=== PATIENT | male | born 1970 | race African-American/Black ===

== ENCOUNTER 2016-06-15 09:24 | Observation (INO) | payer OTHER ==
[~2016-06-15] VITALS: Ht 180.3 cm; Wt 85.0 kg
[2016-06-15 09:34] VITALS: BP 125/76; PULSE 60; RESP 20; TEMP 98.2; O2SAT 94
[2016-06-15 10:08] LABS: AUTOMATED NEUTROPHIL # 3.2 TH/MM3 (1.8-7.7); BASOPHIL % 0.4 % (0.0-2.0); EOSINOPHIL # 0.1 TH/MM3 (0-0.4); EOSINOPHIL % 1.5 % (0.0-4.0); HEMATOCRIT 39.3 % (39.0-51.0); HEMO FLAGS DIFF FINAL; LYMPH % 20.8 % (9.0-44.0); MEAN CELL VOLUME 81.3 FL (80.0-100.0); MEAN CORPUSCULAR HEMOGLOBIN 27.1 PG (27.0-34.0); MEAN CORPUSCULAR HGB CONC 33.3 % (32.0-36.0); MONO % 7.4 % (0.0-8.0); NEUT % 69.9 % (16.0-70.0); PLATELET COUNT 130 TH/MM3 (150-450); RED BLOOD COUNT 4.84 MIL/MM3 (4.50-5.90); RED CELL DISTRIBUTION WIDTH 16.5 % (11.6-17.2); WHITE BLOOD COUNT 4.6 TH/MM3 (4.0-11.0)
--- NOTE | 2016-06-15 10:20 | RADRPT ---
EXAM DATE/TIME: 06/15/2016 09:44 [facility] COMPARISON: CHEST SINGLE AP, May 13, 2016, 12:29. INDICATIONS: Chest pains mid sternal radiating into left chest wall. MEDICAL HISTORY: Myocardial infarction. SURGICAL HISTORY: CABG. Pacemaker. ENCOUNTER: Initial ACUITY: 1 day PAIN SCORE: 9/10 LOCATION: Left chest FINDINGS: The heart is enlarged. Pacemaker leads are stable in appearance compared to the previous examination . Minimal central pulmonary vascular congestion is noted. CONCLUSION: 1. Minimal pulmonary vascular congestion. 2. Cardiomegaly. Willie Lyon MD on June 15, 2016 at 10:15 Board Certified Radiologist. This report was verified electronically.
[2016-06-15 10:28] LABS: ANION GAP 7 MEQ/L (5-15); BICARBONATE 22.5 MEQ/L (21.0-32.0); BLOOD UREA NITROGEN 19 MG/DL (7-18); CHLORIDE 119 MEQ/L (98-107); CREATINE KINASE 175 U/L (39-308); GLOMERULAR FILTRATION RATE 172 ML/MIN (>89); SODIUM (NA) 148 MEQ/L (136-145)
[2016-06-15] MEDS ORDERED: SODIUM CHLOR 0.9% 1000 ML INJ 1,000 ML IV ONE (10:31)
[2016-06-15 10:36] VITALS: RESP 18; O2SAT 99
[2016-06-15] MEDS ORDERED: SODIUM CHLORIDE 0.9% FLUSH 5 ML FLUSH IVF PRN (10:45)
[2016-06-15 10:53] LABS: CKMB 2.1 NG/ML (0.5-3.6)
[2016-06-15 10:56] LABS: CALCIUM-PROTEIN CORRECTED 7.3 MG/DL (8.5-10.1); POTASSIUM 2.6 MEQ/L (3.5-5.1)
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
--- NOTE | 2016-06-15 11:21 | RADRPT ---
EXAM DATE/TIME: 06/15/2016 11:09 [facility] COMPARISON: CT BRAIN W/O CONTRAST, September 27, 2015, 19:41. INDICATIONS : Dizziness. RADIATION DOSE: 51.47 CTDIvol (mGy) MEDICAL HISTORY : Hypertension. SURGICAL HISTORY : CABG ENCOUNTER: Initial ACUITY: 1 day PAIN SCALE: 0/10 LOCATION: cranial TECHNIQUE: Multiple contiguous axial images were obtained of the head. Using automated exposure control and adj ustment of the mA and/or kV according to patient size, radiation dose was kept as low as reasonably a chievable to obtain optimal diagnostic quality images. FINDINGS: CEREBRUM: The ventricles are normal for age. No evidence of midline shift, mass lesion, hemorrhage or acute in farction. No extra-axial fluid collections are seen. POSTERIOR FOSSA: The cerebellum and brainstem are intact. The 4th ventricle is midline. The cerebellopontine angle i s unremarkable. EXTRACRANIAL: Old right lamina papyracea fracture is noted. Mucous retention cyst is noted within the left sphenoid sinus. SKULL: The calvaria is intact. No evidence of skull fracture. CONCLUSION: 1. No acute intracranial abnormality. 2. Old right lamina papyracea fracture. 3. Mucous retention cyst within the left sphenoid sinus. Willie Lyon MD on June 15, 2016 at 11:17 Board Certified Radiologist. This report was verified electronically.
[2016-06-15 11:52] LABS: BLOOD, URINE TRACE (NEG); GLUCOSE,URINE NEG (NEG); KETONE, URINE NEG (NEG); NITRITE,URINE NEG (NEG); URINE COLOR YELLOW (YELLW/STRAW)
[2016-06-15] MEDS ORDERED: POTASSIUM CL 40 MEQ/30 ML LIQ UDC PO ONE (12:00)
[2016-06-15 12:02] LABS: COMMENT (UR) CULT NOT INDICATED; CULTURE IF INDICATED CULT NOT INDICATED
[2016-06-15 12:04] LABS: APTT (PATIENT) 29.6 SEC (24.3-30.1); PROTHROMBIN TIME - PATIENT 11.1 SEC (9.8-11.6)
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
[2016-06-15] MEDS: SODIUM CHLORIDE 0.9% FLUSH 5 ML FLUSH FLUSH SCH ×2 (13:15→21:00)
[2016-06-15] MEDS ORDERED: ONDANSETRON HCL 4 MG/2 ML VIAL IV PRN (13:15)
[2016-06-15] MEDS ORDERED: ACETAMINOPHEN 325 MG TAB PO PRN ×2 (13:15→14:45)
[2016-06-15] MEDS ORDERED: POTASSIUM CHLORIDE 10 MEQ CONTROLLED RELEASE TAB PO ONE (13:15)
[2016-06-15] MEDS ORDERED: DOCUSATE SODIUM 50 MG/SENNA 8.6 MG TAB PO PRN (13:15)
[2016-06-15] MEDS ORDERED: NALOXONE HCL 0.4 MG/ML AMP IV PRN (13:15)
[2016-06-15] MEDS ORDERED: SODIUM CHLORIDE 0.9% FLUSH 5 ML FLUSH FLUSH PRN (13:15)
[2016-06-15] MEDS: MULTIVITAMIN TAB PO SCH (14:16)
[2016-06-15] MEDS: FOLIC ACID 1 MG TAB PO SCH (14:17)
[2016-06-15] MEDS: THIAMINE HCL 100 MG TAB PO SCH (14:17)
[2016-06-15 14:18] VITALS: BP 131/75; PULSE 60; RESP 18; O2SAT 99
[2016-06-15] MEDS ORDERED: ACETAMINOPHEN/HYDROcodone 325 MG/5 MG TAB PO PRN (14:45)
[2016-06-15] MEDS ORDERED: ACETAMINOPHEN/HYDROcodone 325 MG/7.5 MG TAB PO PRN (14:45)
[2016-06-15] MEDS: ENOXAPARIN SODIUM 40 MG/0.4 ML SYRINGE SQ SCH (15:00)
[2016-06-15] MEDS ORDERED: CALCIUM GLUCONATE 10% 1 GM/10 ML VIAL IV PUSH ONE (15:00)
[2016-06-15] MEDS ORDERED: GLUCAGON 1 MG/ML VIAL OTHER PRN (15:15)
[2016-06-15] MEDS ORDERED: DEXTROSE 50% IN WATER 50 ML VIAL(D50) IV PUSH PRN (15:15)
[2016-06-15 15:57] VITALS: BP 132/68; PULSE 70; RESP 18; TEMP 97.7; O2SAT 98
[2016-06-15 16:11] LABS: AMPHETAMINE, URINE NEG (NEG); BARBITURATES, URINE NEG (NEG); COCAINE, URINE NEG (NEG)
[2016-06-15] MEDS ORDERED: CALCIUM GLUCONATE INJ 1 GM in SODIUM CHLORIDE 0.9% INJ 100 ML IV ONE (18:00)
[2016-06-15] MEDS: INSULIN ASPART SUPPLEMENTAL SCALE SQ SCH ×2 (18:00→21:00)
[2016-06-15] MEDS: SODIUM CHLOR 0.9% 1000 ML INJ 1,000 ML IV SCH ×2 (18:21→23:00)
--- NOTE | 2016-06-15 18:36 | RADRPT ---
EXAM DATE/TIME: 06/15/2016 17:41 [facility] COMPARISON: No previous studies available for comparison. INDICATIONS : Syncope. MEDICAL HISTORY : Hypertension. Chronic obstructive pulmonary disease. Syncope. Anticoagulant t herapy. Irregular heartbeat. Inguinal hernia. Diabetes. SURGICAL HISTORY : Defibrillator. Pacemaker. CABG. Cardiac catheterization. Exploratory abdominal surgery. ENCOUNTER: Initial ACUITY: 1 day PAIN SCORE: 0/10 LOCATION: Bilateral neck PEAK SYSTOLIC VELOCITIES (cm/sec): ICA/CCA RATIO: Right: 0.9 Left: 1.0 ICA: Right: 85 Left: 87 CCA: Right: 94 Left: 97 ECA: Right: 140 Left: 128 VERTEBRAL: Right: 50 antegrade Left: 25 antegrade Elevated flow velocities and ICA/CCA ratios have been found to correlate with increased degrees of vessel stenosis, calculated as percentage of diameter relative to a normal segment of distal ICA/CCA FINDINGS: RIGHT CAROTID: There is no evidence for a hemodynamically significant carotid stenosis. Minimal int imal hyperplasia is present with scattered calcific plaque. LEFT CAROTID: There is no evidence for a hemodynamically significant carotid stenosis. Minimal inti mal hyperplasia is present with scattered calcific plaque. VERTEBRAL ARTERIES: Flow is antegrade in both vertebral arteries. MISCELLANEOUS: There are no ancillary masses or adenopathy. CONCLUSION: Negative examination for a hemodynamically significant carotid stenosis. Bill Marcus MD FACR Board Certified Radiologist. This report was verified electronically.
[2016-06-15 19:26] VITALS: BP 130/60; PULSE 97; RESP 18; TEMP 98.2; O2SAT 97
[2016-06-15 20:00] VITALS: PULSE 84; O2SAT 97
--- NOTE | 2016-06-15 20:43 | HHI.FPPN ---
Subjective Remarks Attending note pleasant 45-year-old gentleman admitted after 2 episodes on this date of falling and near loss of consciousness. Patient states that this morning he was walking on [employer] and was aware of falling to the road. States he came close to losing consciousness but was aware. On his own power he got up, went to a friend's store and then had an apnea episode. 911 was called, patient was brought to the emergency room. Patient is unable to recall specific exact details of his cardiac situation. 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 Man whom he says implanted a pacemaker and defibrillator. Patient also carries a diagnosis of having transposition of the great vessels and having had open heart surgery at age 12. The most recent imaging of his heart was in August 2015 with a 2-D echocardiogram and at that time his ejection fraction was 40-45%, there is no mention on that report of any anomalous blood vessels. Patient expressed any chest pain, nausea or vomiting, does not recall diaphoresis. Is currently resting comfortably. Objective Vitals Vital Signs Date Time Temp Pulse Resp B/P Pulse Ox O2 Delivery O2 Flow Rate FiO2 06/15/16 19:26 98.2 97 18 130/60 97 06/15/16 15:57 97.7 70 18 132/68 98 06/15/16 14:18 60 18 131/75 99 Room Air 06/15/16 10:36 18 99 Room Air 06/15/16 10:30 65 18 98 Room Air 06/15/16 09:34 98.2 60 20 125/76 94 Room Air Result Diagram: 06/15/16 0950 06/15/16 0950 Objective Remarks Vital signs noted. Blood pressure 130/60. EKG reveals a paced rhythm. Afebrile. Gen. appearance: Middle-aged gentleman who makes good eye contact, does appear to have some difficulty relating an exact history. HEENT: Nonlocalizing. Lungs: Diminished breath sounds bilaterally. Cardiac: 2/6 holosystolic murmur at the left sternal border radiating to the apex. There is a palpable instrument subcutaneously below the left axilla. Abdomen: Slightly protuberant, no tenderness, no masses evident. Extremities no significant edema, intact pedal pulses, feet are warm and dry. A/P Assessment and Plan Clinical assessment: 45-year-old gentleman admitted to observation after 2 episodes of near syncope. Very extensive and complex past medical history of cardiac disease currently with a defibrillator and pacemaker. Patient is resting comfortably. Records indicate history of diabetes, currently the patient has hypokalemia and a relative barak vo as well as hypocalcemia. 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 Patient was seen and examined. Case will be reviewed and discussed with the resident team. Agree with plan of as to be discussed with me and documented in the resident note. Problem List: (1) Syncope and collapse Status: Acute Plan: Presented due to history of syncope without reported precipitating symptoms. HX is complicated by a extensive cardiac history but patient is unaware of his conditions and is a very poor historian. Etiology is very unclear at this stage due to lack of history and ability to describe symptoms. However patient does have significant hypokalemia on admission. -EKG: atrial paced with T wave inversions. Troponin unremarkable * ACS evaluation -No signs of infection, UDS negative -BNP slightly elevated but otherwise unremarkable -Echo, orthostatic vital signs, TSH ordered -Carotid ultrasound negative -Cardiac telemetry Imaging: * Head CT: Negative * CXR: minimal pulmonary vascular congestion Medications: * KCl PRN per follow-up evaluations (2) DM (diabetes mellitus) Status: Chronic Plan: Denies a history of diabetes but chart review shows a history of diabetes. Random glucose did show an appropriate glucose. -bedside glucose with sliding scale ordered (3) CAD (coronary artery disease) Status: Acute Plan: Extensive cardiac history also requiring catheterization. However patient is very unclear of his cardiac history. Reports he is on no medications -Will empirically treat with statin -Unable to give aspirin due to allergy, may need to consider Plavix -Lipid panel ordered -Interrogation of AICD was negative See further management under syncope (4) History of psychiatric symptoms Status: Acute Plan: Upon review of ED physician's note, family reports patient may have a psychiatric history. Patient denies this but is not fully oriented to time. However he is able to have a good conversation. -Consult psychiatry for evaluation as he may need further treatment (5) Hypokalemia Status: Acute Plan: See plan under syncope (6) Nutrition, metabolism, and development symptoms Status: Acute Plan: Diet: Heart healthy Electrolytes: She hypokalemic plan above, calcium corrected with calcium gluconate 1. Continue to closely monitor Fluids: None GI prophylaxis: Not indicated DVT prophylaxis: Lovenox and SCDs Problem Qualifiers (1) DM (diabetes mellitus): Antonio Sun MD Jun 15, 2016 20:43
--- NOTE | 2016-06-15 20:45 | EKG ---
Date Performed: 06/15/2016 Time Performed: 09:43:41 PTAGE: 45 years EKG: ATRIAL PACING INCOMPLETE RBBB RIGHT AXIS DEVIATION SUSPECTED RIGHT VENTRICULAR HYPERTROPHY NO SIGNIFICANT CHANGE FROM PRIOR TRACING. ABNORMAL ECG PREVIOUS TRACING : 06/01/2016 19.14 DOCTOR: Ranjeet Gaspar Interpretating Date/Time 06/15/2016 20:44:04
[2016-06-15 21:06] LABS: POTASSIUM 4.1 MEQ/L (3.5-5.1)
[2016-06-16] VITALS (8 sets, daily range): BP systolic 110–161; BP diastolic 55–78; PULSE 60–84; RESP 17–20; TEMP 97.3–98.2; O2SAT 93–97
[2016-06-16 03:17] LABS: AUTOMATED NEUTROPHIL # 2.9 TH/MM3 (1.8-7.7); BASOPHIL % 0.3 % (0.0-2.0); EOSINOPHIL # 0.1 TH/MM3 (0-0.4); EOSINOPHIL % 1.2 % (0.0-4.0); HEMATOCRIT 38.4 % (39.0-51.0); HEMO FLAGS DIFF FINAL; LYMPH % 24.8 % (9.0-44.0); LYMPHOCYTE # 1.1 TH/MM3 (1.0-4.8); MEAN CELL VOLUME 80.8 FL (80.0-100.0); MEAN CORPUSCULAR HEMOGLOBIN 27.4 PG (27.0-34.0); MEAN CORPUSCULAR HGB CONC 33.9 % (32.0-36.0); MONO % 8.6 % (0.0-8.0); NEUT % 65.1 % (16.0-70.0); PLATELET COUNT 127 TH/MM3 (150-450); RED BLOOD COUNT 4.75 MIL/MM3 (4.50-5.90); RED CELL DISTRIBUTION WIDTH 16.7 % (11.6-17.2); WHITE BLOOD COUNT 4.5 TH/MM3 (4.0-11.0)
[2016-06-16 03:38] LABS: ALT (GPT) 39 U/L (12-78); ANION GAP 6 MEQ/L (5-15); AST (GOT) 27 U/L (15-37); BICARBONATE 26.6 MEQ/L (21.0-32.0); BLOOD UREA NITROGEN 18 MG/DL (7-18); CHLORIDE 108 MEQ/L (98-107); GLOMERULAR FILTRATION RATE 101 ML/MIN (>89); POTASSIUM 4.1 MEQ/L (3.5-5.1); SODIUM (NA) 141 MEQ/L (136-145)
[2016-06-16 03:41] LABS: ALKALINE PHOSPHATASE 112 U/L (45-117); HDL CHOLESTEROL 61.5 MG/DL (40.0-60.0); LDL CHOLESTEROL 118 MG/DL (0-99); TOTAL BILIRUBIN ADULT 0.6 MG/DL (0.2-1.0)
[2016-06-16] MEDS: SODIUM CHLOR 0.9% 1000 ML INJ 1,000 ML IV SCH (05:16)
[2016-06-16] MEDS: INSULIN ASPART SUPPLEMENTAL SCALE SQ SCH ×4 (05:17→21:00)
--- NOTE | 2016-06-16 09:32 | EC ---
Study Study Date:06/15/2016 STUDY CONCLUSIONS SUMMARY - Left ventricle: The cavity size was normal. Wall thickness was normal. Systolic function was moderately to severely reduced. The estimated ejection fraction was in the range of 30% to 35%. Wall motion was normal; there were no regional wall motion abnormalities. - Aortic valve: Valve area: 2.42cm^2 (Vmax). - Tricuspid valve: Moderate regurgitation. - Pulmonary arteries: PA peak pressure: 94mm Hg (S). Impressions: The right ventricular systolic pressure was increased consistent with severe pulmonary hypertension. If LV function is below 40, please consider prescribing an ACEI or ARB or document rationale for non-use. PROCEDURE DATA STUDY STATUS: Elective. Procedure: Transthoracic echocardiography. Image quality was poor. Scanning was performed from the parasternal, apical, and subcostal acoustic windows. Study completion: The patient tolerated the procedure well. Transthoracic echocardiography. M-mode, complete 2D, complete spectral Doppler, and color Doppler. Height: Height: 71in. Weight: Weight: 186.6lb. Body mass index: BMI: 26.1kg/m^2. Body surface area: BSA: 2.05m^2. Patient status: Inpatient. CARDIAC ANATOMY LEFT VENTRICLE: The cavity size was normal. Wall thickness was normal. Systolic function was moderately to severely reduced. The estimated ejection fraction was in the range of 30% to 35%. Wall motion was normal; there were no regional wall motion abnormalities. AORTIC VALVE: Trileaflet; normal thickness leaflets. Doppler: Transvalvular velocity was within the normal range. There was no stenosis. No regurgitation. Valve area: 2.42cm^2 (Vmax). Indexed valve area: 1.18cm^2/m^2 (Vmax). AORTA: Aortic root: The aortic root was normal in size. MITRAL VALVE: Structurally normal valve. Doppler: Transvalvular velocity was within the normal range. There was no evidence for stenosis. No regurgitation. LEFT ATRIUM: The atrium was normal in size. RIGHT VENTRICLE: The cavity size was normal. Wall thickness was normal. Pacer wire or catheter noted in right ventricle. PULMONIC VALVE: Doppler: Transvalvular velocity was within the normal range. There was no evidence for stenosis. No regurgitation. TRICUSPID VALVE: Structurally normal valve. Doppler: Transvalvular velocity was within the normal range. Moderate regurgitation. PULMONARY ARTERY: The main pulmonary artery was normal-sized. Systolic pressure was within the normal range. RIGHT ATRIUM: The atrium was normal in size. PERICARDIUM: There was no pericardial effusion. SYSTEMIC VEINS: Inferior vena cava: The vessel was normal in size. Patient weight: 186.6lb _Ejection fraction:_ 65-75% _Fractional shortening:_ 32% up to 5Kg 5-11.5Kg 11.6-22.9Kg 23-45Kg 45-57Kg Aortic Root 7-13 <17 13-22 17-27 17-27 LA diam 6-13 <23 24-38 33-47 37-40 RVID 10-17 7-15 7-15 7-18 8-17 LVIDd 12-22 <32 24-38 33-47 37-40 LVPW 2-4 3-6 5-7 6-8 7-8 IVS 2-4 3-6 5-7 6-8 7-8 BASIC MEASUREMENTS ADULT NORMAL Left ventricle LV internal dimension, ED, chordal *34.3 mm 43-52 level, PLAX LV internal dimension, ES, chordal 30 mm 23-38 level, PLAX Fractional shortening, chordal level, *13 % >29 PLAX LV posterior wall thickness, ED 7.34 mm IVS/LVPW ratio, ED *1.43 <1.3 Ventricular septum Septal thickness, ED 10.5 mm Aortic valve Leaflet separation *13 mm 15-26 BASIC MEASUREMENTS ADULT NORMAL Aortic valve Leaflet separation *13 mm 15-26 Aorta Root diameter, ED *19 mm 20-37 Left atrium Anterior-posterior dimension, ES 31 mm 19-40 Anterior-posterior dimension index, ES 1.51 cm/m^2 <2.2 LA/aortic root ratio 1.63 DOPPLER MEASUREMENTS ADULT NORMAL Main pulmonary artery Pressure, S *94 mm Hg =30 Aortic valve Peak velocity, S 131 cm/s Valve area, Vmax 2.42 cm^2 Valve area index, Vmax 1.18 cm^2/m^2 Tricuspid valve Regurgitant peak velocity 425 cm/s Peak RV-RA gradient, S 72 mm Hg Maximal regurgitant velocity 425 cm/s Systemic veins Estimated CVP 10 mm Hg Right ventricle RV pressure, S *94 mm Hg <30 LEGEND: Mean values are shown as u=mean value. Asterisk (*) alexis values outside specified normal range. Prepared and signed by Mario Jacob [id number]
[2016-06-16] MEDS: SODIUM CHLORIDE 0.9% FLUSH 5 ML FLUSH FLUSH SCH ×2 (09:54→21:27)
[2016-06-16] MEDS: MULTIVITAMIN TAB PO SCH (10:00)
[2016-06-16] MEDS: THIAMINE HCL 100 MG TAB PO SCH (10:00)
[2016-06-16] MEDS: ATORVASTATIN 40 MG TAB PO SCH (10:00)
[2016-06-16] MEDS: FOLIC ACID 1 MG TAB PO SCH (10:00)
[2016-06-16 10:46] LABS: HEMOGLOBIN A1a 0.9 %; HEMOGLOBIN A1b 1.3 %; HEMOGLOBIN Ao 55.2 %; HEMOGLOBIN LA1C 1.4 %; HEMOGLOBIN P3 2.7 %
--- NOTE | 2016-06-16 13:51 | HHI.FPPN ---
Subjective Remarks Vital signs unremarkable. Review of telemetry showed 4 beats of Vtach. Patient is quiet this morning but otherwise is asymptomatic. States that he does feel better today than he did yesterday but is again unable to clarify what improvement it was. Of note nurse does report that patient may have a history of anoxic brain injury after an incident in [facility]. Objective Vitals Vital Signs Date Time Temp Pulse Resp B/P Pulse Ox O2 Delivery O2 Flow Rate FiO2 06/16/16 11:34 97.4 60 17 122/56 93 06/16/16 07:38 97.3 60 17 110/65 93 06/16/16 04:50 97.8 84 18 132/78 95 06/16/16 00:59 98.2 84 18 125/58 97 06/15/16 20:00 84 06/15/16 20:00 97 06/15/16 19:26 98.2 97 18 130/60 97 06/15/16 15:57 97.7 70 18 132/68 98 06/15/16 14:18 60 18 131/75 99 Room Air Result Diagram: 06/16/16 0255 06/16/16 0255 Objective Remarks GEN: Well-developed, well-nourished patient. No acute distress. CV: Regular rate and rhythm without gallops, or rubs. 2/6 holosystolic murmur at the left sternal border LUNGS: Clear to auscultation bilaterally. Normal respiratory effort. No wheezes , rales, rhonchi. EXT: No edema. No calf tenderness. NEURO/PSYCH: Awake, alert. Appropriate insight and judgment. Normal speech A/P Assessment and Plan 45yo male with PMH significant for CAD, CHF, DM. Admitted for history of syncope Discharge Planning 2-3 days pending cardiology recommendations sdw dr. Sun and Dr. Nelson Problem List: (1) Syncope and collapse Status: Acute Plan: Presented due to history of syncope without reported precipitating symptoms. HX is complicated by a extensive cardiac history but patient is unaware of his conditions and is a very poor historian. (May be due to a possible history of anoxic brain injury vs mental illness). Found to have 4 beats of V. tach on the night of admission. -Found to have electrolyte abnormalities that was corrected with 40 mEQ potassium -EKG: atrial paced with T wave inversions. Troponin unremarkable * ACS negative * Upon second review of EKG, it appears that atrial pacing is occurring at regular intervals but within different cardiac cycles including QRS and T-wave Cardiology consulted: Appreciate recommendations * Patient reports having Dr. Man placing AICD -Orthostatics ordered but not yet obtained -Cardiac telemetry Imaging: * Echo: EF 30-34%, moderate tricuspid regurgitation. Right ventricular systolic pressure was increased consistent with severe pulmonary hypertension * Carotid ultrasound: Negative * Head CT: Negative * CXR: minimal pulmonary vascular congestion (2) CAD (coronary artery disease) Status: Acute Plan: Extensive cardiac history also requiring catheterization. However patient is very unclear of his cardiac history. Reports he is on no medications -Empirically treat with statin -Unable to give aspirin due to allergy, may need to consider Plavix and lisinopril -Lipid unremarkable -Interrogation of AICD was negative SEE FURTHER MANAGEMENT UNDER SYNCOPE (3) DM (diabetes mellitus) Status: Chronic Plan: Denies a history of diabetes but chart review shows a history of diabetes. Random glucose did show an appropriate glucose. -bedside glucose with sliding scale ordered (4) History of psychiatric symptoms Status: Acute Plan: Upon review of ED physician's note, family reports patient may have a psychiatric history. Patient denies this but is not fully oriented to time. However he is able to have a good conversation. -Psychiatry consulted: Appreciate recommendations * No psychotropics recommended * May benefit from neuropsychological testing * No immediate intervention needed at this time (5) Nutrition, metabolism, and development symptoms Status: Acute Plan: Diet: Heart healthy Electrolytes: Potassium and calcium have responded appropriately, continue to monitor Fluids: None GI prophylaxis: Not indicated DVT prophylaxis: Lovenox and SCDs Problem Qualifiers (1) DM (diabetes mellitus): Shirley Navarro MD R2 Jun 16, 2016 13:50 (1) DM (diabetes mellitus): Shirley Navarro MD R2 Jun 16, 2016 13:50 Shirley Navarro MD R2 Jun 16, 2016 13:50
[2016-06-16] MEDS: ENOXAPARIN SODIUM 40 MG/0.4 ML SYRINGE SQ SCH (14:18)
--- NOTE | 2016-06-16 14:47 | PD.CONS ---
Provisional Diagnosis Admission Date Jun 15, 2016 at 12:12 [place] I. Adjustment disorder with disturbance of conduct [place] II. Rule out mild to moderate intellectual disability History of Present Illness Service Psychiatry Consult Requested By Primary Care Physician Non-Staff HPI The patient is a 45 y/o man, domiciled alone, unemployed, on SSI, with reported psychiatric history, as per best friend, of being "mentally challenged", no previous psychiatric hospitalizations, no previous suicidal attempts, never officially diagnosed with borderline intellectual dysfunction, with medical history significant for AICD placement and CAD. He other gonzalez denies any other problems. Patient presented today due to history of 2 falls. [place] fall in [id number] that was completely out of the blue. This was then followed by a repeat fall that was witnessed by his friend but patient does not remember what his friend said happened nor the length of LOC. Patient has been presenting can of erratic sometimes aggressive behavior in the ER, a psychiatric consult was placed to rule out possible psychiatric causes. On psychiatric evaluation today the patient was calm and cooperative, a little bit discontent and oppositional at the beginning, but redirectable. He says that he hasn't been very happy here, because he doesn't like to be sick, and he doesn 't like to be asked many questions many times. Patient states that he is feeling much better now, he denies any depressive symptoms, denies anhedonia, denies hopelessness, denies helplessness, he denies suicidal or homicidal ideation. He denies visual and auditory hallucinations. No paranoia, delusions , psychosis could be elicited. Patient is fully oriented 3. However, concrete thought is evident, as well as childish and irritable behavior. Collateral information from his best friend, Shaye Bates, was obtained, she says that she is his best friend for 14 years, she says that she has a power of claim attorney given by the the patient, and they are very close. She said that the patient doesn't have a formal psychiatric history, but since she was a child he has a learning problem, he never could learn how to write or read appropriately , and he did not finish school. In the same way, as an adult, his functional for many things, but he needs help in difficult tasks, as managing his financial situation, and clarification with medications and medical illnesses. However, she does not have any safety concern at this moment with the patient. Review of Systems Constitutional: DENIES: Diaphoretic episodes, Fatigue, Fever, Weight gain, Weight loss, Chills, Dizziness, Change in appetite, Night Sweats Eyes: DENIES: Blurred vision, Diplopia, Eye inflammation, Eye pain, Vision loss , Photosensitivity, Double Vision Ears, nose, mouth, throat: DENIES: Tinnitus, Hearing loss, Vertigo, Nasal discharge, Oral lesions, Throat pain, Hoarseness, Ear Pain, Running Nose, Epistaxis, Sinus Pain, Toothache, Odynophagia Respiratory: DENIES: Apneas, Cough, Snoring, Wheezing, Hemoptysis, Sputum production, Shortness of breath Cardiovascular: DENIES: Chest pain, Palpitations, Syncope, Dyspnea on Exertion , PND, Lower Extremity Edema, Orthopnea, Claudication Gastrointestinal: DENIES: Abdominal pain, Black stools, Bloody stools, Constipation, Diarrhea, Nausea, Vomiting, Difficulty Swallowing, Anorexia Genitourinary: DENIES: Sexual dysfunction, Urinary frequency, Urinary incontinence, Urgency, Hematuria, Dysuria, Nocturia, Penile Discharge, Testicular Pain, Testicular Swelling Musculoskeletal: DENIES: Joint pain, Muscle aches, Stiffness, Joint Swelling, Back pain, Neck pain Integumentary: DENIES: Abnormal pigmentation, Nail changes, Pruritus, Rash Hematologic/lymphatic: DENIES: Bruising, Lymphadenopathy Immunologic/allergic: DENIES: Eczema, Urticaria Neurologic: DENIES: Abnormal gait, Headache, Localized weakness, Paresthesias, Seizures, Speech Problems, Tremor, Poor Balance Past Family Social History Coded Allergies: Aspirin (Verified Allergy, Severe, DIZZINESS, FACIAL SWELLING, 06/01/16) No Active Prescriptions or Reported Meds Current Medications Medications (Trade) Dose Ordered Sig/Karina Route Start Time Stop Time Status Last Admin (Tylenol) 650 mg Q4H PRN PO 06/15/16 13:15 (Zofran Inj) 4 mg Q6H PRN IV 06/15/16 13:15 (Petra-Colace) 1 tab BID PRN PO 06/15/16 13:15 (NS Flush) 2 ml UNSCH PRN FLUSH 06/15/16 13:15 (NS Flush) 2 ml BID FLUSH 06/15/16 13:15 06/15/16 13:15 (Narcan Inj) 0.4 mg UNSCH PRN IV 06/15/16 13:15 (Theragran) 1 tab DAILY PO 06/15/16 13:15 06/16/16 10:00 (Vitamin B1) 100 mg DAILY PO 06/15/16 13:15 06/16/16 10:00 (Folate) 1 mg DAILY PO 06/15/16 13:15 06/16/16 10:00 (Lovenox Inj) 40 mg Q24H SQ 06/15/16 15:00 (Tylenol) 650 mg Q6H PRN PO 06/15/16 14:45 ([place] 5-325 Mg) 1 tab Q4H PRN PO 06/15/16 14:45 ([place] 7.5-325 Mg) 1 tab Q4H PRN PO 06/15/16 14:45 Atorvastatin Calcium 40 mg 40 mg DAILY PO 06/16/16 09:00 06/16/16 10:00 (NS 1000 ml Inj) 1,000 ml @ 125 mls/hr Q8H IV 06/15/16 15:00 Hold 06/16/16 05:16 (D50w (Vial) Inj) 25 ml UNSCH PRN IV PUSH 06/15/16 15:15 (Glucagon Inj) 1 mg UNSCH PRN OTHER 06/15/16 15:15 Social History Patient was born and raised in [place], he has been living in 2010 , he is , but doesn't live with his , unemployed, on SSI, he did not finish school Physical Exam Vital Signs Vital Signs Date Time Temp Pulse Resp B/P Pulse Ox O2 Delivery O2 Flow Rate FiO2 06/16/16 11:34 97.4 60 17 122/56 93 06/15/16 14:18 Room Air Mental Status Examination Appearance man, age-appropriate, good hygiene, cooperative, irritable and childish Speech: Unremarkable Orientation: x3 Memory: Impaired (describe) Thought Process: Logical, Other (concrete) Thought Content: Unremarkable Hallucination Type: None Suicidal Ideation: No Previous Suicide Attempts: No Homicidal Ideation: No Previous Homicide Attempts: No Insight: Fair Judgement: WNL Affect: Irritable Mood: Oppositional Motor Activity: Normal gait Assessment & Plan Problem List: (1) Adjustment disorder with disturbance of conduct Assessment & Plan: On psychiatric evaluation today the patient denies depressive symptoms, denies anxiety, denies psychosis, denies livier. He denies suicidal or homicidal ideation. He denies visual and auditory hallucinations. Recent episodes of aggressive and erratic behavior could be secondary to the stress of being in the hospital and underlying medical problem and no to a primary psychiatric condition. For some elements of thought process observed during psychiatric evaluation, and also some information from collateral sources , is highly probable the patient might have an undiagnosed mild to moderate intellectual dysfunction, however more longitudinal observation and his specific neurocognitive testing needs to be done in order to confirm this diagnosis. This patient does not need any immediate psychiatric intervention at this moment, he does not meet criteria for psychiatric admission. Psychoeducation, motivation and support were provided. No psychotropics recommended. The patient and best friend were oriented about the benefits of neuropsychological testing, best friend is stays that they have been in the process in the past, but they will call back to recommended with psychology. Consult appreciated. ICD Code: F43.24 Assessment & Plan Estimated LOS: Vic Meier MD Jun 16, 2016 14:47
--- NOTE | 2016-06-16 17:52 | MB ---
cc: PARISH PABLO M.D. DATE OF CONSULTATION: 06/16/2016 REASON FOR THE CONSULTATION Syncope, nonsustained ventricular tachycardia. HISTORY OF PRESENT ILLNESS The patient is an exceedingly poor historian. He is a 45-year-old -[place] male with a history of congenital transposition of the great vessels, severe nonischemic cardiomyopathy, subcutaneous ICD implant, right upper extremity deep venous thrombosis, diabetes, paroxysmal atrial flutter who was brought to the hospital after an apparent syncopal episode. The patient cannot recall the surrounding events before or after his loss of consciousness. He cannot recall if his defibrillator shocked him. He denies any recent chest pain, shortness of breath, palpitations, other episodes of syncope, paroxysmal nocturnal dyspnea, pedal edema, fevers. He thinks he follows up periodically with Dr. Reilly Roth for checks of his defibrillator device. Monitoring here in the hospital reportedly showed an episode of wide complex tachycardia, four beats in duration. PAST MEDICAL HISTORY 1. Congenital transposition of the great vessels. It is unclear whether he had surgical intervention as a child. 2. History of a pacemaker implant approximately 2009, at some point he developed infection of a left-sided system and it was placed on the right. 3. Paroxysmal atrial flutter. 4. Diabetes (diet controlled, borderline). 5. Large right upper extremity deep venous thrombosis July 2015. 6. Severe nonischemic cardiomyopathy with ejection fraction of less than 10% by cardiac catheterization June,. He subsequently underwent implant of a [employer] subcutaneous AICD by Dr. Glen Hannah July,. Due to his venous and cardiac anatomy, they were unable to implant a transvenous AICD system. CARDIAC MEDICATIONS AT HOME None. ALLERGIES ASPIRIN. FAMILY HISTORY The patient denies any family history of cardiac disease. SOCIAL HISTORY The patient smokes about a pack of cigarettes per day. He denies drug or alcohol abuse. REVIEW OF SYSTEMS As in the History of Present Illness, otherwise negative or noncontributory. He also denies headache, visual changes, abdominal pain, melena, dyspepsia, bright red blood per rectum, cough, wheezing. PHYSICAL EXAMINATION VITAL SIGNS: Blood pressure 160/65 with a pulse of 62, respirations 20. GENERAL: He is a well-developed, well-nourished, -[place] male in no acute distress. HEENT: Jugular venous pressure is hard to assess it appears to be normal. Carotid pulses are 2+ bilaterally and without bruits. CHEST: Reveals clear lung chiang. CARDIAC: He has a regular rhythm and rate without S3, S4. There is possibly a grade 1/6 systolic murmur heard along the left sternal border. No gallop is audible. ABDOMEN: He has a soft abdomen. Bowel sounds are present. There is no definite hepatosplenomegaly. EXTREMITIES: Reveals no clubbing, cyanosis or edema. LABORATORY DATA Normal CBC. Potassium 4.1, BUN 18, creatinine 0.97, total cholesterol 197, LDL 118, HDL 62, triglycerides 87. INR 1.0. IMAGING Chest x-ray shows minimal pulmonary vascular congestion. IMPRESSION Possible nonsustained ventricular tachycardia, possible syncopal episode (the patient is an extremely poor historian) in this 45-year-old -[place] male with a history of severe nonischemic cardiomyopathy, ejection fraction less than 10%, status post subcutaneous AICD implant 2015, history of massive right upper extremity deep venous thrombosis 2016, borderline diabetes, paroxysmal atrial flutter, congenital transposition of the great vessels. The patient cannot recall the surrounding events before or after his loss of consciousness. He cannot recall if he had a defibrillator shock. It appears on the monitor that he does have some atrial pacing and he still has a pacemaker generator in his right upper chest. It is unclear whether he has been compliant with regular checks of his AICD, which is a [employer] subcutaneous system. RECOMMENDATIONS 1. Ideally, given his history of atrial arrhythmias and the high risk of thromboembolic phenomena, he should be on anticoagulation therapy; however, his noncompliance precludes use of anticoagulation drugs. He unfortunately is also aspirin allergic. 2. We will have the [employer] phone representative interrogate his AICD. 3. With his severe cardiomyopathy (reportedly the ejection fraction is now 30-35% by echo this admission), recommend beta cindy and CITLALY inhibitor therapy. MD ADI Sousa/TATY /4:38 PM /5:32 PM LIZETTE
[2016-06-16] MEDS: CARVEDILOL 3.125 MG TAB PO SCH (21:27)
[2016-06-16] MEDS: ENALAPRIL MALEATE 5 MG TAB PO SCH (21:27)
--- NOTE | 2016-06-16 22:36 | EKG ---
Date Performed: 06/15/2016 Time Performed: 21:06:48 PTAGE: 45 years EKG: Sinus rhythm INFERIOR MYOCARDIAL INFARCTION EARLY R WAVE TRANSITION SUGGESTING RIGHT VENTRICULAR HYPERTROPHY OR P OSTERIOR WALL INVOLVEMENT WITH A PRIOR INFERIOR WALL INFARCT. THERE APPEARS TO BE SAFETY PACING AT THE END OF THE QRS COMPLEX BUT CLINICAL CORRELATION IS ADVISED TO BE CERTAIN THAT SENSING OF THE PACE MAKER IS APPROPRIATE. ABNORMAL ECG PREVIOUS TRACING : 06/15/2016 09.43 DOCTOR: Ev Pascal Interpretating Date/Time 06/16/2016 22:35:22
--- NOTE | 2016-06-16 22:38 | EKG ---
Date Performed: 06/16/2016 Time Performed: 03:51:21 PTAGE: 45 years EKG: ELECTRONIC ATRIAL PACEMAKER INFERIOR MYOCARDIAL INFARCTION EARLY R WAVE TRANSITION REFLECTI NG POSSIBLE POSTERIOR WALL INFARCTION OCCASIONAL PACs Compared to previous tracing, the atrial rate i s now largely paced but there is, otherwise, no significant or overt serial change. ABNORMAL ECG PREVIOUS TRACING : 06/15/2016 21.06.48 DOCTOR: Ev Pascal Interpretating Date/Time 06/16/2016 22:37:13
[2016-06-17 04:07] VITALS: BP 125/70; PULSE 60; RESP 20; TEMP 98.1; O2SAT 95
[2016-06-17] MEDS: INSULIN ASPART SUPPLEMENTAL SCALE SQ SCH ×3 (06:02→16:00)
[2016-06-17 07:29] LABS: HEMATOCRIT 38.1 % (39.0-51.0); MEAN CELL VOLUME 80.9 FL (80.0-100.0); MEAN CORPUSCULAR HEMOGLOBIN 27.8 PG (27.0-34.0); MEAN CORPUSCULAR HGB CONC 34.4 % (32.0-36.0); PLATELET COUNT 128 TH/MM3 (150-450); RED BLOOD COUNT 4.71 MIL/MM3 (4.50-5.90); RED CELL DISTRIBUTION WIDTH 16.4 % (11.6-17.2); REVIEW FLAG FINAL; WHITE BLOOD COUNT 3.8 TH/MM3 (4.0-11.0)
[2016-06-17 07:48] LABS: BICARBONATE 25.7 MEQ/L (21.0-32.0); POTASSIUM 3.9 MEQ/L (3.5-5.1)
[2016-06-17 08:00] VITALS: PULSE 60
[2016-06-17 08:28] VITALS: BP 113/59; PULSE 60; RESP 18; TEMP 97.9; O2SAT 99
[2016-06-17] MEDS: THIAMINE HCL 100 MG TAB PO SCH (08:40)
[2016-06-17] MEDS: MULTIVITAMIN TAB PO SCH (08:40)
[2016-06-17] MEDS: FOLIC ACID 1 MG TAB PO SCH (08:40)
[2016-06-17] MEDS: CARVEDILOL 3.125 MG TAB PO SCH (08:41)
[2016-06-17] MEDS: ATORVASTATIN 40 MG TAB PO SCH (08:41)
[2016-06-17] MEDS: SODIUM CHLORIDE 0.9% FLUSH 5 ML FLUSH FLUSH SCH (08:43)
--- NOTE | 2016-06-17 08:49 | HHI.FPPN ---
Subjective Remarks No acute events overnight. Vital signs unremarkable but orthostatic vital signs did indicate some orthostatic hypotension. The patient otherwise feels well and has no complaints. Denies any repeat episodes of syncopal, dizziness, chest pain, SOB. Objective Vitals Vital Signs Date Time Temp Pulse Resp B/P Pulse Ox O2 Delivery O2 Flow Rate FiO2 06/17/16 08:28 97.9 60 18 113/59 99 06/17/16 04:07 98.1 60 20 125/70 95 06/16/16 23:37 98.2 60 19 130/72 95 06/16/16 20:37 60 06/16/16 20:10 98.1 60 19 129/75 97 06/16/16 15:23 98.1 62 20 144/67 95 161/65 134/55 06/16/16 11:34 97.4 60 17 122/56 93 Result Diagram: 06/17/16 0658 06/17/1658 Objective Remarks GEN: Well-developed, well-nourished patient. No acute distress. CV: Regular rate and rhythm without gallops, or rubs. 2/6 holosystolic murmur at the left sternal border LUNGS: Clear to auscultation bilaterally. Normal respiratory effort. No wheezes , rales, rhonchi. EXT: No edema. No calf tenderness. NEURO/PSYCH: Awake, alert. Normal speech. Does not have appropriate insight into health conditions. A/P Assessment and Plan 45yo male with PMH significant for CAD, CHF, DM. Admitted for history of syncope Discharge Planning 1-2 days pending cardiology recommendations wdw dr. Sun Problem List: (1) Syncope and collapse Status: Resolved Plan: Presented due to history of syncope without reported precipitating symptoms. HX is complicated by a extensive cardiac history but patient is unaware of his conditions and is a very poor historian. (May be due to a possible history of anoxic brain injury vs mental illness). Found to have 4 beats of V. tach on the night of admission. -Hypokalemia corrected -Orthostatic vital signs suggestive of orthostatic hypotension -Cardiac telemetry -EKG: atrial paced with T wave inversions. Troponin unremarkable * ACS negative Cardiology consulted: Appreciate recommendations * Nonsustained ventricular tachycardia vs syncope * [employer] AICD: Interrogation shows some firings of device * Severe cardiomyopathy, admitted beta cindy and CITLALY inhibitor * Ideally would be on anticoagulation but has not been due to noncompliance Imaging: * Echo: EF 30-34%, moderate tricuspid regurgitation. Right ventricular systolic pressure was increased consistent with severe pulmonary hypertension * Carotid ultrasound: Negative * Head CT: Negative * CXR: minimal pulmonary vascular congestion (2) CAD (coronary artery disease) Status: Acute Plan: Extensive cardiac history also requiring catheterization. However patient is very unclear of his cardiac history. Reports he is on no medications -Empirically treat with statin -Unable to give aspirin due to allergy -Lipid unremarkable SEE FURTHER MANAGEMENT UNDER SYNCOPE (3) DM (diabetes mellitus) Status: Chronic Plan: Denies a history of diabetes but chart review shows a history of diabetes. A1c of 6.8 on no medication. -bedside glucose have been WNL, consider discontinuing tomorrow -would benefit from metformin at discharge (4) History of psychiatric symptoms Status: Acute Plan: Upon review of ED physician's note, family reports patient may have a psychiatric history. Patient denies this but is not fully oriented to time. However he is able to have a good conversation. -Psychiatry consulted: Appreciate recommendations * No psychotropics recommended * May benefit from neuropsychological testing * No immediate intervention needed at this time (5) Nutrition, metabolism, and development symptoms Status: Acute Plan: Diet: Heart healthy Electrolytes: unremarkable, continue to monitor Fluids: None GI prophylaxis: Not indicated DVT prophylaxis: Lovenox and SCDs Problem Qualifiers (1) DM (diabetes mellitus): Shirley Navarro MD R2 Jun 17, 2016 08:49
[2016-06-17] MEDS: ENALAPRIL MALEATE 5 MG TAB PO SCH (09:00)
--- NOTE | 2016-06-17 11:06 | PD.CARD.PN ---
Subjective Subjective Remarks Denies CP, dyspnea, dizziness, palpitations. Objective Medications Item Value Date Time Carvedilol 3.125 mg 06/16/16 2100 (Coreg) Q12HR/PO 06/17/16 0841 Enalapril Maleate 5 mg 06/16/162099 (Vasotec) BID/PO 06/16/162126 Atorvastatin 40 mg 06/16/16 0900 Calcium DAILY/PO 06/17/16 0841 (Lipitor) Enoxaparin Sodium 40 mg 06/15/16 1500 (Lovenox Inj) Q24H/SQ Vital Signs / I&O Vital Signs Date Time Temp Pulse Resp B/P Pulse Ox O2 Delivery O2 Flow Rate FiO2 06/17/16 08:28 97.9 60 18 113/59 99 06/17/16 04:07 98.1 60 20 125/70 95 06/16/16 23:37 98.2 60 19 130/72 95 06/16/16 20:37 60 06/16/16 20:10 98.1 60 19 129/75 97 06/16/16 15:23 98.1 62 20 144/67 95 161/65 134/55 06/16/16 11:34 97.4 60 17 122/56 93 Physical Exam GENERAL: Well developed, well nourished. No acute distress. HEENT: Jugular venous pressure is normal. CHEST: Lungs clear to auscultation bilaterally. Unlabored respiratory effort. CARDIAC: Regular rate and rhythm without S3, S4, or murmur. ABDOMEN: Soft, nontender, no hepatosplenomegaly. Bowel sounds present. EXTREMITIES: No clubbing, cyanosis, or edema. Laboratory Laboratory Tests Test 06/17/16 06:58 White Blood Count 3.8 TH/MM3 Red Blood Count 4.71 MIL/MM3 Hemoglobin 13.1 GM/DL Hematocrit 38.1 % Mean Corpuscular Volume 80.9 FL Mean Corpuscular Hemoglobin 27.8 PG Mean Corpuscular Hemoglobin 34.4 % Concent Red Cell Distribution Width 16.4 % Platelet Count 128 TH/MM3 Mean Platelet Volume 8.6 FL Sodium Level 138 MEQ/L Potassium Level 3.9 MEQ/L Chloride Level 104 MEQ/L Carbon Dioxide Level 25.7 MEQ/L Anion Gap 8 MEQ/L Blood Urea Nitrogen 16 MG/DL Creatinine 0.99 MG/DL Estimat Glomerular Filtration 98 ML/MIN Rate Random Glucose 132 MG/DL Calcium Level 8.8 MG/DL Assessment and Plan Problem List: (1) Syncope Assessment and Plan: Stable overnight. Interrogation of patient's ICD indicates patient had loss of consciousness as he was in ventricular fibrillation for 29 sec before being converted to NSR by a second ICD shock. REC OK to discharge home today; rec beta cindy therapy have stressed to the patient the importance of regular ICD checks by the implanting physician (2) Paroxysmal atrial flutter Assessment and Plan: Remains in an atrial paced or normal sinus rhythm. His thromboembolic risk is high, but treating him with anticoagulation drugs troublesome with his noncompliance. He apparently is also aspirin allergic. In 2016 he apparently also had a very large right upper extremity DVT. He and his also lack insight into his cardiac disease, status. Rec consider treating him with Plavix. (3) Non-ischemic cardiomyopathy Assessment and Plan: EF 10% by cath last year, 30-35% by echo this admission. Have started beta cindy, CITLALY-I therapy. I have stressed to patient utter importance of compliance with medications. Code Status full code Discussed Condition With patient Problem Qualifiers (1) Syncope: Qualified Code: R55 - Syncope, unspecified syncope type Kaden Zavala MD Jun 17, 2016 11:06
[2016-06-17] MEDS ORDERED: ENAL5TAB PO (11:46)
[2016-06-17] MEDS ORDERED: LIPI40TA PO (11:46)
[2016-06-17] MEDS ORDERED: PLAV75TA29 PO (11:46)
[2016-06-17] MEDS ORDERED: CARV3.125 PO (11:46)
--- NOTE | 2016-06-17 11:47 | HHI.DCPOC ---
Discharge Care Plan Diagnosis: (1) Congestive heart failure (CHF) (2) Syncope and collapse Goals to Promote Your Health * To prevent worsening of your condition and complications * To maintain your health at the optimal level Directions to Meet Your Goals Take your medications as prescribed Follow your dietary instruction Follow activity as directed Keep your appointments as scheduled Take your immunizations and boosters as scheduled If your symptoms worsen call your PCP, if no PCP go to Urgent Care Center or Emergency Room Smoking is Dangerous to Your Health. Avoid second hand smoke Call the 24-hour hour crisis hotline for domestic abuse at Shirley Navarro MD R2 Jun 17, 2016 11:47
[2016-06-17 12:43] VITALS: BP 100/55; PULSE 60; RESP 18; TEMP 96.3; O2SAT 96
[2016-06-17] MEDS ORDERED: CLOPIDOGREL 75 MG TAB PO SCH (13:30)
--- NOTE | 2016-06-17 13:34 | HHI.DS ---
Discharge Summary Admission Date Jun 15, 2016 at 12:12 Discharge Date: Jun 17, 2016 Admitting Diagnosis Chest pain (1) Syncope and collapse Plan: Presented due to history of syncope without reported precipitating symptoms. HX is complicated by a extensive cardiac history but patient is unaware of his conditions and is a very poor historian. (May be due to a possible history of anoxic brain injury vs mental illness). Found to have 4 beats of V. tach on the night of admission. -Hypokalemia corrected -Orthostatic vital signs suggestive of orthostatic hypotension -Cardiac telemetry -EKG: atrial paced with T wave inversions. Troponin unremarkable * ACS negative Cardiology consulted: Appreciate recommendations * Nonsustained ventricular tachycardia vs syncope * [employer] AICD: Interrogation shows some firings of device * Severe cardiomyopathy, admitted beta cindy and CITLALY inhibitor * Ideally would be on anticoagulation but has not been due to noncompliance Imaging: * Echo: EF 30-34%, moderate tricuspid regurgitation. Right ventricular systolic pressure was increased consistent with severe pulmonary hypertension * Carotid ultrasound: Negative * Head CT: Negative * CXR: minimal pulmonary vascular congestion (2) CAD (coronary artery disease) Plan: Extensive cardiac history also requiring catheterization. However patient is very unclear of his cardiac history. Reports he is on no medications -Empirically treat with statin -Unable to give aspirin due to allergy -Lipid unremarkable SEE FURTHER MANAGEMENT UNDER SYNCOPE (3) DM (diabetes mellitus) Plan: Denies a history of diabetes but chart review shows a history of diabetes. A1c of 6.8 on no medication. -bedside glucose have been WNL, consider discontinuing tomorrow -would benefit from metformin at discharge (4) History of psychiatric symptoms Plan: Upon review of ED physician's note, family reports patient may have a psychiatric history. Patient denies this but is not fully oriented to time. However he is able to have a good conversation. -Psychiatry consulted: Appreciate recommendations * No psychotropics recommended * May benefit from neuropsychological testing * No immediate intervention needed at this time (5) Nutrition, metabolism, and development symptoms Plan: Diet: Heart healthy Electrolytes: unremarkable, continue to monitor Fluids: None GI prophylaxis: Not indicated DVT prophylaxis: Lovenox and SCDs Consultants Cardiology Brief History History limited due to patient being a poor historian. Patient is a 45yo male with a PMH significant for AICD placement and CAD. He other gonzalez denies any other problems. Patient presented today due to history of 2 falls. [id number] that was completely out of the blue. This was then followed by a repeat fall that was witnessed by his friend but patient does not remember what his friend said happened nor the length of LOC. Again, he reports that this was not preceded by any events. Denies any precipitating symptoms including lightheadedness, chest pain, shortness of breath. No prior history of such problems. Does not feel like AICD went off. First fall was unwitnessed and he does not know how long he had LOC. He woke up and stood up on his own. Denies any urinary/fecal incontinence or shaking. This morning, patient reported that he was suppose to go to the Doctor but does not know who or why. Presently patient is asymptotic but continues to say that he feels unwell but denies every ROS CBC/BMP: 06/17/16 0658 06/17/16 0658 Significant Findings Laboratory Tests Test 06/15/16 06/15/16 06/15/16 06/16/16 09:50 11:31 20:12 02:55 Platelet Count 130 TH/MM3 127 TH/MM3 (150-450) (150-450) Sodium Level 148 MEQ/L (136-145) Potassium Level 2.6 MEQ/L (3.5-5.1) Chloride Level 119 MEQ/L 108 MEQ/L 108 MEQ/L (98-107) (98-107) (98-107) Blood Urea Nitrogen 19 MG/DL (7-18) 20 MG/DL (7-18) Calcium Level 6.2 MG/DL (8.5-10.1) Protein Corrected Calcium 7.3 MG/DL (8.5-10.1) B-Type Natriuretic Peptide 153 PG/ML (0-100) Total Protein 4.8 GM/DL (6.4-8.2) Urine Occult Blood TRACE (NEG) Random Glucose 113 MG/DL 107 MG/DL (74-106) (74-106) Hematocrit 38.4 % (39.0-51.0) Monocytes (%) (Auto) 8.6 % (0.0-8.0) Hemoglobin A1c 6.8 % (4.3-6.0) Troponin I 0.06 NG/ML (0.02-0.05) LDL Cholesterol 118 MG/DL (0-99) HDL Cholesterol 61.5 MG/DL (40.0-60.0) Test 06/17/16 06:58 White Blood Count 3.8 TH/MM3 (4.0-11.0) Hematocrit 38.1 % (39.0-51.0) Platelet Count 128 TH/MM3 (150-450) Random Glucose 132 MG/DL (74-106) Imaging Last Impressions Head CT 06/15/16 1031 Signed Impressions: Service Date/Time: June 11:09 - CONCLUSION: 1. No acute intracranial abnormality. 2. Old right lamina papyracea fracture. 3. Mucous retention cyst within the left sphenoid sinus. Willie Lyon MD Chest X-Ray 06/15/16 0936 Signed Impressions: Service Date/Time: , June 15, 2016 09:44 - CONCLUSION: 1. Minimal pulmonary vascular congestion. 2. Cardiomegaly. Willie Lyon MD Carotid Artery Ultrasound 06/15/16 0000 Signed Impressions: Service Date/Time: June 17:41 - CONCLUSION: Negative examination for a hemodynamically significant carotid stenosis. Bill Marcus MD PE at Discharge GEN: Well-developed, well-nourished patient. No acute distress. CV: Regular rate and rhythm without gallops, or rubs. 2/6 holosystolic murmur at the left sternal border LUNGS: Clear to auscultation bilaterally. Normal respiratory effort. No wheezes , rales, rhonchi. EXT: No edema. No calf tenderness. NEURO/PSYCH: Awake, alert. Normal speech. Does not have appropriate insight into health conditions. Hospital Course Patient is a 43-year-old male with a significant cardiac history. Presented due to feeling unwell and having 2 episodes of syncope. Patient is a very poor historian so etiology of syncope was difficult to determine. Upon arrival, patient was otherwise asymptomatic and had no repeat presyncope/syncopal episodes. ACS evaluation was negative. He did experience 4 beats of ventricular tachycardia that was nonsustained. Cardiology was consulted and interrogated patient's [employer] AICD which did show some firing. Echo was also performed which showed an EF of 30-35%, moderate tricuspid regurgitation and increased right ventricular systolic pressure consistent with severe pulmonary hypertension. From the cardiac standpoint, due to patient's poor understanding and insight of medical conditions, as well as noncompliance ( as he does not take any medications) we are unable to recommend anticoagulation even though he is a high thromboembolic risk. We did start statin, Plavix, CITLALY inhibitor, beta cindy to medically manage patient's nonischemic cardiomyopathy. Psychiatry was also consulted who believed patient may have an underlying intellectual disability but will require further assessment and treatment. Patient has otherwise been asymptomatic and clinically stable. Extensively counseled about importance of taking medication. Patient be discharged in stable condition. Pt Condition on Discharge: Stable Discharge Disposition: Discharge Home Discharge Instructions Follow up Referrals: Cardiology with Torres Man MD PCP Follow-up - 1 Week New Medications: Clopidogrel (Plavix) 75 Mg Tab 75 MG PO DAILY Blood Clot Prevention #30 Ref 0 TAB Atorvastatin (Lipitor) 40 Mg Tab 40 MG PO DAILY #30 TAB Carvedilol (Coreg) 3.125 Mg Tab 3.125 MG PO Q12HR #60 TAB Enalapril (Enalapril) 5 Mg Tab 5 MG PO BID #30 TAB Shirley Navarro MD R2 Jun 17, 2016 13:34
[2016-06-17] MEDS: ENOXAPARIN SODIUM 40 MG/0.4 ML SYRINGE SQ SCH (16:27)
== END 2016-06-17 16:43 | disposition home or self-care (01) ==
LOC: NEPE 09:24 → NEDA 12:12 → NEPHCDU 15:51
PROVIDERS: ADMIT Family Medicine; ATTEND Family Medicine
DX: R55 Syncope and collapse (principal); I25.10 Atherosclerotic heart disease of native coronary artery without angina pectoris; E11.9 Type 2 diabetes mellitus without complications; E87.6 Hypokalemia; I11.9 Hypertensive heart disease without heart failure; I50.9 Heart failure, unspecified; I48.92 Unspecified atrial flutter; I47.2 Ventricular tachycardia; I42.9 Cardiomyopathy, unspecified; I51.7 Cardiomegaly; J44.9 Chronic obstructive pulmonary disease, unspecified; F43.24 Adjustment disorder with disturbance of conduct; Z79.01 Long term (current) use of anticoagulants; Z86.718 Personal history of other venous thrombosis and embolism; Z95.810 Presence of automatic (implantable) cardiac defibrillator; Z72.0 Tobacco use
CPT/HCPCS: 70450; 71010; 80048; 80053; 80061; 80307; 81001; 82550; 82552; 82948; 83036; 83880; 84155; 84443; 84484; 85025; 85027; 85610; 85730; 93005; 93306; 93880; 96360; 99285; G0378; J0610; J1650; J1815; J7030

== ENCOUNTER 2016-06-22 17:56 | Inpatient (IN) | payer MEDICAID, OTHER ==
[~2016-06-22] VITALS: Ht 180.3 cm; Wt 85.9 kg
[2016-06-22] VITALS (11 sets, daily range): BP systolic 103–137; BP diastolic 59–83; PULSE 60–71; RESP 18; TEMP 98.4; O2SAT 96–98
[~2016-06-22 17:56] MED LIST: CARV3.125 PO; ENAL5TAB PO; LIPI40TA PO; PLAV75TA29 PO
[2016-06-22] MEDS ORDERED: SODIUM CHLORIDE 0.9% FLUSH 5 ML FLUSH IVF PRN (18:00)
[2016-06-22] MEDS ORDERED: ASPIRIN 81 MG CHEW TAB PO ONE (18:00)
--- NOTE | 2016-06-22 18:22 | RADRPT ---
EXAM DATE/TIME: 06/22/2016 17:57 [facility] COMPARISON: CHEST SINGLE AP, June 15, 2016, 9:44. INDICATIONS : Chest pains. MEDICAL HISTORY : None. SURGICAL HISTORY : Pacemaker. ENCOUNTER: Initial ACUITY: 1 day PAIN SCORE: 3/10 LOCATION: Right face and chest area. FINDINGS: No acute infiltrates seen. No pleural effusion or pneumothorax. Mild cardiomegaly, similar to before. There is a cardiac pacer again seen. CONCLUSION: No change or acute cardiopulmonary disease. Alex Mcelroy MD on June 22, 2016 at 18:17 Board Certified Radiologist. This report was verified electronically.
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
[2016-06-22 18:42] LABS: AUTOMATED NEUTROPHIL # 3.1 TH/MM3 (1.8-7.7); BASOPHIL % 0.5 % (0.0-2.0); EOSINOPHIL # 0.1 TH/MM3 (0-0.4); EOSINOPHIL % 1.2 % (0.0-4.0); HEMATOCRIT 39.1 % (39.0-51.0); HEMO FLAGS DIFF FINAL; LYMPH % 24.6 % (9.0-44.0); LYMPHOCYTE # 1.2 TH/MM3 (1.0-4.8); MEAN CELL VOLUME 82.2 FL (80.0-100.0); MEAN CORPUSCULAR HEMOGLOBIN 27.8 PG (27.0-34.0); MEAN CORPUSCULAR HGB CONC 33.8 % (32.0-36.0); MONO % 7.8 % (0.0-8.0); NEUT % 65.9 % (16.0-70.0); PLATELET COUNT 157 TH/MM3 (150-450); RED BLOOD COUNT 4.76 MIL/MM3 (4.50-5.90); RED CELL DISTRIBUTION WIDTH 16.8 % (11.6-17.2); WHITE BLOOD COUNT 4.7 TH/MM3 (4.0-11.0)
[2016-06-22 18:46] LABS: APTT (PATIENT) 30.1 SEC (24.3-30.1); PROTHROMBIN TIME - PATIENT 11.6 SEC (9.8-11.6)
[2016-06-22 18:58] LABS: BICARBONATE 26.9 MEQ/L (21.0-32.0); MAGNESIUM 1.9 MG/DL (1.5-2.5); POTASSIUM 4.2 MEQ/L (3.5-5.1)
[2016-06-22 19:14] LABS: CKMB 2.1 NG/ML (0.5-3.6)
--- NOTE | 2016-06-22 20:21 | PD ---
Data Data Last Documented VS Vital Signs Date Time Temp Pulse Resp B/P Pulse Ox O2 Delivery O2 Flow Rate FiO2 06/22/16 19:12 61 18 121/64 98 Nasal Cannula 2 06/22/16 18:20 98.4 Orders Electrocardiogram (06/22/16 17:59) Basic Metabolic Panel (Bmp) (06/22/16 17:59) Ckmb (Isoenzyme) Profile (06/22/16 17:59) Complete Blood Count With Diff (06/22/16 17:59) Magnesium (Mg) (06/22/16 17:59) Prothrombin Time / Inr (Pt) (06/22/16 17:59) Act Partial Throm Time (Ptt) (06/22/16 17:59) Troponin I (06/22/16 17:59) Chest, Single Ap (06/22/16 17:59) Ecg Monitoring (06/22/16 17:59) Bilateral Bp Monitoring (06/22/16 17:59) Iv Access Insert/Monitor (06/22/16 17:59) Oximetry (06/22/16 17:59) Oxygen Administration (06/22/16 17:59) Aspirin Chew (Aspirin Chew) (06/22/16 18:00) Sodium Chloride 0.9% Flush (Ns Flush) (06/22/16 18:00) CKMB (06/22/16 18:15) CKMB% (06/22/16 18:15) Carvedilol (Coreg) (06/22/16 20:30) Admit Order (Ed Use Only) (06/22/16 20:29) Labs Laboratory Tests Test 06/22/16 18:15 White Blood Count 4.7 TH/MM3 Red Blood Count 4.76 MIL/MM3 Hemoglobin 13.2 GM/DL Hematocrit 39.1 % Mean Corpuscular Volume 82.2 FL Mean Corpuscular Hemoglobin 27.8 PG Mean Corpuscular Hemoglobin 33.8 % Concent Red Cell Distribution Width 16.8 % Platelet Count 157 TH/MM3 Mean Platelet Volume 8.8 FL Neutrophils (%) (Auto) 65.9 % Lymphocytes (%) (Auto) 24.6 % Monocytes (%) (Auto) 7.8 % Eosinophils (%) (Auto) 1.2 % Basophils (%) (Auto) 0.5 % Neutrophils # (Auto) 3.1 TH/MM3 Lymphocytes # (Auto) 1.2 TH/MM3 Monocytes # (Auto) 0.4 TH/MM3 Eosinophils # (Auto) 0.1 TH/MM3 Basophils # (Auto) 0.0 TH/MM3 CBC Comment DIFF FINAL Differential Comment Prothrombin Time 11.6 SEC Prothromb Time International 1.0 RATIO Ratio Activated Partial 30.1 SEC Thromboplast Time Sodium Level 140 MEQ/L Potassium Level 4.2 MEQ/L Chloride Level 107 MEQ/L Carbon Dioxide Level 26.9 MEQ/L Anion Gap 6 MEQ/L Blood Urea Nitrogen 22 MG/DL Creatinine 1.05 MG/DL Estimat Glomerular Filtration 92 ML/MIN Rate Random Glucose 133 MG/DL Calcium Level 8.4 MG/DL Magnesium Level 1.9 MG/DL Total Creatine Kinase 479 U/L Creatine Kinase MB 2.1 NG/ML Creatine Kinase MB % 0.4 % Troponin I 0.02 NG/ML MDM Supervised Visit with MARV: No Narrative Course The patient was initially evaluated by the previous provider and signed out to me at the beginning of my shift. See her note for further details. Briefly this is a 45-year-old male who is a poor historian with history of congenital transposition of the great vessels, severe nonischemic cardiomyopathy , subcutaneous ICD, diabetes, here for evaluation of a syncopal episode as well as AICD firing. The patient was recently admitted for the same last week, was found to have a ventricular fibrillation that broke with his AICD firing. The patient was discharged home on a beta cindy and an CITLALY inhibitor, however he has not been taking these medications he says he states he cannot fill them. He was also discharged home on Plavix as he has an allergy to aspirin. Today he is complaining of some substernal chest discomfort. He was evaluated by consumer advocate Dr. Elias'asuncion while admitted last week. I discussed the case with Dr. Zavala today. [employer] interrogated the pacemaker which shows an atrial fibrillation which converted to ventricular tachycardia with one shock delivered by C AICD with return to normal rhythm. Patient does have some PVCs on EKG. T wave inversions in V1 through V4 are seen on prior EKGs. No acute signs of ischemia. The patient be admitted for overnight observation for telemetry monitoring and cardiology evaluation. Case discussed with hospitalist Dr. Hernandez who will admit the patient to his service. Diagnosis Primary Impression: Chest pain Qualified Code: R07.9 - Chest pain, unspecified type Additional Impressions: Syncope Qualified Code: R55 - Syncope, unspecified syncope type ICD (implantable cardioverter-defibrillator) discharge Admitting Information Admitting Physician Requests: Tony Alvarado MD Jun 22, 2016 20:21
[2016-06-22] MEDS ORDERED: CARVEDILOL 3.125 MG TAB PO ONE (20:30)
[2016-06-22] MEDS ORDERED: SODIUM CHLORIDE 0.9% FLUSH 5 ML FLUSH FLUSH PRN (21:45)
[2016-06-22] MEDS ORDERED: NALOXONE HCL 0.4 MG/ML AMP IV PRN (21:45)
[2016-06-22] MEDS ORDERED: ONDANSETRON HCL 4 MG/2 ML VIAL IVP PRN (21:45)
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
[2016-06-22] MEDS: HEPARIN SODIUM - SQ 10,000 UNITS/ML VIAL SQ SCH (22:47)
[2016-06-23] VITALS (7 sets, daily range): BP systolic 116–127; BP diastolic 56–79; PULSE 52–80; RESP 16–18; TEMP 98.7; O2SAT 97–100
[2016-06-23 04:13] LABS: BICARBONATE 29.5 MEQ/L (21.0-32.0); POTASSIUM 3.8 MEQ/L (3.5-5.1)
[2016-06-23] MEDS ORDERED: MAGNESIUM SULFATE 1 GM PREMIX 100 ML IV ONE (08:45)
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
[2016-06-23] MEDS: HEPARIN SODIUM - SQ 10,000 UNITS/ML VIAL SQ SCH ×2 (09:04→20:52)
[2016-06-23] MEDS: CARVEDILOL 3.125 MG TAB PO SCH ×2 (09:04→20:52)
[2016-06-23] MEDS: ENALAPRIL MALEATE 5 MG TAB PO SCH ×2 (09:04→20:52)
[2016-06-23] MEDS: CLOPIDOGREL 75 MG TAB PO SCH (09:04)
[2016-06-23] MEDS: POTASSIUM CHLORIDE 20 MEQ CONTROLLED RELEASE TAB PO SCH ×2 (09:04→20:52)
[2016-06-23] MEDS: ATORVASTATIN 40 MG TAB PO SCH (09:04)
[2016-06-23] MEDS: SODIUM CHLORIDE 0.9% FLUSH 5 ML FLUSH FLUSH SCH ×2 (09:05→20:51)
--- NOTE | 2016-06-23 22:51 | EKG ---
Date Performed: 06/22/2016 Time Performed: 18:02:26 PTAGE: 45 years EKG: Sinus rhythm WITH OCCASIONAL VENTRICULAR PREMATURE COMPLEXES RIGHT VENTRICULAR HYPERTROPHY AND ST-T CHANGE INFERI OR MYOCARDIAL INFARCTION ABNORMAL ECG PREVIOUS TRACING : 06/16/2016 03.51 DOCTOR: Torres Man Interpretating Date/Time 06/23/2016 22:46:15
[2016-06-24] VITALS (14 sets, daily range): BP systolic 102–140; BP diastolic 53–81; PULSE 58–67; RESP 16–18; TEMP 97.8–98.8; O2SAT 93–97
[2016-06-24] MEDS: HEPARIN SODIUM - SQ 10,000 UNITS/ML VIAL SQ SCH ×2 (08:51→22:34)
[2016-06-24] MEDS: CARVEDILOL 3.125 MG TAB PO SCH ×2 (08:51→22:33)
[2016-06-24] MEDS: CLOPIDOGREL 75 MG TAB PO SCH (08:51)
[2016-06-24] MEDS: ATORVASTATIN 40 MG TAB PO SCH (08:51)
[2016-06-24] MEDS: ENALAPRIL MALEATE 5 MG TAB PO SCH ×2 (08:51→22:33)
[2016-06-24] MEDS: SODIUM CHLORIDE 0.9% FLUSH 5 ML FLUSH FLUSH SCH ×2 (08:52→22:35)
--- NOTE | 2016-06-24 13:50 | HHI.PR ---
Subjective Remarks Follow up for syncope, AICD discharge. Currently, patient is doing well. No acute concerns. Ambulating well. Denies any CP, SOB, fever, chills. No further AICD activation. Objective Vitals Vital Signs Date Time Temp Pulse Resp B/P Pulse Ox O2 Delivery O2 Flow Rate FiO2 06/24/16 13:00 59 06/24/16 12:01 98.0 59 16 109/68 96 06/24/16 12:00 59 06/24/16 11:00 59 06/24/16 10:00 59 06/24/16 09:00 59 06/24/16 08:30 98.8 59 16 110/60 93 06/24/16 08:30 61 06/24/16 07:00 59 06/24/16 04:00 98.5 62 16 107/67 97 06/24/16 00:00 98.1 61 16 102/66 97 06/23/16 22:00 59 06/23/16 20:30 98.7 59 16 126/79 100 06/23/16 17:16 52 16 118/61 97 Room Air I/O 06/23/16 06/23/16 06/23/16 06/24/16 06/24/16 06/24/16 07:00 15:00 23:00 07:00 15:00 23:00 Intake Total 600 ml 240 ml 360 ml Output Total 360 ml Balance 240 ml 240 ml 360 ml Intake Oral 600 ml 240 ml 360 ml Output Urine Total 360 ml # Voids 2 3 Result Diagram: 06/22/16 1815 06/23/16 0332 Imaging Last Impressions Chest X-Ray 06/22/16 1589 Signed Impressions: Service Date/Time: June 17:57 - CONCLUSION: No change or acute cardiopulmonary disease. Alex Mcelroy MD Objective Remarks GENERAL: Alert, oriented to person, place. SKIN: Warm and dry. HEAD: Normocephalic. EYES: No scleral icterus. No injection or drainage. NECK: Supple, trachea midline. No JVD or lymphadenopathy. CARDIOVASCULAR: Regular rate and rhythm without murmurs, gallops, or rubs. RESPIRATORY: Breath sounds equal bilaterally. No accessory muscle use. GASTROINTESTINAL: Abdomen soft, non-tender, nondistended. MUSCULOSKELETAL: No cyanosis, or edema. BACK: Nontender without obvious deformity. No CVA tenderness. Procedures None A/P Problem List: (1) ICD (implantable cardioverter-defibrillator) discharge ICD Code: Z45.02 Status: Acute (2) Syncope ICD Code: R55 Status: Acute (3) HTN (hypertension) ICD Code: I10 Status: Chronic (4) CHF (congestive heart failure) ICD Code: I50.9 Status: Chronic (5) Hyperlipemia ICD Code: E78.5 Status: Chronic Assessment and Plan Mr. Perrin is a 45 year old male with a history of developmental delay, congenital heart disease who presented to the ED due to syncope, AICD discharge. Last echo on 06/16/2016 showed systolic dysfunction with EF 30-35%. - Syncope and AICD Discharge - [employer] interrogated the device and found Afib that went into V tach which caused the device to discharge. Patient was converted to NSR after AICD discharge. - Patient's K+ was 3.8 this AM and Magnesium 1.9. - Will try to keep K > 4.0 and Mg > 2.0. We will provide PO KCL 20meq X 2 doses and Magnesium sulfate 1g IV. - Continue Carvedilol 3.125mg Q12hrs - Discussed with Dr. Bustillos (Cardiology) who evaluated patient earlier today 06/24/2016. Dr. Bustillos has discussed with Dr. Hannah. - Cardiology recommends keeping patient in the hospital until patient is evaluated by Dr. Hannah on Sunday06/26/2016. - Non-ischemic Cardiomyopathy with EF 30-35%. - Continue Carvedilol 3.125mg Q12hrs, Enalapril 5mg BID, Plavix 75mg Qday and Atorvastatin 40mg Qday. - Paroxysmal Atrial flutter - Dr. Zavala (Cardiology) evaluated him earlier this month during a hospitalization. Due to concern over compliance, Dr. Zavala recommended Plavix. - Social issues - Patient has an aunt. We have asked CM to look into safe placement possibility. If Aunt is willing to take care of the patient, he can be discharged, probably Sunday06/26/2016. Full code. Heparin SQ. Problem Qualifiers (1) Syncope: Qualified Code: R55 - Syncope, unspecified syncope type Timoteo Ledesma DO Jun 24, 2016 1:50 pm
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
[2016-06-24] MEDS ORDERED: HALOPERIDOL LACTATE 5 MG/ML AMP IM PRN ×2 (19:15)
[2016-06-24] MEDS ORDERED: diphenhydrAMINE HCL 25 MG CAP PO ONE (21:15)
[2016-06-25] VITALS (20 sets, daily range): BP systolic 112–123; BP diastolic 55–69; PULSE 58–97; RESP 16–18; TEMP 98–99.6; O2SAT 97–99
--- NOTE | 2016-06-25 09:12 | HHI.PR ---
Subjective Remarks I was called by the patient's nurse stating that the patient was threatening to leave AGAINST MEDICAL ADVICE. I spoke with the patient. He denies chest pain, dyspnea, lightheadedness, dizziness. States that he wants to get out of the hospital this morning. Objective Vitals Vital Signs Date Time Temp Pulse Resp B/P Pulse Ox O2 Delivery O2 Flow Rate FiO2 06/24/16 16:01 97.8 67 16 105/53 95 06/24/16 13:00 59 06/24/16 12:01 98.0 59 16 109/68 96 06/24/16 12:00 59 06/24/16 11:00 59 06/24/16 10:00 59 I/O 06/24/16 06/24/16 06/24/16 06/25/16 06/25/16 06/25/16 07:00 15:00 23:00 07:00 15:00 23:00 Intake Total 360 ml 600 ml Output Total 350 ml Balance 360 ml 250 ml Intake Oral 360 ml 600 ml Output Urine Total 350 ml # Voids 3 4 # Bowel Movements 1 Result Diagram: 06/22/16 1815 06/23/16 0332 Imaging Last Impressions Chest X-Ray 06/22/16 5899 Signed Impressions: Service Date/Time: June 17:57 - CONCLUSION: No change or acute cardiopulmonary disease. Alex Mcelroy MD Objective Remarks General: No acute distress. Heart: Regular rate and rhythm. No murmur. Lungs: Clear to auscultation bilaterally. No wheezes, rales, or rhonchi. Breathing is nonlabored. Abdomen: Soft, nontender, nondistended. Extremities: No lower extremity edema. Psych: Alert. Oriented to year, day of the week, city, hospital. Not oriented to month. Procedures None Urinary Catheter: No Vascular Central Line Catheter: No A/P Problem List: (1) ICD (implantable cardioverter-defibrillator) discharge ICD Code: Z45.02 Status: Acute (2) Syncope ICD Code: R55 Status: Acute (3) HTN (hypertension) ICD Code: I10 Status: Chronic (4) CHF (congestive heart failure) ICD Code: I50.9 Status: Chronic (5) Hyperlipemia ICD Code: E78.5 Status: Chronic Assessment and Plan 1. Syncope, AICD discharge: Interrogation of device showed A. fib, V. tach causing the device to discharge. Patient converted to normal sinus rhythm. On telemetry rhythm is paced. 2. Nonischemic cardiomyopathy: Ejection fraction 30-35%. Continue carvedilol, enalapril, Plavix, statin. 3. Paroxysmal atrial flutter: Continue Plavix, which was previously recommended by cardiology. 4. Social issues: Case management to look into safe discharge. The patient is threatening to leave AGAINST MEDICAL ADVICE. There was discussion last night among the primary hospitalist as well as the [facility] covering last night regarding Waddell act. The patient was not officially placed under Waddell act. There is significant concern regarding the patient's ability to make medical decisions on his own. He does not have a healthcare surrogate that I am aware of. I have spoken with Dr. Bustillos, the covering power equipment technology instructor this weekend, and he is concerned that the patient could have another event. He would like the patient to remain in the hospital on telemetry until he can be evaluated by his primary power equipment technology instructor, Dr. Hannah. I spoke with Dr. Hannah, psychiatrist on-call, who has agreed to evaluate the patient this morning. There is a sitter in the room with the patient. The patient's nurse overnight states that he was calm and agreed to stay once a sitter was present in the room with him. Problem Qualifiers (1) Syncope: Qualified Code: R55 - Syncope, unspecified syncope type Pedrito Oseguera MD Jun 25, 2016 09:12
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
--- NOTE | 2016-06-25 14:53 | PD.CARD.PN ---
Subjective Subjective Remarks alert in nad Objective Vital Signs / I&O Vital Signs Date Time Temp Pulse Resp B/P Pulse Ox O2 Delivery O2 Flow Rate FiO2 06/25/16 06:00 59 06/25/16 05:00 58 06/25/16 04:00 98.6 60 18 120/55 99 06/25/16 04:00 59 06/25/16 03:00 59 06/25/16 02:00 58 06/25/16 01:00 60 06/25/16 00:00 98.0 64 18 123/69 98 06/25/16 00:00 64 06/24/16 23:00 58 06/24/16 20:00 98.1 59 18 140/81 97 06/24/16 19:15 59 06/24/16 16:01 97.8 67 16 105/53 95 I/O 06/24/16 06/24/16 06/24/16 06/25/16 06/25/16 06/25/16 07:00 15:00 23:00 07:00 15:00 23:00 Intake Total 360 ml 600 ml 240 ml Output Total 350 ml Balance 360 ml 250 ml 240 ml Intake Oral 360 ml 600 ml 240 ml Output Urine Total 350 ml # Voids 3 4 1 # Bowel Movements 1 Physical Exam GENERAL: SKIN: Warm and dry. HEAD: Normocephalic. EYES: No scleral icterus. No injection or drainage. NECK: Supple, trachea midline. No JVD or lymphadenopathy. CARDIOVASCULAR: Regular rate and rhythm without murmurs, gallops, or rubs. RESPIRATORY: Breath sounds equal bilaterally. No accessory muscle use. GASTROINTESTINAL: Abdomen soft, non-tender, nondistended. MUSCULOSKELETAL: No cyanosis, or edema. BACK: Nontender without obvious deformity. No CVA tenderness. Assessment and Plan Problem List: (1) Pacemaker (2) Congenital heart defect (3) Encounter for checking of automatic implantable cardioverter-defibrillator ( AICD) (4) DM (diabetes mellitus) (5) ICD (implantable cardioverter-defibrillator) discharge (6) Smoking (7) Wide-complex tachycardia Assessment and Plan 1.) Wide complex tachycardia - stable on telemetry, 2 recent events requiring defib, h/o congenital heart disease s/p corrective surgery; Dr Hannah to f/u Leon Bustillos MD Jun 25, 2016 14:53
[2016-06-25] MEDS: HEPARIN SODIUM - SQ 10,000 UNITS/ML VIAL SQ SCH ×2 (22:00→23:07)
[2016-06-25] MEDS: ENALAPRIL MALEATE 5 MG TAB PO SCH (23:07)
[2016-06-25] MEDS: CARVEDILOL 3.125 MG TAB PO SCH (23:07)
[2016-06-25] MEDS: SODIUM CHLORIDE 0.9% FLUSH 5 ML FLUSH FLUSH SCH (23:10)
[2016-06-26] VITALS (8 sets, daily range): BP systolic 104–114; BP diastolic 54–66; PULSE 58–81; RESP 16–18; TEMP 99.1–99.4; O2SAT 95–97
--- NOTE | 2016-06-26 08:10 | HHI.PR ---
Subjective Remarks Follow up syncope, AICD discharge. Patient reports tenderness over his pacemaker. Otherwise no complaints. The pain started last night. Denies dyspnea. Objective Vitals Vital Signs Date Time Temp Pulse Resp B/P Pulse Ox O2 Delivery O2 Flow Rate FiO2 06/26/16 04:00 99.1 81 16 112/57 95 06/26/16 04:00 81 06/26/16 00:00 58 06/26/16 00:00 99.4 59 18 114/54 97 06/25/16 20:00 59 06/25/16 20:00 99.6 58 18 112/56 97 06/25/16 18:00 59 06/25/16 17:00 73 06/25/16 16:00 89 18 119/60 98 06/25/16 16:00 89 06/25/16 15:00 60 06/25/16 14:00 59 06/25/16 13:00 59 06/25/16 12:00 70 06/25/16 12:00 98.6 70 18 122/66 99 06/25/16 11:00 69 06/25/16 10:00 74 06/25/16 09:00 97 I/O 06/25/16 06/25/16 06/25/16 06/26/16 06/26/16 06/26/16 07:00 15:00 23:00 07:00 15:00 23:00 Intake Total 240 ml 120 ml 480 ml Balance 240 ml 120 ml 480 ml Intake Oral 240 ml 120 ml 480 ml # Voids 1 3 3 # Bowel Movements 0 Result Diagram: 06/22/16 1815 06/23/16 0332 Imaging Last Impressions Chest X-Ray 06/22/16 0009 Signed Impressions: Service Date/Time: June 17:57 - CONCLUSION: No change or acute cardiopulmonary disease. Alex Mcelroy MD Objective Remarks General: No acute distress. Heart: Regular rate and rhythm. No murmur. Lungs: Clear to auscultation bilaterally. No wheezes, rales, or rhonchi. Breathing is nonlabored. Chest: Tenderness over pacemaker. No erythema noted. No open wounds. Abdomen: Soft, nontender, nondistended. Extremities: No lower extremity edema. Psych: Alert. Oriented to year, day of the week, city, hospital. Not oriented to month. Procedures None Urinary Catheter: No Vascular Central Line Catheter: No A/P Problem List: (1) ICD (implantable cardioverter-defibrillator) discharge ICD Code: Z45.02 Status: Acute (2) Syncope ICD Code: R55 Status: Acute (3) HTN (hypertension) ICD Code: I10 Status: Chronic (4) CHF (congestive heart failure) ICD Code: I50.9 Status: Chronic (5) Hyperlipemia ICD Code: E78.5 Status: Chronic Assessment and Plan 1. Syncope, AICD discharge: Interrogation of device showed A. fib, V. tach causing the device to discharge. Patient converted to normal sinus rhythm. On telemetry, rhythm is paced. To be evaluated by his beader today. 2. Nonischemic cardiomyopathy: Ejection fraction 30-35%. Continue carvedilol, enalapril, Plavix, statin. 3. Paroxysmal atrial flutter: Continue Plavix, which was previously recommended by cardiology. 4. Social issues: Case management to look into safe discharge. 5. Waddell Act: Patient was evaluated by psychiatry, who felt that he was not able to understand the seriousness of his medical condition. He was placed under Waddell Act. Discharge Planning When cleared by cardiology and when Waddell Act is lifted. Problem Qualifiers (1) Syncope: Qualified Code: R55 - Syncope, unspecified syncope type Pedrito Oseguera MD Jun 26, 2016 08:10
[2016-06-26] MEDS: HEPARIN SODIUM - SQ 10,000 UNITS/ML VIAL SQ SCH (08:28)
[2016-06-26] MEDS: CARVEDILOL 3.125 MG TAB PO SCH (08:28)
[2016-06-26] MEDS: CLOPIDOGREL 75 MG TAB PO SCH (08:28)
[2016-06-26] MEDS: SODIUM CHLORIDE 0.9% FLUSH 5 ML FLUSH FLUSH SCH (08:28)
[2016-06-26] MEDS: ENALAPRIL MALEATE 5 MG TAB PO SCH (08:28)
[2016-06-26] MEDS: ATORVASTATIN 40 MG TAB PO SCH (08:28)
--- NOTE | 2016-06-26 14:32 | HHI.DCPOC ---
Discharge Care Plan Diagnosis: (1) Encounter for checking of automatic implantable cardioverter-defibrillator ( AICD) (2) Wide-complex tachycardia (3) DM (diabetes mellitus) (4) Pacemaker (5) ICD (implantable cardioverter-defibrillator) discharge (6) HTN (hypertension) Goals to Promote Your Health * To prevent worsening of your condition and complications * To maintain your health at the optimal level Directions to Meet Your Goals Take your medications as prescribed Follow your dietary instruction Follow activity as directed Keep your appointments as scheduled Take your immunizations and boosters as scheduled If your symptoms worsen call your PCP, if no PCP go to Urgent Care Center or Emergency Room Smoking is Dangerous to Your Health. Avoid second hand smoke Call the 24-hour hour crisis hotline for domestic abuse at Pedrito Oseguera MD Jun 26, 2016 14:32
--- NOTE | 2016-06-26 14:34 | HHI.DS ---
Discharge Summary Admission Date Jun 22, 2016 at 20:30 Discharge Date: Jun 26, 2016 Admitting Diagnosis chest pain, syncope, AICD discharge (1) ICD (implantable cardioverter-defibrillator) discharge ICD Code: Z45.02 (2) Syncope ICD Code: R55 (3) HTN (hypertension) ICD Code: I10 (4) CHF (congestive heart failure) ICD Code: I50.9 (5) Hyperlipemia ICD Code: E78.5 Procedures None Brief History - From Admission 45-year-old male with a history of Congenital transitional of the great vessels , status post repair at age 12, pacemaker placement, and hyperlipidemia presented today after having a syncopal episode and having his AICD fire. Patient states he was walking eating sunflower seeds and had a loss of consciousness and fell. All he remembers is waking up with people around him. Patient is somewhat a poor historian due to her mental delay. Patient was seen last week in the ED with the same symptoms in his AICD firing he was sent home on medications but was unable to fill the prescriptions because he wasn't sure which insurance card he needed. Unfortunately the patient is unable to read which makes compliance very difficult for him. According to the AICD report from [facility] it revealed that his heart rhythm was a combination of A. fib and V. tach in the AICD delivered one shock. Last admission on 06/16/16 echocardiogram was done and showed systolic dysfunction with an EF of 30-35%. Patients parents are and patient states he lives with a friend that helps him with his finances and reading. Patient denies any chest pain, shortness of breath, fever or chills. CBC/BMP: 06/22/16 1815 06/23/16 0332 Imaging Last Impressions Chest X-Ray 06/22/16 6969 Signed Impressions: Service Date/Time: June 17:57 - CONCLUSION: No change or acute cardiopulmonary disease. Alex Mcelroy MD PE at Discharge General: No acute distress. Heart: Regular rate and rhythm. No murmur. Lungs: Clear to auscultation bilaterally. No wheezes, rales, or rhonchi. Breathing is nonlabored. Chest: Tenderness over pacemaker. No erythema noted. No open wounds. Abdomen: Soft, nontender, nondistended. Extremities: No lower extremity edema. Psych: Alert. Oriented to year, day of the week, city, hospital. Not oriented to month. Hospital Course The patient was admitted for further evaluation of AICD discharge with syncopal episode. Device was interrogated and showed atrial fibrillation and ventricular tachycardia. Audiology was consulted. Patient was monitored on telemetry. He developed agitation and worsening confusion. Psychiatry was consulted. Waddell act was initiated. The patient's improved clinically and his cardiac status remained stable. Cardiology cleared him for discharge. Psychiatry lifted the Waddell act and the patient was discharged home. Pt Condition on Discharge: Stable Discharge Disposition: Discharge Home Discharge Time: > 30 minutes Discharge Instructions DIET: Follow Instructions for: Heart Healthy Diet Activities you can perform: Regular-No Restrictions Follow up Referrals: Cardiology - 1 Week with Zak Hannah MD PCP Follow-up - 2 Weeks Continued Medications: Atorvastatin (Lipitor) 40 Mg Tab 40 MG PO DAILY #30 TAB Carvedilol (Coreg) 3.125 Mg Tab 3.125 MG PO Q12HR #60 TAB Clopidogrel (Plavix) 75 Mg Tab 75 MG PO DAILY Blood Clot Prevention #30 Ref 0 TAB Enalapril (Enalapril) 5 Mg Tab 5 MG PO BID #30 TAB Pedrito Oseguera MD Jun 26, 2016 14:34
== END 2016-06-26 15:19 | disposition home or self-care (01) | DRG 309 ==
LOC: NEPE 17:56 → NEDA 20:30 → NEDH 06-23 00:48 → HCIN 06-23 19:55
PROVIDERS: ADMIT Family Medicine; ATTEND Family Medicine
DX: I47.2 Ventricular tachycardia (principal); I42.9 Cardiomyopathy, unspecified; I50.9 Heart failure, unspecified; I25.810 Atherosclerosis of coronary artery bypass graft(s) without angina pectoris; I48.92 Unspecified atrial flutter; I10 Essential (primary) hypertension; I48.91 Unspecified atrial fibrillation; E11.9 Type 2 diabetes mellitus without complications; E78.5 Hyperlipidemia, unspecified; I49.3 Ventricular premature depolarization; J44.9 Chronic obstructive pulmonary disease, unspecified; Z91.19 Patient's noncompliance with other medical treatment and regimen; Z95.810 Presence of automatic (implantable) cardiac defibrillator; Z95.1 Presence of aortocoronary bypass graft; F43.23 Adjustment disorder with mixed anxiety and depressed mood; F12.90 Cannabis use, unspecified, uncomplicated; F17.210 Nicotine dependence, cigarettes, uncomplicated
CPT/HCPCS: 71010; 80048; 82550; 82552; 83735; 84484; 85025; 85610; 85730; 93005; G8987-GO; G8988-GO; G8989-GO; J1644; J3475

== ENCOUNTER 2016-06-29 15:09 | Emergency (ER) | payer MEDICAID ==
[~2016-06-29] VITALS: Ht 180.3 cm; Wt 89.0 kg
[2016-06-29 15:12] VITALS: BP 127/71; PULSE 55; RESP 14; TEMP 98.3; O2SAT 94
[2016-06-29] MEDS ORDERED: SODIUM CHLOR 0.9% 1000 ML INJ 1,000 ML IV ONE (16:04)
[2016-06-29] MEDS ORDERED: SODIUM CHLORIDE 0.9% FLUSH 5 ML FLUSH IVF PRN (16:15)
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
[2016-06-29 16:48] LABS: AUTOMATED NEUTROPHIL # 1.8 TH/MM3 (1.8-7.7); BASOPHIL % 0.9 % (0.0-2.0); EOSINOPHIL # 0.1 TH/MM3 (0-0.4); EOSINOPHIL % 1.8 % (0.0-4.0); HEMATOCRIT 41.1 % (39.0-51.0); HEMO FLAGS DIFF FINAL; LYMPH % 36.4 % (9.0-44.0); LYMPHOCYTE # 1.3 TH/MM3 (1.0-4.8); MEAN CELL VOLUME 81.3 FL (80.0-100.0); MEAN CORPUSCULAR HEMOGLOBIN 27.7 PG (27.0-34.0); MEAN CORPUSCULAR HGB CONC 34.1 % (32.0-36.0); MONO % 12.4 % (0.0-8.0); NEUT % 48.5 % (16.0-70.0); PLATELET COUNT 147 TH/MM3 (150-450); RED BLOOD COUNT 5.06 MIL/MM3 (4.50-5.90); RED CELL DISTRIBUTION WIDTH 16.6 % (11.6-17.2); WHITE BLOOD COUNT 3.7 TH/MM3 (4.0-11.0)
[2016-06-29 17:04] VITALS: BP_SYST 114; BP_SYST 119; BP_SYST 120; BP_DIAS 61; BP_DIAS 65; BP_DIAS 66; RESP 20; O2SAT 100
[2016-06-29 17:10] LABS: ANION GAP 8 MEQ/L (5-15); BICARBONATE 26.4 MEQ/L (21.0-32.0); BLOOD UREA NITROGEN 21 MG/DL (7-18); CHLORIDE 104 MEQ/L (98-107); GLOMERULAR FILTRATION RATE 77 ML/MIN (>89); SODIUM (NA) 138 MEQ/L (136-145)
[2016-06-29 17:14] LABS: CREATINE KINASE 250 U/L (39-308)
[2016-06-29 17:26] LABS: CKMB 1.1 NG/ML (0.5-3.6)
[2016-06-29] MEDS ORDERED: IOHEXOL 350 MG/ML 10 ML VIAL (for RAD DIAG) IV ONE (19:50)
--- NOTE | 2016-06-29 20:37 | RADRPT ---
EXAM DATE/TIME: 06/29/2016 19:40 [facility] COMPARISON: MYOCARDIAL PERF PHARM SPECT, GATED W/EF, June 22, 2014, 9:08. INDICATIONS : Dizziness/ IV CONTRAST: 55 cc Omnipaque 350 (iohexol) IV RADIATION DOSE: 14.6 CTDIvol (mGy) MEDICAL HISTORY : Hypertension. Chronic obstructive pulmonary disease. SURGICAL HISTORY : Pacemaker. CABG ENCOUNTER: Initial ACUITY: 1 day PAIN SCALE: 0/10 LOCATION: chest TECHNIQUE: Volumetric scanning of the chest was performed using a pulmonary embolism protocol MIP images were re constructed. Using automated exposure control and adjustment of the mA and/or kV according to patien t size, radiation dose was kept as low as reasonably achievable to obtain optimal diagnostic quality images. FINDINGS: The patient has transposition of the great vessels. The morphologic left ventricle provides flow to t he pulmonary arteries. There are are no pulmonary arterial filling defects to suggest embolism. There is mild vascular congestion. No evidence of infiltrate or effusion. CONCLUSION: No evidence of pulmonary embolism. Transposition of the great vessels. Alex Cameron MD on June 29, 2016 at 20:11 Board Certified Radiologist. This report was verified electronically.
--- NOTE | 2016-06-30 16:37 | EKG ---
Date Performed: 06/29/2016 Time Performed: 16:49:42 PTAGE: 45 years EKG: ELECTRONIC ATRIAL PACEMAKER RIGHT VENTRICULAR HYPERTROPHY AND ST-T CHANGE INFERIOR MYOCARDI AL INFARCTION ABNORMAL ECG PREVIOUS TRACING : 06/22/2016 18.02 Compared to prior tracing no significant change DOCTOR: Cesar Elias Interpretating Date/Time 06/30/2016 16:36:23
== END 2016-06-29 21:05 | disposition left against medical advice (07) ==
LOC: NEPA 15:09
DX: R55 Syncope and collapse (principal); R44.3 Hallucinations, unspecified; R42 Dizziness and giddiness; I51.7 Cardiomegaly; R94.31 Abnormal electrocardiogram [ECG] [EKG]; I10 Essential (primary) hypertension; Z95.810 Presence of automatic (implantable) cardiac defibrillator; Z95.0 Presence of cardiac pacemaker; Z95.1 Presence of aortocoronary bypass graft
CPT/HCPCS: 71275; 80048; 82550; 82552; 84484; 85025; 85379; 93005; 96360; 96361; 99284; J7030; Q9967

== ENCOUNTER 2016-07-14 16:38 | Emergency (ER) | payer MEDICAID ==
[~2016-07-14] VITALS: Ht 180.3 cm; Wt 85.0 kg
[2016-07-14 17:32] VITALS: BP 112/60; PULSE 60; RESP 16; TEMP 98.8; O2SAT 95
[2016-07-14 17:35] VITALS: BP 112/60; PULSE 60; RESP 18; TEMP 98.8; O2SAT 95
[2016-07-14 17:51] VITALS: PULSE 61; RESP 18; O2SAT 98
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
[2016-07-14 19:49] LABS: AUTOMATED NEUTROPHIL # 3.8 TH/MM3 (1.8-7.7); BASOPHIL % 0.7 % (0.0-2.0); EOSINOPHIL # 0.1 TH/MM3 (0-0.4); EOSINOPHIL % 1.5 % (0.0-4.0); HEMATOCRIT 42.9 % (39.0-51.0); HEMO FLAGS DIFF FINAL; LYMPH % 27.1 % (9.0-44.0); LYMPHOCYTE # 1.7 TH/MM3 (1.0-4.8); MEAN CELL VOLUME 81.4 FL (80.0-100.0); MEAN CORPUSCULAR HGB CONC 34.4 % (32.0-36.0); NEUT % 62.7 % (16.0-70.0); PLATELET COUNT 145 TH/MM3 (150-450); RED BLOOD COUNT 5.27 MIL/MM3 (4.50-5.90); RED CELL DISTRIBUTION WIDTH 16.7 % (11.6-17.2); WHITE BLOOD COUNT 6.1 TH/MM3 (4.0-11.0)
[2016-07-14 20:12] LABS: ANION GAP 6 MEQ/L (5-15); BICARBONATE 31.7 MEQ/L (21.0-32.0); BLOOD UREA NITROGEN 21 MG/DL (7-18); CHLORIDE 100 MEQ/L (98-107); GLOMERULAR FILTRATION RATE 76 ML/MIN (>89); MAGNESIUM 2.2 MG/DL (1.5-2.5); POTASSIUM 4.4 MEQ/L (3.5-5.1); SODIUM (NA) 138 MEQ/L (136-145)
[2016-07-14 20:30] VITALS: BP 119/66; PULSE 64; RESP 18; O2SAT 99
--- NOTE | 2016-07-14 21:13 | RADRPT ---
EXAM DATE/TIME: 07/14/2016 19:34 [facility] COMPARISON: CHEST SINGLE AP, June 22, 2016, 17:57. INDICATIONS : Short of breath. MEDICAL HISTORY : Cardiovascular disease. SURGICAL HISTORY : Pacemaker ENCOUNTER: Initial ACUITY: 1 day PAIN SCORE: 3/10 LOCATION: Bilateral chest FINDINGS: A single view of the chest demonstrates cardiomegaly. Pacer leads unchanged. Mild basilar dependent a telectasis. No pneumothorax. No significant effusion. CONCLUSION: 1. Cardiomegaly with basilar dependent atelectasis. No significant effusion. No pneumothorax. Gallo Charles MD on July 14, 2016 at 21:11 Board Certified Radiologist. This report was verified electronically.
--- NOTE | 2016-07-15 02:23 | PD ---
Data Data Last Documented VS Vital Signs Date Time Temp Pulse Resp B/P Pulse Ox O2 Delivery O2 Flow Rate FiO2 07/14/16 20:30 64 18 119/66 99 Room Air 07/14/16 17:35 98.8 Orders Electrocardiogram (07/14/16 19:13) Complete Blood Count With Diff (07/14/16 19:13) Basic Metabolic Panel (Bmp) (07/14/16 19:13) Troponin I (07/14/16 19:13) B-Type Natriuretic Peptide (07/14/16 19:13) Magnesium (Mg) (07/14/16 19:13) Chest, Single Ap (07/14/16 19:13) Labs Laboratory Tests Test 07/14/16 19:35 White Blood Count 6.1 TH/MM3 Red Blood Count 5.27 MIL/MM3 Hemoglobin 14.8 GM/DL Hematocrit 42.9 % Mean Corpuscular Volume 81.4 FL Mean Corpuscular Hemoglobin 28.0 PG Mean Corpuscular Hemoglobin 34.4 % Concent Red Cell Distribution Width 16.7 % Platelet Count 145 TH/MM3 Mean Platelet Volume 8.6 FL Neutrophils (%) (Auto) 62.7 % Lymphocytes (%) (Auto) 27.1 % Monocytes (%) (Auto) 8.0 % Eosinophils (%) (Auto) 1.5 % Basophils (%) (Auto) 0.7 % Neutrophils # (Auto) 3.8 TH/MM3 Lymphocytes # (Auto) 1.7 TH/MM3 Monocytes # (Auto) 0.5 TH/MM3 Eosinophils # (Auto) 0.1 TH/MM3 Basophils # (Auto) 0.0 TH/MM3 CBC Comment DIFF FINAL Differential Comment Sodium Level 138 MEQ/L Potassium Level 4.4 MEQ/L Chloride Level 100 MEQ/L Carbon Dioxide Level 31.7 MEQ/L Anion Gap 6 MEQ/L Blood Urea Nitrogen 21 MG/DL Creatinine 1.23 MG/DL Estimat Glomerular Filtration 76 ML/MIN Rate Random Glucose 116 MG/DL Calcium Level 9.4 MG/DL Magnesium Level 2.2 MG/DL Troponin I LESS THAN 0.02 NG/ML B-Type Natriuretic Peptide 86 PG/ML MDM Supervised Visit with MARV: Yes Narrative Course The history, exam, and medical decision-making in the associated midlevel provider note were completed with my assistance. I reviewed and agree with the findings presented. I attest that I had a [id number] encounter with the patient on the same day, and personally performed and documented my assessment and findings in the medical record. *My assessment and Findings: This is a 45-year-old male who has a history of congenital heart abnormality and AICD who presents to the emergency department having had an episode of syncope. He says he doesn't remember the episode. He was just recently admitted for an AICD firing. He had multiple tests performed including a carotid ultrasound and he recently had a CT pulmonary angiogram which was reassuring. It was concluded that he had an appropriate firing of his AICD. Here in the emergency department all of his labs are reassuring. Patient appears well. I don't think he benefit from an additional inpatient evaluation at this time and I think he be more well served by following up with his outpatient primary care physician and eap consultant. Patient was discharged home. Diagnosis Primary Impression: Shortness of breath on exertion Referrals: Primary Care Physician call for appointment Patient Instructions: General Instructions, Dyspnea (ED) Departure Forms: Tests/Procedures Additional Instruction: F/U pcp. See Ed if worsening symptoms. Disposition: 01 DISCHARGE HOME Condition: Stable Arely Irvin MD Jul 15, 2016 02:23
== END 2016-07-14 21:48 | disposition home or self-care (01) ==
LOC: NEPC 16:38
DX: R06.02 Shortness of breath (principal); J44.9 Chronic obstructive pulmonary disease, unspecified; I10 Essential (primary) hypertension; Z95.0 Presence of cardiac pacemaker; Z79.01 Long term (current) use of anticoagulants; Z72.0 Tobacco use
CPT/HCPCS: 71010; 80048; 83735; 83880; 84484; 85025

== ENCOUNTER 2016-07-23 13:09 | Observation (INO) | payer MEDICAID, OTHER ==
[~2016-07-23] VITALS: Ht 180.3 cm; Wt 82.0 kg
[2016-07-23 13:19] VITALS: BP 119/66; PULSE 79; RESP 20; TEMP 98.5; O2SAT 97
[2016-07-23] MEDS ORDERED: SODIUM CHLORIDE 0.9% FLUSH 5 ML FLUSH IVF PRN (13:30)
[2016-07-23 13:36] VITALS: BP_SYST 112; BP_SYST 119; BP_DIAS 61; BP_DIAS 66; O2SAT 96
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
[2016-07-23 14:04] LABS: AUTOMATED NEUTROPHIL # 3.4 TH/MM3 (1.8-7.7); BASOPHIL % 0.5 % (0.0-2.0); EOSINOPHIL # 0.1 TH/MM3 (0-0.4); EOSINOPHIL % 1.4 % (0.0-4.0); HEMATOCRIT 38.6 % (39.0-51.0); HEMO FLAGS DIFF FINAL; LYMPH % 26.5 % (9.0-44.0); LYMPHOCYTE # 1.4 TH/MM3 (1.0-4.8); MEAN CELL VOLUME 79.6 FL (80.0-100.0); MEAN CORPUSCULAR HEMOGLOBIN 27.8 PG (27.0-34.0); MONO % 8.3 % (0.0-8.0); NEUT % 63.3 % (16.0-70.0); PLATELET COUNT 142 TH/MM3 (150-450); RED BLOOD COUNT 4.85 MIL/MM3 (4.50-5.90); RED CELL DISTRIBUTION WIDTH 16.5 % (11.6-17.2); WHITE BLOOD COUNT 5.3 TH/MM3 (4.0-11.0)
[2016-07-23 14:13] LABS: APTT (PATIENT) 28.9 SEC (24.3-30.1); PROTHROMBIN TIME - PATIENT 11.3 SEC (9.8-11.6)
[2016-07-23 14:21] LABS: ALT (GPT) 38 U/L (12-78); ANION GAP 12 MEQ/L (5-15); AST (GOT) 22 U/L (15-37); BLOOD UREA NITROGEN 17 MG/DL (7-18); CHLORIDE 106 MEQ/L (98-107); GLOMERULAR FILTRATION RATE 70 ML/MIN (>89); MAGNESIUM 1.9 MG/DL (1.5-2.5); POTASSIUM 3.7 MEQ/L (3.5-5.1); SODIUM (NA) 141 MEQ/L (136-145)
[2016-07-23 14:30] LABS: ALKALINE PHOSPHATASE 125 U/L (45-117); CREATINE KINASE 222 U/L (39-308); TOTAL BILIRUBIN ADULT 0.4 MG/DL (0.2-1.0)
[2016-07-23] MEDS ORDERED: AMIO200T PO (14:37)
[2016-07-23] MEDS ORDERED: POTA-163 PO (14:37)
[2016-07-23] MEDS ORDERED: FURO1TAB62 PO (14:37)
[2016-07-23] MEDS ORDERED: METF500T PO (14:37)
[2016-07-23 14:43] LABS: CKMB 1.3 NG/ML (0.5-3.6)
[2016-07-23] MEDS ORDERED: SODIUM CHLORID 0.9% 500 ML INJ 500 ML IV ONE (15:00)
--- NOTE | 2016-07-23 15:04 | RADRPT ---
EXAM DATE/TIME: 07/23/2016 13:50 [facility] COMPARISON: CHEST SINGLE AP, July 14, 2016, 19:34. INDICATIONS : Chest pain. MEDICAL HISTORY : Cardiovascular disease. SURGICAL HISTORY : Pacemaker. ENCOUNTER: Initial ACUITY: 1 day PAIN SCORE: 5/10 LOCATION: Bilateral chest FINDINGS: Single AP view of the chest. Cardiac pacemaker in place. AICD in place with the generator in the left chest wall. The lungs are clear. Mild cardiac silhouette enlargement unchanged.. No evidence of pleu ral effusion or pneumothorax. CONCLUSION: No acute cardiopulmonary disease identified. Victorino Gonzales MD on July 23, 2016 at 15:02 Board Certified Radiologist. This report was verified electronically.
[2016-07-23 15:17] VITALS: BP 118/70; PULSE 60; RESP 17; O2SAT 98
[2016-07-23 17:00] VITALS: BP 117/66; PULSE 60; RESP 16; O2SAT 97
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
[2016-07-23] MEDS ORDERED: SODIUM CHLORIDE 0.9% FLUSH 5 ML FLUSH IV PRN (18:45)
[2016-07-23 19:38] VITALS: BP 122/91; PULSE 60; RESP 16; O2SAT 98
[2016-07-23] MEDS: CARVEDILOL 3.125 MG TAB PO SCH (20:43)
[2016-07-23] MEDS: SODIUM CHLORIDE 0.9% FLUSH 5 ML FLUSH IV SCH (20:43)
[2016-07-23 21:30] VITALS: BP 121/74; PULSE 68; RESP 18; TEMP 97.8; O2SAT 98
[2016-07-23] MEDS ORDERED: ONDANSETRON ODT 4 MG TAB PO PRN (22:30)
[2016-07-23] MEDS ORDERED: ENALAPRILAT 1.25 MG/ML VIAL IV PRN (22:30)
[2016-07-23] MEDS ORDERED: ACETAMINOPHEN 325 MG TAB PO PRN (22:30)
[2016-07-24] VITALS (8 sets, daily range): BP systolic 91–142; BP diastolic 45–85; PULSE 60–87; RESP 14–21; TEMP 97.2–98.4; O2SAT 91–99
[2016-07-24 06:01] LABS: BICARBONATE 26.4 MEQ/L (21.0-32.0)
[2016-07-24] MEDS ORDERED: GLUCAGON 1 MG/ML VIAL OTHER PRN (06:30)
[2016-07-24] MEDS ORDERED: DEXTROSE 50% IN WATER 50 ML VIAL(D50) IV PUSH PRN (06:30)
--- NOTE | 2016-07-24 06:36 | HHI.DCPOC ---
Discharge Care Plan Diagnosis: (1) Chest pain (2) HTN (hypertension) (3) Pacemaker (4) Nutrition, metabolism, and development symptoms (5) DM (diabetes mellitus) (6) CHF (congestive heart failure) (7) Atrial fibrillation Goals to Promote Your Health * To prevent worsening of your condition and complications * To maintain your health at the optimal level Directions to Meet Your Goals Take your medications as prescribed Follow your dietary instruction Follow activity as directed Keep your appointments as scheduled Take your immunizations and boosters as scheduled If your symptoms worsen call your PCP, if no PCP go to Urgent Care Center or Emergency Room Smoking is Dangerous to Your Health. Avoid second hand smoke Call the 24-hour hour crisis hotline for domestic abuse at Emeka Kumar MD R1 Jul 24, 2016 06:36
[2016-07-24] MEDS: INSULIN ASPART SUPPLEMENTAL SCALE SQ SCH ×4 (06:38→21:00)
[2016-07-24] MEDS: CARVEDILOL 3.125 MG TAB PO SCH ×2 (10:33→20:52)
[2016-07-24] MEDS: AMIODARONE 200 MG TAB PO SCH (10:33)
[2016-07-24] MEDS: CLOPIDOGREL 75 MG TAB PO SCH (10:33)
[2016-07-24] MEDS: ATORVASTATIN 40 MG TAB PO SCH (10:33)
[2016-07-24] MEDS: SODIUM CHLORIDE 0.9% FLUSH 5 ML FLUSH IV SCH ×2 (10:34→20:51)
--- NOTE | 2016-07-24 11:50 | HHI.FPPN ---
Subjective Remarks No acute events overnight. Afebrile, vital signs stable. Patient complains of difficulty walking long distances. Denies any chest pain, shortness of breath. Appetite is good. (Lucía Bain MD R3) Objective Vitals Vital Signs Date Time Temp Pulse Resp B/P Pulse Ox O2 Delivery O2 Flow Rate FiO2 07/24/16 08:04 97.8 60 14 111/63 95 07/24/16 08:04 98.4 60 14 95 07/24/16 00:00 98.0 87 20 142/78 98 07/23/16 21:30 97.8 68 18 121/74 98 07/23/16 19:38 60 16 122/91 98 Room Air 07/23/16 17:00 60 16 117/66 97 Nasal Cannula 2 07/23/16 15:17 60 17 118/70 98 Nasal Cannula 07/23/16 13:38 Nasal Cannula 2 07/23/16 13:36 119/66 112/61 07/23/16 13:36 Nasal Cannula 2 07/23/16 13:36 96 Room Air 07/23/16 13:19 98.5 79 20 119/66 97 I/O 07/23/16 07/23/16 07/23/16 07/24/16 07/24/16 07/24/16 07:00 15:00 23:00 07:00 15:00 23:00 Output Total 900 ml Balance -900 ml Output Urine Total 900 ml # Voids 1 (Lucía Bain MD R3) Result Diagram: 07/23/16 1345 07/24/16 0529 Imaging Last 72 hours Impressions Chest X-Ray 07/23/16 1317 Signed Impressions: Service Date/Time: Saturday, July 23, 2016 13:50 - CONCLUSION: No acute cardiopulmonary disease identified. Victorino Gonzales MD Objective Remarks Gen.: No acute distress Head: Normocephalic. Atraumatic. EENT: Pupils equal round and reactive to light. Nose without drainage. Airway intact. Throat without injection. Cardiovascular: Regular rate and rhythm. No murmurs, rubs or gallops. Respiratory: Lungs clear to auscultation bilaterally. No wheezes or rhonchi. Abdomen: Soft, nontender, nondistended. No peritoneal signs. Musculoskeletal: No gross deformities. No edema. Skin: No obvious rashes or erythema. Neuro: Sensory and motor grossly intact. Cranial nerves II through XII grossly intact. Psych: Appropriate mood and affect (Lucía Bain MD R3) A/P Assessment and Plan Mr. 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 Case reviewed and discussed with the resident team. Agree with plan of care as discussed with me and documented in the resident note. (Alma Delia Briseno MD) Problem List: (1) Chest pain Status: Resolved Plan: Patient presenting with chest pain after believing implanted defibrillator fired. Fibrillator examination showed no recent shock has been given. Initial EKG showed NSR with rate of 70 bpm. ACS rule out negative. Start Plavix 75 mg daily for prevention of thrombotic events. Patient has been on Plavix previously, we will continue this and he will follow-up with his eeg technologist. (2) Pacemaker Status: Chronic Plan: Patient with implanted defibrillator concerned for recent shock administration. Defibrillator evaluation: No shocks administered, battery life between 2.5-3.5 years, all diagnostic studies within normal limits (3) Atrial fibrillation Status: Chronic Plan: Patient with history of atrial fibrillation Continue amiodarone 200 mg daily Continue carvedilol 3.125 mg twice a day (4) CHF (congestive heart failure) Status: Chronic Plan: Patient with history of congestive heart failure. Continue home Lasix and potassium (5) HTN (hypertension) Status: Chronic Plan: Patient with history of current hypertension Continue carvedilol 3.125 mg twice a day (6) DM (diabetes mellitus) Status: Chronic Plan: Patient with history of diabetes Hold metformin, will resume on discharge Low-dose sliding scale insulin per protocol Add lisinopril on discharge (7) Nutrition, metabolism, and development symptoms Status: Acute Plan: Fluids: Hep-Lock IV Diet: Heart healthy diet as tolerated Electrolytes: Creatinine recovered, other electrolytes within normal limits DVT prophylaxis: SCD/TEDs for mechanical prophylaxis (Lucía Bain MD R3) Problem Qualifiers (1) Chest pain: Qualified Code: R07.9 - Chest pain, unspecified type Lucía Bain MD R3 Jul 24, 2016 11:50 Alma Delia Briseno MD Jul 24, 2016 14:01
--- NOTE | 2016-07-24 11:51 | HHI.FPPN ---
Subjective Remarks Patient seen, examined and discussed with the medicine team. Patient was admitted to observation yesterday because of chest discomfort in a 45-year-old male with AICD/defibrillator who thought his defibrillator discharged. He has had surgery for situs inversus in 2013. This morning, he does not have any pain in his chest, he is not short of breath, but does complain that he can't walk very far. Objective Vitals Vital Signs Date Time Temp Pulse Resp B/P Pulse Ox O2 Delivery O2 Flow Rate FiO2 07/24/16 08:04 97.8 60 14 111/63 95 07/24/16 08:04 98.4 60 14 95 07/24/16 00:00 98.0 87 20 142/78 98 07/23/16 21:30 97.8 68 18 121/74 98 07/23/16 19:38 60 16 122/91 98 Room Air 07/23/16 17:00 60 16 117/66 97 Nasal Cannula 2 07/23/16 15:17 60 17 118/70 98 Nasal Cannula 07/23/16 13:38 Nasal Cannula 2 07/23/16 13:36 119/66 112/61 07/23/16 13:36 Nasal Cannula 2 07/23/16 13:36 96 Room Air 07/23/16 13:19 98.5 79 20 119/66 97 I/O 07/23/16 07/23/16 07/23/16 07/24/16 07/24/16 07/24/16 07:00 15:00 23:00 07:00 15:00 23:00 Output Total 900 ml Balance -900 ml Output Urine Total 900 ml # Voids 1 Result Diagram: 07/23/16 1345 07/24/16 0529 Objective Remarks O. CONSTITUTIONAL/GEN: normally nourished, in NAD. EYES: conjunctiva muddy, PERRLA, EOMI. NECK: Supple LUNGS: clear A-P, respiratory effort is normal. CARDIOVASCULAR: RR without murmur or gallop. No significant edema. GI/ABD: soft without masses, without organomegaly. Active bowel sounds NEURO: No focal deficits. SKIN: color normal, no rashes noted. Skin is very dry. HEME/LYMPH: no bruising, petechia or significant adenopathy MUSC: Extremities are normal in appearance. PSYCH/MENTAL STATUS: Alert and oriented x 3. A/P Assessment and Plan Mr. 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 The defibrillator was queried, and has not discharged. Discharge Planning Home today, after ambulating with physical therapy. Attending Attestation Patient seen and examined. Case reviewed and discussed with the resident team. Agree with plan of care as discussed with me and documented in the resident note. Problem List: (1) Chest pain Status: Acute Plan: Patient presenting with chest pain after believing implanted defibrillator fired. Fibrillator examination showed no recent shock has been given. Initial EKG showed NSR with rate of 70 bpm. Initial troponin negative at <0.02. Patient will be admitted for full ACS rule out at this time. Chest x-ray: No acute cardiopulmonary disease CBC: WBC 5.3, H/H 13.5/30.6, platelets 142 CMP: Creatinine 1.32 (baseline approximately 1.0), glucose 127, alkaline phosphatase 125, otherwise within normal limits EKG: Normal sinus rhythm with a rate of 70 beats per minute, repeat scheduled for 2300 Troponin: Less than 0.02, 0.03, third scheduled at 2300 BNP: 146 Cardiac telemetry Start Plavix 75 mg daily for prevention of thrombotic events (2) Pacemaker Status: Chronic Plan: Patient with implanted defibrillator concerned for recent shock administration. Defibrillator evaluation: No shocks administered, battery life between 2.5-3.5 years, all diagnostic studies within normal limits (3) Atrial fibrillation Status: Chronic Plan: Patient with history of atrial fibrillation Continue amiodarone 200 mg daily Continue carvedilol 3.125 mg twice a day (4) CHF (congestive heart failure) Status: Chronic Plan: Patient with history of congestive heart failure Hold Lasix and potassium (5) HTN (hypertension) Status: Chronic Plan: Patient with history of current hypertension Continue carvedilol 3.125 mg twice a day Hold Lasix and potassium (6) DM (diabetes mellitus) Status: Chronic Plan: Patient with history of diabetes Hold metformin Low-dose sliding scale insulin per protocol Consider adding lisinopril with improved creatinine for renal protection (7) Nutrition, metabolism, and development symptoms Status: Acute Plan: Fluids: Bolus received in ER, patient appears hydrated, will defer at this time as patient is tolerated diet and PO fluids Diet: Heart healthy diet as tolerated Electrolytes: Creatinine elevated 1.32 and glucose to 127, continue to monitor with a.m. labs DVT prophylaxis: SCD/TEDs for mechanical prophylaxis, defer pharmacological prophylaxis at this time due to possible discharge in AM Problem Qualifiers (1) Chest pain: Qualified Code: R07.9 - Chest pain, unspecified type Alma Delia Briseno MD Jul 24, 2016 11:51
[2016-07-24] MEDS ORDERED: PLAV75TA29 PO (11:52)
--- NOTE | 2016-07-24 14:24 | EKG ---
Date Performed: 07/23/2016 Time Performed: 23:28:15 PTAGE: 45 years EKG: ELECTRONIC ATRIAL PACEMAKER RIGHT VENTRICULAR HYPERTROPHY AND ST-T CHANGE ABNORMAL ECG PREVIOUS TRACING : 07/23/2016 13.39 DOCTOR: Mario Jacob Interpretating Date/Time 07/24/2016 14:19:10
--- NOTE | 2016-07-24 14:36 | EKG ---
Date Performed: 07/23/2016 Time Performed: 13:39:53 PTAGE: 45 years EKG: Atrial pace MARKED RIGHT AXIS DEVIATION RIGHT BUNDLE BRANCH BLOCK ABNORMAL ECG PREVIOUS TRACING : 06/29/2016 16.49 DOCTOR: Mario Jacob Interpretating Date/Time 07/24/2016 14:31:29
--- NOTE | 2016-07-24 15:10 | HHI.PR ---
Addendum to Inpatient Note Addendum Reason: Additional Documentation Additional Information S: Team paged at 1455 for acute status change in patient. At bedside, patient is lying down in no acute distress. His significant other is at the bedside and assists with the history of events. During an interview with case management, the patient tried to sit up and get out of his bed when he became weak and fell back into bed. There was not any loss of consciousness or trauma during the fall. He landed back on his buttocks and was able to sit up afterwards. He denies any headaches, SOB, chest pain, extremity pain, NVD, or calf tenderness. He does state that he feels weak and can only ambulate to the door of his room without feeling tired. He was recently evaluated by PT who agreed with his overall weakness and recommended rehab at time of discharge. O: Vitals: B, 121/80, 60bpm, 92% on RA, RR 18 Gen: Patient sitting up in bed in no acute distress. CV: RRR. EKG shows rate of 60 bpm, ST depression in leads V1-3, and normal intervals. Pulm: No increased WOB. Neuro: AAOx3. CN 2-12 intact. A: Mr. 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 Recently he was evaluated for an acute status change. Currently his vitals are stable and he is in no acute distress. P: -Due to ST depression in leads V1-3, cardiac rule out was ordered with serial troponins and EKGs -Patient educated to notify staff with any new chest pain or changes in his status -Team will discuss possible rehab placement with Case Management Emeka Kumar MD R1 Jul 24, 2016 15:10
[2016-07-24 17:07] LABS: CREATINE KINASE 344 U/L (39-308)
[2016-07-24 22:59] LABS: CKMB 0.9 NG/ML (0.5-3.6)
[2016-07-25] VITALS (10 sets, daily range): BP systolic 102–134; BP diastolic 54–94; PULSE 60–84; RESP 16–18; TEMP 97.8–98.4; O2SAT 94–98
[2016-07-25 03:28] LABS: CREATINE KINASE 283 U/L (39-308)
[2016-07-25] MEDS: INSULIN ASPART SUPPLEMENTAL SCALE SQ SCH ×4 (06:22→20:38)
[2016-07-25 07:51] LABS: BICARBONATE 28.1 MEQ/L (21.0-32.0)
[2016-07-25] MEDS: ATORVASTATIN 40 MG TAB PO SCH (08:00)
[2016-07-25] MEDS: AMIODARONE 200 MG TAB PO SCH (08:00)
[2016-07-25] MEDS: CARVEDILOL 3.125 MG TAB PO SCH ×2 (08:00→20:38)
[2016-07-25] MEDS: CLOPIDOGREL 75 MG TAB PO SCH (08:00)
[2016-07-25] MEDS: SODIUM CHLORIDE 0.9% FLUSH 5 ML FLUSH IV SCH ×2 (08:02→20:38)
--- NOTE | 2016-07-25 10:55 | HHI.FPPN ---
Subjective Remarks No acute events overnight however patient was not on telemetry. This morning patient reports that he feels well. Denies any chest pain, SOB but does continue to endorse weakness on prolonged walking. In relation to his living situation, he he states he is living with his cousin's girlfriend has been so for the last month. She also reports lack of physician follow-up as he does not have a ride because his friends/family require gas money which he does not have. (Shirley Navarro MD R2) Objective Vitals Vital Signs Date Time Temp Pulse Resp B/P Pulse Ox O2 Delivery O2 Flow Rate FiO2 07/25/16 08:16 97.9 60 18 102/57 95 07/25/16 07:58 94 21 07/25/16 04:02 97.8 67 18 104/58 98 07/25/16 00:00 98.4 84 18 105/62 98 07/24/16 22:03 60 07/24/16 21:10 94 07/24/16 19:48 97.7 60 21 91/45 99 07/24/16 14:45 60 18 121/85 91 07/24/16 11:59 97.2 60 18 103/55 95 (Shirley Nvaarro MD R2) Result Diagram: 07/23/16 1345 07/25/16 0626 Objective Remarks GEN: Well-developed, well-nourished patient. No acute distress. CV: Grade 2/6 ILIANA. Regular rate and rhythm. LUNGS: Clear to auscultation bilaterally. Normal respiratory effort. No wheezes , rales, rhonchi. EXT: No edema. No calf tenderness. NEURO/PSYCH: Awake, alert. Appropriate insight and judgment. Normal speech ( Shirley Navarro MD R2) A/P Assessment and Plan Mr. Perrin is a 45 y/o AAM with a PMHx of significant cardiac history with pacer and defibrillator and diabetes. Admitted for atypical chest pain. Discharge Planning In relation to patient's cardiac history, he is cleared for discharge however he continued to have significant weakness on prolonged walking. Placement for discharge complicated by lack of PCP and problems getting to SNF. wdw Dr. Kmuar and Dr. Briseno (Shirley Navarro MD R2) Attending Attestation Patient seen and examined. Case reviewed and discussed with the resident team. Agree with plan of care as discussed with me and documented in the resident note. (Alma Delia Briseno MD) Problem List: (1) Chest pain Status: Resolved Plan: Hx of A. fib, CHF, pacemaker/defibrillator placement, congenital heart defect repair. Patient presenting with chest pain after believing implanted defibrillator fired. Defibrillator interrogation showed no recent shock has been given. During hospitalization, patient had an episode of weakness. Echo from 06/16/16 showed an EF of 30-35% which is likely contributing to symptoms. -Low BP may also be contributing to weakness however concern for decreasing/ stopping current medications mainly due to arrhythmia which is currently controlled -ACS evaluation 2 negative -Orthostatic BP -Patient to remain on telemetry, patient was not being recorded overnight. Medications: * Plavix 75 mg daily * Amiodarone 200mg daily * Lipitor 40mg daily * Carvedilol 3.125 mg BID * CITLALY inhibitor not started due to low BP * Home Lasix and potassium held (2) HTN (hypertension) Status: Chronic Plan: See plan above (3) DM (diabetes mellitus) Status: Chronic Plan: Patient with history of diabetes Hold metformin, will resume on discharge Low-dose sliding scale insulin per protocol (4) Nutrition, metabolism, and development symptoms Status: Acute Plan: Fluids: Hep-Lock IV Diet: Heart healthy diet as tolerated Electrolytes: Unremarkable, continue to monitor DVT prophylaxis: SCD/TEDs for mechanical prophylaxis GI prophylaxis: Not indicated (Shirley Navarro MD R2) Problem Qualifiers (1) Chest pain: Qualified Code: R07.9 - Chest pain, unspecified type Shirley Navarro MD R2 Jul 25, 2016 10:55 Alma Delia Briseno MD Jul 25, 2016 15:21
--- NOTE | 2016-07-25 16:41 | HHI.FF ---
Face to Face Verification Diagnosis: (1) Atrial fibrillation (2) HTN (hypertension) (3) CHF (congestive heart failure) (4) Pacemaker Physical Therapy Order: Evaluate and Treat, Improve ambulation, Strength and gait training Instructions: Patient in need of home health cardiac rehabilitation. Home Health Nursing Order: Medical education Signs/symptoms of disease process Diabetic education CHF education Nursing assessment with vital signs I have seen patient Nora Perrin on 07/25/16. My clinical findings support the need for the requested home health care services because: Ltd mobility - disease progression Deconditioned w/ increased weakness Impaired cognition/judgement High risk of falls I certify that my clinical findings support that this patient is homebound because: Unsteady gait/balance Poor cardiac reserve Patient seen and examined. Case reviewed and discussed with the resident team. Agree with plan of care as discussed with me and documented in the resident note. Emeka Kumar MD R1 Jul 25, 2016 16:41 Alma Delia Briseno MD Jul 26, 2016 07:52
--- NOTE | 2016-07-25 16:47 | EKG ---
Date Performed: 07/24/2016 Time Performed: 14:56:12 PTAGE: 45 years EKG: ELECTRONIC ATRIAL PACEMAKER PATTERN CONSISTENT WITH PULMONARY DISEASE RIGHT VENTRICULAR HYP ERTROPHY AND ST-T CHANGE INFERIOR MYOCARDIAL INFARCTION Since previous tracing, no significant change noted ABNORMAL ECG PREVIOUS TRACING : 07/23/2016 23.28 DOCTOR: Leon Bustillos Interpretating Date/Time 07/25/2016 16:47:10
--- NOTE | 2016-07-25 16:48 | EKG ---
Date Performed: 07/25/2016 Time Performed: 06:08:53 PTAGE: 45 years EKG: ELECTRONIC ATRIAL PACEMAKER INCOMPLETE RIGHT BUNDLE BRANCH BLOCK RIGHT VENTRICULAR HYPERTRO PHY AND ST-T CHANGE INFERIOR MYOCARDIAL INFARCTION Since previous tracing, no significant change note d ABNORMAL ECG PREVIOUS TRACING : 07/24/2016 14.56.12 DOCTOR: Leon Bustillos Interpretating Date/Time 07/25/2016 16:48:02
[2016-07-25] MEDS ORDERED: WALKER WHEELS/F1 MIS (17:01)
[2016-07-26] VITALS: BP 115/68; PULSE 78; RESP 21; TEMP 98.6; O2SAT 98
[2016-07-26 05:35] VITALS: O2SAT 97
[2016-07-26] MEDS: INSULIN ASPART SUPPLEMENTAL SCALE SQ SCH ×3 (06:01→16:00)
[2016-07-26 07:50] VITALS: BP 98/56; PULSE 60; RESP 18; TEMP 97.7; O2SAT 93
[2016-07-26] MEDS: ATORVASTATIN 40 MG TAB PO SCH (08:01)
[2016-07-26] MEDS: SODIUM CHLORIDE 0.9% FLUSH 5 ML FLUSH IV SCH (08:01)
[2016-07-26] MEDS: CARVEDILOL 3.125 MG TAB PO SCH ×3 (08:01→09:00)
[2016-07-26] MEDS: AMIODARONE 200 MG TAB PO SCH (08:01)
[2016-07-26] MEDS: CLOPIDOGREL 75 MG TAB PO SCH (08:01)
--- NOTE | 2016-07-26 09:07 | HHI.FPPN ---
Subjective Remarks Patient seen and examined this morning. Vital signs stable overnight with no acute events. Patient has no complaints this morning and would like to go home to be with his daughters. He denies any fevers, chills, headaches, shortness of breath, chest pain, NVD, or calf tenderness. Discussed with orthostatic hypotension with patient. Encouraged increased fluid hydration and deliberate mobility to decrease symptoms. Blood pressure and cardiac medications were not able to be altered at this time due to his extensive cardiac past medical history. Plan to discharge home with home health for cardiac rehabilitation discussed with case management. (Emeka Kumar MD R1) Objective Vitals Vital Signs Date Time Temp Pulse Resp B/P Pulse Ox O2 Delivery O2 Flow Rate FiO2 07/26/16 07:50 97.7 60 18 98/56 93 07/26/16 05:35 97 07/26/16 00:00 98.6 78 21 115/68 98 07/25/16 21:13 97.8 64 18 112/62 97 07/25/16 20:00 72 07/25/16 15:46 97.9 61 16 102/58 95 07/25/16 12:37 60 07/25/16 11:38 60 111/54 95 134/94 102/56 07/25/16 11:36 60 111/54 96 I/O 07/25/16 07/25/16 07/25/16 07/26/16 07/26/16 07/26/16 07:00 15:00 23:00 07:00 15:00 23:00 Intake Total 360 ml Balance 360 ml Intake Oral 360 ml # Voids 2 (Emeka Kumar MD R1) Result Diagram: 07/23/16 1345 07/25/16 0626 Objective Remarks GEN: Normally nourished AAM in NAD. EYES: Atraumatic, normocephalic with EOMI and PERRLA. LUNGS: Clear to auscultation bilaterally with no CRW. CARDIOVASCULAR: RR without murmur or gallop. No significant edema. GI/ABD: Soft without masses, without organomegaly. Active bowel sounds. No tenderness to palpation NEURO: No focal deficits. SKIN: Color normal, no rashes noted. Skin is very dry. HEME/LYMPH: No bruising, petechia or significant adenopathy MUSC: Extremities are normal in appearance. PSYCH/MENTAL STATUS: Alert and oriented x 3. (Emeka Kumar MD R1) A/P Assessment and Plan Mr. Perrin is a 45 y/o AAM with a PMHx of significant cardiac history with pacer and defibrillator and diabetes. Admitted for atypical chest pain. Plan to discharge patient home with home health for cardiac rehabilitation. Discharge Planning In relation to patient's cardiac history, he is cleared for discharge however he continued to have significant weakness on prolonged walking. Placement for discharge complicated by lack of PCP and problems getting to SNF. Discharge pending authorization for home health with cardiac rehabilitation. wdw Dr. Petersen and Dr. Brsieno (Emeka Kumar MD R1) Attending Attestation Patient seen and examined. Case reviewed and discussed with the resident team. Agree with plan of care as discussed with me and documented in the resident note. (Alma Delia Briseno MD) Problem List: (1) Chest pain Status: Resolved Plan: Hx of A. fib, CHF, pacemaker/defibrillator placement, congenital heart defect repair. Patient presenting with chest pain after believing implanted defibrillator fired. Defibrillator interrogation showed no recent shock has been given. During hospitalization, patient had an episode of weakness. Echo from 06/16/16 showed an EF of 30-35% which is likely contributing to symptoms. -Low BP may also be contributing to weakness however concern for decreasing/ stopping current medications mainly due to arrhythmia which is currently controlled -ACS evaluation 2 negative -Orthostatic BP -Patient to remain on telemetry, patient was not being recorded overnight. -Patient found to have orthostatic hypotension, educated on diagnosis and symptomatic relief. Encouraged patient to increase oral hydration and slow mobility to decrease symptoms. Medications: * Plavix 75 mg daily * Amiodarone 200mg daily * Lipitor 40mg daily * Carvedilol 3.125 mg BID * CITLALY inhibitor was not initiated due to orthostatic hypotension * Discontinued Lasix as patient has been normotensive while medication held in hospital with orthostatic hypotension * Patient not anti-coagulated (A-Fib) due to poor compliance and follow up * Patient to follow up with PCP and Dr. Hannah, lag screwer within 1 week (2) HTN (hypertension) Status: Chronic Plan: See plan above (3) Orthostatic hypotension Status: Acute Plan: Patient found to have orthostatic hypotension Please see plan as above (4) DM (diabetes mellitus) Status: Chronic Plan: Patient with history of diabetes Hold metformin, will resume on discharge Low-dose sliding scale insulin per protocol (5) Nutrition, metabolism, and development symptoms Status: Acute Plan: Fluids: Hep-Lock IV Diet: Heart healthy diet as tolerated Electrolytes: Unremarkable, continue to monitor DVT prophylaxis: SCD/TEDs for mechanical prophylaxis GI prophylaxis: Not indicated (Emeka Kumar MD R1) Problem Qualifiers (1) Chest pain: Qualified Code: R07.9 - Chest pain, unspecified type Emeka Kumar MD R1 Jul 26, 2016 09:07 Alma Delia Briseno MD Jul 26, 2016 13:26
[2016-07-26] MEDS ORDERED: Physical Therapy (11:43)
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
== END 2016-07-26 17:24 | disposition home or self-care (01) ==
LOC: NEPE 13:09 → NEDA 17:16 → NEPHCDU 20:16
PROVIDERS: ADMIT Family Medicine; ATTEND Family Medicine
DX: I95.1 Orthostatic hypotension (principal); R07.9 Chest pain, unspecified; R00.2 Palpitations; I48.91 Unspecified atrial fibrillation; I11.0 Hypertensive heart disease with heart failure; I50.9 Heart failure, unspecified; J44.9 Chronic obstructive pulmonary disease, unspecified; E11.9 Type 2 diabetes mellitus without complications; E78.5 Hyperlipidemia, unspecified; F41.9 Anxiety disorder, unspecified; F17.210 Nicotine dependence, cigarettes, uncomplicated; Z95.810 Presence of automatic (implantable) cardiac defibrillator; Z79.01 Long term (current) use of anticoagulants
CPT/HCPCS: 71010; 80048; 80053; 82550; 82552; 82948; 83735; 83880; 84443; 84484; 85025; 85610; 85730; 93005; 96360; 97110; 97116; 97163; 99285; G0378; G8987; G8988; J1815; J7040

== ENCOUNTER 2016-07-27 00:58 | Emergency (ER) | payer MEDICAID ==
[~2016-07-27] VITALS: Ht 182.9 cm; Wt 100.0 kg
[~2016-07-27 00:58] MED LIST changes: +AMIO200T PO; -ENAL5TAB PO; +METF500T PO; +POTA-163 PO; +Physical Therapy; +WALKER WHEELS/F1 MIS
[2016-07-27 01:04] VITALS: BP 123/73; PULSE 63; RESP 16; TEMP 98.3; O2SAT 100
[2016-07-27] MEDS ORDERED: SODIUM CHLORIDE 0.9% FLUSH 5 ML FLUSH IVF PRN (01:15)
[2016-07-27 01:18] VITALS: RESP 16; O2SAT 98
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
[2016-07-27 01:28] LABS: BASOPHIL % 0.7 % (0.0-2.0); EOSINOPHIL # 0.1 TH/MM3 (0-0.4); EOSINOPHIL % 1.8 % (0.0-4.0); HEMATOCRIT 40.9 % (39.0-51.0); HEMO FLAGS DIFF FINAL; LYMPH % 24.1 % (9.0-44.0); LYMPHOCYTE # 1.5 TH/MM3 (1.0-4.8); MEAN CELL VOLUME 80.3 FL (80.0-100.0); MEAN CORPUSCULAR HEMOGLOBIN 28.2 PG (27.0-34.0); MEAN CORPUSCULAR HGB CONC 35.1 % (32.0-36.0); MONO % 7.9 % (0.0-8.0); NEUT % 65.5 % (16.0-70.0); PLATELET COUNT 149 TH/MM3 (150-450); RED CELL DISTRIBUTION WIDTH 16.8 % (11.6-17.2); WHITE BLOOD COUNT 6.1 TH/MM3 (4.0-11.0)
[2016-07-27 01:36] LABS: APTT (PATIENT) 30.8 SEC (24.3-30.1); PROTHROMBIN TIME - PATIENT 11.3 SEC (9.8-11.6)
[2016-07-27 01:56] LABS: ALT (GPT) 34 U/L (12-78); ANION GAP 8 MEQ/L (5-15); AST (GOT) 17 U/L (15-37); BICARBONATE 25.3 MEQ/L (21.0-32.0); BLOOD UREA NITROGEN 23 MG/DL (7-18); CHLORIDE 105 MEQ/L (98-107); GLOMERULAR FILTRATION RATE 81 ML/MIN (>89); MAGNESIUM 2.1 MG/DL (1.5-2.5); SODIUM (NA) 138 MEQ/L (136-145)
[2016-07-27 01:59] LABS: ALKALINE PHOSPHATASE 122 U/L (45-117); CREATINE KINASE 201 U/L (39-308); TOTAL BILIRUBIN ADULT 0.4 MG/DL (0.2-1.0)
[2016-07-27 02:11] LABS: CKMB 1.3 NG/ML (0.5-3.6)
--- NOTE | 2016-07-27 19:47 | EKG ---
Date Performed: 07/27/2016 Time Performed: 01:07:36 PTAGE: 45 years EKG: ELECTRONIC ATRIAL PACEMAKER MARKED RIGHT AXIS DEVIATION PATTERN CONSISTENT WITH PULMONARY D ISEASE RIGHT BUNDLE BRANCH BLOCK INFERIOR MYOCARDIAL INFARCTION ABNORMAL ECG PREVIOUS TRACING : 07/25/2016 06.08 Compared to prior tracing no significant change DOCTOR: Moises Banegas Interpretating Date/Time 07/27/2016 19:45:52
== END 2016-07-27 03:13 | disposition home or self-care (01) ==
LOC: NEPE 00:58
DX: R07.89 Other chest pain (principal); R94.31 Abnormal electrocardiogram [ECG] [EKG]; E78.00 Pure hypercholesterolemia, unspecified; I10 Essential (primary) hypertension; E11.9 Type 2 diabetes mellitus without complications; Z95.810 Presence of automatic (implantable) cardiac defibrillator; Z72.0 Tobacco use; Z79.01 Long term (current) use of anticoagulants; Z79.84 Long term (current) use of oral hypoglycemic drugs; Z86.59 Personal history of other mental and behavioral disorders; Z86.79 Personal history of other diseases of the circulatory system; Z87.09 Personal history of other diseases of the respiratory system; Z87.39 Personal history of other diseases of the musculoskeletal system and connective tissue
CPT/HCPCS: 80053; 82550; 82552; 83735; 84484; 85025; 85610; 85730; 93005

== ENCOUNTER 2016-07-27 12:01 | Emergency (ER) | payer MEDICAID ==
[~2016-07-27] VITALS: Ht 180.3 cm; Wt 100.0 kg
[2016-07-27 12:04] VITALS: BP 124/75; PULSE 54; RESP 15; TEMP 98.1; O2SAT 98
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
--- NOTE | 2016-07-27 13:40 | PD ---
Data Data Last Documented VS Vital Signs Date Time Temp Pulse Resp B/P Pulse Ox O2 Delivery O2 Flow Rate FiO2 07/27/16 12:04 98.1 54 15 124/75 98 Orders Complete Blood Count With Diff (07/27/16 13:03) Basic Metabolic Panel (Bmp) (07/27/16 13:03) Labs Laboratory Tests Test 07/27/16 13:10 White Blood Count 6.5 TH/MM3 Red Blood Count 5.27 MIL/MM3 Hemoglobin 14.8 GM/DL Hematocrit 42.3 % Mean Corpuscular Volume 80.2 FL Mean Corpuscular Hemoglobin 28.2 PG Mean Corpuscular Hemoglobin 35.1 % Concent Red Cell Distribution Width 16.8 % Platelet Count 154 TH/MM3 Mean Platelet Volume 7.9 FL Neutrophils (%) (Auto) 69.2 % Lymphocytes (%) (Auto) 21.8 % Monocytes (%) (Auto) 7.3 % Eosinophils (%) (Auto) 1.3 % Basophils (%) (Auto) 0.4 % Neutrophils # (Auto) 4.5 TH/MM3 Lymphocytes # (Auto) 1.4 TH/MM3 Monocytes # (Auto) 0.5 TH/MM3 Eosinophils # (Auto) 0.1 TH/MM3 Basophils # (Auto) 0.0 TH/MM3 CBC Comment DIFF FINAL Differential Comment MDM Supervised Visit with MARV: Yes Narrative Course The history, exam, and medical decision-making in the associated midlevel provider note were completed with my assistance. I reviewed and agree with the findings presented. I attest that I had a [id number] encounter with the patient on the same day, and personally performed and documented my assessment and findings in the medical record. *My assessment and Findings: This is a patient with a history congenital heart disease and congestive heart failure with an ejection fraction of 30-35% who presents to the emergency department reporting that he is lightheaded and dizzy with exertion. He's been reporting this for several months and he says it may even have been going on for years. He was just admitted and discharged yesterday for the same reason. He just doesn't understand why it is not getting any better. The patient appears to have some developmental delay. While he can make his own decisions, I think is having difficulty understanding the chronicity of his illness. He was established for home health care by the inpatient team. He was just seen here overnight for the same symptoms and had blood work and his AICD interrogated both of which were reassuring. I think the patient's presentation is psychosocial in nature. Our housing case manager spoke to the patient's uncle. The patient evidently has a roommate named Waleska. Whenever Waleska goes out of town the patient gets depressed and comes to the emergency department. I don't think the patient has medical emergency. He was discharged home. Diagnosis Primary Impression: Psychosocial impairment Patient Instructions: General Instructions Med/Other Pt SpecificInfo: No Change to Meds Disposition: 01 DISCHARGE HOME Condition: Stable Arely Irvin MD Jul 27, 2016 13:40
[2016-07-27 13:41] LABS: AUTOMATED NEUTROPHIL # 4.5 TH/MM3 (1.8-7.7); BASOPHIL % 0.4 % (0.0-2.0); EOSINOPHIL # 0.1 TH/MM3 (0-0.4); EOSINOPHIL % 1.3 % (0.0-4.0); HEMATOCRIT 42.3 % (39.0-51.0); HEMO FLAGS DIFF FINAL; LYMPH % 21.8 % (9.0-44.0); LYMPHOCYTE # 1.4 TH/MM3 (1.0-4.8); MEAN CELL VOLUME 80.2 FL (80.0-100.0); MEAN CORPUSCULAR HEMOGLOBIN 28.2 PG (27.0-34.0); MEAN CORPUSCULAR HGB CONC 35.1 % (32.0-36.0); MONO % 7.3 % (0.0-8.0); NEUT % 69.2 % (16.0-70.0); PLATELET COUNT 154 TH/MM3 (150-450); RED BLOOD COUNT 5.27 MIL/MM3 (4.50-5.90); RED CELL DISTRIBUTION WIDTH 16.8 % (11.6-17.2); WHITE BLOOD COUNT 6.5 TH/MM3 (4.0-11.0)
[2016-07-27 13:56] LABS: BICARBONATE 24.4 MEQ/L (21.0-32.0); POTASSIUM 4.1 MEQ/L (3.5-5.1)
--- NOTE | 2016-07-31 14:21 | RADRPT ---
EXAM DATE/TIME: 07/27/2016 13:05 [facility] COMPARISON: CHEST SINGLE AP, July 23, 2016, 13:50. INDICATIONS : Short of breath. MEDICAL HISTORY : Hypertension. Chronic obstructive pulmonary disease. SURGICAL HISTORY : Pacemaker. CABG ENCOUNTER: Initial ACUITY: 1 day PAIN SCORE: 0/10 LOCATION: Bilateral chest FINDINGS: Portable AP view of the chest demonstrates stable mild enlargement of the cardiac silhouette with demario ateral chest wall cardiac pacing device/AICD present. No pleural effusion, airspace consolidation, or pneumothorax is visualized. The bones and soft tissues demonstrate no acute finding. CONCLUSION: Stable chest x-ray. No acute cardiopulmonary abnormality is identified. Alex Baumann MD on July 27, 2016 at 13:47 Board Certified Radiologist. This report was verified electronically.
== END 2016-07-27 14:26 | disposition home or self-care (01) ==
LOC: NEPC 12:01
DX: Z65.9 Problem related to unspecified psychosocial circumstances (principal); R06.02 Shortness of breath; R42 Dizziness and giddiness; E78.00 Pure hypercholesterolemia, unspecified; E11.9 Type 2 diabetes mellitus without complications; I10 Essential (primary) hypertension; Z95.810 Presence of automatic (implantable) cardiac defibrillator; Z72.0 Tobacco use; Z79.84 Long term (current) use of oral hypoglycemic drugs; Z79.01 Long term (current) use of anticoagulants; Z86.59 Personal history of other mental and behavioral disorders; Z86.79 Personal history of other diseases of the circulatory system; Z87.09 Personal history of other diseases of the respiratory system; Z87.39 Personal history of other diseases of the musculoskeletal system and connective tissue
CPT/HCPCS: 71010; 80048; 85025

== ENCOUNTER 2016-07-28 10:19 | Emergency (ER) | payer MEDICAID ==
[~2016-07-28] VITALS: Ht 180.3 cm; Wt 85.0 kg
[2016-07-28 10:23] VITALS: BP 106/97; PULSE 87; RESP 18; TEMP 98.1
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
[2016-07-28 11:07] VITALS: O2SAT 97
[2016-07-28 11:19] LABS: BASOPHIL % 0.4 % (0.0-2.0); EOSINOPHIL # 0.1 TH/MM3 (0-0.4); EOSINOPHIL % 1.5 % (0.0-4.0); HEMATOCRIT 42.6 % (39.0-51.0); LYMPHOCYTE # 1.7 TH/MM3 (1.0-4.8); MEAN CELL VOLUME 80.6 FL (80.0-100.0); MEAN CORPUSCULAR HEMOGLOBIN 28.1 PG (27.0-34.0); MEAN CORPUSCULAR HGB CONC 34.8 % (32.0-36.0); MONO % 8.6 % (0.0-8.0); NEUT % 62.5 % (16.0-70.0); PLATELET COUNT 174 TH/MM3 (150-450); RED BLOOD COUNT 5.28 MIL/MM3 (4.50-5.90); RED CELL DISTRIBUTION WIDTH 16.7 % (11.6-17.2); WHITE BLOOD COUNT 6.4 TH/MM3 (4.0-11.0)
--- NOTE | 2016-07-28 11:26 | RADRPT ---
EXAM DATE/TIME: 07/28/2016 11:00 [facility] COMPARISON: CHEST SINGLE AP, July 27, 2016, 13:05. INDICATIONS : Chest pain. MEDICAL HISTORY : None. Hypertension. Chronic obstructive pulmonary disease. SURGICAL HISTORY : CABG. Pacemaker. ENCOUNTER: Initial ACUITY: 1 day PAIN SCORE: 7/10 LOCATION: Bilateral chest FINDINGS: A single view of the chest demonstrates the lungs to be symmetrically aerated without evidence of mas s, infiltrate or effusion. The heart size is enlarged but stable. Pacemaker on the right chest.. Os seous structures are intact. No significant changes. CONCLUSION: No acute disease. No significant change has occurred. Brett Anguiano MD on July 28, 2016 at 11:24 Board Certified Radiologist. This report was verified electronically.
[2016-07-28 11:27] LABS: APTT (PATIENT) 25.4 SEC (24.3-30.1); INTERNATIONAL NORMALIZED RATIO 1.1 RATIO; PROTHROMBIN TIME - PATIENT 11.7 SEC (9.8-11.6)
[2016-07-28 11:28] LABS: ALT (GPT) 39 U/L (12-78); ANION GAP 8 MEQ/L (5-15); AST (GOT) 24 U/L (15-37); BICARBONATE 27.9 MEQ/L (21.0-32.0); BLOOD UREA NITROGEN 22 MG/DL (7-18); CHLORIDE 102 MEQ/L (98-107); GLOMERULAR FILTRATION RATE 64 ML/MIN (>89); POTASSIUM 4.3 MEQ/L (3.5-5.1); SODIUM (NA) 138 MEQ/L (136-145)
[2016-07-28 11:32] LABS: ALKALINE PHOSPHATASE 126 U/L (45-117); CREATINE KINASE 263 U/L (39-308); TOTAL BILIRUBIN ADULT 0.9 MG/DL (0.2-1.0)
[2016-07-28 11:47] LABS: HEMO FLAGS AUTO DIFF
[2016-07-28 11:48] LABS: SCAN/DIFF AUTO DIFF CONFIRMED
[2016-07-28 12:00] VITALS: BP 116/69; PULSE 72; RESP 18; O2SAT 97
--- NOTE | 2016-07-28 16:50 | EKG ---
Date Performed: 07/28/2016 Time Performed: 10:26:00 PTAGE: 45 years EKG: AV PACED PATTERN CONSISTENT WITH PULMONARY DISEASE RIGHT VENTRICULAR HYPERTROPHY AND ST-T C HANGE INFERIOR MYOCARDIAL INFARCTION ABNORMAL ECG PREVIOUS TRACING 07/27/201606.10.36 Since previous tracing, no significant change noted DOCTOR: Tamica Ferrari Interpretating Date/Time 07/28/2016 16:49:16
== END 2016-07-28 12:22 | disposition home or self-care (01) ==
LOC: NEPA 10:19
DX: R07.89 Other chest pain (principal); R94.31 Abnormal electrocardiogram [ECG] [EKG]; I48.91 Unspecified atrial fibrillation; E78.00 Pure hypercholesterolemia, unspecified; E11.9 Type 2 diabetes mellitus without complications; I10 Essential (primary) hypertension; Z79.01 Long term (current) use of anticoagulants
CPT/HCPCS: 71010; 80053; 82550; 83880; 84484; 85025; 85610; 85730; 93005

== ENCOUNTER 2016-08-21 10:43 | Emergency (ER) | payer MEDICAID ==
[~2016-08-21] VITALS: Ht 180.3 cm; Wt 90.0 kg
[~2016-08-21 10:43] MED LIST changes: -Physical Therapy; -WALKER WHEELS/F1 MIS
[2016-08-21 10:49] VITALS: BP 112/73; PULSE 60; RESP 18; TEMP 98
[2016-08-21] MEDS ORDERED: FURO20TA PO (11:00)
[2016-08-21 11:04] VITALS: O2SAT 98
[2016-08-21] MEDS ORDERED: SODIUM CHLORIDE 0.9% FLUSH 5 ML FLUSH IVF PRN (11:15)
[2016-08-21 11:38] LABS: AUTOMATED NEUTROPHIL # 3.5 TH/MM3 (1.8-7.7); BASOPHIL % 0.5 % (0.0-2.0); EOSINOPHIL # 0.1 TH/MM3 (0-0.4); EOSINOPHIL % 1.1 % (0.0-4.0); HEMATOCRIT 42.6 % (39.0-51.0); HEMO FLAGS DIFF FINAL; LYMPH % 28.4 % (9.0-44.0); LYMPHOCYTE # 1.6 TH/MM3 (1.0-4.8); MEAN CELL VOLUME 80.4 FL (80.0-100.0); MEAN CORPUSCULAR HEMOGLOBIN 28.4 PG (27.0-34.0); MEAN CORPUSCULAR HGB CONC 35.2 % (32.0-36.0); MONO % 9.7 % (0.0-8.0); NEUT % 60.3 % (16.0-70.0); PLATELET COUNT 159 TH/MM3 (150-450); RED CELL DISTRIBUTION WIDTH 16.7 % (11.6-17.2); WHITE BLOOD COUNT 5.8 TH/MM3 (4.0-11.0)
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
[2016-08-21 11:51] LABS: ANION GAP 8 MEQ/L (5-15); APTT (PATIENT) 31.9 SEC (24.3-30.1); BICARBONATE 27.5 MEQ/L (21.0-32.0); BLOOD UREA NITROGEN 30 MG/DL (7-18); CHLORIDE 102 MEQ/L (98-107); GLOMERULAR FILTRATION RATE 65 ML/MIN (>89); MAGNESIUM 2.1 MG/DL (1.5-2.5); POTASSIUM 3.7 MEQ/L (3.5-5.1); PROTHROMBIN TIME - PATIENT 11.4 SEC (9.8-11.6); SODIUM (NA) 137 MEQ/L (136-145)
[2016-08-21 11:54] LABS: CREATINE KINASE 127 U/L (39-308)
[2016-08-21 12:52] LABS: CKMB 1.1 NG/ML (0.5-3.6)
--- NOTE | 2016-08-21 13:01 | RADRPT ---
EXAM DATE/TIME: 08/21/2016 11:07 [facility] COMPARISON: CHEST SINGLE AP, July 28, 2016, 11:00. INDICATIONS : Chest pain. MEDICAL HISTORY : Hypertension. Chronic obstructive pulmonary disease. SURGICAL HISTORY : CABG. Pacemaker. ENCOUNTER: Subsequent ACUITY: 1 day PAIN SCORE: 6/10 LOCATION: Left chest FINDINGS: A single view of the chest demonstrates lungs to be symmetrically aerated and clear. No effusions. He art size is prominent but well compensated. Right subclavian bipolar pacer is radiographically intact . A second control unit projects over the left lower chest with the lead projecting over the right he art. CONCLUSION: 1. Compensated cardiomegaly. 2. No acute infiltrate. Abraham Cordon MD on August 21, 2016 at 12:57 Board Certified Radiologist. This report was verified electronically.
--- NOTE | 2016-08-21 14:17 | EKG ---
Date Performed: 08/21/2016 Time Performed: 10:51:07 PTAGE: 45 years EKG: ELECTRONIC ATRIAL PACEMAKER RIGHT BUNDLE BRANCH BLOCK LEFT POSTERIOR FASCICULAR BLOCK INFER IOR MYOCARDIAL INFARCTION ABNORMAL ECG PREVIOUS TRACING : 07/28/2016 10.26 Compared to prior tracing no significant change DOCTOR: Cesar Elias Interpretating Date/Time 08/21/2016 14:16:18
== END 2016-08-21 13:51 | disposition home or self-care (01) ==
LOC: NEPC 10:43
DX: R07.89 Other chest pain (principal); R94.31 Abnormal electrocardiogram [ECG] [EKG]; F12.90 Cannabis use, unspecified, uncomplicated; I48.91 Unspecified atrial fibrillation; I50.9 Heart failure, unspecified; E11.9 Type 2 diabetes mellitus without complications; I10 Essential (primary) hypertension; Z79.84 Long term (current) use of oral hypoglycemic drugs; Z79.01 Long term (current) use of anticoagulants; Z95.1 Presence of aortocoronary bypass graft; Z87.898 Personal history of other specified conditions; Z95.810 Presence of automatic (implantable) cardiac defibrillator
CPT/HCPCS: 71010; 80048; 82550; 82552; 83735; 84484; 85025; 85610; 85730; 93005

== ENCOUNTER 2016-08-27 00:29 | Emergency (ER) | payer MEDICAID ==
[~2016-08-27] VITALS: Ht 180.3 cm; Wt 80.0 kg
[~2016-08-27 00:29] MED LIST changes: +FURO20TA PO
[2016-08-27 00:33] VITALS: BP 118/78; PULSE 103; RESP 18; TEMP 98.2; O2SAT 93
[2016-08-27] MEDS ORDERED: ENAL5TAB PO (00:40)
[2016-08-27] MEDS ORDERED: BUPR100T4 PO (00:40)
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
== END 2016-08-27 08:43 | disposition home or self-care (01) ==
LOC: NEPC 00:29
DX: R07.89 Other chest pain (principal); I48.91 Unspecified atrial fibrillation; I50.9 Heart failure, unspecified; I10 Essential (primary) hypertension; Z95.0 Presence of cardiac pacemaker; F12.90 Cannabis use, unspecified, uncomplicated; Z72.0 Tobacco use
CPT/HCPCS: 99283

== ENCOUNTER 2016-08-27 17:41 | Emergency (ER) | payer MEDICAID ==
[~2016-08-27 17:41] MED LIST changes: +BUPR100T4 PO; +ENAL5TAB PO
[2016-08-27 18:42] VITALS: BP 105/71; PULSE 70; RESP 20; TEMP 97.6; O2SAT 96
[2016-08-27 23:50] VITALS: BP 156/69; PULSE 120; RESP 15; O2SAT 99
[2016-08-28 00:04] LABS: AUTOMATED NEUTROPHIL # 3.2 TH/MM3 (1.8-7.7); BASOPHIL % 0.4 % (0.0-2.0); EOSINOPHIL % 0.9 % (0.0-4.0); HEMO FLAGS DIFF FINAL; LYMPH % 32.2 % (9.0-44.0); LYMPHOCYTE # 1.8 TH/MM3 (1.0-4.8); MEAN CELL VOLUME 81.1 FL (80.0-100.0); MEAN CORPUSCULAR HEMOGLOBIN 28.7 PG (27.0-34.0); MEAN CORPUSCULAR HGB CONC 35.4 % (32.0-36.0); MONO % 7.7 % (0.0-8.0); NEUT % 58.8 % (16.0-70.0); PLATELET COUNT 179 TH/MM3 (150-450); RED BLOOD COUNT 5.67 MIL/MM3 (4.50-5.90); RED CELL DISTRIBUTION WIDTH 17.1 % (11.6-17.2); WHITE BLOOD COUNT 5.5 TH/MM3 (4.0-11.0)
[2016-08-28 00:43] LABS: BLOOD UREA NITROGEN 15 MG/DL (7-18); GLOMERULAR FILTRATION RATE 82 ML/MIN (>89); SODIUM (NA) 138 MEQ/L (136-145)
[2016-08-28 00:44] LABS: ANION GAP 6 MEQ/L (5-15); BICARBONATE 29.8 MEQ/L (21.0-32.0); CHLORIDE 102 MEQ/L (98-107); CREATINE KINASE 147 U/L (39-308); POTASSIUM 4.5 MEQ/L (3.5-5.1)
--- NOTE | 2016-08-28 00:53 | RADRPT ---
EXAM DATE/TIME: 08/28/2016 00:08 [facility] COMPARISON: CHEST SINGLE AP, August 21, 2016, 11:07. INDICATIONS : Chest pain. MEDICAL HISTORY : None. SURGICAL HISTORY : Pacemaker. ENCOUNTER: Initial ACUITY: 1 day PAIN SCORE: 6/10 LOCATION: Bilateral chest FINDINGS: A single view of the chest demonstrates the lungs to be symmetrically aerated without evidence of mas s, infiltrate or effusion. Cardiomegaly with right-sided pacemaker unchanged. Left-sided metallic den sity also seen, unchanged. The cardiomediastinal contours are unremarkable. Osseous structures are i ntact. CONCLUSION: No acute cardiopulmonary disease. Norman Paulino MD on August 28, 2016 at 0:50 Board Certified Radiologist. This report was verified electronically.
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
--- NOTE | 2016-08-29 12:50 | EKG ---
Date Performed: 08/27/2016 Time Performed: 20:10:42 PTAGE: 45 years EKG: ELECTRONIC ATRIAL PACEMAKER RIGHT BUNDLE BRANCH BLOCK LEFT POSTERIOR FASCICULAR BLOCK INFER IOR MYOCARDIAL INFARCTION ABNORMAL ECG PREVIOUS TRACING : 08/21/2016 10.51 Compared to prior tracing no significant change DOCTOR: Taye Carlton Interpretating Date/Time 08/29/2016 12:48:19
== END 2016-08-28 06:51 | disposition home or self-care (01) ==
LOC: NEPE 17:41 → NEPA 08-28 06:51
DX: R07.89 Other chest pain (principal); I50.9 Heart failure, unspecified; I48.91 Unspecified atrial fibrillation; I10 Essential (primary) hypertension; F17.210 Nicotine dependence, cigarettes, uncomplicated; F12.90 Cannabis use, unspecified, uncomplicated; Z95.0 Presence of cardiac pacemaker
CPT/HCPCS: 71010; 80048; 82550; 82552; 84484; 85025; 93005

== ENCOUNTER 2016-08-31 00:05 | Emergency (ER) | payer MEDICAID ==
[~2016-08-31] VITALS: Ht 180.3 cm; Wt 88.0 kg
[~2016-08-31 00:05] MED LIST changes: -PLAV75TA29 PO
[2016-08-31 00:12] VITALS: BP 106/62; PULSE 61; RESP 14; TEMP 98; O2SAT 98
[2016-08-31 01:03] LABS: AUTOMATED NEUTROPHIL # 3.7 TH/MM3 (1.8-7.7); BASOPHIL % 0.3 % (0.0-2.0); EOSINOPHIL % 0.4 % (0.0-4.0); HEMATOCRIT 39.6 % (39.0-51.0); HEMO FLAGS DIFF FINAL; LYMPH % 23.8 % (9.0-44.0); LYMPHOCYTE # 1.3 TH/MM3 (1.0-4.8); MEAN CELL VOLUME 81.6 FL (80.0-100.0); MEAN CORPUSCULAR HEMOGLOBIN 28.5 PG (27.0-34.0); MEAN CORPUSCULAR HGB CONC 34.9 % (32.0-36.0); MONO % 7.9 % (0.0-8.0); NEUT % 67.6 % (16.0-70.0); PLATELET COUNT 150 TH/MM3 (150-450); RED BLOOD COUNT 4.86 MIL/MM3 (4.50-5.90); RED CELL DISTRIBUTION WIDTH 17.3 % (11.6-17.2); WHITE BLOOD COUNT 5.5 TH/MM3 (4.0-11.0)
--- NOTE | 2016-08-31 01:19 | RADRPT ---
EXAM DATE/TIME: 08/31/2016 00:58 [facility] COMPARISON: CHEST SINGLE AP, August 28, 2016, 0:08. INDICATIONS : Chest pain. MEDICAL HISTORY : Ulcers. Hypertension. Chronic obstructive pulmonary disease. SURGICAL HISTORY : Pacemaker. CABG. ENCOUNTER: Initial ACUITY: 1 day PAIN SCORE: 0/10 LOCATION: Bilateral chest FINDINGS: Pacer leads are stable. There is cardiomegaly. There is remote median sternotomy. Probable ductus cli p present on the left. Minimal basal atelectasis. No consolidation or effusion. No pneumothorax. CONCLUSION: 1. Stable cardiomegaly with minimal basal atelectasis. No consolidation or effusion. Postoperative ch anges as above. Gallo Charles MD on August 31, 2016 at 1:14 Board Certified Radiologist. This report was verified electronically.
[2016-08-31 01:30] LABS: ANION GAP 7 MEQ/L (5-15); BICARBONATE 28.4 MEQ/L (21.0-32.0); BLOOD UREA NITROGEN 21 MG/DL (7-18); CHLORIDE 104 MEQ/L (98-107); GLOMERULAR FILTRATION RATE 65 ML/MIN (>89); POTASSIUM 4.2 MEQ/L (3.5-5.1); SODIUM (NA) 139 MEQ/L (136-145)
[2016-08-31 01:33] LABS: CREATINE KINASE 147 U/L (39-308)
[2016-08-31 01:45] LABS: CKMB 1.1 NG/ML (0.5-3.6)
[2016-08-31 02:07] VITALS: BP 112/64; PULSE 66; RESP 16; O2SAT 99
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
--- NOTE | 2016-08-31 15:43 | EKG ---
Date Performed: 08/31/2016 Time Performed: 00:08:03 PTAGE: 45 years EKG: rhythm appears to be sinus, with pacer spikes, pacer spikes do not exhibit capture. Nonspec ific anterior T wave changes. When compared to previous tracing, there appears to be atrial Pacer is working well and there does not appear to be capture on Her second tracing. INFERIOR MYOCARDIAL INFAR CTION ABNORMAL ECG PREVIOUS TRACING : 08/27/2016 20.10 DOCTOR: Reilly Aranda Interpretating Date/Time 08/31/2016 15:41:31
== END 2016-08-31 03:09 | disposition home or self-care (01) ==
LOC: NEPE 00:05
DX: Z03.89 Encounter for observation for other suspected diseases and conditions ruled out (principal); R94.31 Abnormal electrocardiogram [ECG] [EKG]; E11.9 Type 2 diabetes mellitus without complications; I10 Essential (primary) hypertension; E78.00 Pure hypercholesterolemia, unspecified; F17.200 Nicotine dependence, unspecified, uncomplicated; Z79.01 Long term (current) use of anticoagulants; Z79.84 Long term (current) use of oral hypoglycemic drugs; Z86.59 Personal history of other mental and behavioral disorders; Z86.79 Personal history of other diseases of the circulatory system; Z87.39 Personal history of other diseases of the musculoskeletal system and connective tissue; Z87.09 Personal history of other diseases of the respiratory system
CPT/HCPCS: 71010; 80048; 82550; 82552; 84484; 85025; 93005

== ENCOUNTER 2016-08-31 19:36 | Emergency (ER) | payer MEDICAID ==
[~2016-08-31] VITALS: Ht 180.3 cm; Wt 88.0 kg
[2016-08-31 19:50] VITALS: BP 116/71; PULSE 60; RESP 16; TEMP 98.1; O2SAT 96
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
== END 2016-09-01 09:38 | disposition home or self-care (01) ==
LOC: NEPC 19:36
DX: Z03.89 Encounter for observation for other suspected diseases and conditions ruled out (principal); E11.9 Type 2 diabetes mellitus without complications; I10 Essential (primary) hypertension; E78.00 Pure hypercholesterolemia, unspecified; F17.200 Nicotine dependence, unspecified, uncomplicated; Z79.01 Long term (current) use of anticoagulants; Z79.84 Long term (current) use of oral hypoglycemic drugs; Z86.59 Personal history of other mental and behavioral disorders; Z86.79 Personal history of other diseases of the circulatory system; Z87.09 Personal history of other diseases of the respiratory system; Z87.39 Personal history of other diseases of the musculoskeletal system and connective tissue
CPT/HCPCS: 99283

== ENCOUNTER 2016-09-02 01:53 | Emergency (ER) | payer MEDICAID ==
[~2016-09-02] VITALS: Ht 180.3 cm; Wt 70.0 kg
[2016-09-02 02:02] VITALS: BP 123/77; PULSE 71; RESP 18; TEMP 98.2; O2SAT 97
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
[2016-09-02 03:28] VITALS: BP 122/63; PULSE 60; RESP 18; O2SAT 98
[2016-09-02 03:35] VITALS: BP 104/60; PULSE 60; RESP 18; TEMP 98.1; O2SAT 95
[2016-09-02 06:06] VITALS: BP 97/54; PULSE 60; RESP 18; TEMP 98.1; O2SAT 100
== END 2016-09-02 09:59 | disposition home or self-care (01) ==
LOC: NEPE 01:53 → NEPA 09:59
DX: Z04.8 Encounter for examination and observation for other specified reasons (principal); E11.9 Type 2 diabetes mellitus without complications; I10 Essential (primary) hypertension; E78.00 Pure hypercholesterolemia, unspecified; F17.200 Nicotine dependence, unspecified, uncomplicated; Z95.0 Presence of cardiac pacemaker; Z79.01 Long term (current) use of anticoagulants; Z79.84 Long term (current) use of oral hypoglycemic drugs; Z86.79 Personal history of other diseases of the circulatory system; Z86.59 Personal history of other mental and behavioral disorders; Z87.09 Personal history of other diseases of the respiratory system
CPT/HCPCS: 99283

== ENCOUNTER 2016-09-02 12:14 | Emergency (ER) | payer MEDICAID ==
[~2016-09-02] VITALS: Ht 180.3 cm; Wt 80.0 kg
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
[2016-09-02 12:23] VITALS: BP 115/68; PULSE 60; RESP 18; TEMP 98; O2SAT 99
== END 2016-09-02 13:27 | disposition home or self-care (01) ==
LOC: NEPA 12:14
DX: Z59.0 Homelessness (principal); E11.9 Type 2 diabetes mellitus without complications; I10 Essential (primary) hypertension; E78.00 Pure hypercholesterolemia, unspecified; F17.200 Nicotine dependence, unspecified, uncomplicated; Z95.0 Presence of cardiac pacemaker; Z79.01 Long term (current) use of anticoagulants; Z79.84 Long term (current) use of oral hypoglycemic drugs; Z86.79 Personal history of other diseases of the circulatory system; Z86.59 Personal history of other mental and behavioral disorders; Z87.09 Personal history of other diseases of the respiratory system
CPT/HCPCS: 99282

== ENCOUNTER 2016-09-02 16:27 | Emergency (ER) | payer MEDICAID ==
[~2016-09-02] VITALS: Ht 167.6 cm; Wt 65.0 kg
[2016-09-02 16:30] VITALS: BP 128/77; PULSE 67; RESP 17; TEMP 98.1; O2SAT 98
== END 2016-09-02 20:53 | disposition left against medical advice (07) ==
LOC: NED 16:27
DX: Z45.018 Encounter for adjustment and management of other part of cardiac pacemaker (principal); Z53.21 Procedure and treatment not carried out due to patient leaving prior to being seen by health care provider
CPT/HCPCS: 99281

== ENCOUNTER 2016-09-04 11:03 | Emergency (ER) | payer MEDICAID ==
[~2016-09-04] VITALS: Ht 180.3 cm; Wt 80.0 kg
[2016-09-04 11:10] VITALS: BP 117/65; PULSE 62; RESP 17; TEMP 97.8; O2SAT 97
[2016-09-04 12:33] VITALS: BP 105/58; PULSE 60; RESP 17; O2SAT 96
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
[2016-09-04 16:11] VITALS: BP 130/82
--- NOTE | 2016-09-05 10:42 | EKG ---
Date Performed: 09/04/2016 Time Performed: 11:11:05 PTAGE: 45 years EKG: ELECTRONIC ATRIAL PACEMAKER RIGHT VENTRICULAR HYPERTROPHY AND ST-T CHANGE LATERAL MYOCARDIA L INFARCTION ABNORMAL ECG Compared to prior tracing no significant change PREVIOUS TRACING : 08/31/2016 00.08 DOCTOR: Tamica Ferrari Interpretating Date/Time 09/05/2016 10:35:44
== END 2016-09-04 16:30 | disposition home or self-care (01) ==
LOC: NEPE 11:03
DX: R94.31 Abnormal electrocardiogram [ECG] [EKG] (principal); Z59.0 Homelessness; I48.91 Unspecified atrial fibrillation; E11.9 Type 2 diabetes mellitus without complications; I10 Essential (primary) hypertension; Z79.01 Long term (current) use of anticoagulants
CPT/HCPCS: 93005

== ENCOUNTER 2016-09-06 12:38 | Emergency (ER) | payer MEDICAID ==
[~2016-09-06] VITALS: Ht 177.8 cm; Wt 78.0 kg
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
[2016-09-06 13:04] VITALS: BP 106/58; PULSE 60; RESP 16; TEMP 98.2; O2SAT 95
--- NOTE | 2016-09-07 13:32 | EKG ---
Date Performed: 09/06/2016 Time Performed: 12:49:00 PTAGE: 45 years EKG: SUPRAVENTRICULAR RHYTHM PATTERN CONSISTENT WITH PULMONARY DISEASE INFERIOR MYOCARDIAL INFAR CTION ABNORMAL ECG INTERPRETATION BASED ON A DEFAULT AGE OF 40 YEARS PREVIOUS TRACING : 09/04/2016 11.11 Compared to prior tracing no significant change DOCTOR: Cesar Elias Interpretating Date/Time 09/07/2016 13:31:04
== END 2016-09-06 13:18 | disposition home or self-care (01) ==
LOC: NEPE 12:38
DX: Z03.89 Encounter for observation for other suspected diseases and conditions ruled out (principal); I10 Essential (primary) hypertension; Z59.0 Homelessness; Z95.0 Presence of cardiac pacemaker
CPT/HCPCS: 93005

== ENCOUNTER 2016-09-13 10:58 | Emergency (ER) | payer MEDICAID ==
[~2016-09-13] VITALS: Ht 180.3 cm; Wt 90.0 kg
[2016-09-13 11:01] VITALS: BP 133/80; PULSE 91; RESP 24; TEMP 97.8; O2SAT 90
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
== END 2016-09-13 11:46 | disposition home or self-care (01) ==
LOC: NEPD 10:58
DX: F99 Mental disorder, not otherwise specified (principal); Z95.810 Presence of automatic (implantable) cardiac defibrillator
CPT/HCPCS: 99281

== ENCOUNTER 2016-09-28 10:28 | Emergency (ER) | payer MEDICAID ==
[~2016-09-28] VITALS: Ht 180.3 cm; Wt 91.0 kg
[2016-09-28 11:00] VITALS: BP 114/64; PULSE 60; RESP 18; TEMP 97.9; O2SAT 98
[2016-09-28 11:47] LABS: AUTOMATED NEUTROPHIL # 4.3 TH/MM3 (1.8-7.7); BASOPHIL % 0.4 % (0.0-2.0); EOSINOPHIL % 0.7 % (0.0-4.0); HEMATOCRIT 37.8 % (39.0-51.0); HEMO FLAGS DIFF FINAL; LYMPH % 19.3 % (9.0-44.0); LYMPHOCYTE # 1.2 TH/MM3 (1.0-4.8); MEAN CELL VOLUME 83.8 FL (80.0-100.0); MEAN CORPUSCULAR HGB CONC 33.5 % (32.0-36.0); MONO % 7.6 % (0.0-8.0); PLATELET COUNT 124 TH/MM3 (150-450); RED BLOOD COUNT 4.51 MIL/MM3 (4.50-5.90); RED CELL DISTRIBUTION WIDTH 17.3 % (11.6-17.2)
--- NOTE | 2016-09-28 12:05 | RADRPT ---
EXAM DATE/TIME: 09/28/2016 11:42 [facility] COMPARISON: CHEST SINGLE AP, August 31, 2016, 0:58. INDICATIONS : Chest pain, defibrillator went off. MEDICAL HISTORY : None. SURGICAL HISTORY : defibrillator and 2 pacemakers ENCOUNTER: Initial ACUITY: 1 day PAIN SCORE: 6/10 LOCATION: Bilateral chest FINDINGS: Portable AP view of the chest demonstrate stable mild enlargement of the cardiac silhouette. Sternoto my wires are present. There is a right and left chest wall pacing device/AICD present. No effusion, c onsolidation, or pneumothorax is visualized. The bones and soft tissues demonstrate no acute finding. CONCLUSION: Stable chest x-ray with mildly enlarged cardiac silhouette and bilateral pacing devices. Lungs are cl ear. Alex Baumann MD on September 28, 2016 at 12:03 Board Certified Radiologist. This report was verified electronically.
[2016-09-28 12:07] LABS: ANION GAP 9 MEQ/L (5-15); BICARBONATE 25.3 MEQ/L (21.0-32.0); BLOOD UREA NITROGEN 18 MG/DL (7-18); CHLORIDE 107 MEQ/L (98-107); GLOMERULAR FILTRATION RATE 97 ML/MIN (>89); POTASSIUM 4.1 MEQ/L (3.5-5.1); SODIUM (NA) 141 MEQ/L (136-145)
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
[2016-09-28 12:10] LABS: CREATINE KINASE 134 U/L (39-308)
[2016-09-28 12:22] LABS: CKMB 0.8 NG/ML (0.5-3.6)
[2016-09-28 14:13] VITALS: BP 139/73; PULSE 62; RESP 16; O2SAT 96
--- NOTE | 2016-09-28 18:33 | EKG ---
Date Performed: 09/28/2016 Time Performed: 11:20:59 PTAGE: 45 years EKG: ELECTRONIC ATRIAL PACEMAKER MARKED RIGHT AXIS DEVIATION PATTERN CONSISTENT WITH PULMONARY D ISEASE RIGHT BUNDLE BRANCH BLOCK ABNORMAL ECG NO SIGNIFICANT CHANGE FROM PRIOR ELECTROCARDIOGRAM. PREVIOUS TRACING : 09/06/2016 12.49 DOCTOR: Ck Malave Interpretating Date/Time 09/28/2016 18:33:10
== END 2016-09-28 14:47 | disposition home or self-care (01) ==
LOC: NEPE 10:28
DX: R07.89 Other chest pain (principal); I10 Essential (primary) hypertension; E11.9 Type 2 diabetes mellitus without complications; I50.9 Heart failure, unspecified; Z95.810 Presence of automatic (implantable) cardiac defibrillator; Z59.0 Homelessness; Z72.0 Tobacco use; Z79.84 Long term (current) use of oral hypoglycemic drugs
CPT/HCPCS: 71010; 80048; 82550; 82552; 84484; 85025; 93005

== ENCOUNTER 2016-09-29 00:08 | Emergency (ER) | payer MEDICAID ==
[~2016-09-29] VITALS: Ht 180.3 cm; Wt 91.0 kg
[2016-09-29 00:11] VITALS: BP 123/62; PULSE 82; RESP 18; TEMP 98; O2SAT 96
[2016-09-29 03:24] VITALS: BP 126/69; PULSE 61; RESP 18; O2SAT 97
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
== END 2016-09-29 09:47 | disposition home or self-care (01) ==
LOC: NEPE 00:08
DX: Z59.0 Homelessness (principal); I42.9 Cardiomyopathy, unspecified
CPT/HCPCS: 99283

== ENCOUNTER 2016-11-03 12:54 | Observation (INO) | payer MEDICAID ==
[2016-11-03] VITALS (9 sets, daily range): BP systolic 101–138; BP diastolic 56–94; PULSE 60–75; RESP 18–21; TEMP 97.9–98.7; O2SAT 89–97
[~2016-11-03] VITALS: Ht 180.3 cm; Wt 84.0 kg
[2016-11-03] MEDS ORDERED: SODIUM CHLORIDE 0.9% FLUSH 10 ML FLUSH IVF PRN (13:30)
--- NOTE | 2016-11-03 14:04 | RADRPT ---
EXAM DATE/TIME: 11/03/2016 13:31 [facility] COMPARISON: CHEST SINGLE AP, September 28, 2016, 11:42. INDICATIONS : Chest pain , short of breath MEDICAL HISTORY : Cardiovascular disease. SURGICAL HISTORY : defibrillator, pacemakers, open heart surgery as a baby ENCOUNTER: Subsequent ACUITY: 1 day PAIN SCORE: 6/10 LOCATION: Bilateral chest FINDINGS: Single AP view of the chest. AICD and cardiac pacemaker again seen. Mild central pulmonary vasculatur e prominence and indistinctness. The lungs are otherwise clear. Cardiac silhouette unchanged and mild ly prominent No evidence of pleural effusion or pneumothorax. CONCLUSION: Mild pulmonary vascular congestion. Chronic mild cardiac silhouette enlargement. Victorino Gonzales MD on November 03, 2016 at 14:02 Board Certified Radiologist. This report was verified electronically.
[2016-11-03 14:08] LABS: AUTOMATED NEUTROPHIL # 3.6 TH/MM3 (1.8-7.7); BASOPHIL % 0.4 % (0.0-2.0); EOSINOPHIL % 0.7 % (0.0-4.0); HEMATOCRIT 34.2 % (39.0-51.0); HEMO FLAGS DIFF FINAL; LYMPH % 17.2 % (9.0-44.0); LYMPHOCYTE # 0.9 TH/MM3 (1.0-4.8); MEAN CELL VOLUME 84.8 FL (80.0-100.0); MEAN CORPUSCULAR HEMOGLOBIN 28.8 PG (27.0-34.0); MEAN CORPUSCULAR HGB CONC 33.9 % (32.0-36.0); MONO % 9.7 % (0.0-8.0); PLATELET COUNT 139 TH/MM3 (150-450); RED BLOOD COUNT 4.04 MIL/MM3 (4.50-5.90); RED CELL DISTRIBUTION WIDTH 16.6 % (11.6-17.2)
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
[2016-11-03 14:18] LABS: APTT (PATIENT) 28.7 SEC (24.3-30.1); INTERNATIONAL NORMALIZED RATIO 1.1 RATIO; PROTHROMBIN TIME - PATIENT 12.1 SEC (9.8-11.6)
[2016-11-03 14:20] LABS: ANION GAP 8 MEQ/L (5-15); BICARBONATE 24.8 MEQ/L (21.0-32.0); BLOOD UREA NITROGEN 21 MG/DL (7-18); CHLORIDE 110 MEQ/L (98-107); GLOMERULAR FILTRATION RATE 76 ML/MIN (>89); MAGNESIUM 2.1 MG/DL (1.5-2.5); POTASSIUM 4.1 MEQ/L (3.5-5.1); SODIUM (NA) 143 MEQ/L (136-145)
[2016-11-03 14:23] LABS: CREATINE KINASE 515 U/L (39-308)
[2016-11-03 14:35] LABS: CKMB 1.4 NG/ML (0.5-3.6)
[2016-11-03] MEDS ORDERED: LACTULOSE SYRUP 20 GM/30 ML CUP PO PRN (17:15)
[2016-11-03] MEDS ORDERED: MAGNESIUM HYDROXIDE SUSP 30 ML CUP PO PRN (17:15)
[2016-11-03] MEDS ORDERED: ONDANSETRON HCL 4 MG/2 ML VIAL IVP PRN (17:15)
[2016-11-03] MEDS ORDERED: SENNOSIDES 8.6 MG TAB PO PRN (17:15)
[2016-11-03] MEDS ORDERED: BISACODYL 10 MG SUPP RECTAL PRN (17:15)
[2016-11-03] MEDS ORDERED: NALOXONE HCL 0.4 MG/ML AMP IV PRN (17:15)
[2016-11-03] MEDS ORDERED: SODIUM CHLORIDE 0.9% FLUSH 10 ML FLUSH IV FLUSH PRN (17:15)
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
[2016-11-03] MEDS ORDERED: ENOXAPARIN SODIUM 40 MG/0.4 ML SYRINGE SQ SCH (18:00)
[2016-11-03] MEDS ORDERED: DEXTROSE 50% IN WATER 50 ML VIAL(D50) IV PRN (18:45)
[2016-11-03] MEDS ORDERED: GLUCAGON 1 MG/ML VIAL OTHER PRN (18:45)
[2016-11-03] MEDS: INSULIN ASPART SUPPLEMENTAL SCALE SQ SCH (21:00)
[2016-11-03] MEDS: ENALAPRIL MALEATE 5 MG TAB PO SCH (21:07)
[2016-11-03] MEDS: buPROPion HCL 100 MG TAB PO SCH (21:07)
[2016-11-03] MEDS: DOCUSATE SODIUM 50 MG/SENNA 8.6 MG TAB PO SCH (21:07)
[2016-11-03] MEDS: CARVEDILOL 3.125 MG TAB PO SCH (21:07)
[2016-11-03] MEDS: SODIUM CHLORIDE 0.9% FLUSH 10 ML FLUSH IV FLUSH SCH (21:07)
[2016-11-04 04:29] VITALS: BP 109/59; PULSE 71; RESP 18; TEMP 97.7; O2SAT 96
[2016-11-04] MEDS: INSULIN ASPART SUPPLEMENTAL SCALE SQ SCH (06:19)
[2016-11-04 07:32] LABS: AUTOMATED NEUTROPHIL # 2.7 TH/MM3 (1.8-7.7); BASOPHIL % 0.3 % (0.0-2.0); EOSINOPHIL % 1.1 % (0.0-4.0); HEMATOCRIT 34.6 % (39.0-51.0); HEMO FLAGS DIFF FINAL; LYMPH % 23.1 % (9.0-44.0); MEAN CELL VOLUME 84.5 FL (80.0-100.0); MEAN CORPUSCULAR HEMOGLOBIN 28.8 PG (27.0-34.0); MEAN CORPUSCULAR HGB CONC 34.1 % (32.0-36.0); MONO % 10.3 % (0.0-8.0); NEUT % 65.2 % (16.0-70.0); PLATELET COUNT 144 TH/MM3 (150-450); WHITE BLOOD COUNT 4.1 TH/MM3 (4.0-11.0)
[2016-11-04 07:49] LABS: ANION GAP 7 MEQ/L (5-15); AST (GOT) 18 U/L (15-37); BICARBONATE 26.1 MEQ/L (21.0-32.0); BLOOD UREA NITROGEN 21 MG/DL (7-18); CHLORIDE 107 MEQ/L (98-107); GLOMERULAR FILTRATION RATE 78 ML/MIN (>89); POTASSIUM 4.3 MEQ/L (3.5-5.1); SODIUM (NA) 140 MEQ/L (136-145)
[2016-11-04 07:50] LABS: ALT (GPT) 25 U/L (12-78)
[2016-11-04 07:54] LABS: ALKALINE PHOSPHATASE 86 U/L (45-117); TOTAL BILIRUBIN ADULT 0.9 MG/DL (0.2-1.0)
[2016-11-04 08:00] VITALS: PULSE 60
[2016-11-04 08:37] VITALS: BP 123/63; PULSE 60; RESP 18; TEMP 96.8; O2SAT 96
--- NOTE | 2016-11-04 08:43 | HHI.PR ---
Subjective Remarks Follow-up for his tachyarrhythmia. The patient is doing well today. He would like to go home possible. He does know the date, knows he is in [place], and is oriented to self. He lives with his brother and [id number] who do help get into his doctor's appointments if need be. He states that he is not currently following with a unix systems administrator, but knows that he should be. He notes that he was shocked yesterday, but as why that happened. He denies any chest pain or shortness of breath. Objective Vitals Vital Signs Date Time Temp Pulse Resp B/P Pulse Ox O2 Delivery O2 Flow Rate FiO2 11/04/16 04:29 97.7 71 18 109/59 96 11/03/16 23:55 97.9 60 18 101/56 97 11/03/16 23:48 60 11/03/16 19:23 97.9 60 20 138/94 95 11/03/16 18:26 114/65 11/03/16 16:29 60 21 136/69 96 Room Air 11/03/16 15:10 117/67 11/03/16 13:25 96 Room Air 11/03/16 13:25 18 96 11/03/16 13:08 97 Nasal Cannula 2 11/03/16 13:06 98.7 75 20 122/64 89 11/03/16 13:05 98.7 60 18 117/67 96 Room Air Result Diagram: 11/04/16 0615 11/04/16 0615 Imaging Last Impressions Chest X-Ray 11/03/16 1327 Signed Impressions: Service Date/Time: Thursday, November 03, 2016 13:31 - CONCLUSION: Mild pulmonary vascular congestion. Chronic mild cardiac silhouette enlargement. Victorino Gonzales MD Objective Remarks GENERAL: Well-developed well-nourished. In no acute distress. SKIN: Warm and dry. Well-healed old chest wall surgical scars. HEENT: Normocephalic. Pupils equal and round. Mucous membranes pink and moist. CARDIOVASCULAR: Regular rate and rhythm. No murmur appreciated. RESPIRATORY: No accessory muscle use. Clear to auscultation. Breath sounds equal bilaterally. GASTROINTESTINAL: Abdomen soft, non-tender, nondistended. Bowel sounds x4. MUSCULOSKELETAL: No obvious deformities. No clubbing or cyanosis. No edema. NEUROLOGICAL: Awake and alert. No focal neurological deficits. Moves upper and lower extremities spontaneously. Normal speech. PSYCHIATRIC: Appropriate mood and childlike affect; insight and judgment are impaired but seem reasonable. Oriented 3. A/P Problem List: (1) Tachyarrhythmia ICD Code: R00.0 Status: Acute (2) Encounter for checking of automatic implantable cardioverter-defibrillator ( AICD) ICD Code: Z45.02 Status: Acute Assessment and Plan 45-year-old male admitted secondary to AICD firing at home secondary to a tachyarrhythmia. Tachyarrhythmia AICD firing Hx Congenital transition of the great vessels Cardiology consulted, follow-up recommendations Risks for cardiac arrhythmia may be chronic secondary to his history of cardiac anomaly and surgery Medication adjustments will be deferred to his unix systems administrator Follow on telemetry No chest pain reported Troponin 0.02 and 0.03, flat and within normal limits Congestive heart failure Congenital anomaly related Echocardiogram 06/15/16 with moderate reduction in systolic function with EF 35% and signs of severe pulmonary hypertension. No change to baseline treatments No exacerbation Follow clinically This may be contributory Diabetes mellitus type 2 Insulin sliding scale Diabetic diet Follow blood sugars Hyperlipidemia Continue statin DVT prophylaxis Lovenox Discharge Planning Follow-up cardiology recommendations. Possible discharge today. D/W Dr. Banegas, repeat troponin and increase carvedilol; otherwise patient is cleared from cardiology perspective for Kenny Medina Nov 04, 2016 08:43
[2016-11-04] MEDS ORDERED: AMIODARONE 200 MG TAB PO SCH (09:00)
[2016-11-04] MEDS ORDERED: ATORVASTATIN 40 MG TAB PO SCH (09:00)
[2016-11-04] MEDS ORDERED: FUROSEMIDE 20 MG TAB PO SCH (09:00)
[2016-11-04] MEDS: CARVEDILOL 3.125 MG TAB PO SCH (09:23)
[2016-11-04] MEDS: SODIUM CHLORIDE 0.9% FLUSH 10 ML FLUSH IV FLUSH SCH (09:23)
[2016-11-04] MEDS: ENALAPRIL MALEATE 5 MG TAB PO SCH (09:23)
[2016-11-04] MEDS: DOCUSATE SODIUM 50 MG/SENNA 8.6 MG TAB PO SCH (09:24)
[2016-11-04] MEDS: buPROPion HCL 100 MG TAB PO SCH (09:24)
[2016-11-04] MEDS ORDERED: INSULIN ASPART SUPPLEMENTAL SCALE SQ SCH (11:00)
[2016-11-04 11:45] VITALS: BP 160/70; PULSE 60; RESP 18; TEMP 97.8; O2SAT 95
[2016-11-04] MEDS ORDERED: CARV6.25 PO (11:49)
[2016-11-04] MEDS ORDERED: CARVEDILOL 3.125 MG TAB PO ONE (12:30)
[2016-11-04] MEDS ORDERED: BUPR100T4 PO (12:44)
[2016-11-04] MEDS ORDERED: AMIO200T PO (12:44)
[2016-11-04] MEDS ORDERED: METF500T PO (12:44)
[2016-11-04] MEDS ORDERED: POTA-163 PO (12:44)
[2016-11-04] MEDS ORDERED: LIPI40TA PO (12:44)
[2016-11-04] MEDS ORDERED: FURO20TA PO (12:44)
[2016-11-04] MEDS ORDERED: ENAL5TAB PO (12:44)
[2016-11-04 13:57] VITALS: BP 99/56
--- NOTE | 2016-11-04 14:51 | EKG ---
Date Performed: 11/03/2016 Time Performed: 13:07:30 PTAGE: 45 years EKG: ELECTRONIC ATRIAL PACEMAKER MARKED RIGHT AXIS DEVIATION RIGHT BUNDLE BRANCH BLOCK ABNORMAL ECG INTERPRETATION BASED ON A DEFAULT AGE OF 38 YEARS 1 PVC present Since PREVIOUS TRACING 09/28/2016, no significant change. PREVIOUS TRACIN09/28/2016 11.20 DOCTOR: Oscar Mcqueen Interpretating Date/Time 11/06/2016 06:47:58
--- NOTE | 2016-11-04 14:52 | EKG ---
Date Performed: 11/03/2016 Time Performed: 17:17:04 PTAGE: 45 years EKG: ELECTRONIC ATRIAL PACEMAKER MARKED RIGHT AXIS DEVIATION PATTERN CONSISTENT WITH PULMONARY D ISEASE RIGHT BUNDLE BRANCH BLOCK ABNORMAL ECG Since PREVIOUS TRACING 11/03/2016, no significant change. PREVIOUS TRACIN11/03/2016 13.07 DOCTOR: Oscar Mcqueen Interpretating Date/Time 11/04/2016 14:51:33
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
[2016-11-04] MEDS ORDERED: CARVEDILOL 6.25 MG TAB PO SCH (21:00)
[2016-11-05] MEDS ORDERED: POTASSIUM CHLORIDE 20 MEQ CONTROLLED RELEASE TAB PO SCH (09:00)
== END 2016-11-04 15:06 | disposition home or self-care (01) ==
LOC: NEPE 12:54 → NEDA 17:06 → NEPGCP 18:39
PROVIDERS: ADMIT Hospitalist; ATTEND Hospitalist
DX: R07.89 Other chest pain (principal); R00.0 Tachycardia, unspecified; I48.91 Unspecified atrial fibrillation; I11.0 Hypertensive heart disease with heart failure; I50.22 Chronic systolic (congestive) heart failure; I42.9 Cardiomyopathy, unspecified; E78.5 Hyperlipidemia, unspecified; E11.9 Type 2 diabetes mellitus without complications; Z95.810 Presence of automatic (implantable) cardiac defibrillator; Z79.4 Long term (current) use of insulin; Z91.19 Patient's noncompliance with other medical treatment and regimen
CPT/HCPCS: 71010; 80048; 80053; 82550; 82552; 82948; 83735; 83880; 84484; 85025; 85610; 85730; 93005; 99285; G0378; J1650

== ENCOUNTER 2016-11-23 20:45 | Emergency (ER) | payer MEDICAID ==
[~2016-11-23] VITALS: Ht 170.2 cm; Wt 77.0 kg
[~2016-11-23 20:45] MED LIST changes: -CARV3.125 PO; +CARV6.25 PO
[2016-11-23 20:53] VITALS: BP 114/57; PULSE 60; RESP 20; TEMP 98.4; O2SAT 96
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
[2016-11-23 21:33] LABS: AUTOMATED NEUTROPHIL # 3.8 TH/MM3 (1.8-7.7); BASOPHIL % 0.2 % (0.0-2.0); EOSINOPHIL # 0.1 TH/MM3 (0-0.4); EOSINOPHIL % 1.5 % (0.0-4.0); HEMATOCRIT 37.3 % (39.0-51.0); HEMO FLAGS DIFF FINAL; LYMPH % 23.4 % (9.0-44.0); LYMPHOCYTE # 1.3 TH/MM3 (1.0-4.8); MEAN CELL VOLUME 82.9 FL (80.0-100.0); MEAN CORPUSCULAR HEMOGLOBIN 28.3 PG (27.0-34.0); MEAN CORPUSCULAR HGB CONC 34.2 % (32.0-36.0); NEUT % 66.9 % (16.0-70.0); PLATELET COUNT 127 TH/MM3 (150-450); RED CELL DISTRIBUTION WIDTH 15.8 % (11.6-17.2); WHITE BLOOD COUNT 5.7 TH/MM3 (4.0-11.0)
[2016-11-23 21:35] LABS: APTT (PATIENT) 30.4 SEC (24.3-30.1); INTERNATIONAL NORMALIZED RATIO 1.1 RATIO; PROTHROMBIN TIME - PATIENT 11.7 SEC (9.8-11.6)
[2016-11-23 21:40] LABS: BICARBONATE 25.4 MEQ/L (21.0-32.0); POTASSIUM 3.6 MEQ/L (3.5-5.1)
--- NOTE | 2016-11-24 16:22 | EKG ---
Date Performed: 11/23/2016 Time Performed: 20:56:21 PTAGE: 46 years EKG: ELECTRONIC ATRIAL PACEMAKER RIGHT VENTRICULAR HYPERTROPHY INFERIOR MYOCARDIAL INFARCTION AB NORMAL ECG PREVIOUS TRACING : 11/03/2016 17.17 Compared to prior tracing no significant change DOCTOR: Iker Gary Interpretating Date/Time 11/24/2016 16:20:20
== END 2016-11-24 | disposition home or self-care (01) ==
LOC: NEPC 20:45
DX: I48.92 Unspecified atrial flutter (principal); I51.7 Cardiomegaly; E78.00 Pure hypercholesterolemia, unspecified; I50.9 Heart failure, unspecified; J44.9 Chronic obstructive pulmonary disease, unspecified; E11.9 Type 2 diabetes mellitus without complications; I10 Essential (primary) hypertension; F17.210 Nicotine dependence, cigarettes, uncomplicated; Z79.01 Long term (current) use of anticoagulants; Z95.0 Presence of cardiac pacemaker; Z95.810 Presence of automatic (implantable) cardiac defibrillator
CPT/HCPCS: 80048; 85025; 85610; 85730; 93005; 99284

== ENCOUNTER 2016-11-26 23:49 | Emergency (ER) | payer MEDICAID ==
[~2016-11-26] VITALS: Ht 180.3 cm; Wt 84.1 kg
[2016-11-26 23:56] VITALS: BP 128/85; PULSE 60; RESP 16; TEMP 98.2; O2SAT 95
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
[2016-11-27 07:49] VITALS: BP 125/84
--- NOTE | 2016-11-28 07:46 | EKG ---
Date Performed: 11/27/2016 Time Performed: 00:09:13 PTAGE: 46 years EKG: ELECTRONIC ATRIAL PACEMAKER MARKED RIGHT AXIS DEVIATION RIGHT BUNDLE BRANCH BLOCK INFERIOR MYOCARDIAL INFARCTION ABNORMAL ECG NO PREVIOUS TRACING DOCTOR: Torres Man Interpretating Date/Time 11/28/2016 07:43:38
[2016-11-28] MEDS ORDERED: ULTR50TA5 PO (21:00)
== END 2016-11-27 07:52 | disposition home or self-care (01) ==
LOC: NEPC 23:49
DX: R07.89 Other chest pain (principal); Y04.2XXA Assault by strike against or bumped into by another person, initial encounter; Y92.009 Unspecified place in unspecified non-institutional (private) residence as the place of occurrence of the external cause
CPT/HCPCS: 71020; 93005

== ENCOUNTER 2016-11-27 08:03 | Emergency (ER) | payer MEDICAID ==
[~2016-11-27] VITALS: Ht 180.3 cm; Wt 84.0 kg
[2016-11-27 08:08] VITALS: BP 128/59; PULSE 60; RESP 20; TEMP 97.8; O2SAT 99
[2016-11-28] MEDS ORDERED: ULTR50TA5 PO (21:00)
== END 2016-11-27 08:32 | disposition left against medical advice (07) ==
LOC: NED 08:03
DX: R07.9 Chest pain, unspecified (principal); Z53.21 Procedure and treatment not carried out due to patient leaving prior to being seen by health care provider
CPT/HCPCS: 99281

== ENCOUNTER 2016-11-28 19:06 | Emergency (ER) | payer MEDICAID ==
[~2016-11-28] VITALS: Ht 180.3 cm; Wt 80.0 kg
[2016-11-28 19:10] VITALS: BP 115/68; PULSE 59; RESP 17; TEMP 98.9; O2SAT 95
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
[2016-11-28] MEDS ORDERED: ULTR50TA5 PO (21:00)
--- NOTE | 2016-11-29 23:26 | EKG ---
Date Performed: 11/28/2016 Time Performed: 19:15:55 PTAGE: 46 years EKG: ELECTRONIC ATRIAL PACEMAKER PATTERN CONSISTENT WITH PULMONARY DISEASE INCOMPLETE RIGHT BUND LE BRANCH BLOCK RIGHT VENTRICULAR HYPERTROPHY AND ST-T CHANGE INFERIOR MYOCARDIAL INFARCTION ABNORMAL ECG NO PREVIOUS TRACING DOCTOR: Kylee Guadalupe Interpretating Date/Time 11/29/2016 23:24:54
== END 2016-11-28 21:30 | disposition home or self-care (01) ==
LOC: NEPC 19:06
DX: S20.219A Contusion of unspecified front wall of thorax, initial encounter (principal); I50.9 Heart failure, unspecified; I10 Essential (primary) hypertension; Z95.0 Presence of cardiac pacemaker; Z95.1 Presence of aortocoronary bypass graft; Z79.01 Long term (current) use of anticoagulants; W50.0XXA Accidental hit or strike by another person, initial encounter; Y93.9 Activity, unspecified; Y92.9 Unspecified place or not applicable; Y99.9 Unspecified external cause status
CPT/HCPCS: 71250; 93005

== ENCOUNTER 2016-11-30 00:03 | Emergency (ER) | payer MEDICAID ==
[~2016-11-30] VITALS: Ht 177.8 cm; Wt 80.0 kg
[~2016-11-30 00:03] MED LIST changes: +ULTR50TA5 PO
[2016-11-30 00:08] VITALS: BP 114/76; PULSE 60; RESP 18; TEMP 98.7; O2SAT 98
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
== END 2016-11-30 02:21 | disposition home or self-care (01) ==
LOC: NEPE 00:03
DX: R07.89 Other chest pain (principal); I10 Essential (primary) hypertension; E11.9 Type 2 diabetes mellitus without complications; J44.9 Chronic obstructive pulmonary disease, unspecified; I50.9 Heart failure, unspecified; E78.00 Pure hypercholesterolemia, unspecified; Z79.899 Other long term (current) drug therapy
CPT/HCPCS: 99283

== ENCOUNTER 2016-11-30 03:00 | Emergency (ER) | payer MEDICAID ==
[2016-11-30 03:04] VITALS: BP 139/71; PULSE 60; RESP 15; TEMP 98.2; O2SAT 98
--- NOTE | 2016-11-30 03:18 | PD ---
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 HIS COMPLAINT IS ABOUT HIS DEVICE AND HOW IS NOT FUNCTIONING AND THE "WIRES" ARE BOTHERING HIM. NOT ONLY ARE THERE NO EXPOSED WIRES BUT DEVICES ARE FUNCTIONAL PER INTERROGATION History Past Medical Histgory Hx Cancer: No Social History Alcohol Use: No Tobacco Use: No Allergies-Medications (Allergen,Severity, Reaction): Coded Allergies: Aspirin (Verified Allergy, Severe, DIZZINESS, FACIAL SWELLING, 11/30/16) Reported Meds & Prescriptions Reported Meds & Active Scripts Active Ultram (Tramadol HCl) 50 Mg Tab 50 Mg PO Q4H PRN Enalapril (Enalapril Maleate) 5 Mg Tab 5 Mg PO BID Bupropion HCl 100 Mg Tab 100 Mg PO BID Furosemide 20 Mg Tab 20 Mg PO DAILY Potassium Chloride ER (Potassium Chloride) 20 Meq Tab 20 Meq PO EVERY OTHER DAY Metformin (Metformin HCl) 500 Mg Tab 500 Mg PO DAILY With a meal Amiodarone (Amiodarone HCl) 200 Mg Tab 200 Mg PO DAILY Lipitor (Atorvastatin Calcium) 40 Mg Tab 40 Mg PO DAILY Coreg (Carvedilol) 6.25 Mg Tab 6.25 Mg PO Q12HR Review of Systems Except as stated in HPI: all other systems reviewed are Neg Physical Exam Narrative GENERAL: SKIN: Warm and dry. HEAD: Atraumatic. Normocephalic. EYES: Pupils equal and round. No scleral icterus. No injection or drainage. ENT: No nasal bleeding or discharge. Mucous membranes pink and moist. NECK: Trachea midline. No JVD. CARDIOVASCULAR: Regular rate and rhythm. RESPIRATORY: No accessory muscle use. Clear to auscultation. Breath sounds equal bilaterally. GASTROINTESTINAL: Abdomen soft, non-tender, nondistended. Hepatic and splenic margins not palpable. MUSCULOSKELETAL: Extremities without clubbing, cyanosis, or edema. No obvious deformities. RT UPPER PEC HAS DEVICE AND LEFT FLANK AREA HAS HIS OTHER DEVICE NEUROLOGICAL: Awake and alert. No obvious cranial nerve deficits. Motor grossly within normal limits. Five out of 5 muscle strength in the arms and legs. Normal speech. PSYCHIATRIC: Appropriate mood and affect; insight and judgment normal. Data Data Last Documented VS Vital Signs Date Time Temp Pulse Resp B/P Pulse Ox O2 Delivery O2 Flow Rate FiO2 11/30/16 03:04 98.2 60 15 139/71 98 Room Air MDM Medical Screen Exam Complete: Yes Emergency Medical Condition: No Primary Impression: CHEST WALL DISCOMFORT WITH FUNCTIONING DEVICES Disposition: 01 DISCHARGE HOME Condition: Stable Morro Bustamante MD Nov 30, 2016 03:18
== END 2016-11-30 03:20 | disposition left against medical advice (07) ==
LOC: NEPE 03:00
DX: R07.89 Other chest pain (principal)
CPT/HCPCS: 99281

== ENCOUNTER 2016-12-11 13:45 | Emergency (ER) | payer MEDICAID ==
[~2016-12-11] VITALS: Ht 180.3 cm; Wt 85.0 kg
[2016-12-11 14:00] VITALS: BP 127/73; PULSE 78; RESP 16; TEMP 97.8; O2SAT 94
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
[2016-12-11] MEDS ORDERED: SODIUM CHLORIDE 0.9% FLUSH 10 ML FLUSH IVF PRN (15:30)
[2016-12-11 16:01] VITALS: RESP 18; O2SAT 98
--- NOTE | 2016-12-11 16:20 | RADRPT ---
EXAM DATE/TIME: 12/11/2016 15:27 [facility] COMPARISON: CHEST PA & LAT, November 27, 2016, 1:16. INDICATIONS : Chest pain, syncope, weakness MEDICAL HISTORY : Diabetes mellitus type II. Hypertension Cardiovascular disease. COPD, AL SURGICAL HISTORY : Pacemaker. defibrillator ENCOUNTER: Initial ACUITY: 1 day PAIN SCORE: 5/10 LOCATION: Bilateral chest FINDINGS: Slight cardiomegaly has not changed and pacer wires have not changed. Lungs are clear. CONCLUSION: No acute cardiopulmonary disease. Yolanda Stinson MD on December 11, 2016 at 16:19 Board Certified Radiologist. This report was verified electronically.
[2016-12-11 16:51] LABS: AUTOMATED NEUTROPHIL # 4.5 TH/MM3 (1.8-7.7); BASOPHIL % 0.4 % (0.0-2.0); EOSINOPHIL % 0.4 % (0.0-4.0); HEMATOCRIT 42.8 % (39.0-51.0); HEMO FLAGS DIFF FINAL; LYMPH % 20.5 % (9.0-44.0); LYMPHOCYTE # 1.3 TH/MM3 (1.0-4.8); MEAN CELL VOLUME 83.6 FL (80.0-100.0); MEAN CORPUSCULAR HEMOGLOBIN 27.3 PG (27.0-34.0); MEAN CORPUSCULAR HGB CONC 32.6 % (32.0-36.0); NEUT % 70.7 % (16.0-70.0); PLATELET COUNT 171 TH/MM3 (150-450); RED BLOOD COUNT 5.12 MIL/MM3 (4.50-5.90); RED CELL DISTRIBUTION WIDTH 16.1 % (11.6-17.2); WHITE BLOOD COUNT 6.4 TH/MM3 (4.0-11.0)
[2016-12-11 16:53] LABS: APTT (PATIENT) 31.1 SEC (24.3-30.1); PROTHROMBIN TIME - PATIENT 11.3 SEC (9.8-11.6)
[2016-12-11 17:03] LABS: CREATINE KINASE 196 U/L (39-308)
[2016-12-11 17:06] LABS: ANION GAP 10 MEQ/L (5-15); BICARBONATE 26.2 MEQ/L (21.0-32.0); BLOOD UREA NITROGEN 17 MG/DL (7-18); CHLORIDE 104 MEQ/L (98-107); GLOMERULAR FILTRATION RATE 81 ML/MIN (>89); SODIUM (NA) 140 MEQ/L (136-145)
[2016-12-11 17:15] LABS: CKMB 0.9 NG/ML (0.5-3.6)
[2016-12-11 17:19] VITALS: BP 105/65; PULSE 101; RESP 20; O2SAT 98
--- NOTE | 2016-12-12 10:30 | EKG ---
Date Performed: 12/11/2016 Time Performed: 16:08:42 PTAGE: 46 years EK% atrial pacing Right axis deviation Possible right ventricular hypertrophy with seconda ry ST-T wave changes ABNORMAL ECG PREVIOUS TRACING : 11/28/2016 19.15 No change from the prior tracing. DOCTOR: Ranjeet Gaspar Interpretating Date/Time 12/12/2016 10:29:59
== END 2016-12-11 18:07 | disposition home or self-care (01) ==
LOC: NEPE 13:45
DX: R55 Syncope and collapse (principal); E78.00 Pure hypercholesterolemia, unspecified; I50.9 Heart failure, unspecified; J44.9 Chronic obstructive pulmonary disease, unspecified; E11.9 Type 2 diabetes mellitus without complications; I10 Essential (primary) hypertension; Z79.899 Other long term (current) drug therapy
CPT/HCPCS: 71010; 80048; 82550; 82552; 83735; 84484; 85025; 85610; 85730; 93005; 99285

== ENCOUNTER 2016-12-13 17:19 | Emergency (ER) | payer MEDICAID ==
[~2016-12-13] VITALS: Ht 152.4 cm; Wt 90.0 kg
[2016-12-13 17:28] VITALS: BP 117/68; PULSE 60; RESP 16; TEMP 98.7; O2SAT 96
[2016-12-13] MEDS ORDERED: SODIUM CHLORIDE 0.9% FLUSH 10 ML FLUSH IVF PRN (17:45)
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
[2016-12-13 18:16] LABS: AUTOMATED NEUTROPHIL # 3.3 TH/MM3 (1.8-7.7); BASOPHIL % 0.4 % (0.0-2.0); EOSINOPHIL % 0.7 % (0.0-4.0); HEMATOCRIT 41.6 % (39.0-51.0); HEMO FLAGS DIFF FINAL; LYMPH % 26.1 % (9.0-44.0); LYMPHOCYTE # 1.3 TH/MM3 (1.0-4.8); MEAN CELL VOLUME 82.5 FL (80.0-100.0); MEAN CORPUSCULAR HEMOGLOBIN 27.3 PG (27.0-34.0); MEAN CORPUSCULAR HGB CONC 33.1 % (32.0-36.0); MONO % 8.1 % (0.0-8.0); NEUT % 64.7 % (16.0-70.0); PLATELET COUNT 166 TH/MM3 (150-450); RED BLOOD COUNT 5.05 MIL/MM3 (4.50-5.90); RED CELL DISTRIBUTION WIDTH 15.8 % (11.6-17.2)
[2016-12-13 18:25] LABS: APTT (PATIENT) 30.7 SEC (24.3-30.1); PROTHROMBIN TIME - PATIENT 11.4 SEC (9.8-11.6)
--- NOTE | 2016-12-13 18:40 | RADRPT ---
EXAM DATE/TIME: 12/13/2016 18:19 [facility] COMPARISON: CHEST SINGLE AP, December 11, 2016, 15:27. INDICATIONS : Chest pain. MEDICAL HISTORY : Diabetes mellitus type II. Hypertension Cardiovascular disease. COPD. SURGICAL HISTORY : Pacemaker. Defibrilator. ENCOUNTER: Initial ACUITY: 3 days PAIN SCORE: 5/10 LOCATION: Bilateral chest FINDINGS: A single view of the chest demonstrates the lungs to be symmetrically aerated without evidence of mas s, infiltrate or effusion. Defibrillator is evident. Pacemaker is evident contours are unremarkable . Osseous structures are intact. Cardiac silhouette is mildly prominent. CONCLUSION: Mildly prominent cardiac silhouette, pacer, defibrillator. Bill Marcus MD FACR on December 13, 2016 at 18:37 Board Certified Radiologist. This report was verified electronically.
[2016-12-13 18:46] LABS: ANION GAP 9 MEQ/L (5-15); AST (GOT) 19 U/L (15-37); BICARBONATE 22.9 MEQ/L (21.0-32.0); BLOOD UREA NITROGEN 20 MG/DL (7-18); CHLORIDE 105 MEQ/L (98-107); GLOMERULAR FILTRATION RATE 82 ML/MIN (>89); MAGNESIUM 1.9 MG/DL (1.5-2.5); POTASSIUM 3.8 MEQ/L (3.5-5.1); SODIUM (NA) 137 MEQ/L (136-145)
[2016-12-13 18:51] LABS: ALKALINE PHOSPHATASE 107 U/L (45-117); ALT (GPT) 31 U/L (12-78); CREATINE KINASE 197 U/L (39-308); TOTAL BILIRUBIN ADULT 0.8 MG/DL (0.2-1.0)
[2016-12-13 20:00] VITALS: BP 116/72; PULSE 60; RESP 16; O2SAT 99
--- NOTE | 2016-12-13 21:20 | PD ---
Data Data Last Documented VS Vital Signs Date Time Temp Pulse Resp B/P Pulse Ox O2 Delivery O2 Flow Rate FiO2 12/13/16 17:28 99 Room Air 12/13/16 17:28 98.7 60 16 117/68 Orders Electrocardiogram (12/13/16 17:42) Ckmb (Isoenzyme) Profile (12/13/16 17:42) Complete Blood Count With Diff (12/13/16 17:42) Comprehensive Metabolic Panel (12/13/16:42) Magnesium (Mg) (12/13/16:42) Prothrombin Time / Inr (Pt) (12/13/16 17:42) Act Partial Throm Time (Ptt) (12/13/16:42) Troponin I (12/13/16:42) Chest, Single Ap (12/13/16:42) Ecg Monitoring (12/13/16 17:42) Iv Access Insert/Monitor (12/13/16 17:42) Oximetry (12/13/16:42) Oxygen Administration (12/13/16:42) Sodium Chloride 0.9% Flush (Ns Flush) (12/13/16 17:45) CKMB (12/13/16 17:45) CKMB% (12/13/16 17:45) Labs Laboratory Tests Test 12/13/16 17:45 White Blood Count 5.0 TH/MM3 Red Blood Count 5.05 MIL/MM3 Hemoglobin 13.8 GM/DL Hematocrit 41.6 % Mean Corpuscular Volume 82.5 FL Mean Corpuscular Hemoglobin 27.3 PG Mean Corpuscular Hemoglobin 33.1 % Concent Red Cell Distribution Width 15.8 % Platelet Count 166 TH/MM3 Mean Platelet Volume 8.3 FL Neutrophils (%) (Auto) 64.7 % Lymphocytes (%) (Auto) 26.1 % Monocytes (%) (Auto) 8.1 % Eosinophils (%) (Auto) 0.7 % Basophils (%) (Auto) 0.4 % Neutrophils # (Auto) 3.3 TH/MM3 Lymphocytes # (Auto) 1.3 TH/MM3 Monocytes # (Auto) 0.4 TH/MM3 Eosinophils # (Auto) 0.0 TH/MM3 Basophils # (Auto) 0.0 TH/MM3 CBC Comment DIFF FINAL Differential Comment Prothrombin Time 11.4 SEC Prothromb Time International 1.0 RATIO Ratio Activated Partial 30.7 SEC Thromboplast Time Sodium Level 137 MEQ/L Potassium Level 3.8 MEQ/L Chloride Level 105 MEQ/L Carbon Dioxide Level 22.9 MEQ/L Anion Gap 9 MEQ/L Blood Urea Nitrogen 20 MG/DL Creatinine 1.15 MG/DL Estimat Glomerular Filtration 82 ML/MIN Rate Random Glucose 117 MG/DL Calcium Level 9.3 MG/DL Magnesium Level 1.9 MG/DL Total Bilirubin 0.8 MG/DL Aspartate Amino Transf 19 U/L (AST/SGOT) Alanine Aminotransferase 31 U/L (ALT/SGPT) Alkaline Phosphatase 107 U/L Total Creatine Kinase 197 U/L Creatine Kinase MB 1.0 NG/ML Troponin I LESS THAN 0.02 NG/ML Total Protein 7.6 GM/DL Albumin 4.3 GM/DL [facility] Supervised Visit with MARV: No Narrative Course This is a 46-year-old male who is well-known to our emergency department who has a history of congestive heart failure and an AICD. He comes in today reporting that his AICD went off. Labs are obtained which are reassuring. Troponin is normal. Chest x-rays reassuring. The [employer] came and evaluated the patient's device and found that he did have a shock on 12/11 2 days ago in the setting of atrial fibrillation with RVR and also on November 26 in the setting of atrial fibrillation with RVR. He's had no evident episodes of V. tach or V. fib. I think the patient can safely be discharged home. There is always a large component of secondary gain to this patient's presentations. Diagnosis Primary Impression: Atrial fibrillation Qualified Code: I48.2 - Chronic atrial fibrillation Patient Instructions: General Instructions Additional Instruction: If you develop severe chest pain, shortness of breath, sweating, lightheadedness , dizziness or difficulty breathing return to the emergency department immediately. Followup with your primary care physician in 2-3 days if your symptoms are not resolved. Med/Other Pt SpecificInfo: No Change to Meds Disposition: 01 DISCHARGE HOME Condition: Stable Arely Irvin MD Dec 13, 2016 21:20
--- NOTE | 2016-12-13 22:32 | EKG ---
Date Performed: 12/13/2016 Time Performed: 17:29:21 PTAGE: 46 years EKG: VENTRICULAR PACED RHYTHM ABNORMAL ECG PREVIOUS TRACING : 12/11/2016 16.08 Compared to previous tracing, atrial pacing is no longer ev ident. DOCTOR: Kaden Zavala Interpretating Date/Time 12/13/2016 22:30:49
[2016-12-14] MEDS ORDERED: ENAL5TAB PO (02:51)
[2016-12-14] MEDS ORDERED: CARV6.25 PO (02:51)
[2016-12-14] MEDS ORDERED: AMIO200T PO (02:51)
[2016-12-14] MEDS ORDERED: BUPR100T4 PO (02:51)
[2016-12-14] MEDS ORDERED: FURO20TA PO (02:51)
[2016-12-14] MEDS ORDERED: METF500T PO (02:51)
[2016-12-14] MEDS ORDERED: LIPI40TA PO (02:51)
[2016-12-14] MEDS ORDERED: POTA-163 PO (02:51)
== END 2016-12-13 22:30 | disposition home or self-care (01) ==
LOC: NEPE 17:19
DX: I48.91 Unspecified atrial fibrillation (principal); I50.9 Heart failure, unspecified; R94.31 Abnormal electrocardiogram [ECG] [EKG]; I10 Essential (primary) hypertension; E11.9 Type 2 diabetes mellitus without complications; J44.9 Chronic obstructive pulmonary disease, unspecified; E78.00 Pure hypercholesterolemia, unspecified; Z79.899 Other long term (current) drug therapy
CPT/HCPCS: 71010; 80053; 82550; 82552; 83735; 84484; 85025; 85610; 85730; 93005; 99285

== ENCOUNTER 2016-12-14 01:41 | Emergency (ER) | payer MEDICAID ==
[2016-12-14 01:43] VITALS: BP 122/71; PULSE 62; RESP 16; TEMP 97.9; O2SAT 98
[2016-12-14] MEDS ORDERED: ENAL5TAB PO (02:51)
[2016-12-14] MEDS ORDERED: BUPR100T4 PO (02:51)
[2016-12-14] MEDS ORDERED: METF500T PO (02:51)
[2016-12-14] MEDS ORDERED: CARV6.25 PO (02:51)
[2016-12-14] MEDS ORDERED: FURO20TA PO (02:51)
[2016-12-14] MEDS ORDERED: AMIO200T PO (02:51)
[2016-12-14] MEDS ORDERED: LIPI40TA PO (02:51)
[2016-12-14] MEDS ORDERED: POTA-163 PO (02:51)
--- NOTE | 2016-12-14 02:51 | PD ---
HPI Chief Complaint: Cardiac Complaint Time Seen by Provider: 02:27 Travel History International Travel<30 days: No Contact w/Intl Traveler<30days: No Traveled to known affect area: No History of Present Illness HPI 46-year-old man presents emergency department for repeat evaluation. He was just discharged. He probably does not eat at home. His AICD was interrogated and had fired for A. fib RVR a couple days ago. No new complaints. History Past Medical History Narrative Medical A. fib, AICD VSD PNEUMOCCOCAL Vaccine (Year): 2 Social History Alcohol Use: No Tobacco Use: No Allergies-Medications (Allergen,Severity, Reaction): Coded Allergies: Aspirin (Verified Allergy, Severe, DIZZINESS, FACIAL SWELLING, 11/30/16) Reported Meds & Prescriptions Reported Meds & Active Scripts Active Ultram (Tramadol HCl) 50 Mg Tab 50 Mg PO Q4H PRN Enalapril (Enalapril Maleate) 5 Mg Tab 5 Mg PO BID Bupropion HCl 100 Mg Tab 100 Mg PO BID Furosemide 20 Mg Tab 20 Mg PO DAILY Potassium Chloride ER (Potassium Chloride) 20 Meq Tab 20 Meq PO EVERY OTHER DAY Metformin (Metformin HCl) 500 Mg Tab 500 Mg PO DAILY With a meal Amiodarone (Amiodarone HCl) 200 Mg Tab 200 Mg PO DAILY Lipitor (Atorvastatin Calcium) 40 Mg Tab 40 Mg PO DAILY Coreg (Carvedilol) 6.25 Mg Tab 6.25 Mg PO Q12HR Review of Systems ROS Limitations: Poor Historian Physical Exam Exam Limitations: Clinical Condition Narrative GENERAL: Well-appearing 38 year-old woman, no acute distress. SKIN: Focused skin assessment warm/dry. HEAD: Atraumatic. Normocephalic. CARDIOVASCULAR: Regular rate and rhythm. No murmur appreciated. RESPIRATORY: No accessory muscle use. Clear to auscultation. Breath sounds equal bilaterally. GASTROINTESTINAL: Abdomen soft, non-tender, nondistended. Hepatic and splenic margins not palpable. MUSCULOSKELETAL: No obvious deformities. No clubbing. No cyanosis. No edema. NEUROLOGICAL: Awake and alert. No obvious cranial nerve deficits. Motor grossly within normal limits. Normal speech. PSYCHIATRIC: Appropriate mood and affect; insight and judgment normal. Data Data Last Documented VS Vital Signs Date Time Temp Pulse Resp B/P Pulse Ox O2 Delivery O2 Flow Rate FiO2 12/14/16 01:43 97.9 62 16 122/71 98 Room Air [facility] Medical Decision Making Medical Screen Exam Complete: Yes Emergency Medical Condition: Yes Differential Diagnosis A. fib, AICD fire, other Narrative Course Medical decision making 46-year-old man, appears easily. He doesn't have a quite get home and is somewhat malingering. He just had his AICD interrogated a couple hours ago. 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 His multiple excuses my medications, adenoma timber estimator is, I don't know my family's phone number. He is safe for discharge. Diagnosis Primary Impression: Malingering Additional Instructions: Follow-up with your timber estimator. Return to the emergency department for any new or worsening symptoms. Med/Other Pt SpecificInfo: Prescription(s) given Scripts Enalapril 5 Mg Tab5 Mg PO BID #60 TAB Ref 0 Prov:Don Ann MD 12/14/16 Bupropion HCl 100 Mg [id number] Mg PO BID #60 TAB Ref 0 Prov:Don Ann MD 12/14/16 Furosemide 20 Mg Tab20 Mg PO DAILY #30 TAB Ref 0 Prov:Don Ann MD 12/14/16 Potassium Chloride ER 20 Meq Tab20 Meq PO EVERY OTHER DAY #30 TAB Ref 0 Prov:Don Ann MD 12/14/16 Metformin 500 Mg Nav137 Mg PO DAILY #30 TAB Ref 0 With a meal Prov:Don Ann MD 12/14/16 Amiodarone 200 Mg Qxi096 Mg PO DAILY #30 TAB Ref 0 Prov:Don Ann MD 12/14/16 Atorvastatin (Lipitor)40 Mg Tab40 Mg PO DAILY #30 TAB Prov:Don Ann MD 12/14/16 Carvedilol (Coreg)6.25 Mg Tab6.25 Mg PO Q12HR #60 TAB Prov:Don Ann MD 12/14/16 Disposition: 01 DISCHARGE HOME Condition: Stable Don Ann MD Dec 14, 2016 02:51
[2016-12-14] MEDS ORDERED: CARVEDILOL 6.25 MG TAB PO ONE ×2 (03:00)
== END 2016-12-14 03:27 | disposition home or self-care (01) ==
LOC: NEPC 01:41
DX: Z76.5 Malingerer [conscious simulation] (principal); I48.91 Unspecified atrial fibrillation; Z79.899 Other long term (current) drug therapy; Z88.6 Allergy status to analgesic agent
CPT/HCPCS: 99284

== ENCOUNTER 2016-12-14 19:42 | Emergency (ER) | payer MEDICAID ==
[~2016-12-14] VITALS: Ht 180.3 cm; Wt 99.0 kg
[2016-12-14 19:44] VITALS: BP 127/77; PULSE 62; RESP 16; TEMP 97.7; O2SAT 99
--- NOTE | 2016-12-14 21:41 | PD ---
Physical Exam Time Seen by Provider: 21:41 Narrative 46 y/o male reports he was experiencing palpitations earlier today. he has been seen here several times of the past few weeks for similar symptoms. Vital signs reviewed. Seen at triage desk. Awaiting bed placement. Data Data Last Documented VS Vital Signs Date Time Temp Pulse Resp B/P Pulse Ox O2 Delivery O2 Flow Rate FiO2 12/14/16 19:44 97.7 62 16 127/77 99 Room Air [facility] Medical Record Reviewed: Yes Supervised Visit with MARV: No Rell Espinoza Dec 14, 2016 21:41
[2016-12-15 01:06] VITALS: BP 132/81; PULSE 63; RESP 16; O2SAT 100
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
== END 2016-12-15 09:51 | disposition home or self-care (01) ==
LOC: NEPC 19:42 → NEPB 12-15 09:51
DX: Z59.0 Homelessness (principal); I42.9 Cardiomyopathy, unspecified; I10 Essential (primary) hypertension; E11.9 Type 2 diabetes mellitus without complications; J44.9 Chronic obstructive pulmonary disease, unspecified; I50.9 Heart failure, unspecified; E78.00 Pure hypercholesterolemia, unspecified; Z79.899 Other long term (current) drug therapy; Z88.6 Allergy status to analgesic agent
CPT/HCPCS: 99281

== ENCOUNTER 2016-12-22 16:12 | Emergency (ER) | payer MEDICAID ==
[~2016-12-22] VITALS: Ht 180.3 cm; Wt 85.0 kg
[2016-12-22 16:38] VITALS: BP 115/62; PULSE 96; RESP 23; TEMP 98.7; O2SAT 96
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
[2016-12-22 16:45] VITALS: BP 115/62; PULSE 96; RESP 19; TEMP 97.8; O2SAT 99
[2016-12-22] MEDS ORDERED: SODIUM CHLORIDE 0.9% FLUSH 10 ML FLUSH IVF PRN (16:45)
[2016-12-22] MEDS ORDERED: SODIUM CHLORIDE 0.9% FLUSH 10 ML FLUSH IV FLUSH PRN (16:45)
[2016-12-22 16:51] VITALS: BP 112/65; PULSE 65; RESP 23; O2SAT 95
[2016-12-22 17:29] LABS: AUTOMATED NEUTROPHIL # 3.6 TH/MM3 (1.8-7.7); BASOPHIL % 0.3 % (0.0-2.0); EOSINOPHIL % 0.2 % (0.0-4.0); HEMATOCRIT 35.4 % (39.0-51.0); HEMO FLAGS DIFF FINAL; LYMPH % 20.6 % (9.0-44.0); MEAN CELL VOLUME 83.1 FL (80.0-100.0); MEAN CORPUSCULAR HEMOGLOBIN 28.1 PG (27.0-34.0); MEAN CORPUSCULAR HGB CONC 33.8 % (32.0-36.0); MONO % 8.4 % (0.0-8.0); NEUT % 70.5 % (16.0-70.0); PLATELET COUNT 127 TH/MM3 (150-450); RED BLOOD COUNT 4.27 MIL/MM3 (4.50-5.90); RED CELL DISTRIBUTION WIDTH 16.4 % (11.6-17.2); WHITE BLOOD COUNT 5.1 TH/MM3 (4.0-11.0)
[2016-12-22 17:39] LABS: APTT (PATIENT) 29.9 SEC (24.3-30.1); INTERNATIONAL NORMALIZED RATIO 1.1 RATIO; PROTHROMBIN TIME - PATIENT 11.9 SEC (9.8-11.6)
--- NOTE | 2016-12-22 17:49 | RADRPT ---
EXAM DATE/TIME: 12/22/2016 17:01 [facility] COMPARISON: CHEST SINGLE AP, December 13, 2016, 18:19. INDICATIONS : Chest pain for 24 hours MEDICAL HISTORY : Diabetes mellitus type II. Hypertension Cardiovascular disease. COPD. SURGICAL HISTORY : Pacemaker. Defibrilator. ENCOUNTER: Initial ACUITY: 1 day PAIN SCORE: 7/10 LOCATION: Bilateral chest FINDINGS: Portable AP view of the chest demonstrates a normal-sized cardiac silhouette. Bilateral chest wall im planted devices are present with leads having a stable configuration. Lungs are underinflated but no effusion, consolidation, or pneumothorax is appreciated. Bones and soft tissues demonstrate no acute finding. CONCLUSION: Underinflated examination without acute abnormality identified. Alex Baumann MD on December 22, 2016 at 17:46 Board Certified Radiologist. This report was verified electronically.
[2016-12-22 17:58] LABS: ANION GAP 8 MEQ/L (5-15); BICARBONATE 28.1 MEQ/L (21.0-32.0); BLOOD UREA NITROGEN 17 MG/DL (7-18); CHLORIDE 104 MEQ/L (98-107); GLOMERULAR FILTRATION RATE 79 ML/MIN (>89); POTASSIUM 3.6 MEQ/L (3.5-5.1); SODIUM (NA) 140 MEQ/L (136-145)
[2016-12-22 18:03] LABS: CREATINE KINASE 152 U/L (39-308)
[2016-12-22 18:15] LABS: CKMB 0.8 NG/ML (0.5-3.6)
[2016-12-22 19:58] LABS: BLOOD, URINE NEG (NEG); GLUCOSE,URINE NEG (NEG); KETONE, URINE NEG (NEG); NITRITE,URINE NEG (NEG); PH, URINE 6.5 (5.0-8.5); URINE COLOR YELLOW (YELLW/STRAW)
[2016-12-22 20:05] LABS: COMMENT (UR) CULT NOT INDICATED; CULTURE IF INDICATED CULT NOT INDICATED
--- NOTE | 2016-12-22 21:00 | PD ---
Physical Exam Narrative I, Dr. Urbina, have reviewed the advance practice practitioner's documentation and am in agreement, met with the patient face to face, made the diagnosis, and the medical decision making was done by me. *My assessment and Findings: Homelessness 46yo M who is well known to me and has frequent visits here initially with complaint of problems with his defibrillator which he always complains about. I evaluated the patient and he told me that his sister kicked him out today. States he just needs to stay here overnight. Labs reviewed, no leukocytosis. H /H 12/35.4 which is at baseline. Troponin negative. CXR showed underinflated exam without acute abnormality. VS stable. Pt is medically stable to follow up as outpatient and I believe the reason he is here today is that he wants a place to sleep. Case management contacted to help patient with this. Data Data Last Documented VS Vital Signs Date Time Temp Pulse Resp B/P Pulse Ox O2 Delivery O2 Flow Rate FiO2 12/22/16 16:51 65 23 112/65 95 12/22/16 16:51 Nasal Cannula 12/22/16 16:50 2 12/22/16 16:45 97.8 Orders Electrocardiogram (12/22/16 ) Basic Metabolic Panel (Bmp) (12/22/16 16:39) Ckmb (Isoenzyme) Profile (12/22/16 16:39) Complete Blood Count With Diff (12/22/16 16:39) Magnesium (Mg) (12/22/16 16:39) Prothrombin Time / Inr (Pt) (12/22/16 16:39) Act Partial Throm Time (Ptt) (12/22/16 16:39) Troponin I (12/22/16 16:39) Chest, Single Ap (12/22/16 16:39) Ecg Monitoring (12/22/16 16:39) Bilateral Bp Monitoring (12/22/16 16:39) Iv Access Insert/Monitor (12/22/16 16:39) Oximetry (12/22/16 16:39) Oxygen Administration (12/22/16 16:39) Sodium Chloride 0.9% Flush (Ns Flush) (12/22/16 16:45) Lipase (12/22/16 16:39) Urinalysis - C+S If Indicated (12/22/16 16:39) Sodium Chloride 0.9% Flush (Ns Flush) (12/22/16 16:45) CKMB (12/22/16 16:50) CKMB% (12/22/16 16:50) Labs Laboratory Tests Test 12/22/16 12/22/16 16:50 19:20 White Blood Count 5.1 TH/MM3 Red Blood Count 4.27 MIL/MM3 Hemoglobin 12.0 GM/DL Hematocrit 35.4 % Mean Corpuscular Volume 83.1 FL Mean Corpuscular Hemoglobin 28.1 PG Mean Corpuscular Hemoglobin 33.8 % Concent Red Cell Distribution Width 16.4 % Platelet Count 127 TH/MM3 Mean Platelet Volume 8.2 FL Neutrophils (%) (Auto) 70.5 % Lymphocytes (%) (Auto) 20.6 % Monocytes (%) (Auto) 8.4 % Eosinophils (%) (Auto) 0.2 % Basophils (%) (Auto) 0.3 % Neutrophils # (Auto) 3.6 TH/MM3 Lymphocytes # (Auto) 1.0 TH/MM3 Monocytes # (Auto) 0.4 TH/MM3 Eosinophils # (Auto) 0.0 TH/MM3 Basophils # (Auto) 0.0 TH/MM3 CBC Comment DIFF FINAL Differential Comment Prothrombin Time 11.9 SEC Prothromb Time International 1.1 RATIO Ratio Activated Partial 29.9 SEC Thromboplast Time Sodium Level 140 MEQ/L Potassium Level 3.6 MEQ/L Chloride Level 104 MEQ/L Carbon Dioxide Level 28.1 MEQ/L Anion Gap 8 MEQ/L Blood Urea Nitrogen 17 MG/DL Creatinine 1.19 MG/DL Estimat Glomerular Filtration 79 ML/MIN Rate Random Glucose 114 MG/DL Calcium Level 9.1 MG/DL Magnesium Level 2.0 MG/DL Total Creatine Kinase 152 U/L Creatine Kinase MB 0.8 NG/ML Troponin I LESS THAN 0.02 NG/ML Lipase 69 U/L Urine Color YELLOW Urine Turbidity CLEAR Urine pH 6.5 Urine Specific [place] 1.017 Urine Protein TRACE mg/dL Urine Glucose (UA) NEG mg/dL Urine Ketones NEG mg/dL Urine Occult Blood NEG Urine Nitrite NEG Urine Bilirubin NEG Urine Urobilinogen 2.0 MG/DL Urine Leukocyte Esterase NEG Urine RBC LESS THAN 1 /hpf Urine WBC LESS THAN 1 /hpf Microscopic Urinalysis Comment CULT NOT INDICATED MDM Supervised Visit with MARV: Yes Diagnosis Primary Impression: Homelessness Patient Instructions: General Instructions Departure Forms: Tests/Procedures Additional Instruction: Please follow up with your stenographic court reporter as an outpatient. Return to the ED if symptoms worsen. Med/Other Pt SpecificInfo: No Change to Meds Disposition: 01 DISCHARGE HOME Condition: Stable UrbinaKelsie Dec 22, 2016 21:00
[2016-12-22 22:06] VITALS: BP 136/61; TEMP 98.2
--- NOTE | 2016-12-23 12:18 | EKG ---
Date Performed: 12/22/2016 Time Performed: 16:42:43 PTAGE: 46 years EKG: ELECTRONIC ATRIAL PACEMAKER MARKED RIGHT AXIS DEVIATION PATTERN CONSISTENT WITH PULMONARY D ISEASE RIGHT BUNDLE BRANCH BLOCK Since previous tracing, no significant change noted ABNORMAL ECG PREVIOUS TRACING : 12/13/2016 17.29 DOCTOR: Leon Bustillos Interpretating Date/Time 12/23/2016 12:18:29
== END 2016-12-22 22:50 | disposition home or self-care (01) ==
LOC: NEPD 16:12
DX: Z59.0 Homelessness (principal); E11.9 Type 2 diabetes mellitus without complications; E78.00 Pure hypercholesterolemia, unspecified; I11.0 Hypertensive heart disease with heart failure; I25.10 Atherosclerotic heart disease of native coronary artery without angina pectoris; I50.9 Heart failure, unspecified; J44.9 Chronic obstructive pulmonary disease, unspecified; Z95.0 Presence of cardiac pacemaker; Z95.1 Presence of aortocoronary bypass graft
CPT/HCPCS: 71010; 80048; 81001; 82550; 82552; 83690; 83735; 84484; 85025; 85610; 85730; 93005

== ENCOUNTER 2017-01-05 20:44 | Observation (INO) | payer MEDICAID, OTHER ==
[~2017-01-05] VITALS: Ht 180.3 cm; Wt 80.0 kg
[2017-01-05 20:51] VITALS: PULSE 105; RESP 18; TEMP 98.1; O2SAT 95
[2017-01-05] MEDS ORDERED: BUPR100T4 PO (21:04)
[2017-01-05] MEDS ORDERED: SODIUM CHLORIDE 0.9% FLUSH 10 ML FLUSH IVF PRN (21:15)
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
--- NOTE | 2017-01-05 21:31 | RADRPT ---
EXAM DATE/TIME: 01/05/2017 21:09 [facility] COMPARISON: CHEST SINGLE AP, December 22, 2016, 17:01. INDICATIONS : Chest pain. MEDICAL HISTORY : Diabetes mellitus type I. Hypertension Cardiovascular disease. COPD. SURGICAL HISTORY : Pacemaker. Defibrilator. ENCOUNTER: Initial ACUITY: 1 day PAIN SCORE: 10/10 LOCATION: Bilateral chest FINDINGS: Cardiomegaly, stable from prior. The central bronchopulmonary markings are fairly well delineated. No focal infiltrate seen. Both hemidiaphragms well delineated. Cardiac pacer implanted device stabl e from prior. CONCLUSION: Cardiomegaly. No focal infiltrates seen. Gold Catalan MD on January 05, 2017 at 21:29 Board Certified Radiologist. This report was verified electronically.
[2017-01-05 21:34] LABS: AUTOMATED NEUTROPHIL # 3.7 TH/MM3 (1.8-7.7); BASOPHIL % 0.6 % (0.0-2.0); EOSINOPHIL % 0.3 % (0.0-4.0); HEMO FLAGS DIFF FINAL; LYMPH % 22.1 % (9.0-44.0); LYMPHOCYTE # 1.2 TH/MM3 (1.0-4.8); MEAN CELL VOLUME 81.5 FL (80.0-100.0); MEAN CORPUSCULAR HEMOGLOBIN 28.2 PG (27.0-34.0); MEAN CORPUSCULAR HGB CONC 34.6 % (32.0-36.0); MONO % 9.1 % (0.0-8.0); NEUT % 67.9 % (16.0-70.0); PLATELET COUNT 163 TH/MM3 (150-450); RED BLOOD COUNT 4.79 MIL/MM3 (4.50-5.90); RED CELL DISTRIBUTION WIDTH 16.2 % (11.6-17.2); WHITE BLOOD COUNT 5.5 TH/MM3 (4.0-11.0)
[2017-01-05 21:46] LABS: APTT (PATIENT) 28.7 SEC (24.3-30.1); PROTHROMBIN TIME - PATIENT 11.5 SEC (9.8-11.6)
[2017-01-05 21:59] LABS: ANION GAP 10 MEQ/L (5-15); AST (GOT) 20 U/L (15-37); BICARBONATE 24.3 MEQ/L (21.0-32.0); BLOOD UREA NITROGEN 21 MG/DL (7-18); CHLORIDE 105 MEQ/L (98-107); GLOMERULAR FILTRATION RATE 71 ML/MIN (>89); MAGNESIUM 1.8 MG/DL (1.5-2.5); POTASSIUM 3.8 MEQ/L (3.5-5.1); SODIUM (NA) 139 MEQ/L (136-145)
[2017-01-05 22:00] LABS: ALT (GPT) 34 U/L (12-78)
[2017-01-05 22:03] LABS: ALKALINE PHOSPHATASE 105 U/L (45-117); CREATINE KINASE 139 U/L (39-308); TOTAL BILIRUBIN ADULT 0.4 MG/DL (0.2-1.0)
[2017-01-05 22:12] VITALS: BP 102/65; PULSE 102; RESP 18; O2SAT 95
[2017-01-05 22:16] LABS: CKMB 1.2 NG/ML (0.5-3.6)
[2017-01-05] MEDS ORDERED: SODIUM CHLORIDE 0.9% FLUSH 10 ML FLUSH IV FLUSH PRN (23:15)
[2017-01-05 23:20] VITALS: BP 97/72; PULSE 102; RESP 18; O2SAT 96
[2017-01-06] VITALS (7 sets, daily range): BP systolic 100–124; BP diastolic 62–80; PULSE 64–110; RESP 14–20; TEMP 97.6–98.1; O2SAT 95–97
[2017-01-06 01:08] LABS: CREATINE KINASE 123 U/L (39-308)
[2017-01-06 01:20] LABS: CKMB 1.4 NG/ML (0.5-3.6)
[2017-01-06 03:56] LABS: CREATINE KINASE 113 U/L (39-308)
[2017-01-06 04:08] LABS: CKMB 1.5 NG/ML (0.5-3.6)
[2017-01-06] MEDS ORDERED: SODIUM CHLORIDE 0.9% FLUSH 10 ML FLUSH IV FLUSH SCH (09:00)
[2017-01-06] MEDS ORDERED: ACETAMINOPHEN 325 MG TAB PO ONE (09:45)
[2017-01-06] MEDS ORDERED: buPROPion HCL 100 MG TAB PO SCH (10:00)
[2017-01-06] MEDS ORDERED: ATORVASTATIN 40 MG TAB PO SCH (10:00)
[2017-01-06] MEDS ORDERED: ENALAPRIL MALEATE 5 MG TAB PO SCH (10:00)
[2017-01-06] MEDS ORDERED: AMIODARONE 200 MG TAB PO SCH (10:00)
[2017-01-06] MEDS ORDERED: FUROSEMIDE 20 MG TAB PO SCH (10:00)
[2017-01-06] MEDS ORDERED: metFORMIN HCL 500 MG TAB PO SCH (10:00)
--- NOTE | 2017-01-06 10:50 | HHI.DCPOC ---
Discharge Care Plan Diagnosis: (1) Chest pain (2) HTN (hypertension) (3) Hyperlipemia (4) Pacemaker (5) DM (diabetes mellitus) (6) Paroxysmal atrial flutter Goals to Promote Your Health * To prevent worsening of your condition and complications * To maintain your health at the optimal level Directions to Meet Your Goals Take your medications as prescribed Follow your dietary instruction Follow activity as directed Keep your appointments as scheduled Take your immunizations and boosters as scheduled If your symptoms worsen call your PCP, if no PCP go to Urgent Care Center or Emergency Room Smoking is Dangerous to Your Health. Avoid second hand smoke Call the 24-hour hour crisis hotline for domestic abuse at [facility] Jan 06, 2017 10:50
--- NOTE | 2017-01-06 11:01 | HHI.HP ---
HPI Primary Care Physician No Primary Care Physician Chief Complaint Chest pain History of Present Illness This is a 46-year-old male that presents to ED via ambulance with a complaint of sensation of heart beating rapidly and chest pain. He states he had just been told by his brother's girlfriend that he had to leave the home and was not welcome back. They left and he went to the bathroom and while in the bathroom he developed those symptoms. Chest discomfort is still there. When asked to describe the pain he states "pain." He does have cardiac history. 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 He currently is not following a plate keeper. Denies recent illness. Denies fevers or chills. Review of Systems General: Patient denies fevers, chills recent, and recent travel HEENT: Patient denies headache, sore throat, difficulty swallowing. Cardiovascular: Has the chest discomfort as mentioned above. Denies sensation of heart beating rapidly or irregularly. No syncope. Respiratory: Denies shortness of breath or inspirational chest discomfort. Denies coughing wheezing or hemoptysis. GI: Patient denies nausea, vomiting, diarrhea, abdominal pain, bloody stools. Musculoskeletal: Patient denies joint pain or edema. Denies calf pain or edema. Neurovascular: Patient denies numbness, tingling, weakness in extremities. Denies headache. Endocrine: Denies polyuria and polydipsia. Hematologic: Denies easy bruising. Skin: Denies rash or itching. Past Family Social History Allergies: Coded Allergies: Aspirin (Verified Allergy, Severe, DIZZINESS, FACIAL SWELLING, 12/22/16) Past Medical History Hypertension, diabetes, hyperlipidemia, cardiomyopathy, paroxysmal atrial fibrillation, AICD, pacemaker. Past Surgical History He has a pacemaker and a defibrillator. He had a congenital heart defect repaired at age 12. Reported Medications Reported Meds & Active Scripts Active Enalapril (Enalapril Maleate) 5 Mg Tab 5 Mg PO BID Furosemide 20 Mg Tab 20 Mg PO DAILY Metformin (Metformin HCl) 500 Mg Tab 500 Mg PO DAILY With a meal Amiodarone (Amiodarone HCl) 200 Mg Tab 200 Mg PO DAILY Lipitor (Atorvastatin Calcium) 40 Mg Tab 40 Mg PO DAILY Reported Bupropion HCl 100 Mg Tab 100 Mg PO TID Active Ordered Medications Current Medications Medications (Trade) Dose Ordered Sig/Karina Route Start Time Stop Time Status Last Admin (NS Flush) 2 ml UNSCH PRN IVF 01/05/17 21:15 (NS Flush) 2 ml UNSCH PRN IV FLUSH 01/05/17 23:15 (NS Flush) 2 ml BID IV FLUSH 01/06/17 09:00 01/06/17 09:46 (Cordarone) 200 mg DAILY PO 01/06/17 10:00 01/06/17 09:46 (Lipitor) 40 mg DAILY PO 01/06/17 10:00 01/06/17 09:47 (Wellbutrin) 100 mg TID PO 01/06/17 10:00 01/06/17 10:18 (Vasotec) 5 mg BID PO 01/06/17 10:00 01/06/17 09:47 (Lasix) 20 mg DAILY PO 01/06/17 10:00 01/06/17 09:47 (Glucophage) 500 mg DAILY PO 01/06/17 10:00 01/06/17 09:47 Family History He is not aware of his family medical history. Social History Patient denies tobacco products, alcohol, or illicit drugs. Physical Exam Vital Signs Vital Signs Date Time Temp Pulse Resp B/P Pulse Ox O2 Delivery O2 Flow Rate FiO2 01/06/17 07:53 97.6 91 14 124/80 96 01/06/17 04:00 83 01/06/17 03:22 98.1 106 18 113/62 96 01/06/17 01:45 91 01/06/17 01:29 97.8 64 20 119/66 95 01/06/17 00:16 104 18 100/69 97 Room Air 01/05/17 23:20 102 18 97/72 96 Room Air 01/05/17 22:12 102 18 102/65 95 Room Air 01/05/17 20:57 95 Room Air 01/05/17 20:51 98.1 105 18 95 Physical Exam GENERAL: This is a well-nourished, well-developed patient, in no apparent distress. Patient speaks in clear complete sentences. Patient is pleasant. HEENT: Head is atraumatic and normocephalic. Neck is supple without lymphadenopathy and trachea is midline. No JVD or carotid bruits. CARDIOVASCULAR: Grade 2 systolic murmur left sternal border. Regular rate and rhythm without gallops, or rubs. RESPIRATORY: Clear to auscultation. Breath sounds equal bilaterally. No wheezes , rales, or rhonchi. Chest wall is tender. There is a well-healed scar over the sternum. There is a device on the right side of his chest as well as left lateral chest wall. No use of accessory muscles. GASTROINTESTINAL: Abdomen is nontender, nondistended. Abdomen soft. No obvious pulsatile mass or bruit. No CVA tenderness. Strong femoral pulses bilaterally. Normal bowel sounds in all quadrants. MUSCULOSKELETAL: Patient is moving upper and lower extremities freely. No calf tenderness or edema, no Homans sign. Strong pulses in upper and lower extremities. NEUROLOGICAL: Patient is alert and oriented. Cranial nerves 2-12 are grossly intact. No focal deficits and speech is clear. SKIN: No rash and turgor is normal. Laboratory Laboratory Tests Test 01/05/17 01/06/17 01/06/17 21:15 00:10 03:20 White Blood Count 5.5 Red Blood Count 4.79 Hemoglobin 13.5 Hematocrit 39.0 Mean Corpuscular Volume 81.5 Mean Corpuscular Hemoglobin 28.2 Mean Corpuscular Hemoglobin 34.6 Concent Red Cell Distribution Width 16.2 Platelet Count 163 Mean Platelet Volume 8.1 Neutrophils (%) (Auto) 67.9 Lymphocytes (%) (Auto) 22.1 Monocytes (%) (Auto) 9.1 Eosinophils (%) (Auto) 0.3 Basophils (%) (Auto) 0.6 Neutrophils # (Auto) 3.7 Lymphocytes # (Auto) 1.2 Monocytes # (Auto) 0.5 Eosinophils # (Auto) 0.0 Basophils # (Auto) 0.0 CBC Comment DIFF FINAL Differential Comment Prothrombin Time 11.5 Prothromb Time International 1.0 Ratio Activated Partial 28.7 Thromboplast Time Sodium Level 139 Potassium Level 3.8 Chloride Level 105 Carbon Dioxide Level 24.3 Anion Gap 10 Blood Urea Nitrogen 21 Creatinine 1.30 Estimat Glomerular Filtration 71 Rate Random Glucose 114 Calcium Level 9.2 Magnesium Level 1.8 Total Bilirubin 0.4 Aspartate Amino Transf 20 (AST/SGOT) Alanine Aminotransferase 34 (ALT/SGPT) Alkaline Phosphatase 105 Total Creatine Kinase 139 123 113 Creatine Kinase MB 1.2 1.4 1.5 Troponin I LESS THAN 0.02 0.03 0.03 B-Type Natriuretic Peptide 130 Total Protein 6.9 Albumin 3.9 Result Diagram: 01/05/17211401/05/172114 Imaging Last 48 hours Impressions Chest X-Ray 01/05/172111 Signed Impressions: Service Date/Time: Thursday, January 05, 2017 21:09 - CONCLUSION: Cardiomegaly. No focal infiltrates seen. Gold Catalan MD Course EKGs are paced. Assessment and Plan Assessment and Plan * Chest pain: Patient has had serial cardiac enzymes and EKGs for ruling out purposes. He was seen by Dr. Carlton of cardiology in the chest pain center. He 'll be discharged home with instructions to follow-up with primary care physician. He also should follow back with Dr. Man for pacemaker and defibrillator interrogation. * Hypertension: Continue current medication. * Paroxysmal atrial fibrillation: Continue current medication. * Hyperlipidemia: Continue current medication. Patient is stable at this time. He is agreeable to this plan. Howard Mcintyre Jan 06, 2017 11:01
--- NOTE | 2017-01-07 11:22 | EKG ---
Date Performed: 01/06/2017 Time Performed: 03:27:13 PTAGE: 46 years EKG: SINUS WITH 1DEGREE BLOCK OR PACED RHYTHM RIGHT BUNDLE BRANCH BLOCK LEFT POSTERIOR FASCICULA R BLOCK INFERIOR MYOCARDIAL INFARCTION PROBABLY PACED RHYTHM ALTHOUGH SPIKES CANNOT BE CLEARLY IDENTI FIED. CLINICAL CORRELATION NEEDED ABNORMAL ECG PREVIOUS TRACING : 01/06/2017 00.22 DOCTOR: Taye Carlton Interpretating Date/Time 01/07/2017 11:20:19
--- NOTE | 2017-01-07 11:24 | EKG ---
Date Performed: 01/06/2017 Time Performed: 00:22:37 PTAGE: 46 years EKG: SINUS TACHYCARDIA WITH FIRST DEGREE AV BLOCK MARKED RIGHT AXIS DEVIATION PATTERN CONSISTENT WITH PULMONARY DISEASE RIGHT BUNDLE BRANCH BLOCK POSSIBLE PACED RHYTHM CLINICAL CORRELATION NEEDED A BNORMAL ECG PREVIOUS TRACING : 01/05/2017 21.00 DOCTOR: Taye Carlton Interpretating Date/Time 01/07/2017 11:23:24
--- NOTE | 2017-01-07 11:26 | EKG ---
Date Performed: 01/05/2017 Time Performed: 21:00:53 PTAGE: 46 years EKG: PROBABLY PACED POSSIBLE SUPERVENTRICULAR TACHY RIGHT VENTRICULAR HYPERTROPHY INFERIOR MYOCA RDIAL INFARCTION ABNORMAL ECG NO SIGNIFICANT CHANGE PREVIOUS TRACING : 12/22/2016 16.42 DOCTOR: Taye Carlton Interpretating Date/Time 01/07/2017 11:25:52
== END 2017-01-06 12:07 | disposition home or self-care (01) ==
LOC: NEPC 20:44 → NEDA 23:03 → NEPFCDU 01-06 01:07 → UNDODISOB 01-06 12:01
PROVIDERS: ADMIT Internal Medicine Interventional Cardiology; ATTEND Internal Medicine Interventional Cardiology
DX: R07.89 Other chest pain (principal); R94.31 Abnormal electrocardiogram [ECG] [EKG]; I45.10 Unspecified right bundle-branch block; I44.5 Left posterior fascicular block; I44.0 Atrioventricular block, first degree; R42 Dizziness and giddiness; R00.0 Tachycardia, unspecified; I11.0 Hypertensive heart disease with heart failure; I50.9 Heart failure, unspecified; I48.0 Paroxysmal atrial fibrillation; E78.5 Hyperlipidemia, unspecified; E10.9 Type 1 diabetes mellitus without complications; J44.9 Chronic obstructive pulmonary disease, unspecified; I48.92 Unspecified atrial flutter; E78.00 Pure hypercholesterolemia, unspecified; Z95.1 Presence of aortocoronary bypass graft; Z95.810 Presence of automatic (implantable) cardiac defibrillator; Z79.899 Other long term (current) drug therapy; Z79.84 Long term (current) use of oral hypoglycemic drugs
CPT/HCPCS: 71010; 80053; 82550; 82552; 83735; 83880; 84484; 85025; 85610; 85730; 93005; 99285; G0378

== ENCOUNTER 2017-01-10 13:13 | Emergency (ER) | payer OTHER ==
[~2017-01-10] VITALS: Ht 180.3 cm; Wt 80.0 kg
[~2017-01-10 13:13] MED LIST changes: -CARV6.25 PO; -POTA-163 PO; -ULTR50TA5 PO
[2017-01-10 13:15] VITALS: BP 118/60; PULSE 76; RESP 20; TEMP 98.2; O2SAT 96
--- NOTE | 2017-01-10 13:17 | PD ---
Physical Exam Date Seen by Provider: Jan 10, 2017 Time Seen by Provider: 13:15 Narrative 46 yo male that presents to the ED for chest pain. Per patient his defibrillator is going off and shutting him. Per patient its been shotting a lot. Has not seen his PCP. Feels like his heart is beating fast but not anymore. Vitals are stable in triage. Awaiting Bed placement. [facility] Medical Record Reviewed: Yes Supervised Visit with MARV: No Javi Dawn Jan 10, 2017 13:17
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
--- NOTE | 2017-01-10 15:47 | RADRPT ---
EXAM DATE/TIME: 01/10/2017 14:59 [facility] COMPARISON: CHEST SINGLE AP, January 05, 2017, 21:09. INDICATIONS : Chest pain. MEDICAL HISTORY : Diabetes mellitus type I. Hypertension Cardiovascular disease. COPD. SURGICAL HISTORY : Pacemaker. ENCOUNTER: Initial ACUITY: 1 day PAIN SCORE: 0/10 LOCATION: Bilateral chest FINDINGS: A single view of the chest demonstrates the lungs to be symmetrically aerated without evidence of mas s, infiltrate or effusion. Heart is moderately enlarged. AICD device is noted in place and appear st able.. Osseous structures are intact. CONCLUSION: 1. Moderate cardiomegaly. 2. Stable AICD 3. No acute cardiopulmonary process. Donavan Lemus MD on January 10, 2017 at 15:44 Board Certified Radiologist. This report was verified electronically.
--- NOTE | 2017-01-11 12:06 | EKG ---
Date Performed: 01/10/2017 Time Performed: 15:43:47 PTAGE: 46 years EK% atrial pacing Possible old inferior and posterior myocardial infarction Diffuse ST-T a bnormality PREVIOUS TRACING : 01/06/2017 03.27 Obvious change compared to the prior tracing. DOCTOR: Ranjeet Gaspar Interpretating Date/Time 01/11/2017 12:04:33
== END 2017-01-10 17:53 | disposition home or self-care (01) ==
LOC: NEPC 13:13
DX: R07.89 Other chest pain (principal); Z95.0 Presence of cardiac pacemaker; Z95.1 Presence of aortocoronary bypass graft; Z95.810 Presence of automatic (implantable) cardiac defibrillator; I11.0 Hypertensive heart disease with heart failure; I50.9 Heart failure, unspecified; E11.9 Type 2 diabetes mellitus without complications; E78.00 Pure hypercholesterolemia, unspecified; J44.9 Chronic obstructive pulmonary disease, unspecified
CPT/HCPCS: 71010; 93005

== ENCOUNTER 2017-01-15 15:53 | Emergency (ER) | payer OTHER ==
[~2017-01-15] VITALS: Ht 180.3 cm; Wt 80.0 kg
[2017-01-15 16:07] VITALS: BP 140/65; PULSE 60; RESP 16; TEMP 98.9; O2SAT 92; O2SAT 94; O2SAT 96
[2017-01-15] MEDS ORDERED: SODIUM CHLORIDE 0.9% FLUSH 10 ML FLUSH IVF PRN (16:45)
--- NOTE | 2017-01-15 16:58 | RADRPT ---
EXAM DATE/TIME: 01/15/2017 16:31 [facility] COMPARISON: CHEST SINGLE AP, January 10, 2017, 14:59. INDICATIONS : Chest pain. MEDICAL HISTORY : Diabetes mellitus type I. Hypertension Cardiovascular disease. COPD. SURGICAL HISTORY : Pacemaker. ENCOUNTER: Initial ACUITY: 1 day PAIN SCORE: 7/10 LOCATION: Bilateral chest FINDINGS: A single view of the chest demonstrates the lungs to be symmetrically aerated without evidence of mas s, infiltrate or effusion. There is compensated cardiomegaly with both pacer and defibrillator noted . Osseous structures are intact. CONCLUSION: Compensated cardiomegaly otherwise negative. Bill Marcus MD FACR on January 15, 2017 at 16:55 Board Certified Radiologist. This report was verified electronically.
[2017-01-15 17:04] VITALS: O2SAT 97
[2017-01-15 17:07] LABS: AUTOMATED NEUTROPHIL # 2.9 TH/MM3 (1.8-7.7); BASOPHIL % 0.4 % (0.0-2.0); EOSINOPHIL % 0.5 % (0.0-4.0); HEMATOCRIT 37.1 % (39.0-51.0); HEMO FLAGS DIFF FINAL; MEAN CORPUSCULAR HEMOGLOBIN 28.1 PG (27.0-34.0); MEAN CORPUSCULAR HGB CONC 34.3 % (32.0-36.0); MONO % 7.1 % (0.0-8.0); PLATELET COUNT 140 TH/MM3 (150-450); RED BLOOD COUNT 4.53 MIL/MM3 (4.50-5.90); RED CELL DISTRIBUTION WIDTH 16.7 % (11.6-17.2); WHITE BLOOD COUNT 4.2 TH/MM3 (4.0-11.0)
[2017-01-15 17:17] LABS: APTT (PATIENT) 29.2 SEC (24.3-30.1); PROTHROMBIN TIME - PATIENT 11.4 SEC (9.8-11.6)
[2017-01-15 17:20] LABS: ANION GAP 8 MEQ/L (5-15); BICARBONATE 28.4 MEQ/L (21.0-32.0); BLOOD UREA NITROGEN 14 MG/DL (7-18); CHLORIDE 105 MEQ/L (98-107); GLOMERULAR FILTRATION RATE 76 ML/MIN (>89); MAGNESIUM 1.8 MG/DL (1.5-2.5); POTASSIUM 3.2 MEQ/L (3.5-5.1); SODIUM (NA) 141 MEQ/L (136-145)
[2017-01-15 17:24] LABS: CREATINE KINASE 181 U/L (39-308)
[2017-01-15] MEDS ORDERED: POTASSIUM CHLORIDE 20 MEQ CONTROLLED RELEASE TAB PO ONE (17:30)
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
[2017-01-15 17:39] VITALS: BP 115/76
--- NOTE | 2017-01-15 18:12 | EKG ---
Date Performed: 01/15/2017 Time Performed: 16:23:46 PTAGE: 46 years EKG: ELECTRONIC ATRIAL PACEMAKER RIGHT BUNDLE BRANCH BLOCK LEFT POSTERIOR FASCICULAR BLOCK INFER IOR MYOCARDIAL INFARCTION ABNORMAL ECG Compared to prior tracing no significant change PREVIOUS TRACING : 01/10/2017 15.43 DOCTOR: Ck Malave Interpretating Date/Time 01/15/2017 18:11:25
[2017-01-16] MEDS ORDERED: POTA1TAB4 PO (03:59)
== END 2017-01-15 17:54 | disposition home or self-care (01) ==
LOC: NEPC 15:53
DX: Z45.02 Encounter for adjustment and management of automatic implantable cardiac defibrillator (principal); Z79.899 Other long term (current) drug therapy
CPT/HCPCS: 71010; 80048; 82550; 82552; 83735; 84484; 85025; 85610; 85730; 93005

== ENCOUNTER 2017-01-16 02:27 | Emergency (ER) | payer OTHER ==
[~2017-01-16] VITALS: Ht 180.3 cm; Wt 75.0 kg
[2017-01-16 02:29] VITALS: BP 116/74; PULSE 61; RESP 16; TEMP 97.9; O2SAT 98
[2017-01-16 02:45] VITALS: O2SAT 99
[2017-01-16 03:08] LABS: BICARBONATE 25.9 MEQ/L (21.0-32.0); POTASSIUM 3.3 MEQ/L (3.5-5.1)
[2017-01-16] MEDS ORDERED: POTASSIUM CHLORIDE 20 MEQ CONTROLLED RELEASE TAB PO ONE (03:30)
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
[2017-01-16] MEDS ORDERED: POTA1TAB4 PO (03:59)
--- NOTE | 2017-01-16 07:34 | EKG ---
Date Performed: 01/16/2017 Time Performed: 02:34:40 PTAGE: 46 years EKG: ELECTRONIC ATRIAL PACEMAKER RIGHT BUNDLE BRANCH BLOCK LEFT POSTERIOR FASCICULAR BLOCK ABNOR MAL ECG Compared to prior tracing no significant change PREVIOUS TRACING : 01/15/2017 16.23 DOCTOR: Ck Malave Interpretating Date/Time 01/16/2017 07:34:09
== END 2017-01-16 04:48 | disposition home or self-care (01) ==
LOC: NEPC 02:27
DX: E87.6 Hypokalemia (principal); R53.1 Weakness; I10 Essential (primary) hypertension; E78.5 Hyperlipidemia, unspecified; E11.9 Type 2 diabetes mellitus without complications; Z79.84 Long term (current) use of oral hypoglycemic drugs; Z95.810 Presence of automatic (implantable) cardiac defibrillator
CPT/HCPCS: 80048; 93005; 99284

== ENCOUNTER 2017-01-16 19:47 | Emergency (ER) | payer OTHER ==
[~2017-01-16 19:47] MED LIST changes: +POTA1TAB4 PO
[2017-01-16 19:56] VITALS: BP 128/72; PULSE 68; RESP 16; TEMP 97.9; O2SAT 98
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
== END 2017-01-17 00:41 | disposition home or self-care (01) ==
LOC: NEPD 19:47
DX: R07.89 Other chest pain (principal); Z95.810 Presence of automatic (implantable) cardiac defibrillator
CPT/HCPCS: 99281

== ENCOUNTER 2017-01-17 01:16 | Emergency (ER) | payer OTHER ==
[2017-01-17 01:20] VITALS: BP 158/96; PULSE 100; RESP 16; TEMP 98.2; O2SAT 99
[2017-01-17 07:10] VITALS: BP 153/80; PULSE 62; RESP 20; O2SAT 98
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
[2017-01-17 11:22] VITALS: BP 108/63
== END 2017-01-17 11:25 | disposition home or self-care (01) ==
LOC: NEPC 01:16
DX: I11.0 Hypertensive heart disease with heart failure (principal); I48.91 Unspecified atrial fibrillation; I50.9 Heart failure, unspecified; E11.9 Type 2 diabetes mellitus without complications; J44.9 Chronic obstructive pulmonary disease, unspecified; Z95.0 Presence of cardiac pacemaker; Z95.1 Presence of aortocoronary bypass graft; Z95.810 Presence of automatic (implantable) cardiac defibrillator
CPT/HCPCS: 99282

== ENCOUNTER 2017-01-22 19:25 | Emergency (ER) | payer OTHER ==
[~2017-01-22] VITALS: Ht 172.7 cm; Wt 75.0 kg
[2017-01-22 19:27] VITALS: BP 136/84; PULSE 64; RESP 16; TEMP 98.4; O2SAT 97
--- NOTE | 2017-01-22 20:13 | PD ---
Physical Exam Date Seen by Provider: Jan 22, 2017 Time Seen by Provider: 20:11 Narrative 46 y/o male with pacemaker stating that the "wires in his pacemaker are touching and giving him shocks". Patient is here every day. No significant SOB or Chest pain. Vital Signs reviewed. Patient is Stable and awaiting Bed Placement. Data Data Last Documented VS Vital Signs Date Time Temp Pulse Resp B/P (MAP) Pulse Ox O2 Delivery O2 Flow Rate FiO2 01/22/17 19:27 98.4 64 16 136/84 (101) 97 MDM Medical Record Reviewed: Yes Supervised Visit with MARV: Yes Condition: Stable Pablo Crabtree Jan 22, 2017 20:13
[2017-01-22 20:50] VITALS: BP 135/88; PULSE 60; RESP 18; TEMP 98.3; O2SAT 99
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
== END 2017-01-22 21:14 | disposition home or self-care (01) ==
LOC: NEPD 19:25
DX: T82.847A Pain due to cardiac prosthetic devices, implants and grafts, initial encounter (principal); J44.9 Chronic obstructive pulmonary disease, unspecified; E11.9 Type 2 diabetes mellitus without complications; I11.0 Hypertensive heart disease with heart failure; Z79.84 Long term (current) use of oral hypoglycemic drugs; X58.XXXA Exposure to other specified factors, initial encounter
CPT/HCPCS: 99281

== ENCOUNTER 2017-02-06 12:34 | Emergency (ER) | payer MEDICAID, OTHER ==
[~2017-02-06] VITALS: Ht 180.3 cm; Wt 81.0 kg
[2017-02-06 12:41] VITALS: BP 108/70; PULSE 114; RESP 15; TEMP 98.2; O2SAT 99
[2017-02-06] MEDS ORDERED: SODIUM CHLORIDE 0.9% FLUSH 10 ML FLUSH IVF PRN (13:30)
[2017-02-06 13:39] LABS: AUTOMATED NEUTROPHIL # 3.2 TH/MM3 (1.8-7.7); BASOPHIL % 0.7 % (0.0-2.0); EOSINOPHIL % 0.7 % (0.0-4.0); HEMATOCRIT 37.8 % (39.0-51.0); HEMO FLAGS DIFF FINAL; LYMPHOCYTE # 0.9 TH/MM3 (1.0-4.8); MEAN CELL VOLUME 83.2 FL (80.0-100.0); MEAN CORPUSCULAR HEMOGLOBIN 28.2 PG (27.0-34.0); MEAN CORPUSCULAR HGB CONC 33.9 % (32.0-36.0); MONO % 8.7 % (0.0-8.0); NEUT % 69.9 % (16.0-70.0); PLATELET COUNT 151 TH/MM3 (150-450); RED BLOOD COUNT 4.54 MIL/MM3 (4.50-5.90); RED CELL DISTRIBUTION WIDTH 17.5 % (11.6-17.2); WHITE BLOOD COUNT 4.5 TH/MM3 (4.0-11.0)
[2017-02-06 13:49] LABS: APTT (PATIENT) 30.2 SEC (24.3-30.1); PROTHROMBIN TIME - PATIENT 11.3 SEC (9.8-11.6)
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
[2017-02-06 13:51] VITALS: BP 105/67; PULSE 108; RESP 17; O2SAT 97
--- NOTE | 2017-02-06 14:05 | RADRPT ---
EXAM DATE/TIME: 02/06/2017 13:38 [facility] COMPARISON: CHEST SINGLE AP, January 15, 2017, 16:31. INDICATIONS : Chest pain. MEDICAL HISTORY : Diabetes mellitus type I. Hypertension Cardiovascular disease. COPD SURGICAL HISTORY : Pacemaker. Defibrillator. ENCOUNTER: Initial ACUITY: 1 day PAIN SCORE: 10/10 LOCATION: Bilateral chest FINDINGS: No infiltrate, effusion or pneumothorax demonstrated. Heart size stable, mildly enlarged. Right chest cardiac pacer and left-sided cardiac defibrillator ag ain noted. CONCLUSION: No evidence of acute cardiopulmonary disease. Mild and unchanged compensated cardiomegaly. Alex Mcleroy MD on February 06, 2017 at 14:03 Board Certified Radiologist. This report was verified electronically.
[2017-02-06 14:09] LABS: ANION GAP 9 MEQ/L (5-15); BICARBONATE 24.4 MEQ/L (21.0-32.0); BLOOD UREA NITROGEN 17 MG/DL (7-18); CHLORIDE 108 MEQ/L (98-107); GLOMERULAR FILTRATION RATE 81 ML/MIN (>89); MAGNESIUM 2.1 MG/DL (1.5-2.5); POTASSIUM 4.3 MEQ/L (3.5-5.1); SODIUM (NA) 141 MEQ/L (136-145)
[2017-02-06 14:11] LABS: CREATINE KINASE 310 U/L (39-308)
[2017-02-06 14:24] LABS: CKMB 1.4 NG/ML (0.5-3.6)
--- NOTE | 2017-02-07 14:59 | EKG ---
Date Performed: 02/06/2017 Time Performed: 13:19:08 PTAGE: 46 years EKG: Sinus tachycardia Right axis deviation Right bundle branch block with secondary ST-T wave c hanges First degree AV block PREVIOUS TRACING : 01/16/2017 02.34 Patient is not atrialy paced according to the prior t racing. DOCTOR: Ranjeet Gaspar Interpretating Date/Time 02/07/2017 14:57:50
== END 2017-02-06 18:37 | disposition home or self-care (01) ==
LOC: NEPE 12:34
DX: Z95.810 Presence of automatic (implantable) cardiac defibrillator (principal); I51.7 Cardiomegaly; R00.0 Tachycardia, unspecified; J44.9 Chronic obstructive pulmonary disease, unspecified; I11.0 Hypertensive heart disease with heart failure; I50.9 Heart failure, unspecified; I44.0 Atrioventricular block, first degree; I45.10 Unspecified right bundle-branch block; E11.9 Type 2 diabetes mellitus without complications
CPT/HCPCS: 71010; 80048; 82550; 82552; 83735; 84484; 85025; 85610; 85730; 93005

== ENCOUNTER 2017-02-07 09:15 | Emergency (ER) | payer MEDICAID ==
[~2017-02-07] VITALS: Ht 177.8 cm; Wt 90.0 kg
[2017-02-07 09:27] VITALS: BP 103/65; PULSE 68; RESP 18; TEMP 98.1; O2SAT 95
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
== END 2017-02-07 11:49 | disposition home or self-care (01) ==
LOC: NEPE 09:15
DX: Z95.810 Presence of automatic (implantable) cardiac defibrillator (principal); I11.0 Hypertensive heart disease with heart failure; I50.9 Heart failure, unspecified; J44.9 Chronic obstructive pulmonary disease, unspecified; E11.9 Type 2 diabetes mellitus without complications; Z88.6 Allergy status to analgesic agent; Z79.899 Other long term (current) drug therapy
CPT/HCPCS: 99283

== ENCOUNTER 2017-02-12 19:50 | Emergency (ER) | payer MEDICAID ==
[~2017-02-12] VITALS: Ht 180.3 cm; Wt 81.2 kg
[2017-02-12 19:55] VITALS: BP 128/78; PULSE 60; RESP 16; TEMP 98.9; O2SAT 98
--- NOTE | 2017-02-12 21:08 | PD ---
HPI Chief Complaint: Cardiac Complaint Time Seen by Provider: 21:07 Travel History International Travel<30 days: No Contact w/Intl Traveler<30days: No Traveled to known affect area: No History of Present Illness HPI 46-year-old male, well-known to our emergency department with multiple visits for evaluation of his pacemaker and other various cardiac complaints. Patient today states that his pacemaker has moved and is now on his left side of his chest. He was recently seen and evaluated and had a complete cardiac workup that was negative. Patient denies any pain. 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 Roth. Denies a chest x-ray history no difficulty breathing. He has no other symptoms to report. History Past Medical Histgory Hx Cancer: No Hx Heart Attack: Yes Social History Alcohol Use: No Tobacco Use: No (quit) Allergies-Medications (Allergen,Severity, Reaction): Coded Allergies: aspirin (Unverified Allergy, Severe, DIZZINESS, FACIAL SWELLING, 02/12/17) Reported Meds & Prescriptions Reported Meds & Active Scripts Active K-Tab (Potassium Chloride) 20 Meq Tab 20 Meq PO BID Enalapril (Enalapril Maleate) 5 Mg Tab 5 Mg PO BID Furosemide 20 Mg Tab 20 Mg PO DAILY Metformin (Metformin HCl) 500 Mg Tab 500 Mg PO DAILY With a meal Amiodarone (Amiodarone HCl) 200 Mg Tab 200 Mg PO DAILY Lipitor (Atorvastatin Calcium) 40 Mg Tab 40 Mg PO DAILY Reported Bupropion HCl 100 Mg Tab 100 Mg PO TID Review of Systems Except as stated in HPI: all other systems reviewed are Neg Physical Exam Narrative GENERAL: Well-nourished, well-developed patient, ambulatory no acute distress SKIN: Focused skin assessment warm/dry. HEAD: Normocephalic. EYES: No scleral icterus. No injection or drainage. NECK: Supple, trachea midline. No JVD or lymphadenopathy. CARDIOVASCULAR: Regular rate and rhythm without murmurs, gallops, or rubs. RESPIRATORY: Breath sounds equal bilaterally. No accessory muscle use. Pacemaker noted in place on the left anterolateral chest. No erythema or edema. GASTROINTESTINAL: Abdomen soft, non-tender, nondistended. MUSCULOSKELETAL: No cyanosis, or edema. BACK: Nontender without obvious deformity. No CVA tenderness. Data Data Last Documented VS Vital Signs Date Time Temp Pulse Resp B/P (MAP) Pulse Ox O2 Delivery O2 Flow Rate FiO2 02/12/17 21:16 02/12/17 19:55 98.9 60 16 98 Room Air [facility] Medical Screen Exam Complete: Yes Emergency Medical Condition: No Differential Diagnosis Nonacute pacemaker complaint. Narrative Course 46-year-old male presents to emergency department stating that his pacemaker has moved. Patient has had this reported several times in the past area he is without distress. He has no other symptoms. Pacemaker is on the anterior lateral aspect of the left chest. Without erythema or edema. Patient is encouraged to follow-up with his store loss prevention manager as he has not done this yet. At this time there are no urgent or emergent needs medical intervention identified. A medical screening exam was performed: At the time of evaluation the presenting medical condition was determined not to be of an emergent nature. The patient was given the option of receiving additional care, but declined. Patient was given options for additional community resources from which to obtain care. The Patient Has Been advised to seek medical attention for their presenting complaint. The patient has been advised to return to the ER at any time if an emergent condition develops. Patient asks how he is going to get home. voTran is running for free at this time and patient is advised to do lysis for his transport home. Primary Impression: Encounter for medical screening examination Condition: Stable Giselle Grijalva Feb 12, 2017 21:08
== END 2017-02-12 21:20 | disposition left against medical advice (07) ==
LOC: NETRI 19:50
DX: Z95.0 Presence of cardiac pacemaker (principal); Z88.6 Allergy status to analgesic agent; Z79.899 Other long term (current) drug therapy
CPT/HCPCS: 99281

== ENCOUNTER 2017-02-18 10:12 | Emergency (ER) | payer MEDICAID ==
[~2017-02-18] VITALS: Ht 175.3 cm; Wt 75.0 kg
[2017-02-18 10:24] VITALS: BP 131/105; PULSE 109; RESP 18; TEMP 98.6; O2SAT 95
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
--- NOTE | 2017-02-18 19:18 | EKG ---
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 DOCTOR: Kaden Zavala Interpretating Date/Time 02/18/2017 19:18:12
== END 2017-02-18 13:52 | disposition home or self-care (01) ==
LOC: NEPE 10:12
DX: Z46.89 Encounter for fitting and adjustment of other specified devices (principal); R94.31 Abnormal electrocardiogram [ECG] [EKG]; I50.9 Heart failure, unspecified; E11.9 Type 2 diabetes mellitus without complications; J44.9 Chronic obstructive pulmonary disease, unspecified; I10 Essential (primary) hypertension; Z79.01 Long term (current) use of anticoagulants
CPT/HCPCS: 93005; 99283

== ENCOUNTER 2017-02-21 09:38 | Emergency (ER) | payer MEDICAID ==
[~2017-02-21] VITALS: Ht 180.3 cm; Wt 80.0 kg
[2017-02-21 09:48] VITALS: BP 131/82; PULSE 68; RESP 20; TEMP 97.6; O2SAT 99
[2017-02-21] MEDS ORDERED: SODIUM CHLORIDE 0.9% FLUSH 10 ML FLUSH IVF PRN (10:00)
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
[2017-02-21 10:34] LABS: AUTOMATED NEUTROPHIL # 2.6 TH/MM3 (1.8-7.7); BASOPHIL % 0.5 % (0.0-2.0); EOSINOPHIL % 0.6 % (0.0-4.0); HEMATOCRIT 39.3 % (39.0-51.0); HEMO FLAGS DIFF FINAL; LYMPH % 25.4 % (9.0-44.0); LYMPHOCYTE # 1.1 TH/MM3 (1.0-4.8); MEAN CELL VOLUME 82.9 FL (80.0-100.0); MEAN CORPUSCULAR HEMOGLOBIN 27.7 PG (27.0-34.0); MEAN CORPUSCULAR HGB CONC 33.4 % (32.0-36.0); MONO % 13.3 % (0.0-8.0); NEUT % 60.2 % (16.0-70.0); PLATELET COUNT 148 TH/MM3 (150-450); RED BLOOD COUNT 4.74 MIL/MM3 (4.50-5.90); RED CELL DISTRIBUTION WIDTH 17.3 % (11.6-17.2); WHITE BLOOD COUNT 4.3 TH/MM3 (4.0-11.0)
[2017-02-21 10:47] LABS: ANION GAP 7 MEQ/L (5-15); BICARBONATE 25.9 MEQ/L (21.0-32.0); BLOOD UREA NITROGEN 18 MG/DL (7-18); CHLORIDE 105 MEQ/L (98-107); GLOMERULAR FILTRATION RATE 69 ML/MIN (>89); POTASSIUM 4.8 MEQ/L (3.5-5.1); SODIUM (NA) 138 MEQ/L (136-145)
[2017-02-21 12:00] VITALS: BP 142/85; PULSE 72; RESP 20; O2SAT 98
--- NOTE | 2017-02-21 20:37 | EKG ---
Date Performed: 02/21/2017 Time Performed: 09:56:25 PTAGE: 46 years EKG: ELECTRONIC ATRIAL PACEMAKER PATTERN CONSISTENT WITH PULMONARY DISEASE RIGHT VENTRICULAR HYP ERTROPHY AND ST-T CHANGE INFERIOR MYOCARDIAL INFARCTION ABNORMAL ECG PREVIOUS TRACING : 02/18/2017 10.24 compared to the previous EKG atrial pacemaker rhythm is ne w and sinus tachycardia was no longer present DOCTOR: Cesar Elias Interpretating Date/Time 02/21/2017 20:36:51
== END 2017-02-21 14:09 | disposition home or self-care (01) ==
LOC: NEPC 09:38
DX: Z03.89 Encounter for observation for other suspected diseases and conditions ruled out (principal); I50.9 Heart failure, unspecified; I11.0 Hypertensive heart disease with heart failure; R94.31 Abnormal electrocardiogram [ECG] [EKG]; Z95.810 Presence of automatic (implantable) cardiac defibrillator
CPT/HCPCS: 80048; 84484; 85025; 93005; 99284

== ENCOUNTER 2017-03-22 13:15 | Emergency (ER) | payer MEDICAID ==
[~2017-03-22] VITALS: Ht 180.3 cm; Wt 85.0 kg
[2017-03-22 13:21] VITALS: BP 112/81; PULSE 68; RESP 14; TEMP 98.4; O2SAT 98
--- NOTE | 2017-03-22 14:43 | RADRPT ---
EXAM DATE/TIME: 03/22/2017 14:36 [facility] COMPARISON: CHEST SINGLE AP, February 06, 2017, 13:38. CHEST PA & LAT, November 27, 2016, 1:16. INDICATIONS : Chest pain on left side, patient states he thinks he feels his wires poking him from his pacemaker. MEDICAL HISTORY : Diabetes mellitus type I. Hypertension Cardiovascular disease. COPD. SURGICAL HISTORY : Pacemaker. Open heart. ENCOUNTER: Initial ACUITY: 1 day PAIN SCORE: 4/10 LOCATION: Bilateral chest FINDINGS: Frontal and lateral views of the chest demonstrate a normal-sized cardiac silhouette. Median sternoto my wires are visualized. The most inferior sternotomy wire is fractured, stable from the prior study. 2 pacing devices overlie the chest, one on the anterior right chest and the other at the left inferi or lateral chest. Lead tips are in stable position compared to the prior study. No effusion, consolid ation, or pneumothorax is identified. The bones and soft tissues demonstrate no acute finding. CONCLUSION: Stable chest x-ray without an acute abnormality identified. Pacing devices and lead tips are in uncha nged location. Alex Baumann MD on March 22, 2017 at 14:38 Board Certified Radiologist. This report was verified electronically.
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
== END 2017-03-22 15:29 | disposition home or self-care (01) ==
LOC: NEPD 13:15
DX: F89 Unspecified disorder of psychological development (principal); Z95.0 Presence of cardiac pacemaker
CPT/HCPCS: 71020; 99283

== ENCOUNTER 2017-04-08 09:16 | Emergency (ER) | payer MEDICAID ==
[~2017-04-08] VITALS: Ht 180.3 cm; Wt 75.0 kg
[2017-04-08 09:26] VITALS: BP 119/87; PULSE 116; RESP 18; TEMP 98.2; O2SAT 97
[2017-04-08] MEDS ORDERED: LORazepam 1 MG TAB PO ONE (09:30)
[2017-04-08] MEDS ORDERED: AMIO200T PO (09:37)
[2017-04-08] MEDS ORDERED: CARV6.252 PO (09:37)
[2017-04-08] MEDS ORDERED: BUPR100T4 PO (09:37)
[2017-04-08] MEDS ORDERED: POTA-163 PO (09:37)
[2017-04-08] MEDS ORDERED: DIVA250T PO (09:37)
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
--- NOTE | 2017-04-08 10:06 | RADRPT ---
EXAM DATE/TIME: 04/08/2017 09:48 [facility] COMPARISON: CHEST PA & LAT, March 22, 2017, 14:36. INDICATIONS : Chest tightness and abnormal heart rate. MEDICAL HISTORY : Diabetes mellitus type I. Hypertension Cardiovascular disease. COPD. SURGICAL HISTORY : Pacemaker. CABG. ENCOUNTER: Initial ACUITY: 1 day PAIN SCORE: 0/10 LOCATION: Bilateral chest FINDINGS: PA and lateral views of the chest demonstrate the lungs to be symmetrically aerated without evidence of mass, infiltrate or effusion. Right subclavian bipolar pacer. Small mediastinal wires. The cardiom ediastinal contours are unremarkable. Osseous structures are intact. CONCLUSION: No acute infiltrate or mass. Pacemaker in good position. Lungs are clear. Don Jimenez MD on April 08, 2017 at 10:04 Board Certified Radiologist. This report was verified electronically.
[2017-04-08 10:52] VITALS: PULSE 107
--- NOTE | 2017-04-08 13:06 | EKG ---
Date Performed: 04/08/2017 Time Performed: 09:29:40 PTAGE: 46 years EKG: POSSIBLE ATRIAL TACHYCARDIA WITH 2:1 AV CONDUCTION WITH OCCASIONAL PVC RIGHT AXIS DEVIATION RIGHT BUNDLE BRANCH BLOCK INFERIOR MYOCARDIAL INFARCTION ABNORMAL ECG PREVIOUS TRACING : 02/21/2017 09.56 Compared to previous tracing, possible atrial tachycardia w ith 2:1 AV conduction has replaced atrial paced rhythm, heart rate has increased. DOCTOR: Kaden Zavala Interpretating Date/Time 04/08/2017 13:05:30
== END 2017-04-08 11:01 | disposition home or self-care (01) ==
LOC: NEPD 09:16
DX: F41.9 Anxiety disorder, unspecified (principal); R00.0 Tachycardia, unspecified; I49.3 Ventricular premature depolarization; I45.10 Unspecified right bundle-branch block; R94.31 Abnormal electrocardiogram [ECG] [EKG]; E78.00 Pure hypercholesterolemia, unspecified; I11.0 Hypertensive heart disease with heart failure; I50.9 Heart failure, unspecified; E11.9 Type 2 diabetes mellitus without complications
CPT/HCPCS: 71020; 93005

== ENCOUNTER 2017-04-14 18:43 | Emergency (ER) | payer MEDICAID ==
[~2017-04-14] VITALS: Ht 180.3 cm; Wt 75.0 kg
[~2017-04-14 18:43] MED LIST changes: +CARV6.252 PO; +DIVA250T PO; -ENAL5TAB PO; -FURO20TA PO; -LIPI40TA PO; -METF500T PO; +POTA-163 PO; -POTA1TAB4 PO
[2017-04-14 18:47] VITALS: BP 138/90; PULSE 62; RESP 14; TEMP 98.3; O2SAT 98
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
[2017-04-14 19:18] VITALS: BP 127/66
== END 2017-04-14 20:00 | disposition home or self-care (01) ==
LOC: NEPE 18:43
DX: Z45.018 Encounter for adjustment and management of other part of cardiac pacemaker (principal); I11.0 Hypertensive heart disease with heart failure; I50.9 Heart failure, unspecified; E78.00 Pure hypercholesterolemia, unspecified; J44.9 Chronic obstructive pulmonary disease, unspecified; E11.9 Type 2 diabetes mellitus without complications; I25.2 Old myocardial infarction; Z79.899 Other long term (current) drug therapy
CPT/HCPCS: 99281

== ENCOUNTER 2017-04-24 12:12 | Emergency (ER) | payer MEDICAID ==
[~2017-04-24] VITALS: Ht 175.3 cm; Wt 88.0 kg
[2017-04-24 12:18] VITALS: BP 136/79; PULSE 60; RESP 18; TEMP 98.6; O2SAT 99
[2017-04-24 12:20] VITALS: BP 136/79; PULSE 60; RESP 18; TEMP 98.6; O2SAT 99
[2017-04-24] MEDS ORDERED: PANTOPRAZOLE SODIUM 40 MG VIAL IV PUSH ONE (12:30)
[2017-04-24] MEDS ORDERED: SODIUM CHLORIDE 0.9% FLUSH 10 ML FLUSH IVF PRN (12:30)
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
--- NOTE | 2017-04-24 12:55 | RADRPT ---
EXAM DATE/TIME: 04/24/2017 11:34 [facility] COMPARISON: CHEST SINGLE AP, February 06, 2017, 13:38. INDICATIONS : Chest pain today, tightness in chest MEDICAL HISTORY : Cardiovascular disease. Chronic obstructive pulmonary disease. Hypertension. diabetes SURGICAL HISTORY : Pacemaker. CABG. ENCOUNTER: Initial ACUITY: 1 day PAIN SCORE: Non-responsive. LOCATION: Bilateral chest FINDINGS: The heart is mildly prominent. Minimal central pulmonary vascular congestion is noted. Pacer leads ar e again noted and are unchanged from the previous examination. CONCLUSION: 1. Minimal central pulmonary vascular congestion. 2. Cardiomegaly. Willie Lyon MD on April 24, 2017 at 12:52 Board Certified Radiologist. This report was verified electronically.
[2017-04-24 13:18] LABS: AUTOMATED NEUTROPHIL # 3.5 TH/MM3 (1.8-7.7); BASOPHIL % 0.4 % (0.0-2.0); EOSINOPHIL % 0.9 % (0.0-4.0); HEMATOCRIT 40.7 % (39.0-51.0); HEMO FLAGS DIFF FINAL; LYMPHOCYTE # 1.2 TH/MM3 (1.0-4.8); MEAN CORPUSCULAR HEMOGLOBIN 27.8 PG (27.0-34.0); MEAN CORPUSCULAR HGB CONC 32.7 % (32.0-36.0); MONO % 8.9 % (0.0-8.0); NEUT % 66.8 % (16.0-70.0); PLATELET COUNT 141 TH/MM3 (150-450); RED BLOOD COUNT 4.79 MIL/MM3 (4.50-5.90); RED CELL DISTRIBUTION WIDTH 17.2 % (11.6-17.2); WHITE BLOOD COUNT 5.3 TH/MM3 (4.0-11.0)
[2017-04-24 13:28] LABS: ANION GAP 10 MEQ/L (5-15); BICARBONATE 23.4 MEQ/L (21.0-32.0); BLOOD UREA NITROGEN 23 MG/DL (7-18); CHLORIDE 105 MEQ/L (98-107); GLOMERULAR FILTRATION RATE 68 ML/MIN (>89); MAGNESIUM 2.1 MG/DL (1.5-2.5); POTASSIUM 4.2 MEQ/L (3.5-5.1); SODIUM (NA) 138 MEQ/L (136-145)
[2017-04-24 13:29] LABS: APTT (PATIENT) 30.3 SEC (24.3-30.1); PROTHROMBIN TIME - PATIENT 11.4 SEC (9.8-11.6)
[2017-04-24 13:31] LABS: CREATINE KINASE 248 U/L (39-308)
[2017-04-24 13:46] LABS: CKMB 1.4 NG/ML (0.5-3.6)
[2017-04-24 14:07] VITALS: O2SAT 100
[2017-04-24 14:08] VITALS: BP 133/88; PULSE 60; RESP 18; O2SAT 99
[2017-04-24 14:09] VITALS: BP_SYST 134; BP_SYST 138; BP_DIAS 67; BP_DIAS 88; PULSE 60; RESP 18; O2SAT 100
[2017-04-24 15:40] VITALS: BP 136/70
--- NOTE | 2017-04-25 10:41 | EKG ---
Date Performed: 04/24/2017 Time Performed: 12:28:34 PTAGE: 46 years EKG: ELECTRONIC ATRIAL PACEMAKER RIGHT AXIS DEVIATION RIGHT BUNDLE BRANCH BLOCK NONSPECIFIC ST-T WAVE ABNORMALITY ABNORMAL ECG PREVIOUS TRACING : 04/08/2017 09.29 DOCTOR: Don Orlando Interpretating Date/Time 04/25/2017 10:39:17
== END 2017-04-24 15:40 | disposition home or self-care (01) ==
LOC: NEPE 12:12
DX: F41.9 Anxiety disorder, unspecified (principal); R00.2 Palpitations; I51.7 Cardiomegaly; R11.2 Nausea with vomiting, unspecified; R19.7 Diarrhea, unspecified; I45.10 Unspecified right bundle-branch block; R94.31 Abnormal electrocardiogram [ECG] [EKG]; I11.0 Hypertensive heart disease with heart failure; I50.9 Heart failure, unspecified
CPT/HCPCS: 71010; 80048; 80164; 82550; 82552; 83735; 83880; 84484; 85025; 85610; 85730; 93005; 96374; 99285; C9113

== ENCOUNTER 2017-04-26 19:52 | Emergency (ER) | payer MEDICAID ==
[~2017-04-26] VITALS: Ht 180.3 cm; Wt 80.0 kg
[2017-04-26 20:04] VITALS: BP 122/74; PULSE 107; RESP 19; TEMP 98.5; O2SAT 100
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
[2017-04-26] MEDS ORDERED: SODIUM CHLORIDE 0.9% FLUSH 10 ML FLUSH IVF PRN (20:15)
[2017-04-26 20:24] VITALS: RESP 19; O2SAT 100
[2017-04-26 20:39] LABS: AUTOMATED NEUTROPHIL # 3.8 TH/MM3 (1.8-7.7); BASOPHIL % 0.3 % (0.0-2.0); EOSINOPHIL % 0.6 % (0.0-4.0); HEMATOCRIT 38.7 % (39.0-51.0); LYMPH % 24.4 % (9.0-44.0); LYMPHOCYTE # 1.4 TH/MM3 (1.0-4.8); MEAN CELL VOLUME 82.4 FL (80.0-100.0); MEAN CORPUSCULAR HEMOGLOBIN 29.6 PG (27.0-34.0); MONO % 10.4 % (0.0-8.0); NEUT % 64.3 % (16.0-70.0); PLATELET COUNT 147 TH/MM3 (150-450); RED BLOOD COUNT 4.69 MIL/MM3 (4.50-5.90); RED CELL DISTRIBUTION WIDTH 17.2 % (11.6-17.2); WHITE BLOOD COUNT 5.9 TH/MM3 (4.0-11.0)
[2017-04-26 20:40] LABS: HEMO FLAGS AUTO DIFF
[2017-04-26 20:45] LABS: ANION GAP 7 MEQ/L (5-15); BICARBONATE 25.1 MEQ/L (21.0-32.0); BLOOD UREA NITROGEN 25 MG/DL (7-18); CHLORIDE 106 MEQ/L (98-107); GLOMERULAR FILTRATION RATE 62 ML/MIN (>89); MAGNESIUM 1.8 MG/DL (1.5-2.5); POTASSIUM 3.9 MEQ/L (3.5-5.1); SODIUM (NA) 138 MEQ/L (136-145)
[2017-04-26 20:47] LABS: ALCOHOL LESS THAN 3 MG/DL (0-5)
[2017-04-26 20:49] LABS: CREATINE KINASE 187 U/L (39-308)
[2017-04-26 20:50] LABS: APTT (PATIENT) 27.1 SEC (24.3-30.1); INTERNATIONAL NORMALIZED RATIO 1.1 RATIO; PROTHROMBIN TIME - PATIENT 11.8 SEC (9.8-11.6)
--- NOTE | 2017-04-26 20:58 | RADRPT ---
EXAM DATE/TIME: 04/26/2017 20:24 [facility] COMPARISON: CHEST SINGLE AP, April 24, 2017, 11:34. INDICATIONS : Chest pain. MEDICAL HISTORY : Myocardial infarction. Cardiovascular disease. Chronic obstructive pulmonary disease. Hypertens ion. diabetes SURGICAL HISTORY : CABG. Defribillator Spinal stimulator. ENCOUNTER: Initial ACUITY: 1 day PAIN SCORE: 1/10 LOCATION: Bilateral chest FINDINGS: A single view of the chest demonstrates pacer leads unchanged. No new infiltrate or effusion. Heart s ize upper limits normal. No pneumothorax. CONCLUSION: 1. No focal infiltrate or effusion. Pacer leads unchanged. Gallo Charles MD on April 26, 2017 at 20:55 Board Certified Radiologist. This report was verified electronically.
[2017-04-26 21:02] LABS: CKMB 1.2 NG/ML (0.5-3.6)
[2017-04-26 21:13] LABS: PLATELET ESTIMATE SMEAR LOW (NORMAL); PLATELET MORPHOLOGY NORMAL (NORMAL); SCAN/DIFF AUTO DIFF CONFIRMED
--- NOTE | 2017-04-27 13:21 | EKG ---
Date Performed: 04/26/2017 Time Performed: 20:00:30 PTAGE: 46 years EKG: SINUS TACHYCARDIA RIGHT VENTRICULAR HYPERTROPHY INFERIOR MYOCARDIAL INFARCTION ABNORMAL ECG Compared to PREVIOUS TRACING , previous atrial pacing appears to be replaced with sinus tachycardia. Clinical correlation is strongly recommended. PREVIOUS TRACIN04/24/2017 12.28 DOCTOR: Moises Banegas Interpretating Date/Time 04/27/2017 13:20:25
== END 2017-04-27 00:28 | disposition home or self-care (01) ==
LOC: NEPC 19:52
DX: Z95.810 Presence of automatic (implantable) cardiac defibrillator (principal); R94.31 Abnormal electrocardiogram [ECG] [EKG]; R00.0 Tachycardia, unspecified; I42.9 Cardiomyopathy, unspecified; I11.0 Hypertensive heart disease with heart failure; I50.9 Heart failure, unspecified; E11.9 Type 2 diabetes mellitus without complications; I25.2 Old myocardial infarction; Z79.899 Other long term (current) drug therapy
CPT/HCPCS: 71010; 80048; 80307; 82550; 82552; 83735; 83880; 84484; 85025; 85610; 85730; 93005; 99285

== ENCOUNTER 2017-04-27 01:13 | Emergency (ER) | payer MEDICAID ==
[~2017-04-27] VITALS: Ht 180.3 cm; Wt 80.0 kg
[2017-04-27 01:14] VITALS: BP 138/84; PULSE 110; RESP 16; TEMP 98.9; O2SAT 99
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
== END 2017-04-27 03:45 | disposition home or self-care (01) ==
LOC: NEPC 01:13
DX: F41.9 Anxiety disorder, unspecified (principal); E11.9 Type 2 diabetes mellitus without complications; I11.0 Hypertensive heart disease with heart failure; I50.9 Heart failure, unspecified; J44.9 Chronic obstructive pulmonary disease, unspecified; I25.2 Old myocardial infarction; E78.00 Pure hypercholesterolemia, unspecified; Z95.0 Presence of cardiac pacemaker; Z72.0 Tobacco use
CPT/HCPCS: 99281

== ENCOUNTER 2017-04-27 03:44 | Emergency (ER) | payer MEDICAID ==
[2017-04-27 03:45] VITALS: BP 134/95; PULSE 111; RESP 16; TEMP 98.1; O2SAT 97
--- NOTE | 2017-04-27 04:05 | PD ---
HPI Chief Complaint: medical clearance Time Seen by Provider: 03:57 Travel History International Travel<30 days: No Contact w/Intl Traveler<30days: No History of Present Illness HPI Patient checks back into the emergency Department after being seen twice previously tonight for same complaint. Patient felt like his heart was beating fast when he was walking and improved when he sat down. Patient denies any chest pain, shortness of breath, fevers, back pain, numbness or tingling anywhere, fevers, sensation defibrillator firing, or headaches. Denies any other complaints or concerns. History Past Medical Histgory Hx Cancer: No Social History Alcohol Use: No Tobacco Use: Yes Allergies-Medications (Allergen,Severity, Reaction): Coded Allergies: aspirin (Unverified Allergy, Severe, DIZZINESS, FACIAL SWELLING, 04/24/17) Reported Meds & Prescriptions Reported Meds & Active Scripts Active Reported Amiodarone (Amiodarone HCl) 200 Mg Tab 200 Mg PO BID Divalproex DR (Divalproex Sodium) 250 Mg Tabdr 250 Mg PO BID Bupropion HCl 100 Mg Tab 100 Mg PO HS Carvedilol 6.25 Mg Tab 6.25 Mg PO BID Potassium Chloride ER (Potassium Chloride) 20 Meq Tab 20 Meq PO DAILY Review of Systems Except as stated in HPI: all other systems reviewed are Neg Physical Exam Narrative GENERAL: Well-developed, well nourished, in no acute distress, and non-ill appearing. SKIN: Focused skin assessment warm and dry. HEAD: Atraumatic. Normocephalic. EYES: Pupils equal and round. EOMI. No scleral icterus. No injection or drainage. ENT: No nasal bleeding or discharge. Mucous membranes pink and moist. NECK: Trachea midline. Supple. No nuclear rigidity. CARDIOVASCULAR: Regular rate and rhythm. No murmur appreciated. RESPIRATORY: No accessory muscle use. No respiratory distress. Clear to auscultation. Breath sounds equal bilaterally. MUSCULOSKELETAL: No obvious deformities. No clubbing. No cyanosis. No edema. Full range of motion. NEUROLOGICAL: Awake and alert. No obvious cranial nerve deficits. Motor grossly within normal limits. Normal speech. PSYCHIATRIC: Appropriate mood and affect; insight and judgment normal. Data Data Last Documented VS Vital Signs Date Time Temp Pulse Resp B/P (MAP) Pulse Ox O2 Delivery O2 Flow Rate FiO2 04/27/17 03:45 98.1 111 16 134/95 (108) 97 Room Air MDM Medical Screen Exam Complete: Yes Emergency Medical Condition: No Narrative Course History and physical exam findings are not consistent with an emergent medical condition. He was given the option of receiving additional care, but has declined. Therefore the appropriate counseling recommendations were discussed with the patient and he was instructed to follow-up with his primary care physician as soon as possible for reevaluation. Patient was also informed of community resources from which he can obtain additional care. He is agreeable and verbalizes an understanding of the proposed plan. The patient states he will immediately return to the emergency department if his current complaints do not improve, new symptoms arise, or emergent condition develops. Patient ambulated out of the emergency department without difficulty. Primary Impression: Encounter for medical screening examination Disposition: [facility]-ED USE ONLY Condition: Stable Mj Condon Apr 27, 2017 04:05
== END 2017-04-27 04:05 | disposition left against medical advice (07) ==
LOC: NEPD 03:44
DX: R00.0 Tachycardia, unspecified (principal); Z79.899 Other long term (current) drug therapy; Z88.6 Allergy status to analgesic agent; Z72.0 Tobacco use; Z53.21 Procedure and treatment not carried out due to patient leaving prior to being seen by health care provider
CPT/HCPCS: 99281

== ENCOUNTER 2017-06-07 15:00 | Observation (INO) | payer MEDICAID, OTHER ==
[2017-06-07 15:19] VITALS: BP 123/55; PULSE 61; RESP 16; TEMP 98.1; O2SAT 99
[2017-06-07] MEDS ORDERED: SODIUM CHLORIDE 0.9% FLUSH 10 ML FLUSH IVF PRN (17:30)
--- NOTE | 2017-06-07 17:34 | RADRPT ---
EXAM DATE/TIME: 06/07/2017 17:28 [facility] COMPARISON: CHEST SINGLE AP, April 26, 2017, 20:24. INDICATIONS : Palpitations MEDICAL HISTORY : Myocardial infarction. Cardiovascular disease. Chronic obstructive, pulmonary disease. Hypertension. diabetes SURGICAL HISTORY : CABG. Defribillator Spinal stimulator ENCOUNTER: Initial ACUITY: 1 day PAIN SCORE: 0/10 LOCATION: chest FINDINGS: The cardiac silhouette is enlarged in transverse diameter. The lungs are free of acute parenchymal op acity. No effusions are identified. Defibrillator device is present CONCLUSION: 1. Cardiomegaly. No acute pulmonary disease. Reilly Grajeda MD on June 07, 2017 at 17:31 Board Certified Radiologist. This report was verified electronically.
[2017-06-07 18:32] LABS: AUTOMATED NEUTROPHIL # 3.9 TH/MM3 (1.8-7.7); BASOPHIL % 0.4 % (0.0-2.0); EOSINOPHIL % 0.7 % (0.0-4.0); HEMATOCRIT 41.7 % (39.0-51.0); HEMOGLOBIN 14.3 GM/DL (13.0-17.0); LYMPHOCYTE # 1.4 TH/MM3 (1.0-4.8); MEAN CORPUSCULAR HEMOGLOBIN 28.5 PG (27.0-34.0); MEAN CORPUSCULAR HGB CONC 34.3 % (32.0-36.0); MEAN PLATELET VOLUME 8.1 FL (7.0-11.0); MONO % 6.8 % (0.0-8.0); MONOCYTE # 0.4 TH/MM3 (0-0.9); NEUT % 67.1 % (16.0-70.0); PLATELET COUNT 178 TH/MM3 (150-450); RED BLOOD COUNT 5.03 MIL/MM3 (4.50-5.90); RED CELL DISTRIBUTION WIDTH 16.9 % (11.6-17.2); WHITE BLOOD COUNT 5.8 TH/MM3 (4.0-11.0)
[2017-06-07 18:49] LABS: INTERNATIONAL NORMALIZED RATIO 1.1 RATIO
[2017-06-07 18:51] LABS: ALBUMIN 4.2 GM/DL (3.4-5.0); AST (GOT) 13 U/L (15-37); BICARBONATE 27.5 MEQ/L (21.0-32.0); BLOOD UREA NITROGEN 22 MG/DL (7-18); CALCIUM 8.9 MG/DL (8.5-10.1); CHLORIDE 104 MEQ/L (98-107); CREATININE 1.22 MG/DL (0.60-1.30); GLOMERULAR FILTRATION RATE 77 ML/MIN (>89); GLUCOSE,RANDOM 95 MG/DL (74-106); SODIUM (NA) 140 MEQ/L (136-145)
[2017-06-07 18:52] VITALS: BP 137/67; PULSE 76; RESP 18; O2SAT 98
[2017-06-07 18:56] LABS: ALKALINE PHOSPHATASE 94 U/L (45-117); ALT (GPT) 26 U/L (12-78); TOTAL BILIRUBIN ADULT 0.3 MG/DL (0.2-1.0); TOTAL PROTEIN 7.6 GM/DL (6.4-8.2); TROPONIN I LESS THAN 0.02 NG/ML (0.02-0.05)
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
[2017-06-07] MEDS ORDERED: SODIUM CHLORIDE 0.9% FLUSH 10 ML FLUSH IV FLUSH PRN (19:45)
[2017-06-07 20:22] VITALS: BP 131/68; PULSE 58; RESP 16; O2SAT 96
[2017-06-07] MEDS ORDERED: buPROPion HCL 100 MG TAB PO SCH (21:00)
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
[2017-06-07 21:56] VITALS: BP 111/71; PULSE 58; RESP 18; TEMP 98.2; O2SAT 97
[2017-06-07] MEDS: SODIUM CHLORIDE 0.9% FLUSH 10 ML FLUSH IV FLUSH SCH (22:07)
[2017-06-07] MEDS: CARVEDILOL 6.25 MG TAB PO SCH (22:07)
[2017-06-07] MEDS: DIVALPROEX SODIUM DELAYED RELEASE 250 MG TAB PO SCH (22:07)
[2017-06-07] MEDS: AMIODARONE 200 MG TAB PO SCH (22:08)
[2017-06-08 00:32] VITALS: PULSE 60
[2017-06-08 02:40] LABS: TROPONIN I 0.02 NG/ML (0.02-0.05)
--- NOTE | 2017-06-08 05:21 | HHI.HP ---
[facility] Unknown Admission Diagnosis syncope Diagnoses: Travel History International Travel<30 Days: No Contact w/Intl Traveler <30 Da: No Traveled to Known Affected Are: No History of Present Illness 46-year-old male with a past medical history significant for hypertension, CHF ( last ECHO 08/13/15 showed EF of 45-50%), paroxysmal atrial fibrillation and cardiomyopathy with AICD/pacemaker placement since to the emergency department for evaluation of syncope. The patient reports he was in the Social Security office when he lost consciousness and "fell out". He endorses associated dizziness, shortness of breath and palpitations. He believes that his pacemaker discharged. He denies any associated chest pain. EKG significant for atrial pacing with right bundle branch block and T-wave inversions in V2/V3 , unchanged from previous. Initial troponin negative. Review of Systems Denies fever or chills Denies blurry vision, otorrhea, rhinorrhea Denies sore throat and cough No chest pain, positive palpitations, positive shortness of breath No abdominal pain Denies constipation/diarrhea/nausea/vomiting Denies muscle pain/weakness Positive dizziness No rashes Past Family Social History Past Medical History (From medical records review) Hypertension Cardiomyopathy - status post AICD/pacemaker placement Paroxysmal atrial fibrillation Past Surgical History Congenital heart defect repaired at age 12 Reported Medications Reported Meds & Active Scripts Active Reported Amiodarone (Amiodarone HCl) 200 Mg Tab 200 Mg PO BID Divalproex DR (Divalproex Sodium) 250 Mg Tabdr 250 Mg PO BID Bupropion HCl 100 Mg Tab 100 Mg PO HS Carvedilol 6.25 Mg Tab 6.25 Mg PO BID Potassium Chloride ER (Potassium Chloride) 20 Meq Tab 20 Meq PO DAILY Allergies: Coded Allergies: aspirin (Unverified Allergy, Severe, DIZZINESS, FACIAL SWELLING, 04/24/17) Family History Patient states he "does not know" Social History Tobacco 3 weeks ago. Denies alcohol, illicit drugs. Physical Exam Vital Signs Vital Signs Date Time Temp Pulse Resp B/P (MAP) Pulse Ox O2 Delivery O2 Flow Rate FiO2 1/5/18 00:32 60 06/07/17 21:56 98.2 58 18 111/71 (84) 97 06/07/17 20:22 58 16 131/68 (89) 96 Room Air 06/07/17 18:52 76 18 137/67 (90) 98 Room Air 06/07/17 15:19 98.1 61 16 123/55 (77) 99 Physical Exam GENERAL: AA male lying in bed. SKIN: No rashes, ecchymoses or lesions. Cool and dry. HEAD: Atraumatic. Normocephalic. No temporal or scalp tenderness. EYES: Pupils equal round and reactive. Extraocular motions intact. No scleral icterus. No injection or drainage. ENT: Nose without bleeding, purulent drainage or septal hematoma. Throat without erythema, tonsillar hypertrophy or exudate. Uvula midline. Airway patent. NECK: Trachea midline. No JVD or lymphadenopathy. Supple, nontender, no meningeal signs. CARDIOVASCULAR: Regular rate and rhythm. 3/6 ILIANA. RESPIRATORY: Clear to auscultation. Breath sounds equal bilaterally. No wheezes , rales, or rhonchi. GASTROINTESTINAL: Abdomen soft, non-tender, nondistended. No hepato-splenomegaly , or palpable masses. No guarding. MUSCULOSKELETAL: Extremities without clubbing, cyanosis, or edema. No joint tenderness, effusion, or edema noted. No calf tenderness. NEUROLOGICAL: Awake and alert. Cranial nerves II through XII intact. Motor and sensory grossly within normal limits. Normal speech. Laboratory Laboratory Tests Test 06/07/17 18:10 06/08/17 02:00 White Blood Count 5.8 Red Blood Count 5.03 Hemoglobin 14.3 Hematocrit 41.7 Mean Corpuscular Volume 83.0 Mean Corpuscular Hemoglobin 28.5 Mean Corpuscular Hemoglobin Concent 34.3 Red Cell Distribution Width 16.9 Platelet Count 178 Mean Platelet Volume 8.1 Neutrophils (%) (Auto) 67.1 Lymphocytes (%) (Auto) 25.0 Monocytes (%) (Auto) 6.8 Eosinophils (%) (Auto) 0.7 Basophils (%) (Auto) 0.4 Neutrophils # (Auto) 3.9 Lymphocytes # (Auto) 1.4 Monocytes # (Auto) 0.4 Eosinophils # (Auto) 0.0 Basophils # (Auto) 0.0 CBC Comment DIFF FINAL Differential Comment Prothrombin Time 11.0 Prothromb Time International Ratio 1.1 Activated Partial Thromboplast Time 29.9 Blood Urea Nitrogen 22 Creatinine 1.22 Random Glucose 95 Total Protein 7.6 Albumin 4.2 Calcium Level 8.9 Alkaline Phosphatase 94 Aspartate Amino Transf (AST/SGOT) 13 Alanine Aminotransferase (ALT/SGPT) 26 Total Bilirubin 0.3 Sodium Level 140 Potassium Level 3.6 Chloride Level 104 Carbon Dioxide Level 27.5 Anion Gap 9 Estimat Glomerular Filtration Rate 77 Troponin I LESS THAN 0.02 0.02 Total Creatine Kinase 193 Result Diagram: 06/07/17180906/07/171809 Caprini VTE Risk Assessment Caprini VTE Risk Assessment: No/Low Risk (score <= 1) Caprini Risk Assessment Model Point Value = 1 Point Value = 2 Point Value = 3 Point Value = 5 Age 41-60 Minor surgery BMI > 25 kg/m2 Swollen legs Varicose veins or History of unexplained or recurrent spontaneous Oral contraceptives or hormone replacement Sepsis (< 1 month) Serious lung disease, including pneumonia (< 1 month) Abnormal pulmonary function Acute myocardial infarction Congestive heart failure (< 1 month) History of inflammatory bowel disease Medical patient at bed rest Age 61-74 Arthroscopic surgery Major open surgery (> 45 min) Laparoscopic surgery (> 45 min) Malignancy Confined to bed (> 72 hours) Immobilizing plaster cast Central venous access Age >= 75 History of VTE Family history of VTE Factor V Leiden Prothrombin [id number] Lupus anticoagulant Anticardiolipin antibodies Elevated serum homocysteine Heparin-induced thrombocytopenia Other congenital or acquired thrombophilia Stroke (< 1 month) Elective arthroplasty Hip, pelvis, or leg fracture Acute spinal cord injury (< 1 month) Prophylaxis Regimen Total Risk Factor Score Risk Level Prophylaxis Regimen 0-1 Low Early ambulation 2 Moderate Order ONE of the following: *Sequential Compression Device (SCD) *Heparin 5000 units SQ BID 3-4 Higher Order ONE of the following medications: *Heparin 5000 units SQ TID *Enoxaparin/Lovenox 40 mg SQ daily (WT < 150 kg, CrCl > 30 mL/min) *Enoxaparin/Lovenox 30 mg SQ daily (WT < 150 kg, CrCl > 10-29 mL/min) *Enoxaparin/Lovenox 30 mg SQ BID (WT < 150 kg, CrCl > 30 mL/min) AND/OR *Sequential Compression Device (SCD) 5 or more Highest Order ONE of the following medications: *Heparin 5000 units SQ TID (Preferred with Epidurals) *Enoxaparin/Lovenox 40 mg SQ daily (WT < 150 kg, CrCl > 30 mL/min) *Enoxaparin/Lovenox 30 mg SQ daily (WT < 150 kg, CrCl > 10-29 mL/min) *Enoxaparin/Lovenox 30 mg SQ BID (WT < 150 kg, CrCl > 30 mL/min) AND *Sequential Compression Device (SCD) Assessment and Plan Assessment and Plan Assessment/plan: 1. Syncope/cardiomyopathy + LOC Patient states his AICD fired Interrogation pending ECHO/Carotid US pending Patient with h/o paroxysmal A. fib, not currently anticoagulated EKG showed paced rhythm with right bundle branch block and T-wave inversions in V2/V3, unchanged from previous, reviewed by me Initial troponin negative ACS rule out pending; serial troponins/EKGs Telemetry 2. History of paroxysmal atrial fibrillation/HTN Continue home amiodarone and carvedilol FEN Heart healthy diet Electrolytes: monitor and replete prn SCDs Lucía Bain MD Jun 08, 2017 05:21
[2017-06-08 07:27] LABS: TROPONIN I LESS THAN 0.02 NG/ML (0.02-0.05)
[2017-06-08 08:53] VITALS: BP 163/81; PULSE 80; RESP 20; TEMP 98.2; O2SAT 96
[2017-06-08] MEDS ORDERED: POTASSIUM CHLORIDE 20 MEQ CONTROLLED RELEASE TAB PO SCH (09:00)
[2017-06-08] MEDS: CARVEDILOL 6.25 MG TAB PO SCH ×2 (09:30→20:14)
[2017-06-08] MEDS: AMIODARONE 200 MG TAB PO SCH (09:31)
[2017-06-08] MEDS: DIVALPROEX SODIUM DELAYED RELEASE 250 MG TAB PO SCH (09:31)
[2017-06-08] MEDS: SODIUM CHLORIDE 0.9% FLUSH 10 ML FLUSH IV FLUSH SCH ×2 (09:32→20:15)
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
--- NOTE | 2017-06-08 14:13 | PD.CONS ---
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 The patient reports he was in [place] [employer] when he lost consciousness and "fell out". He endorses associated dizziness, shortness of breath and palpitations. He denies any associated chest pain. EKG significant for atrial pacing with right bundle branch block and T-wave inversions in V2/V3, unchanged from previous. Initial troponin negative. Review of Systems Consitutional: DENIES: Fatigue, Fever, Chills, Weight gain, Weight loss Eyes: DENIES: Amaurosis Fug[place], Change in vision HEENT: COMPLAINS OF: Lightheadedness, DENIES: Change in hearing Respiratory: DENIES: See HPI, Cough, Snoring, Shortness of breath, Wheezing, Sputum production Cardiovascular: DENIES: See HPI, Chest pain, Palpitations, Syncope, Tachycardia Gastrointestinal: DENIES: Nausea, Vomiting, Change in bowel habits, Reflux, Bloody stools, Melena Genitourinary: DENIES: Urinary incontinence, Difficulty voiding Integumentary: DENIES: Rash Neurologic: DENIES: Tingling or numbness, Memory problems, Poor Balance, Stroke symptoms Musculoskeletal: DENIES: Joint pain, Muscle pain, Limited range of motion, Back pain Psychiatric: DENIES: Anxiety, Depression, Sleep disturbances Hematologic: DENIES: Bruising tendencies, Bleeding tendencies Endocrine: DENIES: Weight gain, Weight loss, Thyroid disease Past Family Social History Allergies: Coded Allergies: aspirin (Unverified Allergy, Severe, DIZZINESS, FACIAL SWELLING, 04/24/17) Past Medical History Hypertension Cardiomyopathy - status post AICD/pacemaker placement/ [place] Paroxysmal atrial fibrillation Congenital Heart Disease Transposition of the great vessels Past Surgical History Congenital heart defect repaired at age 12 Reported Medications Reported Meds & Active Scripts Active Reported Amiodarone (Amiodarone HCl) 200 Mg Tab 200 Mg PO BID Divalproex DR (Divalproex Sodium) 250 Mg Tabdr 250 Mg PO BID Bupropion HCl 100 Mg Tab 100 Mg PO HS Carvedilol 6.25 Mg Tab 6.25 Mg PO BID Potassium Chloride ER (Potassium Chloride) 20 Meq Tab 20 Meq PO DAILY Active Ordered Medications Current Medications Medications (Trade) Dose Ordered Sig/Karina Route Start Time Stop Time Status Last Admin (NS Flush) 2 ml BID IV FLUSH 06/07/17 21:00 06/08/17 09:32 (NS Flush) 2 ml UNSCH PRN IV FLUSH 06/07/17 19:45 (Cordarone) 200 mg BID PO 06/07/17 21:00 06/08/17 09:31 (Wellbutrin) 100 mg HS PO 06/07/17 21:00 06/07/17 22:07 (Coreg) 6.25 mg BID PO 06/07/17 21:00 06/08/17 09:30 (Depakote Dr) 250 mg BID PO 06/07/17 21:00 06/08/17 09:31 (KCl) 20 meq DAILY PO 06/08/17 09:00 06/08/17 09:30 Family History Patient states he "does not know" Social History Tobacco 3 weeks ago. Denies alcohol, illicit drugs. Physical Exam Vital Signs Vital Signs Date Time Temp Pulse Resp B/P (MAP) Pulse Ox O2 Delivery O2 Flow Rate FiO2 06/08/17 08:53 98.2 80 20 163/81 (108) 96 06/08/17 00:32 60 06/07/17 21:56 98.2 58 18 111/71 (84) 97 06/07/17 20:22 58 16 131/68 (89) 96 Room Air 06/07/17 18:52 76 18 137/67 (90) 98 Room Air 06/07/17 15:19 98.1 61 16 123/55 (77) 99 Physical Exam GENERAL: Well-nourished, well-developed patient. SKIN: Warm and dry. HEAD: Normocephalic. EYES: No scleral icterus. No injection or drainage. NECK: Supple, trachea midline. No JVD or lymphadenopathy. CARDIOVASCULAR: Regular rate and rhythm without murmurs, gallops, or rubs. RESPIRATORY: Breath sounds equal bilaterally. No accessory muscle use. GASTROINTESTINAL: Abdomen soft, non-tender, nondistended. EXTREMITIES: No cyanosis, or edema. NEUROLOGICAL: Awake, alert, and oriented x 3. Non-focal. Laboratory Laboratory Tests Test 06/07/17 18:10 06/08/17 02:00 06/08/17 05:46 White Blood Count 5.8 Red Blood Count 5.03 Hemoglobin 14.3 Hematocrit 41.7 Mean Corpuscular Volume 83.0 Mean Corpuscular Hemoglobin 28.5 Mean Corpuscular Hemoglobin Concent 34.3 Red Cell Distribution Width 16.9 Platelet Count 178 Mean Platelet Volume 8.1 Neutrophils (%) (Auto) 67.1 Lymphocytes (%) (Auto) 25.0 Monocytes (%) (Auto) 6.8 Eosinophils (%) (Auto) 0.7 Basophils (%) (Auto) 0.4 Neutrophils # (Auto) 3.9 Lymphocytes # (Auto) 1.4 Monocytes # (Auto) 0.4 Eosinophils # (Auto) 0.0 Basophils # (Auto) 0.0 CBC Comment DIFF FINAL Differential Comment Prothrombin Time 11.0 Prothromb Time International Ratio 1.1 Activated Partial Thromboplast Time 29.9 Blood Urea Nitrogen 22 Creatinine 1.22 Random Glucose 95 Total Protein 7.6 Albumin 4.2 Calcium Level 8.9 Alkaline Phosphatase 94 Aspartate Amino Transf (AST/SGOT) 13 Alanine Aminotransferase (ALT/SGPT) 26 Total Bilirubin 0.3 Sodium Level 140 Potassium Level 3.6 Chloride Level 104 Carbon Dioxide Level 27.5 Anion Gap 9 Estimat Glomerular Filtration Rate 77 Troponin I LESS THAN 0.02 0.02 LESS THAN 0.02 Total Creatine Kinase 193 172 Result Diagram: 06/07/17 1810 06/07/17 1810 Imaging Last Impressions Chest X-Ray 06/07/17 1719 Signed Impressions: Service Date/Time: June 17:28 - CONCLUSION: 1. Cardiomegaly. No acute pulmonary disease. Reilly Grajeda MD Carotid Artery Ultrasound 06/07/17 0000 Signed Impressions: Service Date/Time: June 20:18 - CONCLUSION: No evidence for hemodynamically significant stenosis. Ed Maki MD Assessment and Plan Problem List: (1) Syncope and collapse ICD Codes: R55 - Syncope and collapse Status: Resolved Plan: Unclear etiology No CV Complaints Negative Cardiac enzymes Pending AICD interrogation Recommendations: AICD interrogation. If unremarkable f/u with Cardiology upon discharge Cont Home Cardiac Medications Medical management per Hospitalist Thank you for the opportunity to participate in the care of this patient Will be available on a PRN basis for any questions or concerns. (2) Non-ischemic cardiomyopathy ICD Codes: I42.8 - Other cardiomyopathies Status: Acute Charles-Mario Varghese MD Jun 08, 2017 14:13
[2017-06-08] MEDS ORDERED: METF500T PO (16:08)
[2017-06-08] MEDS ORDERED: ENAL5TAB PO (16:09)
--- NOTE | 2017-06-08 16:11 | ECHRPT ---
Indication: SYNCOPE CONCLUSIONS Normal left ventricular size. Wall thickness is normal. The left ventricular systolic function is lktdyhrk-zg-hyspaoy reduced with an estimated ejection fra ction in the range of 35-40%. The right ventricle is severely dilated. The right ventricular systoilc function is severely decreased. The right ventricular wall thickness is moderately increased. Mild mitral valve regurgitation. There is mild tricuspid valve regurgitation. The estimated pulmonary arterial pressure is 99.1 mmHg. There is estimated severe pulmonary hypertension present Mild pulmonary valve regurgitation. There is a trivial pericardial effusion present. BP: 163 / 81 HR: 80 Rhythm: MEASUREMENTS (Male / Female) Normal Values Technical Quality:Fair 2D ECHO LV Diastolic Diameter PLAX 4.0 cm 4.2 - 5.9 / 3.9 - 5.3 cm IVS Diastolic Thickness 0.8 cm 0.6 - 1.0 / 0.6 - 0.9 cm LVPW Diastolic Thickness 0.6 cm 0.6 - 1.0 / 0.6 - 0.9 cm LV Relative Wall Thickness 0.3 RV Internal Dim ED PLAX 4.1 cm DOPPLER Mitral E Point Velocity 93.8 cm/s Mitral A Point Velocity 37.5 cm/s Mitral E to A Ratio 2.5 TR Peak Velocity 485.0 cm/s TR Peak Gradient 94.1 mmHg Right Atrial Pressure 5.0 mmHg Pulmonary Artery Systolic Pressu 99.1 mmHg Right Ventricular Systolic Press 99.1 mmHg FINDINGS LEFT VENTRICLE Normal left ventricular size. Wall thickness is normal. The left ventricular systolic function is nepzgnoo-vd-fdgdlqd reduced with an estimated ejection fra ction in the range of 35-40%. RIGHT VENTRICLE The right ventricle is severely dilated. The right ventricular systoilc function is severely decreased. The right ventricular wall thickness is moderately increased. LEFT ATRIUM The left atrial size is normal. RIGHT ATRIUM The right atrial size is normal. ATRIAL SEPTUM Normal atrial septal thickness without atrial level shunting by limited color doppler interrogation. AORTA The aortic root and proximal ascending aorta are normal in size on limited imaging. MITRAL VALVE Mild mitral valve regurgitation. AORTIC VALVE Trileaflet aortic valve. No aortic valve stenosis or regurgitation. TRICUSPID VALVE There is mild tricuspid valve regurgitation. The estimated pulmonary arterial pressure is 99.1 mmHg. There is estimated severe pulmonary hypertension present PULMONARY VALVE Mild pulmonary valve regurgitation. VESSELS The inferior vena cava is normal in size. PERICARDIUM There is a trivial pericardial effusion present. Mario Jacob MD (Electronically Signed) Final Date:08 June 2017 16:10
[2017-06-08] MEDS ORDERED: DEXTROSE 50% IN WATER 50 ML VIAL(D50) IV PUSH PRN (16:30)
[2017-06-08] MEDS ORDERED: GLUCAGON 1 MG/ML VIAL OTHER PRN (16:30)
[2017-06-08 16:34] VITALS: BP 160/80; PULSE 68; RESP 20; TEMP 98.2; O2SAT 70
[2017-06-08] MEDS: INSULIN ASPART SUPPLEMENTAL SCALE SQ SCH ×2 (17:00→20:17)
[2017-06-08] MEDS: buPROPion HCL 100 MG TAB PO SCH (18:24)
[2017-06-08 19:34] VITALS: BP 119/61; PULSE 61; RESP 17; TEMP 97.5; O2SAT 100
[2017-06-08] MEDS: ENALAPRIL MALEATE 5 MG TAB PO SCH (20:14)
--- NOTE | 2017-06-08 22:50 | EKG ---
Date Performed: 06/07/2017 Time Performed: 17:04:00 PTAGE: 46 years EKG: ELECTRONIC ATRIAL PACEMAKER MARKED RIGHT AXIS DEVIATION PATTERN CONSISTENT WITH PULMONARY D ISEASE RIGHT BUNDLE BRANCH BLOCK INFERIOR MYOCARDIAL INFARCTION ABNORMAL ECG PREVIOUS TRACING : 04/26/2017 20.00 Compared to the previous tracing atrial pacemaker rhythm is new DOCTOR: Cesar Elias Interpretating Date/Time 06/08/2017 22:49:20
[2017-06-08 23:12] VITALS: BP 116/59; PULSE 60; RESP 17; TEMP 97.8; O2SAT 97
[2017-06-09 03:58] VITALS: BP 106/57; PULSE 60; RESP 17; TEMP 97.9; O2SAT 97
[2017-06-09 07:03] VITALS: BP 133/60; PULSE 60; RESP 18; TEMP 97.6; O2SAT 99
--- NOTE | 2017-06-09 07:41 | HHI.PR ---
Subjective Remarks in no acute distress. denies chest pain or sob. feels weak. no other complaints. Objective Vitals Vital Signs Date Time Temp Pulse Resp B/P (MAP) Pulse Ox O2 Delivery O2 Flow Rate FiO2 06/09/17 07:03 97.6 60 18 133/60 (84) 99 06/09/17 03:58 97.9 60 17 106/57 (73) 97 06/08/17 23:12 97.8 60 17 116/59 (78) 97 06/08/17 19:34 97.5 61 17 119/61 (80) 100 06/08/17 16:34 98.2 68 20 160/80 (106) 70 06/08/17 08:53 98.2 80 20 163/81 (108) 96 I/O 06/08/17 06/08/17 06/08/17 06/09/17 06/09/17 06/09/17 07:00 15:00 23:00 07:00 15:00 23:00 Output Total 275 ml Balance -275 ml Output Urine Total 275 ml # Voids 3 Result Diagram: 06/07/17 1810 06/07/17 1810 Imaging Last Impressions Chest X-Ray 06/07/17 1719 Signed Impressions: Service Date/Time: June 17:28 - CONCLUSION: 1. Cardiomegaly. No acute pulmonary disease. Reilly Grajeda MD Carotid Artery Ultrasound 06/07/17 0000 Signed Impressions: Service Date/Time: June 20:18 - CONCLUSION: No evidence for hemodynamically significant stenosis. Ed Maki MD Objective Remarks GENERAL: This is a well-nourished, well-developed patient, in no apparent distress. CARDIOVASCULAR: Regular rate and regular rhythm without murmurs, gallops, or rubs. RESPIRATORY: Clear to auscultation. Breath sounds equal bilaterally. No wheezes , rales, or rhonchi. GASTROINTESTINAL: Abdomen soft, non-tender, nondistended. Normal, active bowel sounds MUSCULOSKELETAL: Extremities without clubbing, cyanosis, or edema. NEURO: Alert & Oriented x4 to person, place, time, situation. Moves all ext x4 Medications and IVs Inpatient Medications Amiodarone HCl (Cordarone) 200 mg DAILY PO ; Start 06/09/17 at 09:00 Bupropion HCl (Wellbutrin) 100 mg TID PO Last administered on 06/08/17at 18:24; Start 06/08/17 at 18:00 Carvedilol (Coreg) 6.25 mg BID PO Last administered on 06/08/17at 20:14; Start at 21:00 Dextrose (D50w (Vial) Inj) 50 ml UNSCH PRN IV PUSH HYPOGLYCEMIA-SEE COMMENTS; Start 06/08/17 at 16:30 Divalproex Sodium (Depakote Dr) 250 mg BID PO Last administered on 06/08/17at 09: 31; Start 06/07/17 at 21:00; Stop 06/08/17 at 15:36; Status DC Enalapril Maleate (Vasotec) 5 mg BID PO Last administered on 06/08/17at 20:14; Start 06/08/17 at 21:00 Glucagon (Glucagon Inj) 1 mg UNSCH PRN OTHER HYPOGLYCEMIA-SEE COMMENTS; Start 06/08/17 at 16:30 Insulin Aspart (NovoLOG SUPPLEMENTAL SCALE) 1 ACHS SLIDING SCALE SQ ; Start 06/08/17 at 17:00 Potassium Chloride (KCl) 20 meq DAILY PO Last administered on 06/08/17at 09:30; Start 06/08/17 at 09:00; Status Future Hold Sodium Chloride (NS Flush) 2 ml UNSCH PRN IV FLUSH FLUSH AFTER USING IV ACCESS ; Start 06/07/17 at 19:45 A/P Assessment and Plan 1. Syncope Hx of nonischemic cardiomyopathy Hx of congenital transition of the great vessels repaired at age 12 + LOC CHF, systolic, compensated Patient states his AICD fired, [employer]. Interrogation was done; no recent event- cardiology consult appreciated; will have a f/u as outpatient. carotid doppler with no significant stenosis. Patient with h/o paroxysmal A. fib, not currently anticoagulated EKG showed paced rhythm with right bundle branch block and T-wave inversions in V2/V3, unchanged from previous troponin negative x 3 Telemetry 2. History of paroxysmal atrial fibrillation [id number] score 2, not on anticoagulation Continue home amiodarone and carvedilol 3. MR Patient reportedly has been moving around to different family members. Apparently, DCF has been called and is to come into the hospital to see the patient. It appears they were contacted by the family themselves. Suspect patient will be a difficult placement issue. consulted case management to assist. 4. DM change to diabetic diet Accucheck and ISS hold home dose of Metformin for now FEN Heart healthy diabetic diet Electrolytes: monitor and replete prn SCDs consult PT. Discharge Planning dc home- pending PT and case management evaluation. Diana Anthony MD Jun 09, 2017 07:41
[2017-06-09] MEDS: SODIUM CHLORIDE 0.9% FLUSH 10 ML FLUSH IV FLUSH SCH (07:43)
[2017-06-09] MEDS: ENALAPRIL MALEATE 5 MG TAB PO SCH (07:44)
[2017-06-09] MEDS: CARVEDILOL 6.25 MG TAB PO SCH (07:44)
[2017-06-09] MEDS: INSULIN ASPART SUPPLEMENTAL SCALE SQ SCH ×2 (07:44→12:00)
[2017-06-09] MEDS: buPROPion HCL 100 MG TAB PO SCH (07:44)
[2017-06-09] MEDS ORDERED: AMIODARONE 200 MG TAB PO SCH (09:00)
--- NOTE | 2017-06-09 10:51 | HHI.FF ---
Face to Face Verification Diagnosis: (1) Poor balance (2) Non-ischemic cardiomyopathy (3) Syncope and collapse (4) Psychosocial impairment (5) Generalized weakness Physical Therapy Order: Evaluate and Treat, Improve ambulation, Strength and gait training I have seen patient Nora Perrin on 06/09/17. My clinical findings support the need for the requested home health care services because: Deconditioned w/ increased weakness Limited ability to care for self Need for psychosocial assistance Impaired cognition/judgement High risk of falls I certify that my clinical findings support that this patient is homebound because: Impaired cognitive ability/safety Unsteady gait/balance Unsafe to leave home unassisted Need for psychosocial assistance Unable to use public transportation Alexus Woodard Jun 09, 2017 10:51
[2017-06-09 11:28] VITALS: BP 105/58; PULSE 60; RESP 16; TEMP 98; O2SAT 99
== END 2017-06-09 15:20 | disposition home or self-care (01) ==
LOC: NEPD 15:00 → NEDA 19:44 → NEPFCDU 20:51
PROVIDERS: ADMIT Internal Medicine; ATTEND Internal Medicine
DX: R55 Syncope and collapse (principal); I42.8 Other cardiomyopathies; I48.0 Paroxysmal atrial fibrillation; Q20.3 Discordant ventriculoarterial connection; I11.0 Hypertensive heart disease with heart failure; I50.22 Chronic systolic (congestive) heart failure; E78.00 Pure hypercholesterolemia, unspecified; R07.9 Chest pain, unspecified; J44.9 Chronic obstructive pulmonary disease, unspecified; E11.9 Type 2 diabetes mellitus without complications; I25.2 Old myocardial infarction; Z95.0 Presence of cardiac pacemaker; R06.02 Shortness of breath; Z95.810 Presence of automatic (implantable) cardiac defibrillator; Z95.1 Presence of aortocoronary bypass graft; I27.20 Pulmonary hypertension, unspecified
CPT/HCPCS: 71045; 80053; 80164; 82550; 82948; 84484; 85025; 85610; 85730; 93005; 93306; 93880; 97163; 99285; G0378; G8987; G8988

== ENCOUNTER 2017-06-14 11:06 | Emergency (ER) | payer OTHER ==
[~2017-06-14] VITALS: Ht 180.3 cm; Wt 50.0 kg
[~2017-06-14 11:06] MED LIST changes: -DIVA250T PO; +ENAL5TAB PO; +METF500T PO
[2017-06-14 11:07] VITALS: BP 119/86; PULSE 107; RESP 18; TEMP 98.8; O2SAT 95
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
[2017-06-14 11:37] LABS: AUTOMATED NEUTROPHIL # 3.7 TH/MM3 (1.8-7.7); BASOPHIL % 0.4 % (0.0-2.0); EOSINOPHIL % 0.6 % (0.0-4.0); HEMATOCRIT 43.7 % (39.0-51.0); HEMOGLOBIN 14.7 GM/DL (13.0-17.0); LYMPH % 18.8 % (9.0-44.0); MEAN CELL VOLUME 83.3 FL (80.0-100.0); MEAN CORPUSCULAR HEMOGLOBIN 28.1 PG (27.0-34.0); MEAN CORPUSCULAR HGB CONC 33.7 % (32.0-36.0); MEAN PLATELET VOLUME 8.4 FL (7.0-11.0); MONO % 6.4 % (0.0-8.0); MONOCYTE # 0.3 TH/MM3 (0-0.9); NEUT % 73.8 % (16.0-70.0); PLATELET COUNT 145 TH/MM3 (150-450); RED BLOOD COUNT 5.24 MIL/MM3 (4.50-5.90); RED CELL DISTRIBUTION WIDTH 16.6 % (11.6-17.2); WHITE BLOOD COUNT 5.1 TH/MM3 (4.0-11.0)
[2017-06-14 11:40] LABS: INTERNATIONAL NORMALIZED RATIO 1.1 RATIO; PROTHROMBIN TIME - PATIENT 11.1 SEC (9.8-11.6)
[2017-06-14 11:56] LABS: BICARBONATE 27.4 MEQ/L (21.0-32.0); BLOOD UREA NITROGEN 25 MG/DL (7-18); CALCIUM 9.2 MG/DL (8.5-10.1); CHLORIDE 104 MEQ/L (98-107); CREATININE 1.34 MG/DL (0.60-1.30); GLOMERULAR FILTRATION RATE 69 ML/MIN (>89); GLUCOSE,RANDOM 190 MG/DL (74-106); MAGNESIUM 2.2 MG/DL (1.5-2.5); SODIUM (NA) 138 MEQ/L (136-145)
[2017-06-14 12:00] LABS: TROPONIN I LESS THAN 0.02 NG/ML (0.02-0.05)
[2017-06-14] MEDS ORDERED: METOPROLOL TARTRATE 5 MG/5 ML VIAL IV PUSH ONE (12:00)
[2017-06-14] MEDS ORDERED: LORazepam 2 MG/ML VIAL IV PUSH ONE (12:00)
--- NOTE | 2017-06-14 12:02 | RADRPT ---
EXAM DATE/TIME: 06/14/2017 11:49 [facility] COMPARISON: CHEST PA & LAT, April 08, 2017, 9:48. INDICATIONS : Chest pains mid-sternal. MEDICAL HISTORY : Myocardial infarction. SURGICAL HISTORY : CABG. Pacemaker. ENCOUNTER: Initial ACUITY: 1 day PAIN SCORE: 7/10 LOCATION: Bilateral chest FINDINGS: PA and lateral views of the chest demonstrate the lungs to be symmetrically aerated without evidence of mass, infiltrate or effusion. The cardiomediastinal contours are unremarkable. Osseous structure s are intact. The right subclavian transvenous pacer remains in place. There overlying electrocardiog keisha leads. The patient is status post remote median sternotomy with small sternal wires. CONCLUSION: No acute disease. Kj Caldwell MD on June 14, 2017 at 11:58 Board Certified Radiologist. This report was verified electronically.
[2017-06-14 12:12] VITALS: BP 127/83; PULSE 101; RESP 16; O2SAT 99
[2017-06-14] MEDS ORDERED: FUROSEMIDE 40 MG/4 ML VIAL IV PUSH ONE (12:15)
[2017-06-14 13:00] VITALS: BP 122/81; PULSE 82; RESP 14; O2SAT 99
--- NOTE | 2017-06-15 14:37 | EKG ---
Date Performed: 06/14/2017 Time Performed: 11:20:05 PTAGE: 46 years EKG: SINUS TACHYCARDIA MARKED RIGHT AXIS DEVIATION RIGHT BUNDLE BRANCH BLOCK INFERIOR MYOCARDIAL INFARCTION ST DEPRESSION, CONSIDER SUBENDOCARDIAL INJURY ABNORMAL ECG PREVIOUS TRACING : 06/07/2017 17.04 Consider anterior myocardial infarction - age indeterminate Inferior septal ischemia DOCTOR: Leon Bustillos Interpretating Date/Time 06/15/2017 14:37:33
== END 2017-06-14 13:20 | disposition home or self-care (01) ==
LOC: NEPE 11:06
DX: R00.2 Palpitations (principal); F41.9 Anxiety disorder, unspecified; R94.31 Abnormal electrocardiogram [ECG] [EKG]; E11.9 Type 2 diabetes mellitus without complications; E78.00 Pure hypercholesterolemia, unspecified; I11.0 Hypertensive heart disease with heart failure; I50.9 Heart failure, unspecified; I25.2 Old myocardial infarction; Z87.891 Personal history of nicotine dependence
CPT/HCPCS: 71046; 80048; 82550; 82552; 83735; 84484; 85025; 85610; 85730; 93005; 96374; 96375; 99285; J1940; J2060

== ENCOUNTER 2017-09-01 08:07 | Observation (INO) | payer OTHER ==
[~2017-09-01] VITALS: Ht 180.3 cm; Wt 85.0 kg
[2017-09-01 08:14] VITALS: BP 130/69; PULSE 60; RESP 19; TEMP 98.3; O2SAT 94
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
[2017-09-01] MEDS ORDERED: FURO20TA PO (08:26)
[2017-09-01] MEDS ORDERED: DIVA250T PO (08:26)
[2017-09-01] MEDS ORDERED: DIVA500T PO (08:26)
[2017-09-01] MEDS ORDERED: ATOR40TA16 PO (08:26)
[2017-09-01] MEDS ORDERED: SODIUM CHLORIDE 0.9% FLUSH 10 ML FLUSH IVF PRN (08:30)
[2017-09-01 08:41] LABS: AUTOMATED NEUTROPHIL # 3.8 TH/MM3 (1.8-7.7); BASOPHIL % 0.3 % (0.0-2.0); EOSINOPHIL % 0.6 % (0.0-4.0); HEMATOCRIT 38.8 % (39.0-51.0); MEAN CELL VOLUME 81.3 FL (80.0-100.0); MEAN CORPUSCULAR HEMOGLOBIN 27.2 PG (27.0-34.0); MEAN CORPUSCULAR HGB CONC 33.5 % (32.0-36.0); MEAN PLATELET VOLUME 8.7 FL (7.0-11.0); MONO % 8.3 % (0.0-8.0); MONOCYTE # 0.4 TH/MM3 (0-0.9); NEUT % 71.8 % (16.0-70.0); PLATELET COUNT 157 TH/MM3 (150-450); RED BLOOD COUNT 4.77 MIL/MM3 (4.50-5.90); RED CELL DISTRIBUTION WIDTH 17.3 % (11.6-17.2); WHITE BLOOD COUNT 5.3 TH/MM3 (4.0-11.0)
[2017-09-01 08:50] LABS: INTERNATIONAL NORMALIZED RATIO 1.1 RATIO
[2017-09-01 09:10] LABS: ALT (GPT) 26 U/L (12-78)
[2017-09-01 09:14] LABS: ALKALINE PHOSPHATASE 114 U/L (45-117); TOTAL BILIRUBIN ADULT 0.4 MG/DL (0.2-1.0); TOTAL PROTEIN 7.3 GM/DL (6.4-8.2); TROPONIN I LESS THAN 0.02 NG/ML (0.02-0.05)
[2017-09-01 09:19] LABS: AST (GOT) 20 U/L (15-37); BICARBONATE 25.4 MEQ/L (21.0-32.0); BLOOD UREA NITROGEN 30 MG/DL (7-18); CALCIUM 8.9 MG/DL (8.5-10.1); CHLORIDE 105 MEQ/L (98-107); CREATININE 1.45 MG/DL (0.60-1.30); GLOMERULAR FILTRATION RATE 63 ML/MIN (>89); GLUCOSE,RANDOM 194 MG/DL (74-106); SODIUM (NA) 139 MEQ/L (136-145)
--- NOTE | 2017-09-01 09:21 | RADRPT ---
EXAM DATE/TIME: 09/01/2017 08:32 [facility] COMPARISON: CHEST PA & LAT, June 14, 2017, 11:49. CHEST SINGLE AP, June 07, 2017, 17:28. INDICATIONS : Chest pain. MEDICAL HISTORY : Hypertension. SURGICAL HISTORY : Pacemaker. ENCOUNTER: Initial ACUITY: 1 day PAIN SCORE: 5/10 LOCATION: Bilateral chest FINDINGS: A single AP portable erect view of the chest was obtained and again demonstrates patient status post remote median sternotomy. The implantable right subclavian pacer device remains in place. There is a second implantable device which is stable. No new infiltrates or effusions. The heart size appears mi ldly prominent with no perihilar edema. The bony thorax is intact. CONCLUSION: 1. The heart size now appears mildly prominent with no perihilar edema. Kj Caldwell MD on September 01, 2017 at 9:17 Board Certified Radiologist. This report was verified electronically.
[2017-09-01] MEDS ORDERED: NITROGLYCERIN 0.4 MG SL 25 TABS/BTL SL PRN (10:30)
[2017-09-01] MEDS ORDERED: ONDANSETRON HCL 4 MG/2 ML VIAL IV PUSH PRN (10:30)
[2017-09-01] MEDS ORDERED: ACETAMINOPHEN 500 MG CPLT PO PRN (10:30)
[2017-09-01 12:17] LABS: TROPONIN I LESS THAN 0.02 NG/ML (0.02-0.05)
--- NOTE | 2017-09-01 13:02 | HHI.HP ---
HPI Primary Care Physician Dr. 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 Reports defibrillator "shocked him" this morning while getting ready to walk his dogs. Denies LOC after being shocked. After shock, notified his brother and sister in law who called EMS. Currently reports left anterior chest to feel "sore." No associated symptoms. Duration of chest "soreness" constant since AICD shock. Precipitating factor defibrillator shock. No relieving factors. No recent illness or fever. Patient is a poor historian and seems to have an underlying mental disability. Reports being illiterate and lives with his brother. Review of Systems General: No fatigue,weakness, fever, chills, or recent illness. Has been his general state of health. HEENT: No URIBE, no vision changes, no nasal congestion or drainage, no dysphasia CV: As stated above. No palpitations or dizziness. RESP: No SOB, cough, wheeze, or recent respiratory infection. Former smoker. GI: No nausea, vomiting, or bowel changes. No change in appetite, no unintentional weight gain or weight loss. : No dysuria, urgency, frequency EXT: No lower leg edema, no paraesthesias MS: No discomfort, injury, trauma, or change in ROM NEURO: No difficulty with balance, LOC, or motor/sensory deficits PSYCH: No anxiety, depression, or suicidal ideation. SKIN: No rashes, no concerning lesions Past Family Social History Allergies: Coded Allergies: aspirin (Unverified Allergy, Severe, DIZZINESS, FACIAL SWELLING, 09/01/17) Past Medical History Hypertension, type 2 diabetes [id number], hyperlipidemia, non- ischemic cardiomyopathy, congenial transposition of great vessel surgery, congestive heart failure, paroxysmal A. fib Past Surgical History Congenital transposition of great vessels, pacemaker/AICD Reported Medications Reported Meds & Active Scripts Active Reported Divalproex DR (Divalproex Sodium) 500 Mg Tabdr 500 Mg PO HS Divalproex DR (Divalproex Sodium) 250 Mg Tabdr 250 Mg PO DAILYAC Atorvastatin (Atorvastatin Calcium) 40 Mg Tab 40 Mg PO HS Furosemide 20 Mg Tab 20 Mg PO DAILY Metformin (Metformin HCl) 500 Mg Tab 500 Mg PO BIDAC With a meal Amiodarone (Amiodarone HCl) 200 Mg Tab 200 Mg PO DAILY Bupropion HCl 100 Mg Tab 100 Mg PO DAILY Carvedilol 6.25 Mg Tab 6.25 Mg PO BID Potassium Chloride ER (Potassium Chloride) 20 Meq Tab 20 Meq PO DAILY Active Ordered Medications Current Medications Medications (Trade) Dose Ordered Sig/Karina Route Start Time Stop Time Status Last Admin (NS Flush) 2 ml UNSCH PRN IVF 09/01/17 08:30 (NS Flush) 2 ml BID IV FLUSH 09/01/17 21:00 (Tylenol) 500 mg Q4H PRN PO 09/01/17 10:30 (Zofran Inj) 4 mg Q6H PRN IV PUSH 09/01/17 10:30 (Nitrostat Sl) 0.4 mg Q5M PRN SL 09/01/17 10:30 Family History Unknown Social History Former 2pack/day smoker. Reports quitting however unsure when. Disabled, single, lives with brother and sister in law. 2 children ages 12 and 18. Past cardiac testing He does not recall any recent cardiac testing. Followed with Dr. Man however reports Dr. Man sent him to another ground water pump installer he has not seen yet. States he follows with Dr. Roth. Per [facility] patient ground water pump installer is Dr. Hannah. June 2015-per medical records patient had cardiac catheterization (per Dr. Banegas note on 11/04/16) which found severe nonischemic cardiomyopathy. Physical Exam Vital Signs Vital Signs Date Time Temp Pulse Resp B/P (MAP) Pulse Ox O2 Delivery O2 Flow Rate FiO2 09/01/17 08:14 98.3 60 19 130/69 (89) 94 Physical Exam GENERAL: Alert WN, WD, NAD, pleasant, male with obvious mental disability. HEAD: NC, AT EYES: Sclera clear, conjunctiva without injection, pupils equal and round ENT: Mucous membranes pink and moist NECK: Supple, no masses, trachea midline CV: RRR, 3/6 systolic murmur, no JVD, S1-S2 no S3-S4. No carotid bruits. Chest wall nontender with palpation. RESP: Clear lungs throughout bilateral, no crackles, wheeze, rhonchi, symmetrical chest rise, nonlabored, able to speak in full sentences ABD: Soft, NT, ND, no masses, positive bowel tones EXT: Pulses +24, no dependent edema MS: Normal tone 4 extremities, no obvious deformities, full range of motion NEURO: CN II through CN XII grossly intact, motor strength 5/5, gait WNL PSYCH: A+O 3, pleasant affect, appropriate speech, mood. Does not appear to have appropriate insight and judgment. SKIN: Normal turgor, normal texture, no lesions, no rashes, multiple chest surgical scars Laboratory Laboratory Tests Test 09/01/17 08:17 09/01/17 11:25 White Blood Count 5.3 Red Blood Count 4.77 Hemoglobin 13.0 Hematocrit 38.8 Mean Corpuscular Volume 81.3 Mean Corpuscular Hemoglobin 27.2 Mean Corpuscular Hemoglobin Concent 33.5 Red Cell Distribution Width 17.3 Platelet Count 157 Mean Platelet Volume 8.7 Neutrophils (%) (Auto) 71.8 Lymphocytes (%) (Auto) 19.0 Monocytes (%) (Auto) 8.3 Eosinophils (%) (Auto) 0.6 Basophils (%) (Auto) 0.3 Neutrophils # (Auto) 3.8 Lymphocytes # (Auto) 1.0 Monocytes # (Auto) 0.4 Eosinophils # (Auto) 0.0 Basophils # (Auto) 0.0 CBC Comment DIFF FINAL Differential Comment Prothrombin Time 11.0 Prothromb Time International Ratio 1.1 Activated Partial Thromboplast Time 25.7 Blood Urea Nitrogen 30 Creatinine 1.45 Random Glucose 194 Total Protein 7.3 Albumin 4.0 Calcium Level 8.9 Alkaline Phosphatase 114 Aspartate Amino Transf (AST/SGOT) 20 Alanine Aminotransferase (ALT/SGPT) 26 Total Bilirubin 0.4 Sodium Level 139 Potassium Level 4.2 Chloride Level 105 Carbon Dioxide Level 25.4 Anion Gap 9 Estimat Glomerular Filtration Rate 63 Total Creatine Kinase 255 252 Creatine Kinase MB 1.2 1.2 Troponin I LESS THAN 0.02 LESS THAN 0.02 B-Type Natriuretic Peptide 89 Lipase 148 Result Diagram: 09/01/1781609/01/17816 Imaging Last 48 hours Impressions Chest X-Ray 09/01/17824 Signed Impressions: Service Date/Time: Friday, September 01, 2017 08:32 - CONCLUSION: 1. The heart size now appears mildly prominent with no perihilar edema. Kj Caldwell MD Course EKG Atrial paced, T wave inversion V2-V3 Caprini VTE Risk Assessment Caprini VTE Risk Assessment: No/Low Risk (score <= 1) Caprini Risk Assessment Model Point Value = 1 Point Value = 2 Point Value = 3 Point Value = 5 Age 41-60 Minor surgery BMI > 25 kg/m2 Swollen legs Varicose veins or History of unexplained or recurrent spontaneous Oral contraceptives or hormone replacement Sepsis (< 1 month) Serious lung disease, including pneumonia (< 1 month) Abnormal pulmonary function Acute myocardial infarction Congestive heart failure (< 1 month) History of inflammatory bowel disease Medical patient at bed rest Age 61-74 Arthroscopic surgery Major open surgery (> 45 min) Laparoscopic surgery (> 45 min) Malignancy Confined to bed (> 72 hours) Immobilizing plaster cast Central venous access Age >= 75 History of VTE Family history of VTE Factor V Leiden Prothrombin [id number] Lupus anticoagulant Anticardiolipin antibodies Elevated serum homocysteine Heparin-induced thrombocytopenia Other congenital or acquired thrombophilia Stroke (< 1 month) Elective arthroplasty Hip, pelvis, or leg fracture Acute spinal cord injury (< 1 month) Prophylaxis Regimen Total Risk Factor Score Risk Level Prophylaxis Regimen 0-1 Low Early ambulation 2 Moderate Order ONE of the following: *Sequential Compression Device (SCD) *Heparin 5000 units SQ BID 3-4 Higher Order ONE of the following medications: *Heparin 5000 units SQ TID *Enoxaparin/Lovenox 40 mg SQ daily (WT < 150 kg, CrCl > 30 mL/min) *Enoxaparin/Lovenox 30 mg SQ daily (WT < 150 kg, CrCl > 10-29 mL/min) *Enoxaparin/Lovenox 30 mg SQ BID (WT < 150 kg, CrCl > 30 mL/min) AND/OR *Sequential Compression Device (SCD) 5 or more Highest Order ONE of the following medications: *Heparin 5000 units SQ TID (Preferred with Epidurals) *Enoxaparin/Lovenox 40 mg SQ daily (WT < 150 kg, CrCl > 30 mL/min) *Enoxaparin/Lovenox 30 mg SQ daily (WT < 150 kg, CrCl > 10-29 mL/min) *Enoxaparin/Lovenox 30 mg SQ BID (WT < 150 kg, CrCl > 30 mL/min) AND *Sequential Compression Device (SCD) Assessment and Plan Assessment and Plan #1 Chest pain-admitted to chest pain center. Begin ruling out ACS with 3 sets of EKGs, cardiac enzymes, and monitor of telemetry.Will be seen and evaluated by Dr. Oscar Mcqueen. Interrogate pacemaker/defibrillator. Most likely no further cardiac testing will be required. Further recommendation after evaluation by Dr. Mcqueen. #2 Type II diabetes-SSI low dose coverage, hold Metformin at this time #3 Renal insufficiency-follow up with PCP #4 History of paroxysmal atrial fibrillation-continue amiodarone #5 History of nonischemic cardiomyopathy-continue Coreg and furosemide All other home medication will be ordered as previously ordered. 1515 Seen and evaluated by Dr. Oscar Mcqueen. Due to patient extensive cardiac history, no further cardiac testing required. Cardiac catheterization June of 2015 which indicated severe nonischemic cardiomyopathy. Suspecting patients AICD did not fire, will interrogate defibrillator to be certain. If AICD did not fire, plan is to discharge home later this evening. This has been discussed with family via telephone by Dr. Mcqueen. Due to extensive cardiac history if patient returns to ER for chest pain, admission to the [facility] would not be appropriate. Mindy Stokes Sep 01, 2017 13:01
[2017-09-01] MEDS ORDERED: buPROPion HCL 100 MG TAB PO SCH (13:15)
[2017-09-01] MEDS ORDERED: DIVALPROEX SODIUM DELAYED RELEASE 250 MG TAB PO SCH (13:15)
[2017-09-01] MEDS ORDERED: GLUCAGON 1 MG/ML VIAL OTHER PRN (13:15)
[2017-09-01] MEDS ORDERED: DEXTROSE 50% IN WATER 50 ML VIAL(D50) IV PUSH PRN (13:15)
[2017-09-01] MEDS ORDERED: AMIODARONE 200 MG TAB PO SCH (13:15)
[2017-09-01] MEDS ORDERED: POTASSIUM CHLORIDE 20 MEQ CONTROLLED RELEASE TAB PO SCH (13:15)
[2017-09-01] MEDS ORDERED: FUROSEMIDE 20 MG TAB PO SCH (13:15)
[2017-09-01 13:59] VITALS: BP 114/69; PULSE 72; RESP 14; TEMP 98; O2SAT 93
[2017-09-01 15:03] LABS: TROPONIN I 0.02 NG/ML (0.02-0.05)
[2017-09-01] MEDS: CARVEDILOL 6.25 MG TAB PO SCH ×2 (16:26→21:57)
--- NOTE | 2017-09-01 18:09 | EKG ---
Date Performed: 09/01/2017 Time Performed: 14:05:00 PTAGE: 46 years EKG: ELECTRONIC ATRIAL PACEMAKER MARKED RIGHT AXIS DEVIATION RIGHT BUNDLE BRANCH BLOCK INFERIOR MYOCARDIAL INFARCTION ABNORMAL ECG PREVIOUS TRACING : 09/01/2017 11.32 Since previous tracing, no significant change noted DOCTOR: Oscar Mcqueen Interpretating Date/Time 09/01/2017 18:08:55
--- NOTE | 2017-09-01 18:12 | EKG ---
Date Performed: 09/01/2017 Time Performed: 11:32:24 PTAGE: 46 years EKG: ELECTRONIC ATRIAL PACEMAKER RIGHT BUNDLE BRANCH BLOCK LEFT POSTERIOR FASCICULAR BLOCK INFER IOR MYOCARDIAL INFARCTION ABNORMAL ECG PREVIOUS TRACING : 09/01/2017 08.15 Since previous tracing, no significant change noted DOCTOR: Oscar Mcqueen Interpretating Date/Time 09/01/2017 18:10:34
--- NOTE | 2017-09-01 18:12 | EKG ---
Date Performed: 09/01/2017 Time Performed: 08:15:49 PTAGE: 46 years EKG: ELECTRONIC ATRIAL PACEMAKER PROBABLE LATERAL MYOCARDIAL INFARCTION MODERATE T-WAVE ABNORMAL ITY, CONSIDER ANTERIOR ISCHEMIA ABNORMAL ECG NO PREVIOUS TRACING DOCTOR: Oscar Mcqueen Interpretating Date/Time 09/01/2017 18:11:12
[2017-09-01] MEDS: INSULIN ASPART SUPPLEMENTAL SCALE SQ SCH ×2 (19:04→22:54)
[2017-09-01 20:20] VITALS: PULSE 60
[2017-09-01 20:23] VITALS: O2SAT 97
[2017-09-01] MEDS ORDERED: ATORVASTATIN 40 MG TAB PO SCH (21:00)
[2017-09-01] MEDS ORDERED: SODIUM CHLORIDE 0.9% FLUSH 10 ML FLUSH IV FLUSH SCH (21:00)
[2017-09-01 21:18] VITALS: BP 109/60; PULSE 60; RESP 16; TEMP 97.7; O2SAT 98
== END 2017-09-01 23:18 | disposition home or self-care (01) ==
LOC: NEPE 08:07 → NEDA 10:20 → NEPHCDU 13:40
DX: R07.9 Chest pain, unspecified (principal); J44.9 Chronic obstructive pulmonary disease, unspecified; I50.9 Heart failure, unspecified; I11.0 Hypertensive heart disease with heart failure; I48.0 Paroxysmal atrial fibrillation; Q20.3 Discordant ventriculoarterial connection; E78.00 Pure hypercholesterolemia, unspecified; E11.9 Type 2 diabetes mellitus without complications; E03.9 Hypothyroidism, unspecified; Z95.1 Presence of aortocoronary bypass graft; Z95.810 Presence of automatic (implantable) cardiac defibrillator
CPT/HCPCS: 71045; 80053; 82550; 82552; 82948; 83690; 83880; 84484; 85025; 85610; 85730; 93005; 99285; G0378; J1815

== ENCOUNTER 2017-09-04 12:21 | Inpatient (IN) | payer OTHER ==
[2017-09-04] VITALS (14 sets, daily range): BP systolic 108–131; BP diastolic 56–89; PULSE 60; RESP 16–20; TEMP 97.7–98; O2SAT 95–99
[~2017-09-04] VITALS: Ht 180.3 cm; Wt 84.6 kg
[~2017-09-04 12:21] MED LIST changes: +ATOR40TA16 PO; +DIVA250T PO; +DIVA500T PO; -ENAL5TAB PO; +FURO20TA PO
[2017-09-04] MEDS ORDERED: SODIUM CHLORIDE 0.9% FLUSH 10 ML FLUSH IVF PRN (12:45)
[2017-09-04 13:19] LABS: AUTOMATED NEUTROPHIL # 3.4 TH/MM3 (1.8-7.7); BASOPHIL % 0.4 % (0.0-2.0); EOSINOPHIL % 0.4 % (0.0-4.0); HEMATOCRIT 40.1 % (39.0-51.0); LYMPH % 25.9 % (9.0-44.0); LYMPHOCYTE # 1.4 TH/MM3 (1.0-4.8); MEAN CELL VOLUME 80.9 FL (80.0-100.0); MEAN CORPUSCULAR HEMOGLOBIN 28.2 PG (27.0-34.0); MEAN CORPUSCULAR HGB CONC 34.8 % (32.0-36.0); MEAN PLATELET VOLUME 8.4 FL (7.0-11.0); MONO % 9.6 % (0.0-8.0); MONOCYTE # 0.5 TH/MM3 (0-0.9); NEUT % 63.7 % (16.0-70.0); PLATELET COUNT 164 TH/MM3 (150-450); RED BLOOD COUNT 4.95 MIL/MM3 (4.50-5.90); RED CELL DISTRIBUTION WIDTH 16.6 % (11.6-17.2); WHITE BLOOD COUNT 5.3 TH/MM3 (4.0-11.0)
[2017-09-04 13:33] LABS: INTERNATIONAL NORMALIZED RATIO 1.1 RATIO
[2017-09-04 13:41] LABS: ALBUMIN 4.1 GM/DL (3.4-5.0); AST (GOT) 15 U/L (15-37); BICARBONATE 28.4 MEQ/L (21.0-32.0); BLOOD UREA NITROGEN 25 MG/DL (7-18); CALCIUM 9.2 MG/DL (8.5-10.1); CHLORIDE 105 MEQ/L (98-107); CREATININE 1.35 MG/DL (0.60-1.30); GLOMERULAR FILTRATION RATE 68 ML/MIN (>89); GLUCOSE,RANDOM 151 MG/DL (74-106); SODIUM (NA) 139 MEQ/L (136-145)
[2017-09-04 13:46] LABS: ALKALINE PHOSPHATASE 89 U/L (45-117); ALT (GPT) 26 U/L (12-78); TOTAL BILIRUBIN ADULT 0.5 MG/DL (0.2-1.0); TOTAL PROTEIN 7.6 GM/DL (6.4-8.2); TROPONIN I LESS THAN 0.02 NG/ML (0.02-0.05)
--- NOTE | 2017-09-04 13:57 | RADRPT ---
EXAM DATE/TIME: 09/04/2017 13:17 [facility] COMPARISON: CHEST SINGLE AP, September 01, 2017, 8:32. INDICATIONS : Chest pain, fell. MEDICAL HISTORY : Hypertension. SURGICAL HISTORY : Pacemaker. pt states open heart surgery. ENCOUNTER: Initial ACUITY: 1 day PAIN SCORE: 10/10 LOCATION: Bilateral chest FINDINGS: The cardiac silhouette is enlarged in transverse diameter. The lungs are free of acute parenchymal op acity. No effusions are identified. A bipolar pacemaker is in place via a right sided approach. Exter nal defibrillator is in place CONCLUSION: Cardiomegaly. No acute pulmonary disease. Reilly Grajeda MD on September 04, 2017 at 13:54 Board Certified Radiologist. This report was verified electronically.
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
[2017-09-04] MEDS ORDERED: DIVA250T PO (16:37)
--- NOTE | 2017-09-04 17:32 | HHI.HP ---
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 Device interrogated in ER- and confirmed VT, device promptly fired When asked further patient states that he lives with his brother and his girlfriend kicked him out this morning. Patient currently denies any pain denies any headache nausea vomiting. Hungry. Patient says I don't know to a lot of questions when asked about his medications patient states that it's all there in the bag and when I'd look at all these medication pills - were filled last June 21 and the count is still complete . Patient is childlike in demeanor with likely some psychosocial developmental delay mentally. He denies any fever or headache nausea vomiting chest pain shortness of breath abdominal pain or swelling of the legs. Review of Systems Constitutional: DENIES: Fever, Weight loss, Chills, Change in appetite Eyes: DENIES: Blurred vision, Double Vision Ears, nose, mouth, throat: DENIES: Tinnitus, Ear Pain, Epistaxis, Odynophagia Respiratory: DENIES: Cough, Hemoptysis, Sputum production, Shortness of breath Cardiovascular: DENIES: Chest pain, Palpitations, Dyspnea on Exertion, Lower Extremity Edema, Orthopnea Gastrointestinal: DENIES: Black stools, Bloody stools, Difficulty Swallowing, Anorexia Genitourinary: DENIES: Urgency, Hematuria, Penile Discharge Musculoskeletal: DENIES: Joint pain, Stiffness Integumentary: DENIES: Pruritus Hematologic/lymphatic: DENIES: Bruising Immunologic/allergic: DENIES: Urticaria Neurologic: DENIES: Headache, Speech Problems, Tremor Psychiatric: DENIES: Suicidal Ideation, Homicidal Ideation Past Family Social History Past Medical History History of hypertension Cardiomyopathy with ejection fraction of 35% status post AICD History of paroxysmal atrial fibrillation History of congenital heart disease transposition of aorta status post repair at 12 years of age Past Surgical History Cardiac surgery open heart surgery for transposition of aorta History of AICD placement Reported Medications Medication pill bottles Potassium 20 mEq daily Amiodarone 200 mg daily Coreg 6.25 mg twice a day Metformin 500 mg twice a except atorvastatin 40 mg at bedtime Furosemide 20 mg daily Depakote 250 mg daily Bupropion and 100 mg by mouth daily Allergies: Coded Allergies: aspirin (Unverified Allergy, Severe, DIZZINESS, FACIAL SWELLING, 09/04/17) Family History Noncontributory Social History Smokes occasionally 2-3 cigarettes a Denies alcohol or polysubstance abuse Physical Exam Vital Signs Vital Signs Date Time Temp Pulse Resp B/P (MAP) Pulse Ox O2 Delivery O2 Flow Rate FiO2 09/04/17 16:43 60 09/04/17 16:39 60 20 131/89 (103) 98 09/04/17 15:59 60 18 113/56 (75) 99 09/04/17 15:59 60 18 113/56 (75) 99 Room Air 09/04/17 12:48 98.0 60 18 123/68 (86) 98 Room Air 108/67 (81) 09/04/17 12:47 98.0 60 18 123/68 (86) 98 Room Air 09/04/17 12:39 60 18 98 Room Air 09/04/17 12:39 98.0 60 18 123/68 (86) 98 Room Air 09/04/17 12:35 98.0 60 17 123/69 (87) 95 Physical Exam GENERAL: Awake alert oriented 2, childlike in nature SKIN: No rashes, ecchymoses or lesions. Cool and dry. HEAD: Atraumatic. Normocephalic. No temporal or scalp tenderness. EYES: Pupils equal round and reactive. Extraocular motions intact. No scleral icterus. No injection or drainage. ENT: Nose without bleeding,. Throat without erythema, tonsillar hypertrophy or exudate. Uvula midline. Airway patent. NECK: Trachea midline. No JVD or lymphadenopathy. Supple, nontender, no meningeal signs. CARDIOVASCULAR: Regular rate and rhythm without murmurs, gallops, or rubs. RESPIRATORY: Clear to auscultation. Breath sounds equal bilaterally. No wheezes , rales, or rhonchi. GASTROINTESTINAL: Abdomen soft, non-tender, nondistended. No hepato-splenomegaly , or palpable masses. No guarding. MUSCULOSKELETAL: Extremities without clubbing, cyanosis, or edema. No joint tenderness, effusion, or edema noted. No calf tenderness. Negative Homans sign bilaterally. NEUROLOGICAL: Awake and alert. Cranial nerves II through XII intact. Motor and sensory grossly within normal limits. Five out of 5 muscle strength in all muscle groups. Normal speech. Laboratory Laboratory Tests Test 09/04/17 12:50 White Blood Count 5.3 Red Blood Count 4.95 Hemoglobin 14.0 Hematocrit 40.1 Mean Corpuscular Volume 80.9 Mean Corpuscular Hemoglobin 28.2 Mean Corpuscular Hemoglobin Concent 34.8 Red Cell Distribution Width 16.6 Platelet Count 164 Mean Platelet Volume 8.4 Neutrophils (%) (Auto) 63.7 Lymphocytes (%) (Auto) 25.9 Monocytes (%) (Auto) 9.6 Eosinophils (%) (Auto) 0.4 Basophils (%) (Auto) 0.4 Neutrophils # (Auto) 3.4 Lymphocytes # (Auto) 1.4 Monocytes # (Auto) 0.5 Eosinophils # (Auto) 0.0 Basophils # (Auto) 0.0 CBC Comment DIFF FINAL Differential Comment Prothrombin Time 11.0 Prothromb Time International Ratio 1.1 Activated Partial Thromboplast Time 28.0 Blood Urea Nitrogen 25 Creatinine 1.35 Random Glucose 151 Total Protein 7.6 Albumin 4.1 Calcium Level 9.2 Alkaline Phosphatase 89 Aspartate Amino Transf (AST/SGOT) 15 Alanine Aminotransferase (ALT/SGPT) 26 Total Bilirubin 0.5 Sodium Level 139 Potassium Level 4.1 Chloride Level 105 Carbon Dioxide Level 28.4 Anion Gap 6 Estimat Glomerular Filtration Rate 68 Troponin I LESS THAN 0.02 B-Type Natriuretic Peptide 70 Result Diagram: 09/04/17 1250 09/04/17 1250 Imaging Last Impressions Chest X-Ray 09/04/17 1245 Signed Impressions: Service Date/Time: Monday, September 04, 2017 13:17 - CONCLUSION: Cardiomegaly. No acute pulmonary disease. MD Juan Luis Beckwith VTE Risk Assessment Juan Luis VTE Risk Assessment: Mod/High Risk (score >= 2) Caprini Risk Assessment Model Point Value = 1 Point Value = 2 Point Value = 3 Point Value = 5 Age 41-60 Minor surgery BMI > 25 kg/m2 Swollen legs Varicose veins or History of unexplained or recurrent spontaneous Oral contraceptives or hormone replacement Sepsis (< 1 month) Serious lung disease, including pneumonia (< 1 month) Abnormal pulmonary function Acute myocardial infarction Congestive heart failure (< 1 month) History of inflammatory bowel disease Medical patient at bed rest Age 61-74 Arthroscopic surgery Major open surgery (> 45 min) Laparoscopic surgery (> 45 min) Malignancy Confined to bed (> 72 hours) Immobilizing plaster cast Central venous access Age >= 75 History of VTE Family history of VTE Factor V Leiden Prothrombin [id number] Lupus anticoagulant Anticardiolipin antibodies Elevated serum homocysteine Heparin-induced thrombocytopenia Other congenital or acquired thrombophilia Stroke (< 1 month) Elective arthroplasty Hip, pelvis, or leg fracture Acute spinal cord injury (< 1 month) Prophylaxis Regimen Total Risk Factor Score Risk Level Prophylaxis Regimen 0-1 Low Early ambulation 2 Moderate Order ONE of the following: *Sequential Compression Device (SCD) *Heparin 5000 units SQ BID 3-4 Higher Order ONE of the following medications: *Heparin 5000 units SQ TID *Enoxaparin/Lovenox 40 mg SQ daily (WT < 150 kg, CrCl > 30 mL/min) *Enoxaparin/Lovenox 30 mg SQ daily (WT < 150 kg, CrCl > 10-29 mL/min) *Enoxaparin/Lovenox 30 mg SQ BID (WT < 150 kg, CrCl > 30 mL/min) AND/OR *Sequential Compression Device (SCD) 5 or more Highest Order ONE of the following medications: *Heparin 5000 units SQ TID (Preferred with Epidurals) *Enoxaparin/Lovenox 40 mg SQ daily (WT < 150 kg, CrCl > 30 mL/min) *Enoxaparin/Lovenox 30 mg SQ daily (WT < 150 kg, CrCl > 10-29 mL/min) *Enoxaparin/Lovenox 30 mg SQ BID (WT < 150 kg, CrCl > 30 mL/min) AND *Sequential Compression Device (SCD) Assessment and Plan Assessment and Plan Patient is a 46-year-old male admitted for Syncopal episode S/P AICD firing. Interrogated and functioning. Cardiomyopathy- known low EF-S/P AICD - 35-40%- clinically not in failure- BNP 90 Non compliance with meds EMR shows multiple recurrent ER visits for above I checked his plastic bag- all his pill bottles dated 06/20/17 - untouched and pill # with complete count -from that discharge date when asked if he is taking his meds-" I don't know - I can't read" Restart medications - Amiodarone 200 mg daily , Coreg 6.25 mg daily bid, furosemide 20 mg daily. KCl 20 meq po daily Atorvastatin 40 mg at bedtime ff BMP. check TSH Cognitive/Psychosocial Impairment- likely with developmental delay- near baseline- Continue on Depakote 250 mg daily Bupropion once daily Chronic kidney disease likely from DM nephropathy- reviewed old admissions creatinine near baseline. all cardiac meds restarted Recheck BMP in a.m. Diabetes mellitus type 2. Will check hemoglobin A1c. Hold metformin with mildly elevated creatinine ADA diet.. Heart healthy diet check BS and record Case management consult for discharge planning.- Patient needs to be in a supervised environment- like a halfway to make sure that he takes his medication -now homeless- - kicked out of his brother's home by his sister in law Lovenox subcutaneous for DVT prophylaxis Discussed Condition With patient Physician Certification 2 Midnight Certification Type: Admission for Inpatient Services Order for Inpatient Services The services are ordered in accordance with Medicare regulations or non- Medicare payer requirements, as applicable. In the case of services not specified as inpatient-only, they are appropriately provided as inpatient services in accordance with the 2-midnight benchmark. Estimated LOS (days): 3 days is the estimated time the patient will need to remain in the hospital, assuming treatment plan goals are met and no additional complications. Post-Hospital Plan: Not yet determined Gagan Moody MD Sep 04, 2017 17:32
[2017-09-04] MEDS ORDERED: GLUCAGON 1 MG/ML VIAL OTHER PRN (18:00)
[2017-09-04] MEDS ORDERED: DEXTROSE 50% IN WATER 50 ML VIAL(D50) IV PUSH PRN (18:00)
[2017-09-04] MEDS: ATORVASTATIN 40 MG TAB PO SCH (21:03)
[2017-09-04] MEDS: CARVEDILOL 6.25 MG TAB PO SCH (21:03)
[2017-09-05] VITALS (26 sets, daily range): BP systolic 90–111; BP diastolic 49–67; PULSE 59–84; RESP 16–20; TEMP 97.7–98.4; O2SAT 95–98
[2017-09-05 07:05] LABS: ALBUMIN 3.8 GM/DL (3.4-5.0); AST (GOT) 16 U/L (15-37); BICARBONATE 26.4 MEQ/L (21.0-32.0); BLOOD UREA NITROGEN 21 MG/DL (7-18); CALCIUM 8.9 MG/DL (8.5-10.1); CHLORIDE 102 MEQ/L (98-107); CREATININE 1.19 MG/DL (0.60-1.30); GLOMERULAR FILTRATION RATE 79 ML/MIN (>89); GLUCOSE,RANDOM 141 MG/DL (74-106); SODIUM (NA) 138 MEQ/L (136-145)
[2017-09-05 07:07] LABS: ALT (GPT) 25 U/L (12-78)
[2017-09-05 07:16] LABS: ALKALINE PHOSPHATASE 81 U/L (45-117); TOTAL BILIRUBIN ADULT 0.6 MG/DL (0.2-1.0)
[2017-09-05] MEDS ORDERED: ENOXAPARIN SODIUM 30 MG/0.3 ML SYRINGE SQ SCH (09:00)
[2017-09-05] MEDS: buPROPion HCL 100 MG TAB PO SCH (09:04)
[2017-09-05] MEDS: CARVEDILOL 6.25 MG TAB PO SCH ×2 (09:04→20:40)
[2017-09-05] MEDS: FUROSEMIDE 20 MG TAB PO SCH (09:04)
[2017-09-05] MEDS: DIVALPROEX SODIUM DELAYED RELEASE 250 MG TAB PO SCH (09:05)
[2017-09-05] MEDS: AMIODARONE 200 MG TAB PO SCH (09:06)
[2017-09-05] MEDS ORDERED: BISACODYL 10 MG SUPP RECTAL PRN (12:30)
[2017-09-05] MEDS ORDERED: ACETAMINOPHEN 325 MG TAB PO PRN ×2 (12:30)
[2017-09-05] MEDS ORDERED: GLUCAGON 1 MG/ML VIAL OTHER PRN (12:30)
[2017-09-05] MEDS ORDERED: LACTULOSE SYRUP 20 GM/30 ML CUP PO PRN (12:30)
[2017-09-05] MEDS ORDERED: cloNIDine HCL 0.1 MG TAB PO PRN (12:30)
[2017-09-05] MEDS ORDERED: MAGNESIUM HYDROXIDE SUSP 30 ML CUP PO PRN (12:30)
[2017-09-05] MEDS ORDERED: DEXTROSE 50% IN WATER 50 ML VIAL(D50) IV PUSH PRN ×2 (12:30→13:15)
[2017-09-05] MEDS ORDERED: METOCLOPRAMIDE HCL 10 MG/2 ML VIAL IV PUSH PRN (12:30)
[2017-09-05] MEDS ORDERED: NALOXONE HCL 0.4 MG/ML AMP IV PUSH PRN (12:30)
[2017-09-05] MEDS ORDERED: oxyCODONE/ACETAMINOPHEN 5 MG/325 MG TAB PO PRN (12:30)
[2017-09-05] MEDS ORDERED: ONDANSETRON HCL 4 MG/2 ML VIAL IVP PRN (12:30)
[2017-09-05] MEDS ORDERED: SENNOSIDES 8.6 MG TAB PO PRN (12:30)
[2017-09-05] MEDS ORDERED: oxyCODONE/ACETAMINOPHEN 10 MG/325 MG TAB PO PRN (12:30)
[2017-09-05] MEDS ORDERED: MORPHINE SULFATE 2 MG/ML SYRINGE IV PUSH PRN ×3 (12:30)
--- NOTE | 2017-09-05 12:31 | HHI.PR ---
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 Device interrogated in ER- and confirmed VT, device promptly fired When asked further patient states that he lives with his brother and his girlfriend kicked him out this morning. Patient currently denies any pain denies any headache nausea vomiting. Hungry. Patient says I don't know to a lot of questions when asked about his medications patient states that it's all there in the bag and when I'd look at all these medication pills - were filled last June 21 and the count is still complete . Patient is childlike in demeanor with likely some psychosocial developmental delay mentally. He denies any fever or headache nausea vomiting chest pain shortness of breath abdominal pain or swelling of the legs. 4-4 discussed with patient and RN and case management Patient does not seem to understand his medical problems completely Has an AICD on the left side of his chest/abdomen Has some atypical chest pain tender on palpation Objective Vitals Vital Signs Date Time Temp Pulse Resp B/P (MAP) Pulse Ox O2 Delivery O2 Flow Rate FiO2 09/05/17 11:00 97.7 60 18 111/67 (82) 97 09/05/17 09:54 98.3 84 20 104/65 (78) 95 09/05/17 07:00 60 09/05/17 06:00 60 09/05/17 05:00 60 09/05/17 04:00 60 09/05/17 03:00 97.9 60 16 90/49 (63) 98 09/05/17 03:00 60 09/05/17 02:00 60 09/05/17 01:00 60 09/05/17 00:00 60 09/04/17 23:00 97.7 60 16 116/70 (85) 99 09/04/17 23:00 60 09/04/17 22:00 60 09/04/17 21:00 60 09/04/17 20:00 60 09/04/17 20:00 97.8 60 16 124/75 (91) 97 09/04/17 19:00 60 09/04/17 18:00 60 09/04/17 17:00 60 09/04/17 16:43 60 09/04/17 16:39 60 20 131/89 (103) 98 09/04/17 15:59 60 18 113/56 (75) 99 09/04/17 15:59 60 18 113/56 (75) 99 Room Air 09/04/17 12:48 98.0 60 18 123/68 (86) 98 Room Air 108/67 (81) 09/04/17 12:47 98.0 60 18 123/68 (86) 98 Room Air 09/04/17 12:39 60 18 98 Room Air 09/04/17 12:39 98.0 60 18 123/68 (86) 98 Room Air 09/04/17 12:35 98.0 60 17 123/69 (87) 95 I/O 09/04/17 09/04/17 09/04/17 09/05/17 09/05/17 09/05/17 07:00 15:00 23:00 07:00 15:00 23:00 Intake Total 480 ml 480 ml Output Total 1300 ml Balance 480 ml -820 ml Intake Oral 480 ml 480 ml Output Urine Total 1300 ml # Bowel Movements 0 Result Diagram: 09/04/17 1250 09/05/17 0456 Other Results Laboratory Tests Test 09/04/17 12:50 09/05/17 04:56 White Blood Count 5.3 TH/MM3 Red Blood Count 4.95 MIL/MM3 Hemoglobin 14.0 GM/DL Hematocrit 40.1 % Mean Corpuscular Volume 80.9 FL Mean Corpuscular Hemoglobin 28.2 PG Mean Corpuscular Hemoglobin Concent 34.8 % Red Cell Distribution Width 16.6 % Platelet Count 164 TH/MM3 Mean Platelet Volume 8.4 FL Neutrophils (%) (Auto) 63.7 % Lymphocytes (%) (Auto) 25.9 % Monocytes (%) (Auto) 9.6 % Eosinophils (%) (Auto) 0.4 % Basophils (%) (Auto) 0.4 % Neutrophils # (Auto) 3.4 TH/MM3 Lymphocytes # (Auto) 1.4 TH/MM3 Monocytes # (Auto) 0.5 TH/MM3 Eosinophils # (Auto) 0.0 TH/MM3 Basophils # (Auto) 0.0 TH/MM3 CBC Comment DIFF FINAL Differential Comment Prothrombin Time 11.0 SEC Prothromb Time International Ratio 1.1 RATIO Activated Partial Thromboplast Time 28.0 SEC Blood Urea Nitrogen 25 MG/DL 21 MG/DL Creatinine 1.35 MG/DL 1.19 MG/DL Random Glucose 151 MG/DL 141 MG/DL Total Protein 7.6 GM/DL 7.0 GM/DL Albumin 4.1 GM/DL 3.8 GM/DL Calcium Level 9.2 MG/DL 8.9 MG/DL Alkaline Phosphatase 89 U/L 81 U/L Aspartate Amino Transf (AST/SGOT) 15 U/L 16 U/L Alanine Aminotransferase (ALT/SGPT) 26 U/L 25 U/L Total Bilirubin 0.5 MG/DL 0.6 MG/DL Sodium Level 139 MEQ/L 138 MEQ/L Potassium Level 4.1 MEQ/L 4.1 MEQ/L Chloride Level 105 MEQ/L 102 MEQ/L Carbon Dioxide Level 28.4 MEQ/L 26.4 MEQ/L Anion Gap 6 MEQ/L 10 MEQ/L Estimat Glomerular Filtration Rate 68 ML/MIN 79 ML/MIN Troponin I LESS THAN 0.02 NG/ML B-Type Natriuretic Peptide 70 PG/ML Thyroid Stimulating Hormone 3rd Gen 4.980 uIU/ML Imaging Last Impressions Chest X-Ray 09/04/17 1245 Signed Impressions: Service Date/Time: Monday, September 04, 2017 13:17 - CONCLUSION: Cardiomegaly. No acute pulmonary disease. Reilly Grajeda MD Objective Remarks GENERAL: Awake and alert talkative and cooperative has some childlike features to his demeanor --does not completely grasp all the conceptS here in the hospital SKIN: Warm and dry. HEAD: Atraumatic. Normocephalic. EYES: Pupils equal and round. No scleral icterus. No injection or drainage. Extraocular muscles intact ENT: No nasal bleeding or discharge. Mucous membranes pink and moist. Tongue is midline NECK: Trachea midline. No JVD. Supple CARDIOVASCULAR: Regular rate and rhythm. S1-S2 no S3-S4 chest wall tenderness is to be on left side of chest abdomen RESPIRATORY: No accessory muscle use. Clear to auscultation. Breath sounds equal bilaterally. GASTROINTESTINAL: Abdomen soft, non-tender, nondistended. Hepatic and splenic margins not palpable. MUSCULOSKELETAL: Extremities without clubbing, cyanosis, or edema. No obvious deformities. NEUROLOGICAL: Awake and alert. No obvious cranial nerve deficits. Motor grossly within normal limits. Five out of 5 muscle strength in the arms and legs. Normal speech. PSYCHIATRIC: INAppropriate mood and affect; insight and judgment ABnormal. Medications and IVs Current Medications Sodium Chloride (NS Flush) 2 ml UNSCH PRN IVF FLUSH AFTER USING IV ACCESS; Start 09/04/17 at 12:45 Amiodarone HCl (Cordarone) 200 mg DAILY PO Last administered on 09/05/17 09:06 ; Start 09/05/17 at 09:00 Atorvastatin Calcium (Lipitor) 40 mg HS PO Last administered on 09/04/17 21:03 ; Start 09/04/17 at 21:00 Bupropion HCl (Wellbutrin) 100 mg DAILY PO Last administered on 09/05/17 09:04 ; Start 09/05/17 at 09:00 Carvedilol (Coreg) 6.25 mg BID PO Last administered on 09/05/17 09:04; Start at 21:00 Divalproex Sodium (Depakote Dr) 250 mg DAILYAC PO Last administered on 09:05; Start 09/05/17 at 08:00 Furosemide (Lasix) 20 mg DAILY PO Last administered on 09/05/17 09:04; Start at 09:00 Enoxaparin Sodium (Lovenox Inj) 30 mg Q24H SQ Last administered on 09/05/17 09: 07; Start 09/05/17 at 09:00 Dextrose (D50w (Vial) Inj) 50 ml UNSCH PRN IV PUSH HYPOGLYCEMIA-SEE COMMENTS; Start 09/04/17 at 18:00 Glucagon (Glucagon Inj) 1 mg UNSCH PRN OTHER HYPOGLYCEMIA-SEE COMMENTS; Start 09/04/17 at 18:00 A/P Problem List: (1) ICD (implantable cardioverter-defibrillator) discharge ICD Code: Z45.02 - Encounter for adjustment and management of automatic implantable cardiac defibrillator Status: Acute (2) chronic kidney insufficiency stage III (3) DM (diabetes mellitus) ICD Code: E11.9 - Type 2 diabetes mellitus without complications Status: Chronic Assessment and Plan Patient is a 46-year-old male admitted for Syncopal episode S/P AICD firing. Interrogated and functioning. Cardiomyopathy- known low EF-S/P AICD - 35-40%- clinically not in failure- BNP 90 Non compliance with meds EMR shows multiple recurrent ER visits for above I checked his plastic bag- all his pill bottles dated 06/20/17 - untouched and pill # with complete count -from that discharge date when asked if he is taking his meds-" I don't know - I can't read" Restart medications - Amiodarone 200 mg daily , Coreg 6.25 mg daily bid, furosemide 20 mg daily. KCl 20 meq po daily Atorvastatin 40 mg at bedtime ff BMP. check TSH Cognitive/Psychosocial Impairment- likely with developmental delay- near baseline- Continue on Depakote 250 mg daily Bupropion once daily Chronic kidney disease likely from DM nephropathy- reviewed old admissions creatinine near baseline. all cardiac meds restarted Recheck BMP in a.m. Diabetes mellitus type 2. Will check hemoglobin A1c. Hold metformin with mildly elevated creatinine ADA diet.. Heart healthy diet check BS and record Accu-Cheks before meals and at bedtime with sliding scale coverage We will check a CAT scan of his head due to syncope and states he hit his head on the concrete Case management consult for discharge planning.- Patient needs to be in a supervised environment- like a [facility] to make sure that he takes his medication -now homeless- - kicked out of his brother's home by his sister in law Lovenox subcutaneous for DVT prophylaxis Discharge Planning Pending cardiac clearance and case management help for discharge Bill Kulkarni DO Sep 05, 2017 12:31
--- NOTE | 2017-09-05 13:21 | EKG ---
Date Performed: 09/04/2017 Time Performed: 13:01:03 PTAGE: 46 years EKG: ELECTRONIC ATRIAL PACEMAKER LATERAL MYOCARDIAL INFARCTION INFERIOR MYOCARDIAL INFARCTION *ACUTE HI PREVIOUS TRACING : 09/01/2017 14.05 DOCTOR: Don Orlando Interpretating Date/Time 09/05/2017 13:20:03
[2017-09-05] MEDS: INSULIN ASPART SUPPLEMENTAL SCALE SQ SCH ×2 (17:00→21:00)
--- NOTE | 2017-09-05 17:20 | RADRPT ---
EXAM DATE/TIME: 09/05/2017 16:16 [facility] COMPARISON: CT THORAX W/O CONTRAST, November 28, 2016, 20:02. INDICATIONS : Syncope. RADIATION DOSE: 56.35 CTDIvol (mGy) MEDICAL HISTORY : Hypertension. Chronic obstructive pulmonary disease. Cardiovascular disease SURGICAL HISTORY : Pacemaker. ENCOUNTER: Initial ACUITY: 1 day PAIN SCALE: 0/10 LOCATION: cranial TECHNIQUE: Multiple contiguous axial images were obtained of the head. Using automated exposure control and adj ustment of the mA and/or kV according to patient size, radiation dose was kept as low as reasonably a chievable to obtain optimal diagnostic quality images. DICOM format image data is available electro nically for review and comparison. FINDINGS: CEREBRUM: The ventricles are normal for age. No evidence of midline shift, mass lesion, hemorrhage or acute in farction. No extra-axial fluid collections are seen. POSTERIOR FOSSA: The cerebellum and brainstem are intact. The 4th ventricle is midline. The cerebellopontine angle i s unremarkable. EXTRACRANIAL: The visualized portion of the orbits is intact. There appears be an old nasal bone fracture. SKULL: The calvaria is intact. No evidence of skull fracture. CONCLUSION: 1. No acute intracranial abnormality identified. Duke Marcus MD on September 05, 2017 at 17:16 Board Certified Radiologist. This report was verified electronically.
[2017-09-05] MEDS: ATORVASTATIN 40 MG TAB PO SCH (20:40)
[2017-09-05] MEDS: DOCUSATE SODIUM 50 MG/SENNA 8.6 MG TAB PO SCH (20:40)
[2017-09-05 20:47] LABS: HEMOGLOBIN A1C 7.2 % (4.3-6.0)
[2017-09-06] VITALS (26 sets, daily range): BP systolic 102–117; BP diastolic 54–74; PULSE 59–106; RESP 16–20; TEMP 98–98.4; O2SAT 95–98
[2017-09-06 07:08] LABS: AUTOMATED NEUTROPHIL # 2.8 TH/MM3 (1.8-7.7); BASOPHIL % 0.4 % (0.0-2.0); EOSINOPHIL % 0.9 % (0.0-4.0); HEMATOCRIT 41.2 % (39.0-51.0); HEMOGLOBIN 14.1 GM/DL (13.0-17.0); LYMPH % 29.8 % (9.0-44.0); LYMPHOCYTE # 1.4 TH/MM3 (1.0-4.8); MEAN CELL VOLUME 81.3 FL (80.0-100.0); MEAN CORPUSCULAR HEMOGLOBIN 27.8 PG (27.0-34.0); MEAN CORPUSCULAR HGB CONC 34.2 % (32.0-36.0); MEAN PLATELET VOLUME 8.4 FL (7.0-11.0); MONO % 8.8 % (0.0-8.0); MONOCYTE # 0.4 TH/MM3 (0-0.9); NEUT % 60.1 % (16.0-70.0); PLATELET COUNT 165 TH/MM3 (150-450); RED BLOOD COUNT 5.06 MIL/MM3 (4.50-5.90); RED CELL DISTRIBUTION WIDTH 16.8 % (11.6-17.2); WHITE BLOOD COUNT 4.7 TH/MM3 (4.0-11.0)
[2017-09-06 07:15] LABS: ALBUMIN 3.7 GM/DL (3.4-5.0); ALT (GPT) 22 U/L (12-78); AST (GOT) 17 U/L (15-37); BICARBONATE 28.5 MEQ/L (21.0-32.0); BLOOD UREA NITROGEN 21 MG/DL (7-18); CHLORIDE 102 MEQ/L (98-107); CREATININE 1.18 MG/DL (0.60-1.30); GLOMERULAR FILTRATION RATE 80 ML/MIN (>89); GLUCOSE,RANDOM 133 MG/DL (74-106); MAGNESIUM 2.3 MG/DL (1.5-2.5); PHOSPHORUS 2.7 MG/DL (2.5-4.9); SODIUM (NA) 137 MEQ/L (136-145)
[2017-09-06 07:24] LABS: ALKALINE PHOSPHATASE 82 U/L (45-117); FREE T4 1.07 NG/DL (0.76-1.46); TOTAL BILIRUBIN ADULT 0.6 MG/DL (0.2-1.0); TOTAL PROTEIN 7.1 GM/DL (6.4-8.2)
[2017-09-06] MEDS: INSULIN ASPART SUPPLEMENTAL SCALE SQ SCH ×4 (08:00→22:46)
[2017-09-06] MEDS: ENALAPRIL MALEATE 2.5 MG TAB PO SCH ×2 (09:15→22:46)
--- NOTE | 2017-09-06 09:19 | MB ---
cc: Dallin Wadsworth MD, Alfea M MD Wang,Zak Wadsworth,Dallin Aponte MD DATE: 09/06/2017 REFERRING PHYSICIAN: Dr. Gagan Moody. REASON FOR CONSULTATION: Cardiomyopathy and ICD discharge therapy. HISTORY OF PRESENT ILLNESS: I am seeing this patient in consultation today at the request of Dr. Hannah. Mr. Ramirez is a 46-year-old male with a history of transposition of the great vessels status post repair at age [age] years old, atrial and ventricular arrhythmias and nonischemic cardiomyopathy with moderate left ventricular dysfunction, and congestive heart failure. The patient had what he described as a "falling out" episode yesterday witnessed by his [id number]. The patient said he was in a chair when this occurred and he did not injure himself. There was no loss of bladder or bowel continence. There was no seizure activity reported. The patient was taken to the emergency room. His subcutaneous ICD was interrogated and did show appropriate therapy for sustained ventricular tachycardia. He has been asymptomatic since admission. The patient is a very poor historian and has had multiple repeat hospitalizations for these events, as well as other issues like atypical chest discomfort. The patient's living situation is somewhat tenuous and he claims to move between different family members houses. He tells me he is unable to read and I suspect that he has not been getting his medications consistently or appropriately. He tells me that his medications are in the bottles that he brings, but a lot of them are mixed up. MEDICATIONS: The current medications that he is receiving here at this time includes: 1. Lovenox 40 mg subcutaneous every 24 hours. 2. NovoLog sliding scale insulin. 3. Catapres 0.1 mg every 4 hours p.r.n. elevated blood pressure. 4. Tylenol 650 mg p.r.n. fever. 5. Morphine 2 mg IV 3 hours p.r.n. pain. 6. Carvedilol 6.25 mg p.o. twice a day. 7. Furosemide 20 mg p.o. daily. 8. Wellbutrin 100 mg p.o. daily. 9. Amiodarone 200 mg p.o. daily. 10. He had previously he had been on enalapril 5 mg twice a day and atorvastatin 40 mg daily. On review of his previous records, he was felt to be a candidate for anticoagulation therapy for stroke prophylaxis due to his atrial fibrillation and elevated CHADS-VASc score, but that has been withheld because of poor medication compliance and concerns about safety. ALLERGIES: ASPIRIN. PAST MEDICAL HISTORY: As mentioned above, he has history of nonischemic cardiomyopathy, diabetes mellitus type 2, hyperlipidemia, paroxysmal atrial fibrillation and atrial flutter, ventricular tachycardia, chronic kidney disease. PRIOR SURGICAL HISTORY: Includes: Cardiac catheterization, although that report is not available. It reportedly showed a nonischemic cardiomyopathy with no significant coronary disease based upon previous records. However, he did have a nuclear pharmacologic stress test back on 06/22/2017 at this institution, which did not reveal any ischemia, but did show severe left ventricular dysfunction and an ejection fraction of 29% and evidence of anterior-lateral and inferior wall infarcts. Other surgical history includes: Permanent pacemaker implant, which was remote around 06/2009. His initial pacemaker placed many years ago, but the pacemaker change out was performed in 06/2009. His pacemaker site was changed from the left side to the right side for some reason. He did develop a site infection on the left after that, that was treated successfully. He continues to have a functioning pacemaker on the right side. He also has a subcutaneous ICD implanted in the left lateral abdomen. ICD at this time on the left side in the left lateral chest. Other surgery performed was a canthotomy with cantholysis due to retrobulbar hematoma secondary to trauma back on 09/27/2015. He apparently had a transposition of the great vessel repair at age 12. FAMILY HISTORY: Noncontributory and unknown. SOCIAL HISTORY: The patient was a previous cigarette smoker and also smoked some marijuana, but he says that he denies any alcohol or drug use at this time. REVIEW OF SYSTEMS: Except for that mentioned in the HPI is otherwise negative. PHYSICAL EXAMINATION: GENERAL: This is a middle-aged male, well developed and in no distress at this time. VITAL SIGNS: Blood pressure is 106/56 mmHg, heart rate is 60 and regular, respiratory rate 18, temperature 97.7, oxygen saturation is 95% on room air. HEENT: Head is normocephalic and atraumatic. Pupils equal, round, reactive to light. Sclerae are anicteric. Extraocular movements intact. NECK: Supple. There is no adenopathy. No jugular venous distention at 45 degrees. Carotid upstrokes are normal. No bruits. Thyroid exam is normal. LUNGS: Clear. HEART: PMI is laterally displaced and diffuse. S1, S2 are normal. There is a grade 2-3/6 systolic murmur across the precordium. No diastolic murmur, gallops, or rubs. CHEST: There is a scar in the left upper chest from the previous pacemaker implant. There is an existing pacemaker in the right subclavian area, the site healed well. An AICD is found in the left lower lateral chest. The site is tender, but healed well and there is no evidence of infection. ABDOMEN: Bowel sounds present. Soft, nontender. No hepatosplenomegaly, masses or bruits. EXTREMITIES: No cyanosis, clubbing, or edema. Pulses are +4 bilaterally throughout the upper and lower extremities. There are no femoral bruits. NEUROLOGIC: The patient is awake, alert, and exam is nonfocal. It does appear that his functional level is decreased for age. IMAGING: Imaging from yesterday shows a CT scan of the head: No acute intracranial abnormality. A chest x-ray from yesterday, no acute pulmonary disease. An EKG shows an electronic atrial pacing with intrinsic ventricular conduction. Rate 60. There are lateral T-wave abnormalities. Small inferior Q-waves are noted. QRS duration is 120 milliseconds. QTc is 410 milliseconds. There is no change from previous EKGs. LABORATORY DATA: CBC from today is normal. Coags are normal. Chemistries are normal. Potassium 4.3, BUN 21, creatinine 1.18, glucose 133, calcium 9.0, magnesium 2.3, AST 17. BNP on admission was 70. TSH 4.98. IMPRESSION: 1. History of nonischemic cardiomyopathy and moderate to severe left ventricular dysfunction, currently compensated. 2. Appropriate implantable cardioverter-defibrillator therapy for VT. 3. Chronic systolic congestive heart failure, compensated. 4. History of paroxysmal atrial fibrillation and flutter currently in atrial paced rhythm. 5. Syncopy dsecondary to ventricular tachycardia. 6. Congenital heart disease with transposition of the great vessels status post repair at age 12. 7. Status post permanent dual-chamber pacemaker implant functioning normally. 8. Status post transcutaneous implantable cardioverter-defibrillator implant functioning normally. 9. Medication and follow up compliance issues. RECOMMENDATIONS: No further workup is needed for the recent appropriate ICD therapy. Electrolytes are nomal. I suspect he has not been comliant with his medications at home. radio survey worker and Animal Care Giver have been consulted. The patient's living situation may need improvement. The patient tells me he is unable to read and will need significant assistance. He also has no transportation available to him to get to doctors appointments that are needed. I had a long discussion with the patient about the importance of close followup. He would benefit from long-term anticoagulation therapy, but I do agree that this would probably be unsafe until his living situation and his medication compliance is assured. Additionally, he will need followup with Dr. Hannah in the next 2 weeks and going forward for reevaluation of his implantable defibrillator and pacemaker. He should be restarted on CITLALY inhibitor therapy because of his decreased ejection fraction and history of congestive heart failure as tolerated by blood pressure. I will restart enalapril 2.5 mg p.o. twice a day. Continue all his other prior medications as before. I will also make an outpatient referral to Dr. Maisha Arguello, the adult congenital switching operator from who has a local office here at [place]. Otherwise, as soon as his home living situation is worked out by case workers, he can be safely discharged to home. Continue his other previous home medications as scheduled. Once his living situation and assurance that he will receive his medications and improved transportation issues, he can be discharged from a cardiac standpoint. I discussed this case and my recommendations at length today with the patients nurse, KIM Mcwilliams and Daniela the social insurance administrator on the case. I will be available as needed. Thank you for allowing us to participate in the care of this patient. MD MADI Caldwell/STEFANY , 08:23 AM , 09:19 AM LIZETTE
[2017-09-06] MEDS: CARVEDILOL 6.25 MG TAB PO SCH ×2 (09:34→22:48)
[2017-09-06] MEDS: DOCUSATE SODIUM 50 MG/SENNA 8.6 MG TAB PO SCH ×2 (09:34→21:00)
[2017-09-06] MEDS: buPROPion HCL 100 MG TAB PO SCH (09:34)
[2017-09-06] MEDS: FUROSEMIDE 20 MG TAB PO SCH (09:34)
[2017-09-06] MEDS: AMIODARONE 200 MG TAB PO SCH (09:34)
[2017-09-06] MEDS: DIVALPROEX SODIUM DELAYED RELEASE 250 MG TAB PO SCH (09:35)
[2017-09-06] MEDS: ENOXAPARIN SODIUM 40 MG/0.4 ML SYRINGE SQ SCH (09:35)
--- NOTE | 2017-09-06 12:40 | HHI.PR ---
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 Device interrogated in ER- and confirmed VT, device promptly fired When asked further patient states that he lives with his brother and his girlfriend kicked him out this morning. Patient currently denies any pain denies any headache nausea vomiting. Hungry. Patient says I don't know to a lot of questions when asked about his medications patient states that it's all there in the bag and when I'd look at all these medication pills - were filled last June 21 and the count is still complete . Patient is childlike in demeanor with likely some psychosocial developmental delay mentally. He denies any fever or headache nausea vomiting chest pain shortness of breath abdominal pain or swelling of the legs. 4-4 discussed with patient and RN and case management Patient does not seem to understand his medical problems completely Has an AICD on the left side of his chest/abdomen Has some atypical chest pain tender on palpation 4-5 SEEN BY CARDIOLOGY MEDS ADJUSTED CAN DC ONCE SAFE PLACE FOR DC CASE MANAGEMENT FOR HELP WITH DC DW CM AND RN AND PT Objective Vitals Vital Signs Date Time Temp Pulse Resp B/P (MAP) Pulse Ox O2 Delivery O2 Flow Rate FiO2 09/06/17 11:00 98.0 60 20 102/60 (74) 98 09/06/17 11:00 60 09/06/17 10:00 60 09/06/17 09:00 60 09/06/17 08:00 60 09/06/17 08:00 60 18 111/56 (74) 95 09/06/17 07:00 60 09/06/17 06:00 60 09/06/17 05:00 60 09/06/17 04:00 60 09/06/17 03:40 60 09/06/17 03:40 60 18 106/56 (73) 95 09/06/17 03:00 60 09/06/17 02:00 60 4/5/18 01:00 60 09/06/17 00:10 60 09/06/17 00:00 106 09/06/17 00:00 60 16 106/58 (74) 95 09/05/17 23:00 60 09/05/17 22:00 60 09/05/17 21:24 97 09/05/17 21:00 60 09/05/17 20:06 59 09/05/17 20:00 60 16 104/58 (73) 96 09/05/17 20:00 60 09/05/17 19:00 60 09/05/17 18:00 60 09/05/17 17:00 60 09/05/17 16:00 60 09/05/17 15:00 98.4 60 18 107/64 (78) 98 09/05/17 15:00 60 09/05/17 13:00 60 I/O 09/05/17 09/05/17 09/05/17 09/06/17 09/06/17 09/06/17 07:00 15:00 23:00 07:00 15:00 23:00 Intake Total 480 ml 600 ml 960 ml Output Total 1300 ml 601 ml 2400 ml Balance -820 ml -1 ml -1440 ml Intake Oral 480 ml 600 ml 960 ml Output Urine Total 1300 ml 600 ml 2400 ml Stool Total 1 ml # Bowel Movements 0 Result Diagram: 09/06/17 0519 09/06/17 0515 Other Results Laboratory Tests Test 09/04/17 12:50 09/05/17 04:56 09/06/17 05:15 09/06/17 05:19 White Blood Count 5.3 TH/MM3 4.7 TH/MM3 Red Blood Count 4.95 MIL/MM3 5.06 MIL/MM3 Hemoglobin 14.0 GM/DL 14.1 GM/DL Hematocrit 40.1 % 41.2 % Mean Corpuscular Volume 80.9 FL 81.3 FL Mean Corpuscular Hemoglobin 28.2 PG 27.8 PG Mean Corpuscular Hemoglobin Concent 34.8 % 34.2 % Red Cell Distribution Width 16.6 % 16.8 % Platelet Count 164 TH/MM3 165 TH/MM3 Mean Platelet Volume 8.4 FL 8.4 FL Neutrophils (%) (Auto) 63.7 % 60.1 % Lymphocytes (%) (Auto) 25.9 % 29.8 % Monocytes (%) (Auto) 9.6 % 8.8 % Eosinophils (%) (Auto) 0.4 % 0.9 % Basophils (%) (Auto) 0.4 % 0.4 % Neutrophils # (Auto) 3.4 TH/MM3 2.8 TH/MM3 Lymphocytes # (Auto) 1.4 TH/MM3 1.4 TH/MM3 Monocytes # (Auto) 0.5 TH/MM3 0.4 TH/MM3 Eosinophils # (Auto) 0.0 TH/MM3 0.0 TH/MM3 Basophils # (Auto) 0.0 TH/MM3 0.0 TH/MM3 CBC Comment DIFF FINAL DIFF FINAL Differential Comment Prothrombin Time 11.0 SEC Prothromb Time International Ratio 1.1 RATIO Activated Partial Thromboplast Time 28.0 SEC Blood Urea Nitrogen 25 MG/DL 21 MG/DL 21 MG/DL Creatinine 1.35 MG/DL 1.19 MG/DL 1.18 MG/DL Random Glucose 151 MG/DL 141 MG/DL 133 MG/DL Total Protein 7.6 GM/DL 7.0 GM/DL 7.1 GM/DL Albumin 4.1 GM/DL 3.8 GM/DL 3.7 GM/DL Calcium Level 9.2 MG/DL 8.9 MG/DL 9.0 MG/DL Alkaline Phosphatase 89 U/L 81 U/L 82 U/L Aspartate Amino Transf (AST/SGOT) 15 U/L 16 U/L 17 U/L Alanine Aminotransferase (ALT/SGPT) 26 U/L 25 U/L 22 U/L Total Bilirubin 0.5 MG/DL 0.6 MG/DL 0.6 MG/DL Sodium Level 139 MEQ/L 138 MEQ/L 137 MEQ/L Potassium Level 4.1 MEQ/L 4.1 MEQ/L 4.3 MEQ/L Chloride Level 105 MEQ/L 102 MEQ/L 102 MEQ/L Carbon Dioxide Level 28.4 MEQ/L 26.4 MEQ/L 28.5 MEQ/L Anion Gap 6 MEQ/L 10 MEQ/L 7 MEQ/L Estimat Glomerular Filtration Rate 68 ML/MIN 79 ML/MIN 80 ML/MIN Troponin I LESS THAN 0.02 NG/ML B-Type Natriuretic Peptide 70 PG/ML Hemoglobin A1c 7.2 % Thyroid Stimulating Hormone 3rd Gen 4.980 uIU/ML 7.130 uIU/ML Phosphorus Level 2.7 MG/DL Magnesium Level 2.3 MG/DL Free Thyroxine 1.07 NG/DL Imaging Last Impressions Head CT 09/05/17 0000 Signed Impressions: Service Date/Time: Tuesday, September 05, 2017 16:16 - CONCLUSION: 1. No acute intracranial abnormality identified. Duke Marcus MD Chest X-Ray 09/04/17 1245 Signed Impressions: Service Date/Time: Monday, September 04, 2017 13:17 - CONCLUSION: Cardiomegaly. No acute pulmonary disease. Reilly Grajeda MD Objective Remarks GENERAL: Awake and alert talkative and cooperative has some childlike features to his demeanor --does not completely grasp all the conceptS here in the hospital SKIN: Warm and dry. HEAD: Atraumatic. Normocephalic. EYES: Pupils equal and round. No scleral icterus. No injection or drainage. Extraocular muscles intact ENT: No nasal bleeding or discharge. Mucous membranes pink and moist. Tongue is midline NECK: Trachea midline. No JVD. Supple CARDIOVASCULAR: Regular rate and rhythm. S1-S2 no S3-S4 chest wall tenderness is to be on left side of chest abdomen RESPIRATORY: No accessory muscle use. Clear to auscultation. Breath sounds equal bilaterally. GASTROINTESTINAL: Abdomen soft, non-tender, nondistended. Hepatic and splenic margins not palpable. MUSCULOSKELETAL: Extremities without clubbing, cyanosis, or edema. No obvious deformities. NEUROLOGICAL: Awake and alert. No obvious cranial nerve deficits. Motor grossly within normal limits. Five out of 5 muscle strength in the arms and legs. Normal speech. PSYCHIATRIC: INAppropriate mood and affect; insight and judgment ABnormal. Medications and IVs Current Medications Sodium Chloride (NS Flush) 2 ml UNSCH PRN IVF FLUSH AFTER USING IV ACCESS; Start 09/04/17 at 12:45 Amiodarone HCl (Cordarone) 200 mg DAILY PO Last administered on 09/06/17at 09:34 ; Start 09/05/17 at 09:00 Atorvastatin Calcium (Lipitor) 40 mg HS PO Last administered on 09/05/17at 20:40 ; Start 09/04/17 at 21:00 Bupropion HCl (Wellbutrin) 100 mg DAILY PO Last administered on 09/06/17at 09:34 ; Start 09/05/17 at 09:00 Carvedilol (Coreg) 6.25 mg BID PO Last administered on 09/06/17 09:34; Start at 21:00 Divalproex Sodium (Depakote Dr) 250 mg DAILYAC PO Last administered on 09:35; Start 09/05/17 at 08:00 Furosemide (Lasix) 20 mg DAILY PO Last administered on 09/06/17at 09:34; Start at 09:00 Enoxaparin Sodium (Lovenox Inj) 30 mg Q24H SQ Last administered on 09/05/17at 09: 07; Start 09/05/17 at 09:00; Stop 09/05/17 at 17:28; Status DC Dextrose (D50w (Vial) Inj) 50 ml UNSCH PRN IV PUSH HYPOGLYCEMIA-SEE COMMENTS; Start 09/04/17 at 18:00; Stop 09/05/17 at 13:03; Status DC Glucagon (Glucagon Inj) 1 mg UNSCH PRN OTHER HYPOGLYCEMIA-SEE COMMENTS; Start 09/04/17 at 18:00; Stop 09/05/17 at 13:03; Status DC Clonidine (Catapres) 0.1 mg Q4H PRN PO SBP>160, DBP>90; Start 09/05/17 at 12:30 Insulin Aspart (NovoLOG SUPPLEMENTAL SCALE) 1 ACHS SLIDING SCALE SQ Last administered on 09/06/17at 08:00; Start 09/05/17 at 17:00 Dextrose (D50w (Vial) Inj) 50 ml UNSCH PRN IV PUSH HYPOGLYCEMIA-SEE COMMENTS; Start 09/05/17 at 12:30; Stop 09/05/17 at 13:05; Status DC Glucagon (Glucagon Inj) 1 mg UNSCH PRN OTHER HYPOGLYCEMIA-SEE COMMENTS; Start 09/05/17 at 12:30 Acetaminophen (Tylenol) 650 mg Q4H PRN PO TEMP > 100.4; Start 09/05/17 at 12:30 Ondansetron HCl (Zofran Inj) 4 mg Q6H PRN IVP NAUSEA OR VOMITING; Start at 12:30 Metoclopramide HCl (Reglan Inj) 5 mg Q6H PRN IV PUSH NAUSEA OR VOMITING; Start 09/05/17 at 12:30 Enoxaparin Sodium (Lovenox Inj) 40 mg Q24H SQ Last administered on 09/06/17at 09: 35; Start 09/06/17 at 09:00 Acetaminophen (Tylenol) 650 mg Q6H PRN PO PAIN SCALE 1 TO 2; Start 09/05/17 at 12:30 Oxycodone/ Acetaminophen (Percocet 5-325 Mg) 1 tab Q6H PRN PO PAIN SCALE 3 TO 5; Start 09/05/17 at 12:30 Oxycodone/ Acetaminophen (Percocet 10-325 Mg) 1 tab Q6H PRN PO PAIN SCALE 6 TO 10; Start 09/05/17 at 12:30 Morphine Sulfate (Morphine Inj) 2 mg Q3H PRN IV PUSH Pain 3-5; if unable to take PO; Start 09/05/17 at 12:30 Morphine Sulfate (Morphine Inj) 4 mg Q3H PRN IV PUSH Pain 6-10;if unable to take PO; Start 09/05/17 at 12:30 Morphine Sulfate (Morphine Inj) 4 mg Q3H PRN IV PUSH BREAKTHROUGH PAIN; Start 09/05/17 at 12:30 Naloxone HCl (Narcan Inj) 0.4 mg UNSCH PRN IV PUSH SEE LABEL COMMENTS; Start at 12:30 Senna/Docusate Sodium (Petra-Colace) 1 tab BID PO Last administered on 09/06/17at 09:34; Start 09/05/17 at 21:00 Magnesium Hydroxide (Milk Of Magnesia Liq) 30 ml Q12H PRN PO Mild constipation ; Start 09/05/17 at 12:30 Sennosides (Senokot) 17.2 mg Q12H PRN PO Moderate constipation; Start 09/05/17 at 12:30 Bisacodyl (Dulcolax Supp) 10 mg DAILY PRN RECTAL SEVERE CONSITIPATION; Start at 12:30 Lactulose (Lactulose Liq) 30 ml DAILY PRN PO SEVERE CONSITIPATION; Start at 12:30 Dextrose (D50w (Vial) Inj) 50 ml UNSCH PRN IV PUSH HYPOGLYCEMIA-SEE COMMENTS; Start 09/05/17 at 13:15 Enalapril Maleate (Vasotec) 2.5 mg BID PO Last administered on 09/06/17at 09:15; Start 09/06/17 at 09:15 A/P Problem List: (1) ICD (implantable cardioverter-defibrillator) discharge ICD Code: Z45.02 - Encounter for adjustment and management of automatic implantable cardiac defibrillator Status: Acute (2) chronic kidney insufficiency stage III (3) DM (diabetes mellitus) ICD Code: E11.9 - Type 2 diabetes mellitus without complications Status: Chronic (4) Hypothyroidism ICD Code: E03.9 - Hypothyroidism, unspecified Assessment and Plan Patient is a 46-year-old male admitted for Syncopal episode S/P AICD firing. Interrogated and functioning. Cardiomyopathy- known low EF-S/P AICD - 35-40%- clinically not in failure- BNP 90 Non compliance with meds EMR shows multiple recurrent ER visits for above I checked his plastic bag- all his pill bottles dated 06/20/17 - untouched and pill # with complete count -from that discharge date when asked if he is taking his meds-" I don't know - I can't read" Restart medications - Amiodarone 200 mg daily , Coreg 6.25 mg daily bid, furosemide 20 mg daily. KCl 20 meq po daily Atorvastatin 40 mg at bedtime ff BMP. check TSH MEDS ADJUSTED BY CARDIOLOGY Cognitive/Psychosocial Impairment- likely with developmental delay- near baseline- Continue on Depakote 250 mg daily Bupropion once daily Chronic kidney disease likely from DM nephropathy- reviewed old admissions creatinine near baseline. all cardiac meds restarted Recheck BMP in a.m. Diabetes mellitus type 2. Will check hemoglobin A1c. Hold metformin with mildly elevated creatinine ADA diet.. Heart healthy diet check BS and record Accu-Cheks before meals and at bedtime with sliding scale coverage HYPOTHYROIDISM START SYNTHROID 25 MCG PO DAILY We will check a CAT scan of his head due to syncope and states he hit his head on the concrete Case management consult for discharge planning.- Patient needs to be in a supervised environment- like a shelter to make sure that he takes his medication -now homeless- - kicked out of his brother's home by his sister in law Lovenox subcutaneous for DVT prophylaxis AM LABS AWAIT SAFE DISCHARGE Discharge Planning Pending case management help for discharge--NEEDS SAFE PLACE FOR DISCHARGE- ? [facility] Bill Kulkarni DO Sep 06, 2017 12:40
[2017-09-06 17:28] LABS: HEMOGLOBIN A1C 7.2 % (4.3-6.0)
[2017-09-06] MEDS: ATORVASTATIN 40 MG TAB PO SCH (22:47)
[2017-09-07] VITALS (13 sets, daily range): BP systolic 113–128; BP diastolic 53–73; PULSE 59–65; RESP 16–18; TEMP 97.7–98.4; O2SAT 94–97
[2017-09-07] MEDS: LEVOTHYROXINE SODIUM 25 MCG TAB PO SCH (06:00)
[2017-09-07 07:00] LABS: AUTOMATED NEUTROPHIL # 2.8 TH/MM3 (1.8-7.7); BASOPHIL % 0.3 % (0.0-2.0); EOSINOPHIL % 0.7 % (0.0-4.0); HEMATOCRIT 41.7 % (39.0-51.0); HEMOGLOBIN 14.3 GM/DL (13.0-17.0); LYMPH % 31.2 % (9.0-44.0); LYMPHOCYTE # 1.5 TH/MM3 (1.0-4.8); MEAN CELL VOLUME 80.9 FL (80.0-100.0); MEAN CORPUSCULAR HEMOGLOBIN 27.7 PG (27.0-34.0); MEAN CORPUSCULAR HGB CONC 34.3 % (32.0-36.0); MEAN PLATELET VOLUME 8.4 FL (7.0-11.0); MONO % 9.9 % (0.0-8.0); MONOCYTE # 0.5 TH/MM3 (0-0.9); NEUT % 57.9 % (16.0-70.0); PLATELET COUNT 174 TH/MM3 (150-450); RED BLOOD COUNT 5.15 MIL/MM3 (4.50-5.90); RED CELL DISTRIBUTION WIDTH 17.2 % (11.6-17.2); WHITE BLOOD COUNT 4.8 TH/MM3 (4.0-11.0)
[2017-09-07 07:18] LABS: ALBUMIN 3.8 GM/DL (3.4-5.0); ALT (GPT) 25 U/L (12-78); AST (GOT) 18 U/L (15-37); BICARBONATE 29.2 MEQ/L (21.0-32.0); BLOOD UREA NITROGEN 22 MG/DL (7-18); CALCIUM 9.2 MG/DL (8.5-10.1); CHLORIDE 102 MEQ/L (98-107); CREATININE 1.34 MG/DL (0.60-1.30); GLOMERULAR FILTRATION RATE 69 ML/MIN (>89); GLUCOSE,RANDOM 135 MG/DL (74-106); MAGNESIUM 2.2 MG/DL (1.5-2.5); PHOSPHORUS 3.6 MG/DL (2.5-4.9); SODIUM (NA) 138 MEQ/L (136-145)
[2017-09-07 07:21] LABS: ALKALINE PHOSPHATASE 90 U/L (45-117); TOTAL BILIRUBIN ADULT 0.5 MG/DL (0.2-1.0); TOTAL PROTEIN 7.3 GM/DL (6.4-8.2)
[2017-09-07] MEDS: FUROSEMIDE 20 MG TAB PO SCH (08:13)
[2017-09-07] MEDS: ENALAPRIL MALEATE 2.5 MG TAB PO SCH ×2 (08:13→22:03)
[2017-09-07] MEDS: buPROPion HCL 100 MG TAB PO SCH (08:13)
[2017-09-07] MEDS: DOCUSATE SODIUM 50 MG/SENNA 8.6 MG TAB PO SCH ×2 (08:13→22:02)
[2017-09-07] MEDS: DIVALPROEX SODIUM DELAYED RELEASE 250 MG TAB PO SCH (08:14)
[2017-09-07] MEDS: CARVEDILOL 6.25 MG TAB PO SCH ×2 (08:14→22:02)
[2017-09-07] MEDS: INSULIN ASPART SUPPLEMENTAL SCALE SQ SCH ×4 (08:15→21:00)
[2017-09-07] MEDS: ENOXAPARIN SODIUM 40 MG/0.4 ML SYRINGE SQ SCH (08:15)
[2017-09-07] MEDS: AMIODARONE 200 MG TAB PO SCH (08:15)
--- NOTE | 2017-09-07 11:49 | HHI.PR ---
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 Device interrogated in ER- and confirmed VT, device promptly fired When asked further patient states that he lives with his brother and his girlfriend kicked him out this morning. Patient currently denies any pain denies any headache nausea vomiting. Hungry. Patient says I don't know to a lot of questions when asked about his medications patient states that it's all there in the bag and when I'd look at all these medication pills - were filled last June 21 and the count is still complete . Patient is childlike in demeanor with likely some psychosocial developmental delay mentally. He denies any fever or headache nausea vomiting chest pain shortness of breath abdominal pain or swelling of the legs. 4-4 discussed with patient and RN and case management Patient does not seem to understand his medical problems completely Has an AICD on the left side of his chest/abdomen Has some atypical chest pain tender on palpation 4-5 SEEN BY CARDIOLOGY MEDS ADJUSTED CAN DC ONCE SAFE PLACE FOR DC CASE MANAGEMENT FOR HELP WITH DC DW CM AND RN AND PT 4-6 AWAIT SAFE PLACEMENT CASE MANAGEMENT LOOKING ON A PLACE DW RN AND PT AND CM CONTINUE SAME NO COMPLAINTS Objective Vitals Vital Signs Date Time Temp Pulse Resp B/P (MAP) Pulse Ox O2 Delivery O2 Flow Rate FiO2 09/07/17 11:34 97.9 60 18 128/63 (84) 97 09/07/17 09:41 96 21 09/07/17 08:22 98.0 60 18 113/69 (84) 96 09/07/17 06:00 60 09/07/17 05:00 60 09/07/17 04:00 60 09/07/17 04:00 60 09/07/17 03:00 60 09/07/17 02:00 60 09/07/17 01:00 60 09/07/17 00:00 60 09/07/17 00:00 60 09/07/17 00:00 60 16 116/70 (85) 96 09/06/17 23:00 60 09/06/17 22:00 60 09/06/17 21:00 60 09/06/17 20:13 60 09/06/17 20:00 98.4 60 16 117/54 (75) 97 09/06/17 20:00 76 09/06/17 19:00 62 09/06/17 18:30 59 09/06/17 17:00 60 09/06/17 16:00 59 09/06/17 15:00 60 09/06/17 15:00 98.0 60 18 110/60 (77) 98 09/06/17 14:00 59 09/06/17 13:00 60 I/O 09/06/17 09/06/17 09/06/17 09/07/17 09/07/17 09/07/17 07:00 15:00 23:00 07:00 15:00 23:00 Intake Total 960 ml 1020 ml 480 ml Output Total 2400 ml Balance -1440 ml 1020 ml 480 ml Intake Oral 960 ml 1020 ml 480 ml Output Urine Total 2400 ml # Voids 8 2 Result Diagram: 09/07/17 0537 09/07/17 0537 Other Results Laboratory Tests Test 09/04/17 12:50 09/05/17 04:56 09/06/17 05:15 09/06/17 05:19 White Blood Count 5.3 TH/MM3 4.7 TH/MM3 Red Blood Count 4.95 MIL/MM3 5.06 MIL/MM3 Hemoglobin 14.0 GM/DL 14.1 GM/DL Hematocrit 40.1 % 41.2 % Mean Corpuscular Volume 80.9 FL 81.3 FL Mean Corpuscular Hemoglobin 28.2 PG 27.8 PG Mean Corpuscular Hemoglobin Concent 34.8 % 34.2 % Red Cell Distribution Width 16.6 % 16.8 % Platelet Count 164 TH/MM3 165 TH/MM3 Mean Platelet Volume 8.4 FL 8.4 FL Neutrophils (%) (Auto) 63.7 % 60.1 % Lymphocytes (%) (Auto) 25.9 % 29.8 % Monocytes (%) (Auto) 9.6 % 8.8 % Eosinophils (%) (Auto) 0.4 % 0.9 % Basophils (%) (Auto) 0.4 % 0.4 % Neutrophils # (Auto) 3.4 TH/MM3 2.8 TH/MM3 Lymphocytes # (Auto) 1.4 TH/MM3 1.4 TH/MM3 Monocytes # (Auto) 0.5 TH/MM3 0.4 TH/MM3 Eosinophils # (Auto) 0.0 TH/MM3 0.0 TH/MM3 Basophils # (Auto) 0.0 TH/MM3 0.0 TH/MM3 CBC Comment DIFF FINAL DIFF FINAL Differential Comment Prothrombin Time 11.0 SEC Prothromb Time International Ratio 1.1 RATIO Activated Partial Thromboplast Time 28.0 SEC Blood Urea Nitrogen 25 MG/DL 21 MG/DL 21 MG/DL Creatinine 1.35 MG/DL 1.19 MG/DL 1.18 MG/DL Random Glucose 151 MG/DL 141 MG/DL 133 MG/DL Total Protein 7.6 GM/DL 7.0 GM/DL 7.1 GM/DL Albumin 4.1 GM/DL 3.8 GM/DL 3.7 GM/DL Calcium Level 9.2 MG/DL 8.9 MG/DL 9.0 MG/DL Alkaline Phosphatase 89 U/L 81 U/L 82 U/L Aspartate Amino Transf (AST/SGOT) 15 U/L 16 U/L 17 U/L Alanine Aminotransferase (ALT/SGPT) 26 U/L 25 U/L 22 U/L Total Bilirubin 0.5 MG/DL 0.6 MG/DL 0.6 MG/DL Sodium Level 139 MEQ/L 138 MEQ/L 137 MEQ/L Potassium Level 4.1 MEQ/L 4.1 MEQ/L 4.3 MEQ/L Chloride Level 105 MEQ/L 102 MEQ/L 102 MEQ/L Carbon Dioxide Level 28.4 MEQ/L 26.4 MEQ/L 28.5 MEQ/L Anion Gap 6 MEQ/L 10 MEQ/L 7 MEQ/L Estimat Glomerular Filtration Rate 68 ML/MIN 79 ML/MIN 80 ML/MIN Troponin I LESS THAN 0.02 NG/ML B-Type Natriuretic Peptide 70 PG/ML Hemoglobin A1c 7.2 % 7.2 % Thyroid Stimulating Hormone 3rd Gen 4.980 uIU/ML 7.130 uIU/ML Phosphorus Level 2.7 MG/DL Magnesium Level 2.3 MG/DL Free Thyroxine 1.07 NG/DL Test 09/07/17 05:37 White Blood Count 4.8 TH/MM3 Red Blood Count 5.15 MIL/MM3 Hemoglobin 14.3 GM/DL Hematocrit 41.7 % Mean Corpuscular Volume 80.9 FL Mean Corpuscular Hemoglobin 27.7 PG Mean Corpuscular Hemoglobin Concent 34.3 % Red Cell Distribution Width 17.2 % Platelet Count 174 TH/MM3 Mean Platelet Volume 8.4 FL Neutrophils (%) (Auto) 57.9 % Lymphocytes (%) (Auto) 31.2 % Monocytes (%) (Auto) 9.9 % Eosinophils (%) (Auto) 0.7 % Basophils (%) (Auto) 0.3 % Neutrophils # (Auto) 2.8 TH/MM3 Lymphocytes # (Auto) 1.5 TH/MM3 Monocytes # (Auto) 0.5 TH/MM3 Eosinophils # (Auto) 0.0 TH/MM3 Basophils # (Auto) 0.0 TH/MM3 CBC Comment DIFF FINAL Differential Comment Blood Urea Nitrogen 22 MG/DL Creatinine 1.34 MG/DL Random Glucose 135 MG/DL Total Protein 7.3 GM/DL Albumin 3.8 GM/DL Calcium Level 9.2 MG/DL Phosphorus Level 3.6 MG/DL Magnesium Level 2.2 MG/DL Alkaline Phosphatase 90 U/L Aspartate Amino Transf (AST/SGOT) 18 U/L Alanine Aminotransferase (ALT/SGPT) 25 U/L Total Bilirubin 0.5 MG/DL Sodium Level 138 MEQ/L Potassium Level 4.2 MEQ/L Chloride Level 102 MEQ/L Carbon Dioxide Level 29.2 MEQ/L Anion Gap 7 MEQ/L Estimat Glomerular Filtration Rate 69 ML/MIN Imaging Last Impressions Head CT 09/05/17 0000 Signed Impressions: Service Date/Time: Tuesday, September 05, 2017 16:16 - CONCLUSION: 1. No acute intracranial abnormality identified. Duke Marcus MD Chest X-Ray 09/04/17 1245 Signed Impressions: Service Date/Time: Monday, September 04, 2017 13:17 - CONCLUSION: Cardiomegaly. No acute pulmonary disease. Reilly Grajeda MD Objective Remarks GENERAL: Awake and alert talkative and cooperative has some childlike features to his demeanor --does not completely grasp all the conceptS here in the hospital SKIN: Warm and dry. HEAD: Atraumatic. Normocephalic. EYES: Pupils equal and round. No scleral icterus. No injection or drainage. Extraocular muscles intact ENT: No nasal bleeding or discharge. Mucous membranes pink and moist. Tongue is midline NECK: Trachea midline. No JVD. Supple CARDIOVASCULAR: Regular rate and rhythm. S1-S2 no S3-S4 LEFT SIDE AICD NEAR ABDOMEN RESPIRATORY: No accessory muscle use. Clear to auscultation. Breath sounds equal bilaterally. GASTROINTESTINAL: Abdomen soft, non-tender, nondistended. Hepatic and splenic margins not palpable. MUSCULOSKELETAL: Extremities without clubbing, cyanosis, or edema. No obvious deformities. NEUROLOGICAL: Awake and alert. No obvious cranial nerve deficits. Motor grossly within normal limits. Five out of 5 muscle strength in the arms and legs. Normal speech. PSYCHIATRIC: INAppropriate mood and affect; insight and judgment ABnormal. Procedures NONE Medications and IVs Current Medications Sodium Chloride (NS Flush) 2 ml UNSCH PRN IVF FLUSH AFTER USING IV ACCESS; Start 09/04/17 at 12:45 Amiodarone HCl (Cordarone) 200 mg DAILY PO Last administered on 09/07/17 08:15 ; Start 09/05/17 at 09:00 Atorvastatin Calcium (Lipitor) 40 mg HS PO Last administered on 09/06/17at 22:47 ; Start 09/04/17 at 21:00 Bupropion HCl (Wellbutrin) 100 mg DAILY PO Last administered on 09/07/17 08:13 ; Start 09/05/17 at 09:00 Carvedilol (Coreg) 6.25 mg BID PO Last administered on 09/07/17 08:14; Start at 21:00 Divalproex Sodium (Depakote Dr) 250 mg DAILYAC PO Last administered on 08:14; Start 09/05/17 at 08:00 Furosemide (Lasix) 20 mg DAILY PO Last administered on 09/07/17 08:13; Start at 09:00 Enoxaparin Sodium (Lovenox Inj) 30 mg Q24H SQ Last administered on 09/05/17at 09: 07; Start 09/05/17 at 09:00; Stop 09/05/17 at 17:28; Status DC Dextrose (D50w (Vial) Inj) 50 ml UNSCH PRN IV PUSH HYPOGLYCEMIA-SEE COMMENTS; Start 09/04/17 at 18:00; Stop 09/05/17 at 13:03; Status DC Glucagon (Glucagon Inj) 1 mg UNSCH PRN OTHER HYPOGLYCEMIA-SEE COMMENTS; Start 09/04/17 at 18:00; Stop 09/05/17 at 13:03; Status DC Clonidine (Catapres) 0.1 mg Q4H PRN PO SBP>160, DBP>90; Start 09/05/17 at 12:30 Insulin Aspart (NovoLOG SUPPLEMENTAL SCALE) 1 ACHS SLIDING SCALE SQ Last administered on 09/07/17at 08:15; Start 09/05/17 at 17:00 Dextrose (D50w (Vial) Inj) 50 ml UNSCH PRN IV PUSH HYPOGLYCEMIA-SEE COMMENTS; Start 09/05/17 at 12:30; Stop 09/05/17 at 13:05; Status DC Glucagon (Glucagon Inj) 1 mg UNSCH PRN OTHER HYPOGLYCEMIA-SEE COMMENTS; Start 09/05/17 at 12:30 Acetaminophen (Tylenol) 650 mg Q4H PRN PO TEMP > 100.4; Start 09/05/17 at 12:30 Ondansetron HCl (Zofran Inj) 4 mg Q6H PRN IVP NAUSEA OR VOMITING; Start at 12:30 Metoclopramide HCl (Reglan Inj) 5 mg Q6H PRN IV PUSH NAUSEA OR VOMITING; Start 09/05/17 at 12:30 Enoxaparin Sodium (Lovenox Inj) 40 mg Q24H SQ Last administered on 09/07/17at 08: 15; Start 09/06/17 at 09:00 Acetaminophen (Tylenol) 650 mg Q6H PRN PO PAIN SCALE 1 TO 2; Start 09/05/17 at 12:30 Oxycodone/ Acetaminophen (Percocet 5-325 Mg) 1 tab Q6H PRN PO PAIN SCALE 3 TO 5; Start 09/05/17 at 12:30 Oxycodone/ Acetaminophen (Percocet 10-325 Mg) 1 tab Q6H PRN PO PAIN SCALE 6 TO 10; Start 09/05/17 at 12:30 Morphine Sulfate (Morphine Inj) 2 mg Q3H PRN IV PUSH Pain 3-5; if unable to take PO; Start 09/05/17 at 12:30 Morphine Sulfate (Morphine Inj) 4 mg Q3H PRN IV PUSH Pain 6-10;if unable to take PO; Start 09/05/17 at 12:30 Morphine Sulfate (Morphine Inj) 4 mg Q3H PRN IV PUSH BREAKTHROUGH PAIN; Start 09/05/17 at 12:30 Naloxone HCl (Narcan Inj) 0.4 mg UNSCH PRN IV PUSH SEE LABEL COMMENTS; Start at 12:30 Senna/Docusate Sodium (Petra-Colace) 1 tab BID PO Last administered on 09/07/17at 08:13; Start 09/05/17 at 21:00 Magnesium Hydroxide (Milk Of Magnesia Liq) 30 ml Q12H PRN PO Mild constipation ; Start 09/05/17 at 12:30 Sennosides (Senokot) 17.2 mg Q12H PRN PO Moderate constipation; Start 09/05/17 at 12:30 Bisacodyl (Dulcolax Supp) 10 mg DAILY PRN RECTAL SEVERE CONSITIPATION; Start at 12:30 Lactulose (Lactulose Liq) 30 ml DAILY PRN PO SEVERE CONSITIPATION; Start at 12:30 Dextrose (D50w (Vial) Inj) 50 ml UNSCH PRN IV PUSH HYPOGLYCEMIA-SEE COMMENTS; Start 09/05/17 at 13:15 Enalapril Maleate (Vasotec) 2.5 mg BID PO Last administered on 09/07/17at 08:13; Start 09/06/17 at 09:15 Levothyroxine Sodium (Synthroid) 25 mcg DAILY@0600 PO Last administered on at 06:00; Start 09/07/17 at 06:00 A/P Problem List: (1) ICD (implantable cardioverter-defibrillator) discharge ICD Code: Z45.02 - Encounter for adjustment and management of automatic implantable cardiac defibrillator Status: Acute (2) chronic kidney insufficiency stage III (3) DM (diabetes mellitus) ICD Code: E11.9 - Type 2 diabetes mellitus without complications Status: Chronic (4) Hypothyroidism ICD Code: E03.9 - Hypothyroidism, unspecified Assessment and Plan Patient is a 46-year-old male admitted for Syncopal episode S/P AICD firing. Interrogated and functioning. Cardiomyopathy- known low EF-S/P AICD - 35-40%- clinically not in failure- BNP 90 Non compliance with meds EMR shows multiple recurrent ER visits for above I checked his plastic bag- all his pill bottles dated 06/20/17 - untouched and pill # with complete count -from that discharge date when asked if he is taking his meds-" I don't know - I can't read" Restart medications - Amiodarone 200 mg daily , Coreg 6.25 mg daily bid, furosemide 20 mg daily. KCl 20 meq po daily Atorvastatin 40 mg at bedtime ff BMP. check TSH MEDS ADJUSTED BY CARDIOLOGY Cognitive/Psychosocial Impairment- likely with developmental delay- near baseline- Continue on Depakote 250 mg daily Bupropion once daily Chronic kidney disease likely from DM nephropathy- reviewed old admissions creatinine near baseline. all cardiac meds restarted Recheck BMP in a.m. Diabetes mellitus type 2. Will check hemoglobin A1c. Hold metformin with mildly elevated creatinine ADA diet.. Heart healthy diet check BS and record Accu-Cheks before meals and at bedtime with sliding scale coverage HYPOTHYROIDISM START SYNTHROID 25 MCG PO DAILY We will check a CAT scan of his head due to syncope and states he hit his head on the concrete Case management consult for discharge planning.- Patient needs to be in a supervised environment- like a [facility] to make sure that he takes his medication -now homeless- - kicked out of his brother's home by his sister in law Lovenox subcutaneous for DVT prophylaxis AM LABS AWAIT SAFE DISCHARGE Discharge Planning Pending case management help for discharge--NEEDS SAFE PLACE FOR DISCHARGE- ? SENIOR CARE Bill Kulkarni DO Sep 07, 2017 11:48
[2017-09-07] MEDS: ATORVASTATIN 40 MG TAB PO SCH (22:02)
[2017-09-08] VITALS (10 sets, daily range): BP systolic 90–120; BP diastolic 59–84; PULSE 58–62; RESP 17–20; TEMP 97.4–98.4; O2SAT 95–99
[2017-09-08] MEDS: LEVOTHYROXINE SODIUM 25 MCG TAB PO SCH (05:20)
[2017-09-08] MEDS: buPROPion HCL 100 MG SUSTAINED RELEASE TAB PO SCH (08:56)
[2017-09-08] MEDS: DIVALPROEX SODIUM DELAYED RELEASE 250 MG TAB PO SCH (08:56)
[2017-09-08] MEDS: ENALAPRIL MALEATE 2.5 MG TAB PO SCH ×2 (08:56→20:26)
[2017-09-08] MEDS: CARVEDILOL 6.25 MG TAB PO SCH ×2 (08:56→20:26)
[2017-09-08] MEDS: AMIODARONE 200 MG TAB PO SCH (08:56)
[2017-09-08] MEDS: ENOXAPARIN SODIUM 40 MG/0.4 ML SYRINGE SQ SCH (08:57)
[2017-09-08] MEDS: DOCUSATE SODIUM 50 MG/SENNA 8.6 MG TAB PO SCH ×2 (08:57→20:27)
[2017-09-08] MEDS: FUROSEMIDE 20 MG TAB PO SCH (08:57)
[2017-09-08] MEDS: INSULIN ASPART SUPPLEMENTAL SCALE SQ SCH ×4 (08:58→20:27)
[2017-09-08 09:06] LABS: AUTOMATED NEUTROPHIL # 3.4 TH/MM3 (1.8-7.7); BASOPHIL % 0.3 % (0.0-2.0); EOSINOPHIL % 0.8 % (0.0-4.0); HEMATOCRIT 43.4 % (39.0-51.0); HEMOGLOBIN 14.7 GM/DL (13.0-17.0); LYMPH % 27.8 % (9.0-44.0); LYMPHOCYTE # 1.5 TH/MM3 (1.0-4.8); MEAN CELL VOLUME 82.2 FL (80.0-100.0); MEAN CORPUSCULAR HEMOGLOBIN 27.8 PG (27.0-34.0); MEAN CORPUSCULAR HGB CONC 33.9 % (32.0-36.0); MEAN PLATELET VOLUME 8.5 FL (7.0-11.0); MONOCYTE # 0.5 TH/MM3 (0-0.9); NEUT % 62.1 % (16.0-70.0); PLATELET COUNT 175 TH/MM3 (150-450); RED BLOOD COUNT 5.28 MIL/MM3 (4.50-5.90); WHITE BLOOD COUNT 5.5 TH/MM3 (4.0-11.0)
[2017-09-08 09:12] LABS: ALBUMIN 4.2 GM/DL (3.4-5.0); AST (GOT) 21 U/L (15-37); BICARBONATE 27.8 MEQ/L (21.0-32.0); BLOOD UREA NITROGEN 21 MG/DL (7-18); CALCIUM 9.3 MG/DL (8.5-10.1); CHLORIDE 100 MEQ/L (98-107); CREATININE 1.24 MG/DL (0.60-1.30); GLOMERULAR FILTRATION RATE 75 ML/MIN (>89); GLUCOSE,RANDOM 147 MG/DL (74-106); MAGNESIUM 2.2 MG/DL (1.5-2.5); SODIUM (NA) 134 MEQ/L (136-145)
[2017-09-08 09:13] LABS: ALT (GPT) 32 U/L (12-78); PHOSPHORUS 3.3 MG/DL (2.5-4.9)
[2017-09-08 09:15] LABS: ALKALINE PHOSPHATASE 102 U/L (45-117); TOTAL BILIRUBIN ADULT 0.6 MG/DL (0.2-1.0); TOTAL PROTEIN 7.8 GM/DL (6.4-8.2)
--- NOTE | 2017-09-08 14:09 | HHI.PR ---
Subjective Remarks resting in bed denied complain weird behavior Objective Vitals Vital Signs Date Time Temp Pulse Resp B/P (MAP) Pulse Ox O2 Delivery O2 Flow Rate FiO2 09/08/17 12:00 59 09/08/17 10:11 98 21 09/08/17 08:00 97.8 60 20 119/84 (96) 99 09/08/17 04:00 97.6 62 17 90/62 (71) 98 09/08/17 03:44 60 09/08/17 00:00 97.4 59 20 94/62 (73) 95 09/07/17 23:48 60 09/07/17 20:00 60 09/07/17 20:00 97.7 59 18 118/73 (88) 95 09/07/17 16:30 98.4 65 18 115/53 (73) 94 I/O 09/07/17 09/07/17 09/07/17 09/08/17 09/08/17 09/08/17 07:00 15:00 23:00 07:00 15:00 23:00 Intake Total 480 ml 720 ml 740 ml Balance 480 ml 720 ml 740 ml Intake Oral 480 ml 720 ml 740 ml # Voids 2 4 # Bowel Movements 1 0 Result Diagram: 09/08/17 0800 09/08/17 0800 Objective Remarks GENERAL: This is a well-nourished, well-developed patient, in no apparent distress. CARDIOVASCULAR: Regular rate and rhythm without murmurs, gallops, or rubs. RESPIRATORY: Clear to auscultation. Breath sounds equal bilaterally. No wheezes , rales, or rhonchi. GASTROINTESTINAL: Abdomen soft, non-tender, nondistended. Normal active bowel sounds MUSCULOSKELETAL: Extremities without clubbing, cyanosis, or edema. NEURO: Alert & Oriented x4 to person, place, time, situation. Moves all ext x4 Procedures NONE A/P Problem List: (1) ICD (implantable cardioverter-defibrillator) discharge ICD Code: Z45.02 - Encounter for adjustment and management of automatic implantable cardiac defibrillator Status: Acute (2) chronic kidney insufficiency stage III (3) DM (diabetes mellitus) ICD Code: E11.9 - Type 2 diabetes mellitus without complications Status: Chronic (4) Hypothyroidism ICD Code: E03.9 - Hypothyroidism, unspecified Assessment and Plan Patient is a 46-year-old male admitted for 09/07: Continue current care, pending safe discharge availability 09/08: No acute issue, continue current care, awaiting for discharge environment Syncopal episode S/P AICD firing. Interrogated and functioning. Cardiomyopathy- known low EF-S/P AICD - 35-40%- clinically not in failure- BNP 90 Non compliance with meds EMR shows multiple recurrent ER visits for above I checked his plastic bag- all his pill bottles dated 06/20/17 - untouched and pill # with complete count -from that discharge date when asked if he is taking his meds-" I don't know - I can't read" Restart medications - Amiodarone 200 mg daily , Coreg 6.25 mg daily bid, furosemide 20 mg daily. KCl 20 meq po daily Atorvastatin 40 mg at bedtime ff BMP. Medical regimen adjusted by cardiology CT head personally reviewed by me negative Cognitive/Psychosocial Impairment- likely with developmental delay- near baseline- Continue on Depakote 250 mg daily Bupropion once daily Chronic kidney disease likely from DM nephropathy- reviewed old admissions creatinine near baseline. all cardiac meds restarted Recheck BMP in a.m. Diabetes mellitus type 2. hemoglobin A1c 7.2. Hold metformin with mildly elevated creatinine ADA diet.. Heart healthy diet Accu-Chek with insulin sliding scale Hypothyroidism: Started on Synthroid, check TSH in 4-6 weeks Case management consult for discharge planning.- Patient needs to be in a supervised environment- like a penitentiary to make sure that he takes his medication -now homeless- - kicked out of his brother's home by his sister in law Lovenox subcutaneous for DVT prophylaxis Pending safe discharge Discharge Planning Pending case management help for discharge--NEEDS SAFE PLACE FOR DISCHARGE- ? RESIDENTIAL Mj Liao MD Sep 08, 2017 14:09
[2017-09-08] MEDS: ATORVASTATIN 40 MG TAB PO SCH (20:26)
[2017-09-09] VITALS (7 sets, daily range): BP systolic 94–120; BP diastolic 50–81; PULSE 59–66; RESP 17–20; TEMP 97–98.4; O2SAT 96–99
[2017-09-09] MEDS: LEVOTHYROXINE SODIUM 25 MCG TAB PO SCH (05:59)
[2017-09-09] MEDS: buPROPion HCL 100 MG SUSTAINED RELEASE TAB PO SCH (09:20)
[2017-09-09] MEDS: ENALAPRIL MALEATE 2.5 MG TAB PO SCH ×2 (09:20→21:05)
[2017-09-09] MEDS: INSULIN ASPART SUPPLEMENTAL SCALE SQ SCH ×4 (09:20→21:06)
[2017-09-09] MEDS: DOCUSATE SODIUM 50 MG/SENNA 8.6 MG TAB PO SCH ×2 (09:21→21:05)
[2017-09-09] MEDS: FUROSEMIDE 20 MG TAB PO SCH (09:21)
[2017-09-09] MEDS: DIVALPROEX SODIUM DELAYED RELEASE 250 MG TAB PO SCH (09:21)
[2017-09-09] MEDS: CARVEDILOL 6.25 MG TAB PO SCH ×2 (09:21→21:05)
[2017-09-09] MEDS: AMIODARONE 200 MG TAB PO SCH (09:21)
[2017-09-09] MEDS: ENOXAPARIN SODIUM 40 MG/0.4 ML SYRINGE SQ SCH (09:21)
--- NOTE | 2017-09-09 14:14 | HHI.PR ---
Subjective Remarks Strange behavior, no acute issue Awaiting placement Objective Vitals Vital Signs Date Time Temp Pulse Resp B/P (MAP) Pulse Ox O2 Delivery O2 Flow Rate FiO2 09/09/17 12:00 98.4 61 20 94/50 (65) 96 09/09/17 12:00 59 09/09/17 08:06 98 09/09/17 08:00 60 09/09/17 08:00 98.0 66 20 116/81 (93) 99 09/09/17 04:00 60 09/09/17 00:00 60 09/08/17 23:31 97.8 58 18 104/63 (77) 99 09/08/17 21:27 21 09/08/17 20:17 97.9 61 18 120/59 (79) 97 09/08/17 20:00 60 09/08/17 16:00 59 09/08/17 16:00 98.4 60 20 112/72 (85) 98 I/O 09/08/17 09/08/17 09/08/17 09/09/17 09/09/17 09/09/17 07:00 15:00 23:00 07:00 15:00 23:00 Intake Total 740 ml 360 ml 120 ml Balance 740 ml 360 ml 120 ml Intake Oral 740 ml 360 ml 120 ml # Voids 4 2 2 # Bowel Movements 0 0 Result Diagram: 09/08/17 0800 09/08/17 0800 Objective Remarks GENERAL: This is a well-nourished, well-developed patient, in no apparent distress. CARDIOVASCULAR: Regular rate and rhythm without murmurs, gallops, or rubs. RESPIRATORY: Clear to auscultation. Breath sounds equal bilaterally. No wheezes , rales, or rhonchi. GASTROINTESTINAL: Abdomen soft, non-tender, nondistended. Normal active bowel sounds MUSCULOSKELETAL: Extremities without clubbing, cyanosis, or edema. NEURO: Alert & Oriented x4 to person, place, time, situation. Moves all ext x4 Procedures NONE A/P Problem List: (1) ICD (implantable cardioverter-defibrillator) discharge ICD Code: Z45.02 - Encounter for adjustment and management of automatic implantable cardiac defibrillator Status: Acute (2) chronic kidney insufficiency stage III (3) DM (diabetes mellitus) ICD Code: E11.9 - Type 2 diabetes mellitus without complications Status: Chronic (4) Hypothyroidism ICD Code: E03.9 - Hypothyroidism, unspecified Assessment and Plan Patient is a 46-year-old male admitted for 09/09: Continue effort to secure safe discharge Syncopal episode S/P AICD firing. Interrogated and functioning. Cardiomyopathy- known low EF-S/P AICD - 35-40%- clinically not in failure- BNP 90 Non compliance with meds EMR shows multiple recurrent ER visits for above I checked his plastic bag- all his pill bottles dated 06/20/17 - untouched and pill # with complete count -from that discharge date when asked if he is taking his meds-" I don't know - I can't read" Restart medications - Amiodarone 200 mg daily , Coreg 6.25 mg daily bid, furosemide 20 mg daily. KCl 20 meq po daily Atorvastatin 40 mg at bedtime ff BMP. Medical regimen adjusted by cardiology CT head personally reviewed by me negative Cognitive/Psychosocial Impairment- likely with developmental delay- near baseline- Continue on Depakote 250 mg daily Bupropion once daily Chronic kidney disease likely from DM nephropathy- reviewed old admissions creatinine near baseline. all cardiac meds restarted Recheck BMP in a.m. Diabetes mellitus type 2. hemoglobin A1c 7.2. Hold metformin with mildly elevated creatinine ADA diet.. Heart healthy diet Accu-Chek with insulin sliding scale Hypothyroidism: Started on Synthroid, check TSH in 4-6 weeks Case management consult for discharge planning.- Patient needs to be in a supervised environment- like a long term to make sure that he takes his medication -now homeless- - kicked out of his brother's home by his sister in law Lovenox subcutaneous for DVT prophylaxis Pending safe discharge Discharge Planning Pending case management help for discharge--NEEDS SAFE PLACE FOR DISCHARGE- ? CUSTODIAL Mj Liao MD Sep 09, 2017 14:14
[2017-09-09] MEDS: ATORVASTATIN 40 MG TAB PO SCH (21:06)
[2017-09-10] VITALS (8 sets, daily range): BP systolic 111–133; BP diastolic 59–76; PULSE 59–82; RESP 16–20; TEMP 97.4–98.4; O2SAT 95–99
[2017-09-10] MEDS: LEVOTHYROXINE SODIUM 25 MCG TAB PO SCH (05:46)
[2017-09-10] MEDS: ENOXAPARIN SODIUM 40 MG/0.4 ML SYRINGE SQ SCH (08:14)
[2017-09-10] MEDS: AMIODARONE 200 MG TAB PO SCH (08:15)
[2017-09-10] MEDS: FUROSEMIDE 20 MG TAB PO SCH (08:15)
[2017-09-10] MEDS: DIVALPROEX SODIUM DELAYED RELEASE 250 MG TAB PO SCH (08:15)
[2017-09-10] MEDS: CARVEDILOL 6.25 MG TAB PO SCH ×2 (08:15→21:51)
[2017-09-10] MEDS: ENALAPRIL MALEATE 2.5 MG TAB PO SCH ×2 (08:15→21:51)
[2017-09-10] MEDS: buPROPion HCL 100 MG SUSTAINED RELEASE TAB PO SCH (08:15)
[2017-09-10] MEDS: DOCUSATE SODIUM 50 MG/SENNA 8.6 MG TAB PO SCH ×2 (08:15→21:51)
[2017-09-10] MEDS: INSULIN ASPART SUPPLEMENTAL SCALE SQ SCH ×4 (10:30→21:52)
--- NOTE | 2017-09-10 18:39 | HHI.PR ---
Subjective Remarks Patient complained of pacer displacement, he stated he was supposed to see Dr. Webster for Indeed he had the pacer is locating under his left axilla Objective Vitals Vital Signs Date Time Temp Pulse Resp B/P (MAP) Pulse Ox O2 Delivery O2 Flow Rate FiO2 09/10/17 16:00 98.2 60 20 112/59 (76) 97 09/10/17 12:00 97.6 68 20 133/67 (89) 98 09/10/17 12:00 60 09/10/17 11:13 21 09/10/17 08:00 98.4 60 20 125/71 (89) 96 09/10/17 08:00 60 09/10/17 04:00 97.4 66 16 118/76 (90) 99 09/10/17 04:00 60 09/10/17 00:00 60 09/10/17 00:00 97.9 69 17 122/75 (91) 98 09/09/17 20:16 21 09/09/17 20:00 60 09/09/17 20:00 97.0 60 17 120/73 (89) 97 I/O 09/09/17 09/09/17 09/09/17 09/10/17 09/10/17 09/10/17 07:00 15:00 23:00 07:00 15:00 23:00 Intake Total 120 ml 360 ml 300 ml 480 ml Output Total 1 ml Balance 120 ml 360 ml 299 ml 480 ml Intake Oral 120 ml 360 ml 300 ml 480 ml Output Urine Total 1 ml # Voids 2 3 3 # Bowel Movements 0 0 Result Diagram: 09/08/17 0800 09/08/17 0800 Objective Remarks GENERAL: This is a well-nourished, well-developed patient, in no apparent distress. CARDIOVASCULAR: Regular rate and rhythm without murmurs, gallops, or rubs. RESPIRATORY: Clear to auscultation. Breath sounds equal bilaterally. No wheezes , rales, or rhonchi. GASTROINTESTINAL: Abdomen soft, non-tender, nondistended. Normal active bowel sounds MUSCULOSKELETAL: Extremities without clubbing, cyanosis, or edema. NEURO: Alert & Oriented x4 to person, place, time, situation. Moves all ext x4 Procedures NONE A/P Problem List: (1) ICD (implantable cardioverter-defibrillator) discharge ICD Code: Z45.02 - Encounter for adjustment and management of automatic implantable cardiac defibrillator Status: Acute (2) chronic kidney insufficiency stage III (3) DM (diabetes mellitus) ICD Code: E11.9 - Type 2 diabetes mellitus without complications Status: Chronic (4) Hypothyroidism ICD Code: E03.9 - Hypothyroidism, unspecified Assessment and Plan Patient is a 46-year-old male admitted for 09/10: Patient reported patient displacement, will consult Dr. Webster Syncopal episode S/P AICD firing. Interrogated and functioning. Cardiomyopathy- known low EF-S/P AICD - 35-40%- clinically not in failure- BNP 90 Non compliance with meds EMR shows multiple recurrent ER visits for above I checked his plastic bag- all his pill bottles dated 06/20/17 - untouched and pill # with complete count -from that discharge date when asked if he is taking his meds-" I don't know - I can't read" Restart medications - Amiodarone 200 mg daily , Coreg 6.25 mg daily bid, furosemide 20 mg daily. KCl 20 meq po daily Atorvastatin 40 mg at bedtime ff BMP. Medical regimen adjusted by cardiology CT head personally reviewed by me negative Cognitive/Psychosocial Impairment- likely with developmental delay- near baseline- Continue on Depakote 250 mg daily Bupropion once daily Chronic kidney disease likely from DM nephropathy- reviewed old admissions creatinine near baseline. all cardiac meds restarted Recheck BMP in a.m. Diabetes mellitus type 2. hemoglobin A1c 7.2. Hold metformin with mildly elevated creatinine ADA diet.. Heart healthy diet Accu-Chek with insulin sliding scale Hypothyroidism: Started on Synthroid, check TSH in 4-6 weeks Case management consult for discharge planning.- Patient needs to be in a supervised environment- like a [facility] to make sure that he takes his medication -now homeless- - kicked out of his brother's home by his sister in law Lovenox subcutaneous for DVT prophylaxis Pending safe discharge Discharge Planning Pending case management help for discharge--NEEDS SAFE PLACE FOR DISCHARGE- ? LONG TERM Mj Liao MD Sep 10, 2017 18:38
[2017-09-10] MEDS: ATORVASTATIN 40 MG TAB PO SCH (21:51)
[2017-09-11] VITALS (8 sets, daily range): BP systolic 106–136; BP diastolic 52–79; PULSE 60; RESP 16–20; TEMP 97.1–98.2; O2SAT 95–98
[2017-09-11] MEDS: LEVOTHYROXINE SODIUM 25 MCG TAB PO SCH (05:16)
[2017-09-11] MEDS: ENALAPRIL MALEATE 2.5 MG TAB PO SCH ×2 (08:13→21:59)
[2017-09-11] MEDS: FUROSEMIDE 20 MG TAB PO SCH (08:13)
[2017-09-11] MEDS: CARVEDILOL 6.25 MG TAB PO SCH ×2 (08:13→21:59)
[2017-09-11] MEDS: buPROPion HCL 100 MG SUSTAINED RELEASE TAB PO SCH (08:13)
[2017-09-11] MEDS: DOCUSATE SODIUM 50 MG/SENNA 8.6 MG TAB PO SCH ×2 (08:13→21:59)
[2017-09-11] MEDS: AMIODARONE 200 MG TAB PO SCH (08:13)
[2017-09-11] MEDS: INSULIN ASPART SUPPLEMENTAL SCALE SQ SCH ×4 (08:14→21:00)
[2017-09-11] MEDS: ENOXAPARIN SODIUM 40 MG/0.4 ML SYRINGE SQ SCH (08:14)
[2017-09-11] MEDS: DIVALPROEX SODIUM DELAYED RELEASE 250 MG TAB PO SCH (09:39)
--- NOTE | 2017-09-11 15:48 | HHI.PR ---
Subjective Remarks No acute issue, discussed with the nurse, Dr. Hannah cardiology called and stated the place of the pacer is where is supposed to be they will run and interrogation Otherwise no acute issue Objective Vitals Vital Signs Date Time Temp Pulse Resp B/P (MAP) Pulse Ox O2 Delivery O2 Flow Rate FiO2 09/11/17 12:00 97.1 60 20 106/52 (70) 95 09/11/17 08:00 60 09/11/17 08:00 98.2 60 20 128/56 (80) 97 09/11/17 07:00 Room Air 09/11/17 04:45 97.6 60 17 109/60 (76) 98 09/11/17 04:00 Room Air 09/11/17 03:57 60 09/11/17 00:42 97.9 60 16 111/55 (73) 97 09/11/17 00:00 Room Air 09/10/17 23:52 60 09/10/17 21:35 98.1 82 17 111/66 (81) 95 09/10/17 21:27 21 09/10/17 20:09 60 09/10/17 20:00 Room Air 09/10/17 16:00 98.2 60 20 112/59 (76) 97 09/10/17 16:00 59 I/O 09/10/17 09/10/17 09/10/17 09/11/17 09/11/17 09/11/17 07:00 15:00 23:00 07:00 15:00 23:00 Intake Total 300 ml 480 ml Output Total 1 ml 1600 ml 2000 ml Balance 299 ml 480 ml -1600 ml -2000 ml Intake Oral 300 ml 480 ml Output Urine Total 1 ml 1600 ml 2000 ml # Voids 3 # Bowel Movements 0 1 1 Result Diagram: 09/08/17 0800 09/08/17 0800 Objective Remarks GENERAL: This is a well-nourished, well-developed patient, in no apparent distress. CARDIOVASCULAR: Regular rate and rhythm without murmurs, gallops, or rubs. RESPIRATORY: Clear to auscultation. Breath sounds equal bilaterally. No wheezes , rales, or rhonchi. GASTROINTESTINAL: Abdomen soft, non-tender, nondistended. Normal active bowel sounds MUSCULOSKELETAL: Extremities without clubbing, cyanosis, or edema. NEURO: Alert & Oriented x4 to person, place, time, situation. Moves all ext x4 Procedures NONE A/P Problem List: (1) ICD (implantable cardioverter-defibrillator) discharge ICD Code: Z45.02 - Encounter for adjustment and management of automatic implantable cardiac defibrillator Status: Acute (2) chronic kidney insufficiency stage III (3) DM (diabetes mellitus) ICD Code: E11.9 - Type 2 diabetes mellitus without complications Status: Chronic (4) Hypothyroidism ICD Code: E03.9 - Hypothyroidism, unspecified Assessment and Plan Patient is a 46-year-old male admitted for 09/11: Cardiology called the floor and stated that the pacer place is where it is now Syncopal episode S/P AICD firing. Interrogated and functioning. Cardiomyopathy- known low EF-S/P AICD - 35-40%- clinically not in failure- BNP 90 Non compliance with meds EMR shows multiple recurrent ER visits for above I checked his plastic bag- all his pill bottles dated 06/20/17 - untouched and pill # with complete count -from that discharge date when asked if he is taking his meds-" I don't know - I can't read" Restart medications - Amiodarone 200 mg daily , Coreg 6.25 mg daily bid, furosemide 20 mg daily. KCl 20 meq po daily Atorvastatin 40 mg at bedtime ff BMP. Medical regimen adjusted by cardiology CT head personally reviewed by me negative Cognitive/Psychosocial Impairment- likely with developmental delay- near baseline- Continue on Depakote 250 mg daily Bupropion once daily Chronic kidney disease likely from DM nephropathy- reviewed old admissions creatinine near baseline. all cardiac meds restarted Recheck BMP in a.m. Diabetes mellitus type 2. hemoglobin A1c 7.2. Hold metformin with mildly elevated creatinine ADA diet.. Heart healthy diet Accu-Chek with insulin sliding scale Hypothyroidism: Started on Synthroid, check TSH in 4-6 weeks Case management consult for discharge planning.- Patient needs to be in a supervised environment- like a retirement to make sure that he takes his medication -now homeless- - kicked out of his brother's home by his sister in law Lovenox subcutaneous for DVT prophylaxis Pending safe discharge Discharge Planning Pending case management help for discharge--NEEDS SAFE PLACE FOR DISCHARGE- ? NURSING HOME Mj Liao MD Sep 11, 2017 15:48
[2017-09-11] MEDS: ATORVASTATIN 40 MG TAB PO SCH (21:59)
[2017-09-12] VITALS (10 sets, daily range): BP systolic 98–125; BP diastolic 53–80; PULSE 59–60; RESP 16–18; TEMP 97.3–98.1; O2SAT 94–99
[2017-09-12] MEDS: LEVOTHYROXINE SODIUM 25 MCG TAB PO SCH (06:00)
[2017-09-12] MEDS: INSULIN ASPART SUPPLEMENTAL SCALE SQ SCH ×3 (08:00→20:08)
[2017-09-12] MEDS: AMIODARONE 200 MG TAB PO SCH (09:07)
[2017-09-12] MEDS: CARVEDILOL 6.25 MG TAB PO SCH ×2 (09:07→20:06)
[2017-09-12] MEDS: buPROPion HCL 100 MG SUSTAINED RELEASE TAB PO SCH (09:07)
[2017-09-12] MEDS: DIVALPROEX SODIUM DELAYED RELEASE 250 MG TAB PO SCH (09:07)
[2017-09-12] MEDS: DOCUSATE SODIUM 50 MG/SENNA 8.6 MG TAB PO SCH ×2 (09:07→20:06)
[2017-09-12] MEDS: ENALAPRIL MALEATE 2.5 MG TAB PO SCH ×2 (09:07→20:06)
[2017-09-12] MEDS: FUROSEMIDE 20 MG TAB PO SCH (09:07)
[2017-09-12] MEDS: ENOXAPARIN SODIUM 40 MG/0.4 ML SYRINGE SQ SCH (09:10)
--- NOTE | 2017-09-12 16:31 | HHI.PR ---
Subjective Remarks Resting comfortably in bed No event overnight Denied chest, No fever or chills Objective Vitals Vital Signs Date Time Temp Pulse Resp B/P (MAP) Pulse Ox O2 Delivery O2 Flow Rate FiO2 09/12/17 12:00 97.8 59 18 107/65 (79) 97 09/12/17 08:00 98.1 60 18 114/74 (87) 97 09/12/17 07:00 Room Air 09/12/17 04:25 97.8 60 18 105/57 (73) 99 09/12/17 04:02 60 09/12/17 00:03 60 09/12/17 00:00 Room Air 09/12/17 00:00 97.8 60 18 125/75 (92) 97 09/11/17 20:04 60 09/11/17 20:00 Room Air 09/11/17 20:00 97.9 60 18 136/79 (98) 98 I/O 09/11/17 09/11/17 09/11/17 09/12/17 09/12/17 09/12/17 07:00 15:00 23:00 07:00 15:00 23:00 Intake Total 240 ml Output Total 1600 ml 2000 ml 1600 ml Balance -1600 ml -2000 ml -1360 ml Intake Oral 240 ml Output Urine Total 1600 ml 2000 ml 1600 ml # Bowel Movements 1 1 0 Result Diagram: 09/08/17 0800 09/08/17 0800 Objective Remarks GENERAL: This is a well-nourished, well-developed patient, in no apparent distress. CARDIOVASCULAR: Regular rate and rhythm without murmurs, gallops, or rubs. RESPIRATORY: Clear to auscultation. Breath sounds equal bilaterally. No wheezes , rales, or rhonchi. GASTROINTESTINAL: Abdomen soft, non-tender, nondistended. Normal active bowel sounds MUSCULOSKELETAL: Extremities without clubbing, cyanosis, or edema. NEURO: Alert & Oriented x4 to person, place, time, situation. Moves all ext x4 Procedures NONE A/P Problem List: (1) ICD (implantable cardioverter-defibrillator) discharge ICD Code: Z45.02 - Encounter for adjustment and management of automatic implantable cardiac defibrillator Status: Acute (2) chronic kidney insufficiency stage III (3) DM (diabetes mellitus) ICD Code: E11.9 - Type 2 diabetes mellitus without complications Status: Chronic (4) Hypothyroidism ICD Code: E03.9 - Hypothyroidism, unspecified Assessment and Plan Patient is a 46-year-old male admitted for Patient complained of displacement of the pacer, cardiology consulted the called the floor and stated that the pacer place is where it is now Syncopal episode S/P AICD firing. Interrogated and functioning. Cardiomyopathy- known low EF-S/P AICD - 35-40%- clinically not in failure- BNP 90 Non compliance with meds EMR shows multiple recurrent ER visits for above I checked his plastic bag- all his pill bottles dated 06/20/17 - untouched and pill # with complete count -from that discharge date when asked if he is taking his meds-" I don't know - I can't read" Restart medications - Amiodarone 200 mg daily , Coreg 6.25 mg daily bid, furosemide 20 mg daily. KCl 20 meq po daily Atorvastatin 40 mg at bedtime ff BMP. Medical regimen adjusted by cardiology CT head personally reviewed by me negative Cognitive/Psychosocial Impairment- likely with developmental delay- near baseline- Continue on Depakote 250 mg daily Bupropion once daily Chronic kidney disease likely from DM nephropathy- reviewed old admissions creatinine near baseline. all cardiac meds restarted Recheck BMP in a.m. Diabetes mellitus type 2. hemoglobin A1c 7.2. Hold metformin with mildly elevated creatinine ADA diet.. Heart healthy diet Accu-Chek with insulin sliding scale Hypothyroidism: Started on Synthroid, check TSH in 4-6 weeks Case management consult for discharge planning.- Patient needs to be in a supervised environment- like a [facility] to make sure that he takes his medication -now homeless- - kicked out of his brother's home by his sister in law Lovenox subcutaneous for DVT prophylaxis Pending safe discharge Discharge Planning Pending case management help for discharge--NEEDS SAFE PLACE FOR DISCHARGE- ? [facility] Mj Liao MD Sep 12, 2017 16:31
[2017-09-12] MEDS: ATORVASTATIN 40 MG TAB PO SCH (20:07)
[2017-09-13 03:32] VITALS: BP 99/61; PULSE 63; RESP 16; TEMP 99.3; O2SAT 97
[2017-09-13 03:54] VITALS: PULSE 60
[2017-09-13] MEDS: LEVOTHYROXINE SODIUM 25 MCG TAB PO SCH (06:45)
[2017-09-13 08:00] VITALS: BP 123/68; PULSE 60; PULSE 62; RESP 18; TEMP 98.2; O2SAT 99
[2017-09-13] MEDS: INSULIN ASPART SUPPLEMENTAL SCALE SQ SCH ×2 (08:00→12:55)
[2017-09-13] MEDS: FUROSEMIDE 20 MG TAB PO SCH (08:44)
[2017-09-13] MEDS: DOCUSATE SODIUM 50 MG/SENNA 8.6 MG TAB PO SCH (08:44)
[2017-09-13] MEDS: CARVEDILOL 6.25 MG TAB PO SCH (08:44)
[2017-09-13] MEDS: DIVALPROEX SODIUM DELAYED RELEASE 250 MG TAB PO SCH (08:44)
[2017-09-13] MEDS: AMIODARONE 200 MG TAB PO SCH (08:44)
[2017-09-13] MEDS: buPROPion HCL 100 MG SUSTAINED RELEASE TAB PO SCH (08:44)
[2017-09-13] MEDS: ENOXAPARIN SODIUM 40 MG/0.4 ML SYRINGE SQ SCH (08:45)
[2017-09-13] MEDS: ENALAPRIL MALEATE 2.5 MG TAB PO SCH (09:00)
[2017-09-13 12:00] VITALS: BP 120/66; PULSE 60; RESP 18; TEMP 97.5; O2SAT 97
--- NOTE | 2017-09-13 13:46 | HHI.PR ---
Objective Vitals Vital Signs Date Time Temp Pulse Resp B/P (MAP) Pulse Ox O2 Delivery O2 Flow Rate FiO2 09/13/17 12:00 97.5 60 18 120/66 (84) 97 09/13/17 08:00 98.2 62 18 123/68 (86) 99 09/13/17 03:54 60 09/13/17 03:32 99.3 63 16 99/61 (74) 97 09/12/17 23:48 60 09/12/17 23:23 97.9 60 16 98/53 (68) 95 09/12/17 20:00 60 09/12/17 20:00 97.8 60 18 109/78 (88) 96 09/12/17 20:00 Room Air 09/12/17 16:00 60 09/12/17 16:00 97.3 60 18 99/67 (78) 97 I/O 09/12/17 09/12/17 09/12/17 09/13/17 09/13/17 09/13/17 07:00 15:00 23:00 07:00 15:00 23:00 Intake Total 240 ml 480 ml Output Total 1600 ml 300 ml Balance -1360 ml 180 ml Intake Oral 240 ml 480 ml Output Urine Total 1600 ml 300 ml # Bowel Movements 0 0 Procedures NONE A/P Problem List: (1) ICD (implantable cardioverter-defibrillator) discharge ICD Code: Z45.02 - Encounter for adjustment and management of automatic implantable cardiac defibrillator Status: Acute (2) chronic kidney insufficiency stage III (3) DM (diabetes mellitus) ICD Code: E11.9 - Type 2 diabetes mellitus without complications Status: Chronic (4) Hypothyroidism ICD Code: E03.9 - Hypothyroidism, unspecified Yamilka Hernandez MD Sep 13, 2017 13:46
[2017-09-13] MEDS ORDERED: BUPR100T4 PO (15:34)
[2017-09-13] MEDS ORDERED: CARV6.252 PO (15:34)
[2017-09-13] MEDS ORDERED: AMIO200T PO (15:34)
[2017-09-13] MEDS ORDERED: FURO20TA PO (15:34)
[2017-09-13] MEDS ORDERED: ATOR40TA16 PO (15:34)
[2017-09-13] MEDS ORDERED: ENAL2.5T PO (15:34)
[2017-09-13] MEDS ORDERED: DIVA250T PO (15:34)
--- NOTE | 2017-09-13 15:35 | HHI.DS ---
Discharge Summary Admission Date Sep 04, 2017 at 14:27 Discharge Date: Sep 13, 2017 Admitting Diagnosis Vtach, defibrillator firing (1) ICD (implantable cardioverter-defibrillator) discharge ICD Code: Z45.02 - Encounter for adjustment and management of automatic implantable cardiac defibrillator Status: Acute (2) chronic kidney insufficiency stage III (3) DM (diabetes mellitus) ICD Code: E11.9 - Type 2 diabetes mellitus without complications Status: Chronic (4) Hypothyroidism ICD Code: E03.9 - Hypothyroidism, unspecified Procedures NONE Brief History - From Admission HPI from the admitting physician Patient is a 46-year-old male with known history of hypertension, 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 Device interrogated in ER- and confirmed VT, device promptly fired When asked further patient states that he lives with his brother and his girlfriend kicked him out this morning. Patient currently denies any pain denies any headache nausea vomiting. Hungry. Patient says I don't know to a lot of questions when asked about his medications patient states that it's all there in the bag and when I'd look at all these medication pills - were filled last June 21 and the count is still complete . Patient is childlike in demeanor with likely some psychosocial developmental delay mentally. He denies any fever or headache nausea vomiting chest pain shortness of breath abdominal pain or swelling of the legs. Imaging Last Impressions Head CT 09/05/17 0000 Signed Impressions: Service Date/Time: Tuesday, September 05, 2017 16:16 - CONCLUSION: 1. No acute intracranial abnormality identified. Duke Marcus MD Chest X-Ray 09/04/17 1245 Signed Impressions: Service Date/Time: Monday, September 04, 2017 13:17 - CONCLUSION: Cardiomegaly. No acute pulmonary disease. Reilly Grajeda MD PE at Discharge GENERAL: This is a well-nourished, well-developed patient, in no apparent distress. CARDIOVASCULAR: Regular rate and rhythm without murmurs, gallops, or rubs. RESPIRATORY: Clear to auscultation. Breath sounds equal bilaterally. No wheezes , rales, or rhonchi. GASTROINTESTINAL: Abdomen soft, non-tender, nondistended. Normal active bowel sounds MUSCULOSKELETAL: Extremities without clubbing, cyanosis, or edema. NEURO: Alert & Oriented x4 to person, place, time, situation. Moves all ext x4 Pt update on day of discharge Patient reports he is feeling okay today. His brother agreed to take him back home. He denies chest pain or shortness of breath. Hospital Course Patient is a 46-year-old male admitted and treated for the following: Syncopal episode S/P AICD firing. Interrogated and functioning. Cardiomyopathy- known low EF-S/P AICD - 35-40%- clinically not in failure- BNP 90 Non compliance with meds EMR shows multiple recurrent ER visits for above Restart medications - Amiodarone 200 mg daily , Coreg 6.25 mg daily bid, furosemide 20 mg daily. KCl 20 meq po daily Atorvastatin 40 mg at bedtime ff BMP. Medical regimen adjusted by cardiology CT was negative. Cognitive/Psychosocial Impairment- likely with developmental delay- near baseline- Continue on Depakote 250 mg daily Bupropion once daily Chronic kidney disease likely from DM nephropathy- reviewed old admissions creatinine near baseline. all cardiac meds restarted Diabetes mellitus type 2. hemoglobin A1c 7.2. Continue metformin on discharge Subclinical hypothyroidism: Can follow-up outpatient. There were concern about safe discharge plans until the patient's brother agreed to take him back home. He is discharged to the care of his brother. Pt Condition on Discharge: Good Discharge Disposition: Discharge Home Discharge Time: > 30 minutes Discharge Instructions DIET: Follow Instructions for: Heart Healthy Diet Activities you can perform: Regular-No Restrictions Follow up Referrals: Cardiology Cardiology [facility]iology @ [facility] New Medications: Enalapril (Enalapril) 2.5 Mg Tab 2.5 MG PO BID, #60 TAB Continued Medications: Amiodarone (Amiodarone) 200 Mg Tab 200 MG PO DAILY for Regulate Heart Beat, #60 TAB 0 Refills (This prescription has been renewed) Atorvastatin (Atorvastatin) 40 Mg Tab 40 MG PO HS for Cholesterol Management, #30 TAB 0 Refills (This prescription has been renewed) Bupropion HCl (Bupropion HCl) 100 Mg Tab 100 MG PO DAILY for Control Depression, #30 TAB 0 Refills (This prescription has been renewed) Carvedilol (Carvedilol) 6.25 Mg Tab 6.25 MG PO BID, #60 TAB 0 Refills (This prescription has been renewed) Divalproex DR (Divalproex DR) 250 Mg Tabdr 250 MG PO DAILYAC for Control Seizures, #60 TAB 0 Refills (This prescription has been renewed) Furosemide (Furosemide) 20 Mg Tab 20 MG PO DAILY, #30 TAB 0 Refills (This prescription has been renewed) Yamilka Hernandez MD Sep 13, 2017 15:35
== END 2017-09-13 17:27 | disposition home or self-care (01) | DRG 309 ==
LOC: NEPE 12:21 → NEDA 14:27 → HCIS 16:02 → N04A 09-07 15:30
PROVIDERS: ADMIT Family Medicine; ATTEND Family Medicine
DX: I47.2 Ventricular tachycardia (principal); I42.9 Cardiomyopathy, unspecified; I13.0 Hypertensive heart and chronic kidney disease with heart failure and stage 1 through stage 4 chronic kidney disease, or unspecified chronic kidney disease; I50.22 Chronic systolic (congestive) heart failure; E11.21 Type 2 diabetes mellitus with diabetic nephropathy; E11.22 Type 2 diabetes mellitus with diabetic chronic kidney disease; N18.3 Chronic kidney disease, stage 3 (moderate); R62.50 Unspecified lack of expected normal physiological development in childhood; I48.0 Paroxysmal atrial fibrillation; E78.00 Pure hypercholesterolemia, unspecified; F17.200 Nicotine dependence, unspecified, uncomplicated; Z91.14 Patient's other noncompliance with medication regimen; Z95.810 Presence of automatic (implantable) cardiac defibrillator; Z88.6 Allergy status to analgesic agent; Z59.0 Homelessness; Z79.84 Long term (current) use of oral hypoglycemic drugs; J44.9 Chronic obstructive pulmonary disease, unspecified; I25.2 Old myocardial infarction; E03.9 Hypothyroidism, unspecified
CPT/HCPCS: 70450; 71045; 80053; 82948; 83036; 83735; 83880; 84100; 84439; 84443; 84484; 85025; 85610; 85730; 93005; 99285; J1650; J1815

== ENCOUNTER 2017-09-15 09:13 | Emergency (ER) | payer OTHER ==
[~2017-09-15] VITALS: Ht 180.3 cm; Wt 75.0 kg
[~2017-09-15 09:13] MED LIST changes: -DIVA500T PO; +ENAL2.5T PO; -METF500T PO; -POTA-163 PO
[2017-09-15 09:35] VITALS: BP 118/75; PULSE 100; RESP 18; TEMP 98.1; O2SAT 99
[2017-09-15 09:36] VITALS: BP_SYST 116; BP_SYST 118; BP_DIAS 73; BP_DIAS 80; PULSE 100; RESP 18; O2SAT 97
[2017-09-15] MEDS ORDERED: SODIUM CHLORIDE 0.9% FLUSH 10 ML FLUSH IVF PRN (09:45)
--- NOTE | 2017-09-15 10:01 | RADRPT ---
EXAM DATE/TIME: 09/15/2017 09:44 [facility] COMPARISON: CHEST SINGLE AP, September 04, 2017, 13:17. INDICATIONS : Patient complains of chest pain. MEDICAL HISTORY : Hypertension. SURGICAL HISTORY : Pacemaker. pt states open heart surgery. ENCOUNTER: Initial ACUITY: 1 day PAIN SCORE: 8/10 LOCATION: chest FINDINGS: Pacer in good position. Mild compensated cardiomegaly. Lungs are clear. No infiltrate or failure. CONCLUSION: Negative for acute process. Bill Marcus MD FACR on September 15, 2017 at 9:58 Board Certified Radiologist. This report was verified electronically.
[2017-09-15 10:16] LABS: AUTOMATED NEUTROPHIL # 5.1 TH/MM3 (1.8-7.7); BASOPHIL % 0.5 % (0.0-2.0); EOSINOPHIL % 0.5 % (0.0-4.0); HEMATOCRIT 42.2 % (39.0-51.0); HEMOGLOBIN 14.4 GM/DL (13.0-17.0); LYMPH % 17.3 % (9.0-44.0); LYMPHOCYTE # 1.2 TH/MM3 (1.0-4.8); MEAN CELL VOLUME 81.1 FL (80.0-100.0); MEAN CORPUSCULAR HEMOGLOBIN 27.7 PG (27.0-34.0); MEAN CORPUSCULAR HGB CONC 34.2 % (32.0-36.0); MEAN PLATELET VOLUME 8.6 FL (7.0-11.0); MONO % 7.8 % (0.0-8.0); MONOCYTE # 0.5 TH/MM3 (0-0.9); NEUT % 73.9 % (16.0-70.0); PLATELET COUNT 148 TH/MM3 (150-450); RED BLOOD COUNT 5.21 MIL/MM3 (4.50-5.90)
[2017-09-15 10:23] LABS: INTERNATIONAL NORMALIZED RATIO 1.1 RATIO
[2017-09-15 10:47] LABS: ALT (GPT) 40 U/L (12-78)
[2017-09-15 10:50] LABS: ALKALINE PHOSPHATASE 103 U/L (45-117); TOTAL BILIRUBIN ADULT 0.5 MG/DL (0.2-1.0); TOTAL PROTEIN 7.8 GM/DL (6.4-8.2); TROPONIN I LESS THAN 0.02 NG/ML (0.02-0.05)
[2017-09-15 10:56] LABS: ALBUMIN 4.1 GM/DL (3.4-5.0); AST (GOT) 28 U/L (15-37); BICARBONATE 24.2 MEQ/L (21.0-32.0); BLOOD UREA NITROGEN 29 MG/DL (7-18); CHLORIDE 102 MEQ/L (98-107); CREATININE 1.43 MG/DL (0.60-1.30); GLOMERULAR FILTRATION RATE 64 ML/MIN (>89); GLUCOSE,RANDOM 178 MG/DL (74-106); SODIUM (NA) 134 MEQ/L (136-145)
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
--- NOTE | 2017-09-15 16:50 | EKG ---
Date Performed: 09/15/2017 Time Performed: 09:27:32 PTAGE: 46 years EKG: ATRIAL FIBRILLATION RIGHT BUNDLE BRANCH BLOCK LEFT POSTERIOR FASCICULAR BLOCK INFERIOR MYOC ARDIAL INFARCTION Since the previous tracing, no significant change noted ABNORMAL ECG PREVIOUS TRACING : 09/04/2017 13.01 DOCTOR: Tamica Ferrari Interpretating Date/Time 09/15/2017 16:48:40
== END 2017-09-15 12:37 | disposition home or self-care (01) ==
LOC: NEPE 09:13
DX: R07.9 Chest pain, unspecified (principal)
CPT/HCPCS: 71045; 80053; 82550; 82552; 84484; 85025; 85610; 85730; 93005

== ENCOUNTER 2017-09-27 08:55 | Emergency (ER) | payer OTHER ==
[~2017-09-27] VITALS: Ht 180.3 cm; Wt 90.0 kg
[2017-09-27 09:00] VITALS: BP 112/85; PULSE 98; RESP 17; TEMP 98.1
[2017-09-27] MEDS ORDERED: SODIUM CHLORIDE 0.9% FLUSH 10 ML FLUSH IVF PRN (09:15)
[2017-09-27 09:16] VITALS: O2SAT 97
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
[2017-09-27 09:45] LABS: BASOPHIL % 0.3 % (0.0-2.0); EOSINOPHIL % 0.7 % (0.0-4.0); HEMATOCRIT 40.6 % (39.0-51.0); HEMOGLOBIN 14.1 GM/DL (13.0-17.0); LYMPH % 15.1 % (9.0-44.0); LYMPHOCYTE # 0.8 TH/MM3 (1.0-4.8); MEAN CELL VOLUME 81.3 FL (80.0-100.0); MEAN CORPUSCULAR HEMOGLOBIN 28.3 PG (27.0-34.0); MEAN CORPUSCULAR HGB CONC 34.8 % (32.0-36.0); MEAN PLATELET VOLUME 8.2 FL (7.0-11.0); MONOCYTE # 0.4 TH/MM3 (0-0.9); NEUT % 76.9 % (16.0-70.0); PLATELET COUNT 134 TH/MM3 (150-450); RED CELL DISTRIBUTION WIDTH 17.1 % (11.6-17.2); WHITE BLOOD COUNT 5.1 TH/MM3 (4.0-11.0)
[2017-09-27 09:54] LABS: INTERNATIONAL NORMALIZED RATIO 1.1 RATIO; PROTHROMBIN TIME - PATIENT 11.2 SEC (9.8-11.6)
--- NOTE | 2017-09-27 09:58 | RADRPT ---
EXAM DATE/TIME: 09/27/2017 09:31 [facility] COMPARISON: No previous studies available for comparison. INDICATIONS : Chest pain. MEDICAL HISTORY : Hypertension. Chronic obstructive pulmonary disease. Cardiovascular disease. SURGICAL HISTORY : Pacemaker. CABG. ENCOUNTER: Initial ACUITY: 1 day PAIN SCORE: 5/10 LOCATION: Bilateral chest FINDINGS: A single view of the chest demonstrates the lungs to be symmetrically aerated without evidence of mas s, infiltrate or effusion. Right subclavian bipolar pacer in good position. The cardiomediastinal con tours are unremarkable. Osseous structures are intact. CONCLUSION: Normal examination. Right subclavian bipolar pacer Don Jimenez MD on September 27, 2017 at 9:55 Board Certified Radiologist. This report was verified electronically.
[2017-09-27 10:12] LABS: BICARBONATE 24.4 MEQ/L (21.0-32.0); CALCIUM 9.2 MG/DL (8.5-10.1); CHLORIDE 105 MEQ/L (98-107); CREATININE 1.32 MG/DL (0.60-1.30); GLOMERULAR FILTRATION RATE 70 ML/MIN (>89); GLUCOSE,RANDOM 195 MG/DL (74-106); SODIUM (NA) 138 MEQ/L (136-145)
[2017-09-27 10:15] LABS: BLOOD UREA NITROGEN 25 MG/DL (7-18)
[2017-09-27 10:25] LABS: TROPONIN I LESS THAN 0.02 NG/ML (0.02-0.05)
[2017-09-27 11:39] VITALS: BP 152/71
--- NOTE | 2017-09-27 18:07 | EKG ---
Date Performed: 09/27/2017 Time Performed: 09:04:56 PTAGE: 46 years EKG: SINUS TACHYCARDIA WITH FIRST DEGREE AV BLOCK MARKED RIGHT AXIS DEVIATION RIGHT BUNDLE BRANC H BLOCK INFERIOR MYOCARDIAL INFARCTION, age indeterminate Consider antreroseptal ischemia. ABNORMAL E CG NO PREVIOUS TRACING DOCTOR: Leon Bustillos Interpretating Date/Time 09/27/2017 18:05:42
== END 2017-09-27 11:43 | disposition home or self-care (01) ==
LOC: NEPE 08:55
DX: R07.89 Other chest pain (principal); I44.0 Atrioventricular block, first degree; I45.10 Unspecified right bundle-branch block; I25.2 Old myocardial infarction; R94.31 Abnormal electrocardiogram [ECG] [EKG]; E11.9 Type 2 diabetes mellitus without complications; I25.10 Atherosclerotic heart disease of native coronary artery without angina pectoris; N28.9 Disorder of kidney and ureter, unspecified; R62.50 Unspecified lack of expected normal physiological development in childhood
CPT/HCPCS: 71045; 80048; 82550; 82552; 84484; 85025; 85610; 85730; 93005

== ENCOUNTER 2017-10-11 20:48 | Emergency (ER) | payer OTHER ==
[~2017-10-11] VITALS: Ht 182.9 cm; Wt 72.0 kg
[2017-10-11 21:17] VITALS: BP 119/84; PULSE 89; RESP 16; TEMP 98.1; O2SAT 97
--- NOTE | 2017-10-11 21:32 | RADRPT ---
EXAM DATE/TIME: 10/11/2017 21:14 [facility] COMPARISON: CHEST SINGLE AP, September 27, 2017, 9:31. INDICATIONS : Chest pain MEDICAL HISTORY : Hypertension. Chronic obstructive pulmonary disease. Cardiovascular disease SURGICAL HISTORY : Pacemaker. CABG. ENCOUNTER: Initial ACUITY: 1 day PAIN SCORE: 8/10 LOCATION: chest FINDINGS: A single view of the chest demonstrates the lungs to be symmetrically aerated without evidence of mas s, infiltrate or effusion. The cardiomediastinal contours are unremarkable. Osseous structures are intact. Bilateral pacemakers. CONCLUSION: No acute disease. Norman Paulino MD on October 11, 2017 at 21:29 Board Certified Radiologist. This report was verified electronically.
[2017-10-11 22:07] LABS: AUTOMATED NEUTROPHIL # 2.7 TH/MM3 (1.8-7.7); BASOPHIL % 0.4 % (0.0-2.0); EOSINOPHIL % 0.5 % (0.0-4.0); HEMATOCRIT 37.5 % (39.0-51.0); HEMOGLOBIN 12.8 GM/DL (13.0-17.0); LYMPH % 26.1 % (9.0-44.0); LYMPHOCYTE # 1.1 TH/MM3 (1.0-4.8); MEAN CELL VOLUME 81.1 FL (80.0-100.0); MEAN CORPUSCULAR HEMOGLOBIN 27.7 PG (27.0-34.0); MEAN CORPUSCULAR HGB CONC 34.1 % (32.0-36.0); MEAN PLATELET VOLUME 8.4 FL (7.0-11.0); MONO % 10.1 % (0.0-8.0); MONOCYTE # 0.4 TH/MM3 (0-0.9); NEUT % 62.9 % (16.0-70.0); PLATELET COUNT 149 TH/MM3 (150-450); RED BLOOD COUNT 4.63 MIL/MM3 (4.50-5.90); RED CELL DISTRIBUTION WIDTH 17.6 % (11.6-17.2); WHITE BLOOD COUNT 4.2 TH/MM3 (4.0-11.0)
[2017-10-11 22:24] LABS: AST (GOT) 22 U/L (15-37); BICARBONATE 25.2 MEQ/L (21.0-32.0); BLOOD UREA NITROGEN 25 MG/DL (7-18); CALCIUM 9.2 MG/DL (8.5-10.1); CHLORIDE 103 MEQ/L (98-107); GLOMERULAR FILTRATION RATE 71 ML/MIN (>89); GLUCOSE,RANDOM 189 MG/DL (74-106); SODIUM (NA) 138 MEQ/L (136-145)
[2017-10-11 22:31] LABS: ALKALINE PHOSPHATASE 97 U/L (45-117); ALT (GPT) 36 U/L (12-78); TOTAL BILIRUBIN ADULT 0.4 MG/DL (0.2-1.0); TROPONIN I LESS THAN 0.02 NG/ML (0.02-0.05)
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
[2017-10-12 00:30] VITALS: BP 122/58; PULSE 81; RESP 16; O2SAT 98
[2017-10-12] MEDS ORDERED: KETOROLAC TROMETHAMINE 30 MG/ML (IVP) VIAL IV PUSH ONE (02:15)
[2017-10-12] MEDS ORDERED: FAMOTIDINE 20 MG/2 ML VIAL IV PUSH SCH (02:15)
[2017-10-12 03:34] VITALS: RESP 18
--- NOTE | 2017-10-13 08:34 | EKG ---
Date Performed: 10/11/2017 Time Performed: 21:34:10 PTAGE: 46 years EKG: ATRIAL FLUTTER/TACHYCARDIA MARKED RIGHT AXIS DEVIATION RIGHT BUNDLE BRANCH BLOCK INFERIOR M YOCARDIAL INFARCTION ABNORMAL ECG PREVIOUS TRACING : 09/27/2017 09.04 DOCTOR: Torres Man Interpretating Date/Time 10/13/2017 08:31:21
== END 2017-10-12 05:45 | disposition home or self-care (01) ==
LOC: NEPE 20:48
DX: R07.89 Other chest pain (principal); I48.92 Unspecified atrial flutter; R00.0 Tachycardia, unspecified; I45.10 Unspecified right bundle-branch block; R94.31 Abnormal electrocardiogram [ECG] [EKG]; I25.10 Atherosclerotic heart disease of native coronary artery without angina pectoris; R62.50 Unspecified lack of expected normal physiological development in childhood; I11.0 Hypertensive heart disease with heart failure; I50.9 Heart failure, unspecified
CPT/HCPCS: 71045; 80053; 83690; 84484; 85025; 93005; 96374; 96375; 99285; J1885

== ENCOUNTER 2017-10-26 10:04 | Observation (INO) | payer OTHER ==
[~2017-10-26] VITALS: Ht 180.3 cm; Wt 83.3 kg
[2017-10-26 10:37] VITALS: BP 106/60; PULSE 66; RESP 17; TEMP 97.8; O2SAT 96
[2017-10-26 11:00] VITALS: BP 109/64; PULSE 60; RESP 18; O2SAT 96
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
[2017-10-26 11:45] LABS: AUTOMATED NEUTROPHIL # 3.3 TH/MM3 (1.8-7.7); BASOPHIL % 0.4 % (0.0-2.0); EOSINOPHIL % 0.4 % (0.0-4.0); HEMATOCRIT 40.9 % (39.0-51.0); HEMOGLOBIN 13.6 GM/DL (13.0-17.0); LYMPH % 20.4 % (9.0-44.0); LYMPHOCYTE # 0.9 TH/MM3 (1.0-4.8); MEAN CELL VOLUME 83.9 FL (80.0-100.0); MEAN CORPUSCULAR HEMOGLOBIN 27.9 PG (27.0-34.0); MEAN CORPUSCULAR HGB CONC 33.3 % (32.0-36.0); MEAN PLATELET VOLUME 8.6 FL (7.0-11.0); MONO % 7.1 % (0.0-8.0); MONOCYTE # 0.3 TH/MM3 (0-0.9); NEUT % 71.7 % (16.0-70.0); PLATELET COUNT 156 TH/MM3 (150-450); RED BLOOD COUNT 4.87 MIL/MM3 (4.50-5.90); RED CELL DISTRIBUTION WIDTH 17.9 % (11.6-17.2); WHITE BLOOD COUNT 4.5 TH/MM3 (4.0-11.0)
[2017-10-26 11:57] LABS: BICARBONATE 26.1 MEQ/L (21.0-32.0); CALCIUM 9.5 MG/DL (8.5-10.1); CREATININE 1.5 MG/DL (0.60-1.30)
[2017-10-26 12:00] VITALS: BP 115/64; PULSE 60; RESP 21; O2SAT 98
--- NOTE | 2017-10-26 14:03 | PD.CONS ---
HPI Service cardiology Consult Requested By Reason for Consult syncope, possible device firing Primary Care Physician Unknown History of Present Illness This is a 46 yo AAM with NICM EF 30-35% (on 2017 echo), congenital heart malformation with surgery age 12, AICD/PPM with redo by Dr. Hannah in 2017 and severe pulmonary hypertension who presents after syncopal episode at home today and question whether device has fired. He reports sitting on closed lid of commode waiting for bathtub to fill when he felt sudden onset racing heart and passed out. He doesn't know how long he was out for but awoke to his holding his hand. He did not hit his head or injure himself. He reports having a poor memory and he is not a great historian. Chart history notes an episode of wide complex tachycardia with device fire in 2017. 2017 echo shows an EF 35- 40%, dilated cardiomyopathy with severe pHTN, PAP 94mmHg. [facility] has been contacted to come evaluate device. (Daily Lau) Review of Systems Consitutional: DENIES: Fatigue, Fever, Chills, Weight gain, Weight loss Respiratory: DENIES: Cough, Snoring, Shortness of breath, Wheezing, Sputum production Cardiovascular: DENIES: Chest pain, Tachycardia Gastrointestinal: DENIES: Nausea, Vomiting, Change in bowel habits, Reflux, Bloody stools, Melena (Daily Lau) Past Family Social History Allergies: Coded Allergies: aspirin (Verified Allergy, Severe, DIZZINESS, FACIAL SWELLING, 10/26/17) Past Medical History congenital heart malformation with surgery age 12, NICM, severe pulmonary HTN Past Surgical History heart surgery age 12, PPM/ICD Reported Medications Reported Meds & Active Scripts Active Enalapril (Enalapril Maleate) 2.5 Mg Tab 2.5 Mg PO BID Divalproex DR (Divalproex Sodium) 250 Mg Tabdr 250 Mg PO DAILYAC Atorvastatin (Atorvastatin Calcium) 40 Mg Tab 40 Mg PO HS Furosemide 20 Mg Tab 20 Mg PO DAILY Amiodarone (Amiodarone HCl) 200 Mg Tab 200 Mg PO DAILY Bupropion HCl 100 Mg Tab 100 Mg PO DAILY Carvedilol 6.25 Mg Tab 6.25 Mg PO BID Family History non-contributory Social History denies etoh, tobacco or drug use (Daily Lau) Physical Exam Vital Signs Vital Signs Date Time Temp Pulse Resp B/P (MAP) Pulse Ox O2 Delivery O2 Flow Rate FiO2 10/26/17 12:00 60 21 115/64 (81) 98 Room Air 10/26/17 11:00 60 18 109/64 (79) 96 Room Air 10/26/17 10:37 97.8 66 17 106/60 (75) 96 Room Air 10/26/17 10:29 66 17 Room Air Physical Exam GENERAL: SKIN: Warm and dry. HEAD: Atraumatic. Normocephalic. EYES: Pupils equal and round. No scleral icterus. No injection or drainage. ENT: No nasal bleeding or discharge. Mucous membranes pink and moist. NECK: Trachea midline. No JVD. CARDIOVASCULAR: Regular rate and rhythm. no murmurs RESPIRATORY: No accessory muscle use. Clear to auscultation. Breath sounds equal bilaterally. GASTROINTESTINAL: Abdomen soft, non-tender, nondistended. Hepatic and splenic margins not palpable. MUSCULOSKELETAL: Extremities without clubbing, cyanosis, or edema. No obvious deformities. NEUROLOGICAL: Awake and alert. No obvious cranial nerve deficits. Motor grossly within normal limits. Five out of 5 muscle strength in the arms and legs. Normal speech. PSYCHIATRIC: Appropriate mood and affect; insight and judgment normal. Laboratory Laboratory Tests Test 10/26/17 10:35 White Blood Count 4.5 Red Blood Count 4.87 Hemoglobin 13.6 Hematocrit 40.9 Mean Corpuscular Volume 83.9 Mean Corpuscular Hemoglobin 27.9 Mean Corpuscular Hemoglobin Concent 33.3 Red Cell Distribution Width 17.9 Platelet Count 156 Mean Platelet Volume 8.6 Neutrophils (%) (Auto) 71.7 Lymphocytes (%) (Auto) 20.4 Monocytes (%) (Auto) 7.1 Eosinophils (%) (Auto) 0.4 Basophils (%) (Auto) 0.4 Neutrophils # (Auto) 3.3 Lymphocytes # (Auto) 0.9 Monocytes # (Auto) 0.3 Eosinophils # (Auto) 0.0 Basophils # (Auto) 0.0 CBC Comment DIFF FINAL Differential Comment Blood Urea Nitrogen 20 Creatinine 1.50 Random Glucose 227 Calcium Level 9.5 Sodium Level 140 Potassium Level 4.1 Chloride Level 103 Carbon Dioxide Level 26.1 Anion Gap 11 Estimat Glomerular Filtration Rate 61 (Daily Lau) Result Diagram: 10/26/17 1035 10/26/17 1035 Assessment and Plan Problem List: (1) Syncope ICD Codes: R55 - Syncope and collapse Status: Acute Assessment and Plan 46 yo AAM with NICM EF 30-35% (on 2017 echo), congenital heart malformation with surgery age 12, AICD/PPM with redo by Dr. Hannah in 2017 and severe pulmonary hypertension who presents after syncopal episode at home today and question whether device has fired. He reports sitting on closed lid of commode waiting for bathtub to fill when he felt sudden onset racing heart and passed out. He doesn't know how long he was out for but awoke to his holding his hand. He did not hit his head or injure himself. He reports having a poor memory and he is not a great historian. Chart history notes an episode of wide complex tachycardia with device fire in 2017. 2017 echo shows an EF 35-40%, dilated cardiomyopathy with severe pHTN, PAP 94mmHg. syncope- [facility] to come evaluate and interrogate device for arrhythmia if no events seen, consider orthostatic hypotension. Discussed Condition With Dr. Orlando (Daily Lau) Assessment and Plan agree with above (Don Orlando MD) Problem Qualifiers (1) Syncope: Qualified Codes: R55 - Syncope and collapse Daily Lau October 26, 2017 14:03 Don Orlando MD October 26, 2017 14:19
--- NOTE | 2017-10-26 14:05 | HHI.HP ---
[facility] Service Family Medicine Primary Care Physician Unknown Admission Diagnosis Diagnoses: International Travel<30 Days: No Contact w/Intl Traveler<30days: No Known Affected Area: No History of Present Illness Patient is a 46-year-old male with past history of transposition of great vessels, status post repair with AICD placement, hypertension, CHF, hyperlipidemia, DM 2, COPD, who presents today for near syncope. Patient is a poor historian. Patient and his ex- report that today when she saw him he became weak, fell into her, and asked for her to call the ambulance. She reports that he is homeless and falls down sometimes. He states that he felt weak, had palpitations, and may have felt a shock in his chest. He believes he may have had 2 shocks in his chest today. He is unsure of the times. Otherwise he denies chest pain, left arm pain, jaw pain, diaphoresis, lightheadedness, dizziness, headache, vision changes, abdominal pain, constipation, dysuria. He does feel as though he is urinating more, has a history of diabetes. He also notes some occasional diarrhea. Denies local weakness, seizures, unsteady gait. Patient cannot read or write (Kj Youssef MD R1) Review of Systems Constitutional: DENIES: Fatigue, Fever, Chills Endocrine: COMPLAINS OF: Polyuria, DENIES: Polydipsia Eyes: DENIES: Blurred vision, Diplopia, Eye inflammation, Eye pain, Vision loss , Photosensitivity, Double Vision Ears, nose, mouth, throat: DENIES: Tinnitus, Hearing loss, Vertigo, Throat pain , Hoarseness, Ear Pain, Running Nose Respiratory: COMPLAINS OF: Cough, Shortness of breath (Chronic), DENIES: Wheezing, Hemoptysis, Sputum production Cardiovascular: COMPLAINS OF: Palpitations (earlier, resolved), DENIES: Chest pain, Syncope, Dyspnea on Exertion Gastrointestinal: COMPLAINS OF: Diarrhea, DENIES: Abdominal pain, Black stools , Bloody stools, Constipation, Nausea, Vomiting Genitourinary: DENIES: Urinary incontinence, Hematuria, Dysuria, Penile Discharge Musculoskeletal: DENIES: Joint pain, Muscle aches Integumentary: DENIES: Abnormal pigmentation, Pruritus, Rash Hematologic/lymphatic: DENIES: Bruising, Lymphadenopathy Immunologic/allergic: DENIES: Eczema, Urticaria Neurologic: DENIES: Abnormal gait, Headache, Localized weakness, Paresthesias, Seizures, Poor Balance Psychiatric: DENIES: Anxiety, Confusion (Kj Youssef MD R1) Past Family Social History Past Medical History PFSH obtained via EMR, confirmed and add onto by patient/ex Cardiomyopathy with ejection fraction of 35% status post AICD Paroxysmal A. fib Transposition of great vessels, status post repair at age 12 HTN CHF HLD DM 2, zsh-luctnch-tfjvtvaal COPD Past Surgical History Cardiac surgery open heart surgery for transposition of aorta History of AICD placement (Kj Youssef MD R1) Allergies: Coded Allergies: aspirin (Verified Allergy, Severe, DIZZINESS, FACIAL SWELLING, 10/26/17) Family History Mother: , ID, unknown other history Father: , unknown history Social History Homeless for 2 years Patient cannot read or write EtOH: denies Tobacco: 1.5ppd 34 years Drugs: none (Kj Youssef MD R1) Physical Exam Vital Signs Vital Signs Date Time Temp Pulse Resp B/P (MAP) Pulse Ox O2 Delivery O2 Flow Rate FiO2 10/26/17 12:00 60 21 115/64 (81) 98 Room Air 10/26/17 11:00 60 18 109/64 (79) 96 Room Air 10/26/17 10:37 97.8 66 17 106/60 (75) 96 Room Air 10/26/17 10:29 66 17 Room Air Physical Exam GENERAL: This is a well-nourished, well-developed patient, in no apparent distress. SKIN: No rashes, ecchymoses or lesions. Cool and dry. HEAD: Atraumatic. Normocephalic. No temporal or scalp tenderness. EYES: Left pupil constricted, right pupil dilated, sluggish. Extraocular motions intact. No scleral icterus. No injection or drainage. ENT: Nose without bleeding, purulent drainage or septal hematoma. Throat without erythema, tonsillar hypertrophy or exudate. Uvula midline. Airway patent. NECK: Trachea midline. No JVD or lymphadenopathy. Supple, nontender, no meningeal signs. CARDIOVASCULAR: Regular rate and rhythm without gallops, or rubs. 2/6 systolic murmur heard best over lower left sternal RESPIRATORY: Clear to auscultation. Breath sounds equal bilaterally. No wheezes , rales, or rhonchi. GASTROINTESTINAL: Abdomen soft, non-tender, nondistended. No hepato-splenomegaly , or palpable masses. No guarding. MUSCULOSKELETAL: Extremities without clubbing, cyanosis, or edema. No joint tenderness, effusion, or edema noted. No calf tenderness. NEUROLOGICAL: Awake and alert. Cranial nerves II through XII intact. Poorly coordinated, however able to perform rapid alternating movements. Motor and sensory grossly within normal limits. Five out of 5 muscle strength in all muscle groups. Normal speech. Laboratory Laboratory Tests Test 10/26/17 10:35 White Blood Count 4.5 Red Blood Count 4.87 Hemoglobin 13.6 Hematocrit 40.9 Mean Corpuscular Volume 83.9 Mean Corpuscular Hemoglobin 27.9 Mean Corpuscular Hemoglobin Concent 33.3 Red Cell Distribution Width 17.9 Platelet Count 156 Mean Platelet Volume 8.6 Neutrophils (%) (Auto) 71.7 Lymphocytes (%) (Auto) 20.4 Monocytes (%) (Auto) 7.1 Eosinophils (%) (Auto) 0.4 Basophils (%) (Auto) 0.4 Neutrophils # (Auto) 3.3 Lymphocytes # (Auto) 0.9 Monocytes # (Auto) 0.3 Eosinophils # (Auto) 0.0 Basophils # (Auto) 0.0 CBC Comment DIFF FINAL Differential Comment Blood Urea Nitrogen 20 Creatinine 1.50 Random Glucose 227 Calcium Level 9.5 Sodium Level 140 Potassium Level 4.1 Chloride Level 103 Carbon Dioxide Level 26.1 Anion Gap 11 Estimat Glomerular Filtration Rate 61 (Kj Youssef MD R1) Result Diagram: 10/26/17 1035 10/26/17 1035 Caprini VTE Risk Assessment Caprini VTE Risk Assessment: Mod/High Risk (score >= 2) (Kj Youssef MD R1) Assessment and Plan Assessment and Plan Patient is a 46-year-old male with past history of transposition of great vessels, status post repair with AICD placement, hypertension, CHF, hyperlipidemia, DM 2, COPD, who presented for near syncope. Possible firing of AICD twice today. ER physician spoke with Dr. orlando, to interrogate tonight, no ACS rule out at this time. (Kj Youssef MD R1) Attending Attestation Patient seen, examined, and discussed with Sung Huertas and Mikael. I agree with assessment and management as documented and discussed with me. Nora Ramirez is a 46yo gentleman with significant heart history admitted under observation after his AICD fired. He was washing up in the bathroom, and felt his heart beat rapidly. Then, he reports his AICD fired.This was apparently witnessed by his girlfriend. During my exam/interview, he denies any chest pain, SOB, palpitations. He reports feeling weak and tired since his AICD fired. He feels hungry. Pacemaker has been interrogated, and is functioning. Await AICD interrogation, to be done this evening. Appreciate cardiology. PT to eval pt, given his complaint of weakness. (Cynthia Coello MD) Problem List: (1) Near syncope ICD Codes: R55 - Syncope and collapse Plan: Patient with reported near syncope today. May have had 2 discharges of his AICD. ER physician spoke with Dr. Orlando, recommends interrogation tonight, no ACS workup. -Follow-up interrogation -Monitor for symptomatic changes (2) Unequal pupil diameter ICD Codes: H57.02 - Anisocoria Plan: Unequal pupil diameter, noted to be normal in past several notes, no focal weakness or unsteady gait. -follow-up CT had (3) AICD discharge ICD Codes: Z45.02 - Encounter for adjustment and management of automatic implantable cardiac defibrillator Plan: Possible AICD discharge 2 10/26. -Follow-up interrogation (4) Diabetes mellitus, type 2 ICD Codes: E11.9 - Type 2 diabetes mellitus without complications Plan: History of diabetes type 2. -Monitor blood glucose -Low-dose sliding scale (5) HTN (hypertension) ICD Codes: I10 - Essential (primary) hypertension Plan: History of hypertension, currently well controlled. 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 (8) Paroxysmal A-fib ICD Codes: I48.0 - Paroxysmal atrial fibrillation Plan: History of paroxysmal A. fib. -Continue home medications (Kj Youssef MD R1) Kj Youssef MD R1 October 26, 2017 14:05 Cynthia Coello MD October 26, 2017 21:21
[2017-10-26] MEDS ORDERED: NALOXONE HCL 0.4 MG/ML AMP IV PUSH PRN (14:30)
[2017-10-26] MEDS ORDERED: SODIUM CHLORIDE 0.9% FLUSH 10 ML FLUSH IV FLUSH PRN (14:30)
[2017-10-26] MEDS ORDERED: ACETAMINOPHEN 325 MG TAB PO PRN (15:00)
[2017-10-26] MEDS ORDERED: ONDANSETRON ODT 4 MG TAB PO PRN (15:00)
[2017-10-26] MEDS ORDERED: LACTULOSE SYRUP 20 GM/30 ML CUP PO PRN (15:00)
[2017-10-26] MEDS ORDERED: BISACODYL 10 MG SUPP RECTAL PRN (15:00)
[2017-10-26] MEDS ORDERED: MAGNESIUM HYDROXIDE SUSP 30 ML CUP PO PRN (15:00)
[2017-10-26] MEDS ORDERED: SENNOSIDES 8.6 MG TAB PO PRN (15:00)
[2017-10-26] MEDS ORDERED: GLUCAGON 1 MG/ML VIAL OTHER PRN (16:00)
[2017-10-26] MEDS ORDERED: DEXTROSE 50% IN WATER 50 ML VIAL(D50) IV PUSH PRN (16:00)
--- NOTE | 2017-10-26 16:12 | RADRPT ---
EXAM DATE: 10/26/2017 3:58 PM EDT AGE/SEX: 46 years / Male INDICATIONS: Recent syncope, unequal pupils. CLINICAL DATA: This is the patient's initial encounter. Patient reports that signs and symptoms have been present for 1 day and indicates a pain score of 0/10. MEDICAL/SURGICAL HISTORY: Hypertension. Diabetes. CABG. Pacemaker. RADIATION DOSE: 56.35 CTDI (mGy) [place] [facility] [place]. . TECHNIQUE: CT of the head without contrast. Using automated exposure control and adjustment of the mA and/or kV according to patient size, radiation dose was kept as low as reasonably achievable to ob tain optimal diagnostic quality images. FINDINGS: Cerebrum: The ventricles are normal for age. No evidence of midline shift, mass lesion, hemorrhage or acute infarction. No extraaxial fluid collections are seen. Posterior Fossa: The cerebellum and brainstem are intact. The 4th ventricle is midline. The cerebe llopontine angle is unremarkable. Extracranial: The visualized portion of the orbits is intact. Skull: The calvaria is intact. No evidence of skull fracture. CONCLUSION: Negative CT Head non contrast. Electronically signed by: Alex Cameron MD 10/26/2017 4:10 PM EDT
[2017-10-26] MEDS: INSULIN ASPART SUPPLEMENTAL SCALE SQ SCH ×2 (17:00→22:16)
[2017-10-26 19:01] VITALS: BP 119/71; PULSE 60; RESP 18; O2SAT 100
[2017-10-26] MEDS: DOCUSATE SODIUM 50 MG/SENNA 8.6 MG TAB PO SCH (21:08)
[2017-10-26] MEDS: ENALAPRIL MALEATE 2.5 MG TAB PO SCH (21:44)
[2017-10-26] MEDS: SODIUM CHLORIDE 0.9% FLUSH 10 ML FLUSH IV FLUSH SCH (21:44)
[2017-10-26] MEDS: CARVEDILOL 6.25 MG TAB PO SCH (21:44)
[2017-10-26] MEDS: ATORVASTATIN 40 MG TAB PO SCH (21:44)
[2017-10-27] VITALS (21 sets, daily range): BP systolic 110–146; BP diastolic 62–87; PULSE 58–64; RESP 18–20; TEMP 97.7–98.4; O2SAT 95–100
[2017-10-27 06:16] LABS: BICARBONATE 29.7 MEQ/L (21.0-32.0); CALCIUM 9.1 MG/DL (8.5-10.1); CREATININE 1.33 MG/DL (0.60-1.30)
--- NOTE | 2017-10-27 09:47 | HHI.FPPN ---
Subjective Remarks No acute issues overnight. Vitals are stable, patient remains afebrile. He denies any chest pain, shortness of breath, fever, chills, nausea or vomiting. He is hungry for breakfast this morning. Ambulating without difficulty. (Chastity Soni MD R3) Objective Vitals Vital Signs Date Time Temp Pulse Resp B/P (MAP) Pulse Ox O2 Delivery O2 Flow Rate FiO2 10/27/17 06:13 60 10/27/17 05:00 60 10/27/17 04:59 60 10/27/17 04:00 60 10/27/17 03:19 97.7 60 18 110/62 (78) 95 10/27/17 03:00 60 10/27/17 02:00 60 10/27/17 01:00 60 10/27/17 00:01 98.0 59 18 146/87 (106) 98 10/27/17 00:00 10/26/17 19:29 60 15 Room Air 10/26/17 19:01 60 18 119/71 (87) 100 Room Air 10/26/17 15:05 10/26/17 12:00 60 21 115/64 (81) 98 Room Air 10/26/17 11:00 60 18 109/64 (79) 96 Room Air 10/26/17 10:37 97.8 66 17 106/60 (75) 96 Room Air 10/26/17 10:29 66 17 Room Air I/O 10/26/17 10/26/17 10/26/17 10/27/17 10/27/17 10/27/17 07:00 15:00 23:00 07:00 15:00 23:00 Intake Total 240 ml Output Total 200 ml Balance 40 ml Intake Oral 240 ml Output Urine Total 200 ml (Chastity Soni MD R3) Result Diagram: 10/26/17 1035 10/27/17 0513 Imaging Last Impressions Head CT 10/26/17 0000 Signed Impressions: CONCLUSION: Negative CT Head non contrast. Objective Remarks GENERAL: Well-nourished, well-developed male in no acute distress. SKIN: Warm and dry. HEAD: Normocephalic. EYES: No scleral icterus. No injection or drainage. NECK: Supple, trachea midline. No JVD or lymphadenopathy. CARDIOVASCULAR: Regular rate and rhythm without murmurs, gallops, or rubs. AICD palpable on left chest. RESPIRATORY: Breath sounds equal bilaterally. No accessory muscle use. GASTROINTESTINAL: Abdomen soft, non-tender, nondistended. MUSCULOSKELETAL: No cyanosis, or edema. BACK: Nontender without obvious deformity. (Chastity Soni MD R3) A/P Assessment and Plan Patient is a 46-year-old male with past history of transposition of great vessels, status post repair with AICD placement, hypertension, CHF, hyperlipidemia, DM 2, COPD, who presented for near syncope. s/p firing of AICD twice 10/26. Discharge Planning Pending Cardiology recommendations. (Chastity Soni MD R3) Attending Attestation Patient seen, examined, and discussed with resident team. I agree with assessment and management as documented and discussed with me. Pt is ambulating without difficulty. [employer] did come by yesterday evening, and his device fired yesterday AM per the report. Await cardiology recs, but anticipate possible discharge today. (Cynthia Coello MD) Problem List: (1) Near syncope ICD Codes: R55 - Syncope and collapse Status: Resolved Plan: Patient with reported near syncope today. AICD interrogated and shows 2 discharges of his AICD on 10/26. Cardiology, Dr. Orlando, consulted. (2) AICD discharge ICD Codes: Z45.02 - Encounter for adjustment and management of automatic implantable cardiac defibrillator Plan: AICD discharge 2 on 10/26. 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 (4) Diabetes mellitus, type 2 ICD Codes: E11.9 - Type 2 diabetes mellitus without complications Status: Chronic Plan: History of diabetes type 2. -Monitor blood glucose -Low-dose sliding scale (5) HTN (hypertension) ICD Codes: I10 - Essential (primary) hypertension Status: Chronic Plan: History of hypertension, currently well controlled. 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 (8) Paroxysmal A-fib ICD Codes: I48.0 - Paroxysmal atrial fibrillation Status: Chronic Plan: History of paroxysmal A. fib. -Continue home medications (Chastity Soni MD R3) Problem Qualifiers (1) Diabetes mellitus, type 2: Qualified Codes: E11.8 - Type 2 diabetes mellitus with unspecified complications (2) HTN (hypertension): Qualified Codes: I10 - Essential (primary) hypertension (3) HLD (hyperlipidemia): Qualified Codes: E78.5 - Hyperlipidemia, unspecified Chastity Soni MD R3 October 27, 2017 09:47 Cynthia Coello MD October 27, 2017 11:02
[2017-10-27] MEDS: INSULIN ASPART SUPPLEMENTAL SCALE SQ SCH ×4 (10:00→20:06)
[2017-10-27] MEDS: SODIUM CHLORIDE 0.9% FLUSH 10 ML FLUSH IV FLUSH SCH ×2 (10:03→20:02)
[2017-10-27] MEDS: DOCUSATE SODIUM 50 MG/SENNA 8.6 MG TAB PO SCH ×2 (10:03→20:02)
[2017-10-27] MEDS: FUROSEMIDE 20 MG TAB PO SCH (10:04)
[2017-10-27] MEDS: AMIODARONE 200 MG TAB PO SCH (10:04)
[2017-10-27] MEDS: CARVEDILOL 6.25 MG TAB PO SCH ×2 (10:04→20:02)
[2017-10-27] MEDS: buPROPion HCL 100 MG TAB PO SCH (11:26)
[2017-10-27] MEDS: DIVALPROEX SODIUM DELAYED RELEASE 250 MG TAB PO SCH (11:26)
[2017-10-27] MEDS: ENALAPRIL MALEATE 2.5 MG TAB PO SCH ×2 (11:26→20:02)
--- NOTE | 2017-10-27 14:58 | EKG ---
Date Performed: 10/26/2017 Time Performed: 10:30:13 PTAGE: 46 years EKG: Sinus rhythm AXIS IS EXTREMELY RIGHTWARD IVCD WHICH MAY BE A RIGHT BUNDLE BRANCH BLOCK NONSPECIFIC ST-T CHANGE CA NNOT EXCLUDE INFERIOR WALL NM, UNDETERMINED AGE ABNORMAL ECG Compared to PREVIOUS TRACING , the rhythm has changed from atrial flutter to sinus rhythm. PREVIOUS T RACIN10/11/2017 21.34 DOCTOR: Oscar Mcqueen Interpretating Date/Time 10/27/2017 14:56:27
--- NOTE | 2017-10-27 15:44 | PD.CARD.PN ---
Subjective Subjective Remarks no complaints Objective Medications Current Medications Medications (Trade) Dose Ordered Sig/Karina Route Start Time Stop Time Status Last Admin (NS Flush) 2 ml UNSCH PRN IV FLUSH 10/26/17 14:30 (NS Flush) 2 ml BID IV FLUSH 10/26/17 21:00 10/27/17 10:03 (Tylenol) 650 mg Q4H PRN PO 10/26/17 15:00 (Zofran Odt) 4 mg Q6H PRN PO 10/26/17 15:00 (Narcan Inj) 0.4 mg UNSCH PRN IV PUSH 10/26/17 14:30 (Petra-Colace) 1 tab BID PO 10/26/17 21:00 10/27/17 10:03 (Milk Of Magnesia Liq) 30 ml Q12H PRN PO 10/26/17 15:00 (Senokot) 17.2 mg Q12H PRN PO 10/26/17 15:00 (Dulcolax Supp) 10 mg DAILY PRN RECTAL 10/26/17 15:00 (Lactulose Liq) 30 ml DAILY PRN PO 10/26/17 15:00 (D50w (Vial) Inj) 50 ml UNSCH PRN IV PUSH 10/26/17 16:00 (Glucagon Inj) 1 mg UNSCH PRN OTHER 10/26/17 16:00 (NovoLOG SUPPLEMENTAL SCALE) 1 ACHS SLIDING SCALE SQ 10/26/17 17:00 10/27/17 13:40 (Cordarone) 200 mg DAILY PO 10/27/17 09:00 10/27/17 10:04 (Lipitor) 40 mg HS PO 10/26/17 21:00 10/26/17 21:44 (Wellbutrin) 100 mg DAILY PO 10/27/17 09:00 10/27/17 11:26 (Coreg) 6.25 mg BID PO 10/26/17 21:00 10/27/17 10:04 (Depakote Dr) 250 mg DAILYAC PO 10/27/17 08:00 10/27/17 11:26 (Vasotec) 2.5 mg BID PO 10/26/17 21:00 10/27/17 11:26 (Lasix) 20 mg DAILY PO 10/27/17 09:00 10/27/17 10:04 Vital Signs / I&O Vital Signs Date Time Temp Pulse Resp B/P (MAP) Pulse Ox O2 Delivery O2 Flow Rate FiO2 10/27/17 06:13 60 10/27/17 05:00 60 10/27/17 04:59 60 10/27/17 04:00 60 10/27/17 03:19 97.7 60 18 110/62 (78) 95 10/27/17 03:00 60 10/27/17 02:00 60 10/27/17 01:00 60 10/27/17 00:01 98.0 59 18 146/87 (106) 98 10/27/17 00:00 10/26/17 19:29 60 15 Room Air 10/26/17 19:01 60 18 119/71 (87) 100 Room Air I/O 10/26/17 10/26/17 10/26/17 10/27/17 10/27/17 10/27/17 07:00 15:00 23:00 07:00 15:00 23:00 Intake Total 240 ml Output Total 200 ml Balance 40 ml Intake Oral 240 ml Output Urine Total 200 ml Physical Exam GENERAL: SKIN: Warm and dry. HEAD: Normocephalic. EYES: No scleral icterus. No injection or drainage. NECK: Supple, trachea midline. No JVD or lymphadenopathy. CARDIOVASCULAR: Regular rate and rhythm without murmurs, gallops, or rubs. RESPIRATORY: Breath sounds equal bilaterally. No accessory muscle use. GASTROINTESTINAL: Abdomen soft, non-tender, nondistended. MUSCULOSKELETAL: No cyanosis, or edema. BACK: Nontender without obvious deformity. No CVA tenderness. Laboratory Laboratory Tests Test 10/27/17 05:13 Blood Urea Nitrogen 23 MG/DL Creatinine 1.33 MG/DL Random Glucose 148 MG/DL Calcium Level 9.1 MG/DL Sodium Level 136 MEQ/L Potassium Level 4.3 MEQ/L Chloride Level 101 MEQ/L Carbon Dioxide Level 29.7 MEQ/L Anion Gap 5 MEQ/L Estimat Glomerular Filtration Rate 70 ML/MIN Assessment and Plan Problem List: (1) Syncope ICD Codes: R55 - Syncope and collapse Status: Acute Assessment and Plan NSVT - s/p ICD defib x 1 medication noncomplaince encouraged to resume meds no further workup if no further events, DC tomorrow am Problem Qualifiers (1) Syncope: Qualified Codes: R55 - Syncope and collapse Don Orlando MD October 27, 2017 15:44
[2017-10-27] MEDS: ATORVASTATIN 40 MG TAB PO SCH (20:02)
[2017-10-28] VITALS (15 sets, daily range): BP systolic 118–131; BP diastolic 56–74; PULSE 57–64; RESP 18–20; TEMP 98.4–99.1; O2SAT 96–99
--- NOTE | 2017-10-28 09:12 | HHI.FPPN ---
Subjective Remarks Patient seen and examined today. Notes some discomfort around his AICD, however reports this is a chronic discomfort and has been present since implantation. The discomfort has not changed or increased. No other chest pain , shortness of breath, left arm pain, jaw pain, sweating. No other acute complaints today. Denies any sensations last night which felt like his AICD firing. (Kj Youssef MD R1) Objective Vitals Vital Signs Date Time Temp Pulse Resp B/P (MAP) Pulse Ox O2 Delivery O2 Flow Rate FiO2 10/28/17 08:00 98.6 57 20 131/74 (93) 97 10/28/17 06:00 64 10/28/17 05:00 61 10/28/17 04:00 Room Air 10/28/17 04:00 98.4 60 18 118/56 (76) 99 10/28/17 04:00 60 10/28/17 03:00 61 10/28/17 02:00 63 10/28/17 01:00 61 10/28/17 00:00 Room Air 10/28/17 00:00 60 10/28/17 00:00 98.8 60 18 121/62 (81) 98 10/27/17 23:00 61 10/27/17 22:00 63 10/27/17 21:00 60 10/27/17 20:00 98.3 63 20 114/66 (82) 100 10/27/17 20:00 63 10/27/17 20:00 Room Air 10/27/17 18:00 58 10/27/17 16:00 97.9 60 18 112/66 (81) 100 10/27/17 16:00 60 10/27/17 14:00 60 10/27/17 12:00 64 10/27/17 12:00 98.4 59 18 129/65 (86) 97 10/27/17 10:00 60 I/O 10/27/17 10/27/17 10/27/17 10/28/17 10/28/17 10/28/17 07:00 15:00 23:00 07:00 15:00 23:00 Intake Total 240 ml 600 ml 480 ml Output Total 200 ml 700 ml Balance 40 ml 600 ml -220 ml Intake Oral 240 ml 600 ml 480 ml Output Urine Total 200 ml 700 ml # Voids 3 # Bowel Movements 0 0 (Kj Youssef MD R1) Result Diagram: 10/26/17 1035 10/27/17 0513 Objective Remarks GENERAL: Well-nourished, well-developed male in no acute distress. SKIN: Warm and dry. HEAD: Normocephalic. EYES: Anisocoria. no scleral icterus. No injection or drainage. NECK: Supple, trachea midline. No JVD or lymphadenopathy. CARDIOVASCULAR: Regular rate and rhythm without murmurs, gallops, or rubs. AICD palpable on left chest. RESPIRATORY: Breath sounds equal bilaterally. No accessory muscle use. GASTROINTESTINAL: Abdomen soft, non-tender, nondistended. MUSCULOSKELETAL: No cyanosis, or edema. BACK: Nontender without obvious deformity. (Kj Youssef MD R1) A/P Assessment and Plan Patient is a 46-year-old male with past history of transposition of great vessels, status post repair with AICD placement, hypertension, CHF, hyperlipidemia, DM 2, COPD, who presented for near syncope. s/p firing of AICD twice 10/26. Discharge Planning D/C today (Kj Youssef MD R1) Attending Attestation Patient seen and examined, discussed with Dr Youssef. I agree with assessment and management as documented and discussed with me. No new concerns. No cardiac events overnight. Discharge home today (Cynthia Coello MD) Problem List: (1) Near syncope ICD Codes: R55 - Syncope and collapse Status: Resolved Plan: Patient with reported near syncope today. AICD interrogated and shows discharge of his AICD on 10/26. Cardiology, Dr. Orlando, consulted. No events overnight, to be discharged home today. (2) AICD discharge ICD Codes: Z45.02 - Encounter for adjustment and management of automatic implantable cardiac defibrillator Plan: AICD discharge on 10/26. 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 (4) Diabetes mellitus, type 2 ICD Codes: E11.9 - Type 2 diabetes mellitus without complications Status: Chronic Plan: History of diabetes type 2. -Monitor blood glucose -Low-dose sliding scale (5) HTN (hypertension) ICD Codes: I10 - Essential (primary) hypertension Status: Chronic Plan: History of hypertension, currently well controlled. 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 (8) Paroxysmal A-fib ICD Codes: I48.0 - Paroxysmal atrial fibrillation Status: Chronic Plan: History of paroxysmal A. fib. -Continue home medications (Kj Youssef MD R1) Problem Qualifiers (1) Diabetes mellitus, type 2: Qualified Codes: E11.8 - Type 2 diabetes mellitus with unspecified complications (2) HTN (hypertension): Qualified Codes: I10 - Essential (primary) hypertension (3) HLD (hyperlipidemia): Qualified Codes: E78.5 - Hyperlipidemia, unspecified Kj Youssef MD R1 October 28, 2017 09:12 Cynthia Coello MD October 28, 2017 13:41
--- NOTE | 2017-10-28 09:15 | HHI.DCPOC ---
Discharge Care Plan Diagnosis: (1) AICD discharge (2) Near syncope (3) Unequal pupil diameter (4) HTN (hypertension) (5) Diabetes mellitus, type 2 (6) HLD (hyperlipidemia) (7) Paroxysmal A-fib Goals to Promote Your Health * To prevent worsening of your condition and complications * To maintain your health at the optimal level Directions to Meet Your Goals Take your medications as prescribed Follow your dietary instruction Follow activity as directed Keep your appointments as scheduled Take your immunizations and boosters as scheduled If your symptoms worsen call your PCP, if no PCP go to Urgent Care Center or Emergency Room Smoking is Dangerous to Your Health. Avoid second hand smoke Call the 24-hour hour crisis hotline for domestic abuse at Kj Youssef MD R1 October 28, 2017 09:15
--- NOTE | 2017-10-28 09:21 | HHI.DS ---
Discharge Summary Admission Date October 26, 2017 at 14:09 Admitting Diagnosis (1) Near syncope Diagnosis: Principal Plan: Patient with reported near syncope today. AICD interrogated and shows 2 discharges of his AICD on 10/26. Cardiology, Dr. Orlando, consulted. ICD Codes: R55 - Syncope and collapse Status: Resolved (2) AICD discharge Diagnosis: Principal Plan: AICD discharge 2 on 10/26. ICD Codes: Z45.02 - Encounter for adjustment and management of automatic implantable cardiac defibrillator (3) Unequal pupil diameter Diagnosis: Secondary Plan: Head CT normal Likely chronic, no acute visual complaints. ICD Codes: H57.02 - Anisocoria (4) Diabetes mellitus, type 2 Diagnosis: Secondary Plan: History of diabetes type 2. -Monitor blood glucose -Low-dose sliding scale ICD Codes: E11.9 - Type 2 diabetes mellitus without complications Status: Chronic (5) HTN (hypertension) Diagnosis: Secondary Plan: History of hypertension, currently well controlled. -Continue home medications ICD Codes: I10 - Essential (primary) hypertension Status: Chronic (6) HLD (hyperlipidemia) Diagnosis: Secondary Plan: History of hyperlipidemia -Continue atorvastatin ICD Codes: E78.5 - Hyperlipidemia, unspecified Status: Chronic (7) Transposition great arteries Diagnosis: Secondary Plan: History of transposition of great arteries, status post correction, AICD placement. 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 fib. -Continue home medications ICD Codes: I48.0 - Paroxysmal atrial fibrillation Status: Chronic Brief History Patient is a 46-year-old male with past history of transposition of great vessels, status post repair with AICD placement, hypertension, CHF, hyperlipidemia, DM 2, COPD, who presents today for near syncope. Patient is a poor historian. Patient and his ex- report that today when she saw him he became weak, fell into her, and asked for her to call the ambulance. She reports that he is homeless and falls down sometimes. He states that he felt weak, had palpitations, and may have felt a shock in his chest. He believes he may have had 2 shocks in his chest today. He is unsure of the times. Otherwise he denies chest pain, left arm pain, jaw pain, diaphoresis, lightheadedness, dizziness, headache, vision changes, abdominal pain, constipation, dysuria. He does feel as though he is urinating more, has a history of diabetes. He also notes some occasional diarrhea. Denies local weakness, seizures, unsteady gait. Patient cannot read or write CBC/BMP: 10/26/17 1035 10/27/17 0513 Significant Findings Laboratory Tests Test 10/26/17 10:35 10/27/17 05:13 Red Cell Distribution Width 17.9 % (11.6-17.2) Neutrophils (%) (Auto) 71.7 % (16.0-70.0) Lymphocytes # (Auto) 0.9 TH/MM3 (1.0-4.8) Blood Urea Nitrogen 20 MG/DL (7-18) 23 MG/DL (7-18) Creatinine 1.50 MG/DL (0.60-1.30) 1.33 MG/DL (0.60-1.30) Random Glucose 227 MG/DL (74-106) 148 MG/DL (74-106) Estimat Glomerular Filtration Rate 61 ML/MIN (>89) 70 ML/MIN (>89) PE at Discharge GENERAL: Well-nourished, well-developed male in no acute distress. SKIN: Warm and dry. HEAD: Normocephalic. EYES: No scleral icterus. No injection or drainage. NECK: Supple, trachea midline. No JVD or lymphadenopathy. CARDIOVASCULAR: Regular rate and rhythm without murmurs, gallops, or rubs. AICD palpable on left chest. RESPIRATORY: Breath sounds equal bilaterally. No accessory muscle use. GASTROINTESTINAL: Abdomen soft, non-tender, nondistended. MUSCULOSKELETAL: No cyanosis, or edema. BACK: Nontender without obvious deformity. Hospital Course Patient was admitted on 10/26 for near syncope and likely AICD discharge. Upon admission it was noted that the patient had anisocoria with no previous documentation of such. Head CT was negative. A nasal amos likely chronic. AICD was interrogated, revealing previous discharge which likely resulted in patients near syncope. Patient had no further near syncope or syncope while in hospital, no further discharge of AICD. Cleared by cardiology, discharged 10/28. Pt Condition on Discharge: Stable Discharge Disposition: Discharge Home Discharge Instructions DIET: Follow Instructions for: Diabetic Diet Activities you can perform: Regular-No Restrictions Follow up Referrals: Cardiology - 1 Week PCP Follow-up - 1 Week Changed Medications: Amiodarone (Amiodarone) 200 Mg Tab 200 MG PO DAILY for Regulate Heart Beat, #60 TAB 0 Refills (Medication details modified) . Atorvastatin (Atorvastatin) 40 Mg Tab 40 MG PO HS for Cholesterol Management, #30 TAB 0 Refills (Medication details modified) . Bupropion HCl (Bupropion HCl) 100 Mg Tab 100 MG PO DAILY for Control Depression, #30 TAB 0 Refills (Medication details modified) . Carvedilol (Carvedilol) 6.25 Mg Tab 6.25 MG PO BID, #60 TAB 0 Refills (Medication details modified) . Divalproex DR (Divalproex DR) 250 Mg Tabdr 250 MG PO DAILYAC for Control Seizures, #60 TAB 0 Refills (Medication details modified) . Enalapril (Enalapril) 2.5 Mg Tab 2.5 MG PO BID, #60 TAB (Medication details modified) . Furosemide (Furosemide) 20 Mg Tab 20 MG PO DAILY, #30 TAB 0 Refills (Medication details modified) . Kj Youssef MD R1 October 28, 2017 09:21
[2017-10-28] MEDS: SODIUM CHLORIDE 0.9% FLUSH 10 ML FLUSH IV FLUSH SCH (09:30)
[2017-10-28] MEDS: DIVALPROEX SODIUM DELAYED RELEASE 250 MG TAB PO SCH (09:30)
[2017-10-28] MEDS: INSULIN ASPART SUPPLEMENTAL SCALE SQ SCH ×2 (09:30→12:00)
[2017-10-28] MEDS: CARVEDILOL 6.25 MG TAB PO SCH (09:30)
[2017-10-28] MEDS: ENALAPRIL MALEATE 2.5 MG TAB PO SCH (09:31)
[2017-10-28] MEDS: AMIODARONE 200 MG TAB PO SCH (09:31)
[2017-10-28] MEDS: buPROPion HCL 100 MG TAB PO SCH (09:31)
[2017-10-28] MEDS: DOCUSATE SODIUM 50 MG/SENNA 8.6 MG TAB PO SCH (09:31)
[2017-10-28] MEDS: FUROSEMIDE 20 MG TAB PO SCH (09:31)
[2017-10-28] MEDS ORDERED: CARV6.252 PO (14:42)
[2017-10-28] MEDS ORDERED: ATOR40TA16 PO (14:42)
[2017-10-28] MEDS ORDERED: FURO20TA PO (14:42)
[2017-10-28] MEDS ORDERED: BUPR100T4 PO (14:42)
[2017-10-28] MEDS ORDERED: AMIO200T PO (14:42)
[2017-10-28] MEDS ORDERED: DIVA250T PO (14:42)
[2017-10-28] MEDS ORDERED: ENAL2.5T PO (14:42)
== END 2017-10-28 14:40 | disposition home or self-care (01) ==
LOC: NEPC 10:04 → NEDA 14:09 → HCIS 23:46
PROVIDERS: ADMIT Family Medicine; ATTEND Family Medicine
DX: I47.2 Ventricular tachycardia (principal); J44.9 Chronic obstructive pulmonary disease, unspecified; E78.00 Pure hypercholesterolemia, unspecified; I50.9 Heart failure, unspecified; I11.0 Hypertensive heart disease with heart failure; R07.9 Chest pain, unspecified; E11.9 Type 2 diabetes mellitus without complications; I42.0 Dilated cardiomyopathy; I27.20 Pulmonary hypertension, unspecified; I25.2 Old myocardial infarction; I48.0 Paroxysmal atrial fibrillation; E78.5 Hyperlipidemia, unspecified; Q20.3 Discordant ventriculoarterial connection; Z91.14 Patient's other noncompliance with medication regimen; K40.90 Unilateral inguinal hernia, without obstruction or gangrene, not specified as recurrent; H57.02 Anisocoria; Z95.810 Presence of automatic (implantable) cardiac defibrillator
CPT/HCPCS: 70450; 80048; 82948; 85025; 93005; 96372; 99285; G0378; J1815

== ENCOUNTER 2017-11-19 22:48 | Emergency (ER) | payer OTHER ==
[~2017-11-19] VITALS: Ht 180.3 cm; Wt 70.0 kg
[2017-11-19 22:59] VITALS: BP 114/65; PULSE 60; RESP 18; TEMP 98.1; O2SAT 98
[2017-11-20] MEDS ORDERED: DIVA250T PO (00:23)
[2017-11-20] MEDS ORDERED: FURO20TA PO (00:23)
[2017-11-20] MEDS ORDERED: AMIO200T PO (00:23)
[2017-11-20] MEDS ORDERED: BUPR100T4 PO (00:23)
[2017-11-20] MEDS ORDERED: CARV6.252 PO (00:23)
[2017-11-20] MEDS ORDERED: ATOR40TA16 PO (00:23)
[2017-11-20] MEDS ORDERED: ENAL2.5T PO (00:23)
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
--- NOTE | 2017-11-20 17:05 | EKG ---
Date Performed: 11/19/2017 Time Performed: 23:55:36 PTAGE: 47 years EKG: ELECTRONIC ATRIAL PACEMAKER MARKED RIGHT AXIS DEVIATION PATTERN CONSISTENT WITH PULMONARY D ISEASE RIGHT BUNDLE BRANCH BLOCK ABNORMAL ECG PREVIOUS TRACING : 10/26/2017 10.30 Since the previous tracing, no significant change noted DOCTOR: Iker Gary Interpretating Date/Time 11/20/2017 17:02:09
== END 2017-11-20 00:42 | disposition home or self-care (01) ==
LOC: NEPE 22:48
DX: I11.0 Hypertensive heart disease with heart failure (principal); R94.31 Abnormal electrocardiogram [ECG] [EKG]; I48.0 Paroxysmal atrial fibrillation; H57.02 Anisocoria; I50.9 Heart failure, unspecified; E78.00 Pure hypercholesterolemia, unspecified; J44.9 Chronic obstructive pulmonary disease, unspecified; E11.9 Type 2 diabetes mellitus without complications; I25.2 Old myocardial infarction; Z95.810 Presence of automatic (implantable) cardiac defibrillator; Z79.01 Long term (current) use of anticoagulants; Z95.1 Presence of aortocoronary bypass graft; Z76.0 Encounter for issue of repeat prescription
CPT/HCPCS: 93005; 99283

== ENCOUNTER 2017-11-20 07:25 | Emergency (ER) | payer OTHER ==
[~2017-11-20] VITALS: Ht 180.3 cm; Wt 80.0 kg
[2017-11-20 07:34] VITALS: BP 113/80; PULSE 76; RESP 21; TEMP 98.8; O2SAT 95
[2017-11-20 07:50] VITALS: O2SAT 100
[2017-11-20] MEDS ORDERED: SODIUM CHLORIDE 0.9% FLUSH 10 ML FLUSH IVF PRN (08:00)
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
[2017-11-20 08:35] LABS: AUTOMATED NEUTROPHIL # 3.3 TH/MM3 (1.8-7.7); BASOPHIL % 0.4 % (0.0-2.0); EOSINOPHIL % 0.7 % (0.0-4.0); HEMATOCRIT 39.2 % (39.0-51.0); HEMOGLOBIN 13.6 GM/DL (13.0-17.0); LYMPH % 21.2 % (9.0-44.0); MEAN CELL VOLUME 80.9 FL (80.0-100.0); MEAN CORPUSCULAR HGB CONC 34.6 % (32.0-36.0); MEAN PLATELET VOLUME 8.8 FL (7.0-11.0); MONOCYTE # 0.4 TH/MM3 (0-0.9); NEUT % 69.7 % (16.0-70.0); PLATELET COUNT 110 TH/MM3 (150-450); RED BLOOD COUNT 4.85 MIL/MM3 (4.50-5.90); RED CELL DISTRIBUTION WIDTH 17.2 % (11.6-17.2); WHITE BLOOD COUNT 4.7 TH/MM3 (4.0-11.0)
[2017-11-20 09:00] LABS: ALT (GPT) 41 U/L (12-78); AST (GOT) 29 U/L (15-37); BLOOD UREA NITROGEN 22 MG/DL (7-18); CALCIUM 8.7 MG/DL (8.5-10.1); CHLORIDE 106 MEQ/L (98-107); CREATININE 1.23 MG/DL (0.60-1.30); GLOMERULAR FILTRATION RATE 76 ML/MIN (>89); GLUCOSE,RANDOM 184 MG/DL (74-106); SODIUM (NA) 139 MEQ/L (136-145)
[2017-11-20 09:02] LABS: ALKALINE PHOSPHATASE 121 U/L (45-117); TOTAL BILIRUBIN ADULT 0.3 MG/DL (0.2-1.0); TOTAL PROTEIN 6.9 GM/DL (6.4-8.2)
[2017-11-20 10:30] VITALS: BP 142/75; PULSE 75; RESP 17; O2SAT 100
[2017-11-20 12:49] VITALS: BP 163/75; PULSE 75; RESP 17; O2SAT 98
--- NOTE | 2017-11-20 17:05 | EKG ---
Date Performed: 11/20/2017 Time Performed: 07:37:23 PTAGE: 47 years EKG: ATRIAL FIBRILLATION RIGHT BUNDLE BRANCH BLOCK LEFT POSTERIOR FASCICULAR BLOCK ABNORMAL ECG PREVIOUS TRACING : 11/19/2017 23.55 Since the previous tracing, no significant change noted DOCTOR: Iker Gary Interpretating Date/Time 11/20/2017 17:02:19
== END 2017-11-20 13:47 | disposition home or self-care (01) ==
LOC: NEPC 07:25
DX: I42.8 Other cardiomyopathies (principal); R53.1 Weakness; I47.2 Ventricular tachycardia; R01.1 Cardiac murmur, unspecified; R42 Dizziness and giddiness; I48.91 Unspecified atrial fibrillation; I45.2 Bifascicular block; R94.31 Abnormal electrocardiogram [ECG] [EKG]; E78.00 Pure hypercholesterolemia, unspecified; I11.0 Hypertensive heart disease with heart failure; I50.9 Heart failure, unspecified; J44.9 Chronic obstructive pulmonary disease, unspecified; I25.2 Old myocardial infarction; Z95.810 Presence of automatic (implantable) cardiac defibrillator; Z79.899 Other long term (current) drug therapy; Z88.6 Allergy status to analgesic agent; Z87.891 Personal history of nicotine dependence
CPT/HCPCS: 80053; 85025; 93005

== ENCOUNTER 2017-11-27 19:55 | Emergency (ER) | payer OTHER ==
[~2017-11-27] VITALS: Ht 180.3 cm; Wt 76.0 kg
[2017-11-27 20:08] VITALS: BP 127/61; PULSE 108; RESP 20; O2SAT 94
[2017-11-27 20:42] LABS: AUTOMATED NEUTROPHIL # 3.6 TH/MM3 (1.8-7.7); BASOPHIL % 0.4 % (0.0-2.0); EOSINOPHIL % 0.5 % (0.0-4.0); HEMATOCRIT 38.2 % (39.0-51.0); HEMOGLOBIN 13.2 GM/DL (13.0-17.0); LYMPH % 23.6 % (9.0-44.0); LYMPHOCYTE # 1.3 TH/MM3 (1.0-4.8); MEAN CELL VOLUME 81.8 FL (80.0-100.0); MEAN CORPUSCULAR HEMOGLOBIN 28.2 PG (27.0-34.0); MEAN CORPUSCULAR HGB CONC 34.5 % (32.0-36.0); MEAN PLATELET VOLUME 8.4 FL (7.0-11.0); MONO % 9.4 % (0.0-8.0); MONOCYTE # 0.5 TH/MM3 (0-0.9); NEUT % 66.1 % (16.0-70.0); PLATELET COUNT 115 TH/MM3 (150-450); RED BLOOD COUNT 4.67 MIL/MM3 (4.50-5.90); RED CELL DISTRIBUTION WIDTH 16.8 % (11.6-17.2); WHITE BLOOD COUNT 5.4 TH/MM3 (4.0-11.0)
[2017-11-27 20:53] LABS: BILIRUBIN, URINE NEG (NEG); BLOOD, URINE NEG (NEG); GLUCOSE,URINE 50 mg/dL (NEG); HYALINE CAST, URINE 3 /lpf (RARE); KETONE, URINE NEG (NEG); NITRITE,URINE NEG (NEG); URINE COLOR YELLOW (YELLW/STRAW); URINE LEUKOCYTE ESTERASE NEG (NEG)
[2017-11-27 20:59] LABS: INTERNATIONAL NORMALIZED RATIO 1.1 RATIO; PROTHROMBIN TIME - PATIENT 11.4 SEC (9.8-11.6)
[2017-11-27 21:01] LABS: AST (GOT) 20 U/L (15-37); BICARBONATE 21.6 MEQ/L (21.0-32.0); BLOOD UREA NITROGEN 29 MG/DL (7-18); CALCIUM 8.9 MG/DL (8.5-10.1); CHLORIDE 105 MEQ/L (98-107); CREATININE 1.53 MG/DL (0.60-1.30); GLOMERULAR FILTRATION RATE 59 ML/MIN (>89); GLUCOSE,RANDOM 211 MG/DL (74-106); SODIUM (NA) 139 MEQ/L (136-145)
[2017-11-27 21:02] LABS: ALT (GPT) 34 U/L (12-78)
--- NOTE | 2017-11-27 21:04 | RADRPT ---
EXAM DATE: 11/27/2017 8:45 PM EDT AGE/SEX: 47 years / Male INDICATIONS: Shortness of breath. Pacemaker went off. CLINICAL DATA: This is the patient's initial encounter. Patient reports that signs and symptoms have been present for 1 day and indicates a pain score of 0/10. MEDICAL/SURGICAL HISTORY: Hypertension. Pacemaker. CABG. COMPARISON: [facility] [place], 10/11/[place]. . FINDINGS: A single AP view of the chest demonstrates the lungs to be symmetrically aerated without evidence of mass, infiltrate or effusion. The cardiomediastinal contours are unremarkable. Osseous structures a re intact. There is a transvenous pacer in place. CONCLUSION: No acute cardiopulmonary findings. 2 pacers unchanged in position from previous exam. Electronically signed by: Duke Marcus MD 11/27/2017 9:03 PM EDT
[2017-11-27 21:06] LABS: ALKALINE PHOSPHATASE 99 U/L (45-117); TOTAL BILIRUBIN ADULT 0.5 MG/DL (0.2-1.0); TROPONIN I LESS THAN 0.02 NG/ML (0.02-0.05)
--- NOTE | 2017-11-27 21:08 | PD ---
Physical Exam Narrative General: The patient is a well-developed well-nourished male in no acute distress. Head and Neck exam: Head is normocephalic atraumatic. Eyes: EOMI, pupils are equal round and reactive to light. Nose: Midline septum with pink mucous membranes Mouth: Dentition unremarkable. Moist mucus membranes. Posterior oropharynx is not erythematous. No tonsillar hypertrophy. Uvula midline. Airway patent. Neck: No palpable lymphadenopathy. No nuchal rigidity. No thyromegaly. Cardiovascular: Regular rate and rhythm heart rate in the low 100s with 1/6 systolic murmur, no gallops or rubs. No pulse deficit to the extremities on simultaneous auscultation and palpation of his radial artery. Lungs: Clear to auscultation bilaterally. No wheezes, rhonchi, or rales. Abdomen: Soft, without tenderness to palpation in all 4 quadrants of the abdomen. No guarding, rebound, or rigidity. Normal bowel sounds are audible. No tenderness on palpation of McBurney's point. Extremities: No clubbing, cyanosis, or edema. 2+ pulses in all 4 extremities. No calf tenderness on palpation. Back: No costovertebral angle tenderness to palpation. Neurologic Exam: Grossly nonfocal. Skin Exam: No rash noted. Intact skin that is warm and dry. Data Data Last Documented VS Vital Signs Date Time Temp Pulse Resp B/P (MAP) Pulse Ox O2 Delivery O2 Flow Rate FiO2 11/27/17 21:54 11/27/17 21:27 100 16 98 Room Air Orders Orders Electrocardiogram (11/27/17 20:16) Complete Blood Count With Diff (11/27/17 20:16) Comprehensive Metabolic Panel (11/27/17 20:16) Ckmb (Isoenzyme) Profile (11/27/17 20:16) Troponin I (11/27/17 20:16) Prothrombin Time / Inr (Pt) (11/27/17 20:16) Act Partial Throm Time (Ptt) (11/27/17 20:16) Lipase (11/27/17 20:16) Urinalysis - C+S If Indicated (11/27/17 20:16) Chest, Single Ap (11/27/17 20:16) Iv Access Insert/Monitor (11/27/17 20:16) Ecg Monitoring (6/26/18 20:16) Oximetry (11/27/17 20:16) B-Type Natriuretic Peptide (11/27/17 20:20) CKMB (11/27/17 20:23) CKMB% (11/27/17 20:23) Sodium Chlorid 0.9% 500 Ml Inj (Ns 500 M (11/27/17 21:15) Ed Discharge Order (11/27/17 21:38) Labs Laboratory Tests Test 11/27/17 20:23 White Blood Count 5.4 TH/MM3 Red Blood Count 4.67 MIL/MM3 Hemoglobin 13.2 GM/DL Hematocrit 38.2 % Mean Corpuscular Volume 81.8 FL Mean Corpuscular Hemoglobin 28.2 PG Mean Corpuscular Hemoglobin Concent 34.5 % Red Cell Distribution Width 16.8 % Platelet Count 115 TH/MM3 Mean Platelet Volume 8.4 FL Neutrophils (%) (Auto) 66.1 % Lymphocytes (%) (Auto) 23.6 % Monocytes (%) (Auto) 9.4 % Eosinophils (%) (Auto) 0.5 % Basophils (%) (Auto) 0.4 % Neutrophils # (Auto) 3.6 TH/MM3 Lymphocytes # (Auto) 1.3 TH/MM3 Monocytes # (Auto) 0.5 TH/MM3 Eosinophils # (Auto) 0.0 TH/MM3 Basophils # (Auto) 0.0 TH/MM3 CBC Comment DIFF FINAL Differential Comment Prothrombin Time 11.4 SEC Prothromb Time International Ratio 1.1 RATIO Activated Partial Thromboplast Time 27.0 SEC Urine Color YELLOW Urine Turbidity CLEAR Urine pH 5.0 Urine Specific [place] 1.018 Urine Protein >=500 mg/dL Urine Glucose (UA) 50 mg/dL Urine Ketones NEG mg/dL Urine Occult Blood NEG Urine Nitrite NEG Urine Bilirubin NEG Urine Urobilinogen LESS THAN 2 mg/dL Urine Leukocyte Esterase NEG Urine WBC 1 /hpf Urine Hyaline Casts 3 /lpf Urine Granular Casts 7 /lpf Microscopic Urinalysis Comment CULT NOT INDICATED Blood Urea Nitrogen 29 MG/DL Creatinine 1.53 MG/DL Random Glucose 211 MG/DL Total Protein 7.0 GM/DL Albumin 4.0 GM/DL Calcium Level 8.9 MG/DL Alkaline Phosphatase 99 U/L Aspartate Amino Transf (AST/SGOT) 20 U/L Alanine Aminotransferase (ALT/SGPT) 34 U/L Total Bilirubin 0.5 MG/DL Sodium Level 139 MEQ/L Potassium Level 3.9 MEQ/L Chloride Level 105 MEQ/L Carbon Dioxide Level 21.6 MEQ/L Anion Gap 12 MEQ/L Estimat Glomerular Filtration Rate 59 ML/MIN Total Creatine Kinase 136 U/L Creatine Kinase MB 1.2 NG/ML Troponin I LESS THAN 0.02 NG/ML B-Type Natriuretic Peptide 205 PG/ML Lipase 79 U/L MDM Medical Record Reviewed: Yes Supervised Visit with MARV: Yes Narrative Course I, Dr. Gaspar, have reviewed the advance practice practitioner's documentation and am in agreement, met with the patient face to face, made the diagnosis, and the medical decision making was done by me. The patient was initially evaluated by John, the PA. Please see their complete history and physical. *My assessment and Findings: The patient presents with reported history of chest pain and having his defibrillator fired prior to arrival. During the course of the patient's emergency department visit, the patient's history, examination, and differential diagnosis were reviewed with the patient. The patient was placed on a cardiac rn with oximetry and frequent blood pressure monitoring. The patient had IV access obtained and blood work sent for analysis. An EKG was done on arrival. The patient's EKG reveals what appears to be a sinus tachycardia read by the EKG machine is possibly atrial flutter, heart rate of 107, QRS duration 121 ms, QTC [address] segment elevation, T waves are inverted in lead III, V1. The patient was initially provided normal saline at 500 mL bolus 1. The patient's laboratory studies were reviewed and remarkable for 11/27/17 20:23 Total Protein 7.0, Albumin 4.0, Calcium Level 8.9, Alkaline Phosphatase 99, Aspartate Amino Transf (AST/SGOT) 20, Alanine Aminotransferase (ALT/SGPT) 34, Total Bilirubin 0.5. Cardiac enzymes are within normal limits, BNP is 205, BUN and creatinine are slightly elevated compared to previous. The patient was given normal saline IV fluid bolus of 500 mL x1. PT 11.4, PTT 27 Radiology studies were reviewed and remarkable for Last Impressions Chest X-Ray 11/27/172015 Signed Impressions: CONCLUSION: No acute cardiopulmonary findings. 2 pacers unchanged in position from previous exam. The patient's defibrillator was interrogated and no defibrillation was detected. The patient will be discharged home. The patient is resting comfortably and feels better, is alert and in no distress. The patient's results and examination findings were discussed with the patient. The repeat examination is unremarkable and benign. The history, exam, diagnostic testing, and current condition do not suggest any significant pathology to warrant further testing, continued ED treatment, admission, or surgical evaluation at this point. The vital signs have been stable. The patient does not have uncontrollable pain, intractable vomiting, or other significant symptoms. The patient's condition is stable and appropriate for discharge. The patient will pursue further outpatient evaluation with a primary care physician or other designated or consulting physician as indicated in the discharge instructions. The patient is instructed to report back to the emergency department immediately for reexamination in the mean time if he develops any new or worsening signs or symptoms. The patient expressed understanding and was agreeable with this plan. Diagnosis Primary Impression: Atypical chest pain Nydia Gaspar MD Nov 27, 2017 21:08
[2017-11-27] MEDS ORDERED: SODIUM CHLORID 0.9% 500 ML INJ 500 ML IV ONE (21:15)
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
[2017-11-27 21:27] VITALS: BP 123/86; PULSE 100; RESP 16; O2SAT 98
--- NOTE | 2017-11-28 20:51 | EKG ---
Date Performed: 11/27/2017 Time Performed: 20:15:47 PTAGE: 47 years EKG: ATRIAL FLUTTER/TACHYCARDIA WITH RAPID VENTRICULAR RESPONSE RIGHT BUNDLE BRANCH BLOCK LEFT P OSTERIOR FASCICULAR BLOCK ABNORMAL ECG Compared to PREVIOUS TRACING , a fib no longer present DOCTOR: Kylee Guadalupe Interpretating Date/Time 11/28/2017 20:50:00
== END 2017-11-27 22:03 | disposition home or self-care (01) ==
LOC: NEPC 19:55
DX: R07.89 Other chest pain (principal); I48.92 Unspecified atrial flutter; I45.10 Unspecified right bundle-branch block; I44.5 Left posterior fascicular block; R10.9 Unspecified abdominal pain; Z95.810 Presence of automatic (implantable) cardiac defibrillator; I11.0 Hypertensive heart disease with heart failure; I50.9 Heart failure, unspecified; I25.2 Old myocardial infarction; E78.00 Pure hypercholesterolemia, unspecified; J44.9 Chronic obstructive pulmonary disease, unspecified; Z95.1 Presence of aortocoronary bypass graft; Z88.6 Allergy status to analgesic agent; Z79.899 Other long term (current) drug therapy
CPT/HCPCS: 71045; 80053; 81001; 82550; 82552; 83690; 83880; 84484; 85025; 85610; 85730; 93005; 99285; J7040

== ENCOUNTER 2017-12-07 23:36 | Observation (INO) ==
--- NOTE | 2017-12-08 00:41 | XR ---
EXAM DATE: 12/08/2017 12:08 AM EDT AGE/SEX: 47 years / Male INDICATIONS: Chest pain. CLINICAL DATA: This is the patient's sequela encounter. Patient reports that signs and symptoms have been present for 2 weeks and indicates a pain score of 10/10. MEDICAL/SURGICAL HISTORY: Hypertension. Congenital heart defect. Congestive heart failure. AFIB Pacemaker. COMPARISON: [facility] – [place], CHEST 1V SINGLE AP, 12/05/2017. . FINDINGS: Single AP view the chest. Mildly prominent cardiac silhouette. Cardiac pacemaker remains in place. Terrie ngs are clear. No evidence of pleural effusion or pneumothorax. CONCLUSION: Mild cardiac silhouette enlargement. No acute cardiopulmonary disease identified. Electronically signed by: Victorino Gonzales MD 12/08/2017 12:40 AM EDT
[2017-12-08 00:45] LABS: Calcium 8.9 mg/dL (8.5-10.1); Carbon Dioxide 21.8 meq/L (21.0-32.0); Potassium 3.6 meq/L (3.5-5.1)
[2017-12-08 00:46] LABS: Baso # (Auto) 0.2 th/mm3 (0.0-0.2); Baso % (Auto) 4.3 % (0.0-2.0); Eos % (Auto) 0.5 % (0.0-4.0); Hematocrit 41.4 % (39.0-51.0); Hemoglobin 13.9 gm/dL (13.0-17.0); Lymph % (Auto) 21.5 % (9.0-44.0); Mean Corpuscular HGB Conc 33.6 % (32.0-36.0); Mean Corpuscular Hemoglobin 27.9 pg (27.0-34.0); Mean Platelet Volume 8.3 fL (7.0-11.0); Mono # (Auto) 0.5 th/mm3 (0.0-0.9); Mono % (Auto) 10.1 % (0.0-8.0); Neut # (Auto) 2.9 th/mm3 (1.8-7.7); Neut % (Auto) 63.6 % (16.0-70.0); Platelet Count 138 th/mm3 (150-450); Red Blood Count 4.99 mil/mm3 (4.50-5.90); Red Cell Distribution Width 17.3 % (11.6-17.2); White Blood Count 4.5 th/mm3 (4.0-11.0)
[2017-12-08 00:48] LABS: Troponin I 0.03 ng/mL (0.02-0.05)
[2017-12-08 01:02] LABS: Activated Partial Thrombo Time 22.7 sec (24.3-30.1); INR 1.1 Ratio; Prothrombin Time 11.2 sec (9.8-11.6)
--- NOTE | 2017-12-08 03:17 | ED ---
HPI General Chief Complaint: Chest Pain Stated Complaint: medical/chest pain Time Seen by Provider: 12/07/17 23:51 Source: patient Mode of arrival: ambulatory Limitations: no limitations History of Present Illness HPI narrative: 47yo M well known to our ED here with c/o chest pain today. Pt was here earlier but left prior to being seen. Pt said he has been having left sided chest pain for 1 day. Denies any sob, n/v, abdominal pain, focal weakness or numbness. Said his AICD fired. Complete Quality Measures for STEMI Alert Patients Related Data Home Medications Medication Instructions Recorded Confirmed amiodarone 200 mg PO DAILY 12/05/17 12/08/17 atorvastatin 40 mg PO DAILY 12/05/17 12/08/17 bupropion HCl 100 mg PO DAILY 12/05/17 12/08/17 carvedilol 6.25 mg PO BID 12/05/17 12/08/17 divalproex 250 mg PO DAILY 12/05/17 12/08/17 enalapril maleate 2.5 mg PO BID 12/05/17 12/08/17 furosemide 20 mg PO DAILY 12/05/17 12/08/17 Allergies Allergy/AdvReac Type Severity Reaction Status Date / Time aspirin Allergy Severe DIZZINESS, Verified 12/07/17 17:20 FACIAL SWELLING Review of Systems ROS Unobtainable All other systems reviewed negative except as stated in HPI [facility] Social History Social History Substance History: No History of Abuse Second Hand Smoke Exposure: No Smoking Status: Former smoker How Often Do You Have a Drink Containing Alcohol: Never Exam Narrative Exam Narrative: GENERAL: 47yo M not in distress. SKIN: Focused skin assessment warm/dry. HEAD: Atraumatic. Normocephalic. EYES: Pupils equal and round. No scleral icterus. No injection or drainage. ENT: No nasal bleeding or discharge. Mucous membranes pink and moist. NECK: Trachea midline. No JVD. CARDIOVASCULAR: Regular rate and rhythm. No murmur appreciated. RESPIRATORY: No accessory muscle use. Clear to auscultation. Breath sounds equal bilaterally. GASTROINTESTINAL: Abdomen soft, non-tender, nondistended. MUSCULOSKELETAL: No obvious deformities. No clubbing. No cyanosis. No edema. NEUROLOGICAL: Awake and alert. No obvious cranial nerve deficits. Motor grossly within normal limits. Normal speech. Course Initial Documented Vital Signs Temperature 97.7 F 12/07/17 23:52 Pulse Rate 100 H 12/07/17 23:52 Respiratory Rate 18 12/07/17 23:52 Blood Pressure 118/77 12/07/17 23:52 Pulse Oximetry 96 12/07/17 23:52 Last Documented Vital Signs Temperature 97.7 F 12/07/17 23:55 Pulse Rate 71 12/08/17 13:15 Respiratory Rate 18 12/08/17 13:15 Blood Pressure 120/68 12/08/17 13:15 Pulse Oximetry 100 12/08/17 13:15 Medical Decision Making MDM Narrative Medical decision making narrative: 47yo M with atypical chest pain. Labs reviewed, no leukocytosis. H/H normal. BNP mildly elevated at 204. Glucose 201. Normal CO2. Troponin negative at 0.03. CXR showed cardiac pacemaker remains in place. Mild cardiac silouette enlargement. No acute cardiopulmonary disease identified. I am unable to review his old EKG due to the new EMR so will observe for any changes in serial EKG and cardiac enzymes. I discussed with [employer] and he said pt's AICD was just interrogated last Sunday. I do feel that he is malingering. However, cannot remember what his old EKG looked like as this one is abnormal. Will observe for now. Differential Diagnosis Differential Diagnosis: ACS vs. malingering vs. GERD vs. musculoskeletal pain Lab Data Result diagrams: 12/08/17 00:10 12/08/17 00:10 Lab Results 12/08/17 12/08/17 12/08/17 Range/Units 00:10 00:10 00:10 WBC 4.5 (4.0-11.0) th/mm3 RBC 4.99 (4.50-5.90) mil/mm3 Hgb 13.9 (13.0-17.0) gm/dL Hct 41.4 (39.0-51.0) % MCV 83.0 (80.0-100.0) fL MCH 27.9 (27.0-34.0) pg MCHC 33.6 (32.0-36.0) % RDW 17.3 H (11.6-17.2) % Plt Count 138 L (150-450) th/mm3 MPV 8.3 (7.0-11.0) fL Neut % (Auto) 63.6 (16.0-70.0) % Lymph % (Auto) 21.5 (9.0-44.0) % [place] % (Auto) 10.1 H (0.0-8.0) % Eos % (Auto) 0.5 (0.0-4.0) % Baso % (Auto) 4.3 H (0.0-2.0) % Neut # (Auto) 2.9 (1.8-7.7) th/mm3 Lymph # (Auto) 1.0 (1.0-4.8) th/mm3 [place] # (Auto) 0.5 (0.0-0.9) th/mm3 Eos # (Auto) 0.0 (0.0-0.4) th/mm3 Baso # (Auto) 0.2 (0.0-0.2) th/mm3 WBC Differential . Differential Comment Auto diff final PT 11.2 (9.8-11.6) sec INR 1.1 Ratio APTT 22.7 L (24.3-30.1) sec Sodium (136-145) meq/L Potassium (3.5-5.1) meq/L Chloride (98-107) meq/L Carbon Dioxide (21.0-32.0) meq/L Anion Gap (5-15) meq/L BUN (7-18) mg/dL Creatinine (0.60-1.30) mg/dL Estimated GFR (>89) mL/min Random Glucose (74-106) mg/dL Calcium (8.5-10.1) mg/dL Magnesium (1.5-2.5) mg/dL Total Creatine Kinase (39-308) U/L CK-MB (CK-2) (0.5-3.6) ng/mL Troponin I (0.02-0.05) ng/mL B-Natriuretic Peptide 204 H (0-100) pg/mL 12/08/17 12/08/17 Range/Units 00:10 08:51 WBC (4.0-11.0) th/mm3 RBC (4.50-5.90) mil/mm3 Hgb (13.0-17.0) gm/dL Hct (39.0-51.0) % MCV (80.0-100.0) fL MCH (27.0-34.0) pg MCHC (32.0-36.0) % RDW (11.6-17.2) % Plt Count (150-450) th/mm3 MPV (7.0-11.0) fL Neut % (Auto) (16.0-70.0) % Lymph % (Auto) (9.0-44.0) % [place] % (Auto) (0.0-8.0) % Eos % (Auto) (0.0-4.0) % Baso % (Auto) (0.0-2.0) % Neut # (Auto) (1.8-7.7) th/mm3 Lymph # (Auto) (1.0-4.8) th/mm3 [place] # (Auto) (0.0-0.9) th/mm3 Eos # (Auto) (0.0-0.4) th/mm3 Baso # (Auto) (0.0-0.2) th/mm3 WBC Differential Differential Comment PT (9.8-11.6) sec INR Ratio APTT (24.3-30.1) sec Sodium 141 (136-145) meq/L Potassium 3.6 (3.5-5.1) meq/L Chloride 107 (98-107) meq/L Carbon Dioxide 21.8 (21.0-32.0) meq/L Anion Gap 12 (5-15) meq/L BUN 22 H (7-18) mg/dL Creatinine 1.27 (0.60-1.30) mg/dL Estimated GFR 73 L (>89) mL/min Random Glucose 201 H (74-106) mg/dL Calcium 8.9 (8.5-10.1) mg/dL Magnesium 2.0 (1.5-2.5) mg/dL Total Creatine Kinase 227 (39-308) U/L CK-MB (CK-2) 2.4 (0.5-3.6) ng/mL Troponin I 0.03 0.04 (0.02-0.05) ng/mL B-Natriuretic Peptide (0-100) pg/mL Imaging Data Radiologist's impression: ITS Impressions Chest X-Ray 12/07/17 23:52 CONCLUSION: Mild cardiac silhouette enlargement. No acute cardiopulmonary disease identified. ECG Data EKG Prior to Arrival: No Attestation: I personally reviewed and interpreted this ECG as follows: Interpretation: Sinus bradycardia at 104bpm. RBBB. ST depression V2, V3. TWI V4, V5. Discharge Plan Discharge Disposition Patient Disposition: 30 Still Patient Discharge Condition Condition: Stable Discharge Order Discharge Orders: Discharge Order (Routine); Ordered 12/08/17 Ordered By: Howard Mcintyre Discharge Details Anticipated Discharge Date: 12/08/17 Physicians Team ED Provider: Kelsie Urbina Primary Care Provider: UNKNOWN, Attending Provider: Reilly Aranda Status ED Status: Left Department Discharge Information Discharge Date/Time: 12/08/17 13:34
[2017-12-08 09:46] LABS: Creatine Kinase 227 U/L (39-308); Troponin I 0.04 ng/mL (0.02-0.05)
[2017-12-08 09:59] LABS: Creatine Kinase MB 2.4 ng/mL (0.5-3.6)
--- NOTE | 2017-12-08 10:23 | ECG ---
Date Performed: 12/07/2017 Time Performed: 23:39:20 PTAGE: 47 years EKG: SINUS TACHYCARDIA WITH FIRST DEGREE AV BLOCK RIGHT AXIS DEVIATION RIGHT BUNDLE BRANCH BLOCK ST DEPRESSION, CONSIDER ANTEIOR ISCHEMIA ABNORMAL ECG PREVIOUS TRACING : 12/07/2017 17.26 No significant change from previous tracing noted. DOCTOR: Kaden Zavala Interpretating Date/Time 12/08/2017 10:21:23
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
[2017-12-08] MEDS ORDERED: Carvedilol 6.25 MG Tablet PO SCH (12:15)
[2017-12-08] MEDS ORDERED: Furosemide 20 MG Tablet PO SCH (12:15)
[2017-12-08] MEDS ORDERED: buPROPion 100 MG Tablet PO SCH (12:15)
[2017-12-08] MEDS ORDERED: Divalproex 250 MG ER Tablet PO SCH (12:15)
[2017-12-08] MEDS ORDERED: Amiodarone 200 MG Tablet PO SCH (12:15)
== END 2017-12-08 13:35 | disposition home or self-care (01) ==
LOC: NEPC 23:36 → NEDA 23:36
PROVIDERS: ADMIT Internal Medicine Cardiovascular Disease; ATTEND Internal Medicine Cardiovascular Disease

== ENCOUNTER 2018-04-26 09:35 | Inpatient (IN) ==
[2018-04-26] MEDS ORDERED: Morphine Sulfate Inj 2 MG/ML Vial IV.PUSH ONE (12:04)
--- NOTE | 2018-04-26 12:04 | ED ---
HPI General Chief Complaint: Arrhythmia / Palpitations Stated Complaint: Medical Time Seen by Provider: 04/26/18 11:57 Source: patient Mode of arrival: ambulatory Limitations: no limitations History of Present Illness HPI narrative: 47-year-old male patient with history of CAD, PA, CABG, hypertension, AICD placed about 2 years ago, follows up with Dr. Roth, presents to the ER today because he states that his [id number] has not been giving him his medications for the last few days and he has been having left- sided chest pains, palpitations, and states that the pain is currently a 7-8 out of 10. He denies any vomiting, fevers, or other symptoms. Modifying Factors: None Associated Signs & Symptoms: Palpitations and chest pain Risk Factors: Cardiac history Related Data Home Medications Medication Instructions Recorded Confirmed amiodarone 200 mg PO DAILY 12/05/17 04/26/18 atorvastatin 40 mg PO DAILY 12/05/17 04/26/18 bupropion HCl 100 mg PO DAILY 12/05/17 04/26/18 carvedilol 6.25 mg PO BID 12/05/17 04/26/18 furosemide 20 mg PO DAILY 12/05/17 04/26/18 metformin 500 mg PO BID 02/02/18 04/26/18 potassium chloride 20 meq PO DAILY 02/02/18 04/26/18 Allergies Allergy/AdvReac Type Severity Reaction Status Date / Time No Known Allergies Allergy Verified 04/26/18 09:55 Review of Systems ROS: all other systems reviewed are negative PMFSH History History Provided By: Patient Medical History Medical History AICD discharge (Acute) Myocardial infarction (Acute) Hypertension (Acute) Chest pain (Acute) Angina at rest (Acute) Surgical History Surgical History Hx of CABG (Acute) Hx of cardiac cath (Acute) Social History Social History Substance History: No History of Abuse Second Hand Smoke Exposure: No Smoking Status: Never smoker Tobacco Type: Cigarettes How Often Do You Have a Drink Containing Alcohol: Never Recent Travel in [facility] within the Last 8 Weeks: No Recent Out of Country Travel within the Last 8 Weeks: No Exam Narrative Exam Narrative: GENERAL: Well-developed middle-aged -[place] male patient currently in moderate distress. Awake and oriented x3. SKIN: Focused skin assessment warm/dry. HEAD: Atraumatic. Normocephalic. EYES: Pupils equal and round. No scleral icterus. No injection or drainage. ENT: No nasal bleeding or discharge. Mucous membranes pink and moist. NECK: Trachea midline. No JVD. CARDIOVASCULAR: Regular rate and rhythm. No murmur appreciated. RESPIRATORY: No accessory muscle use. Clear to auscultation. Breath sounds equal bilaterally. GASTROINTESTINAL: Abdomen soft, diffuse tenderness on palpation of the abdomen, moderately distended. Hepatic and splenic margins not palpable. MUSCULOSKELETAL: No obvious deformities. No clubbing. No cyanosis. No edema. Tender to palpation in the left lateral chest wall where his pacemaker is. NEUROLOGICAL: Awake and alert. No obvious cranial nerve deficits. Motor grossly within normal limits. Normal speech. PSYCHIATRIC: Appropriate mood and affect; insight and judgment normal. Course Initial Documented Vital Signs Temperature 98.6 F 04/26/18 09:48 Pulse Rate 130 H 04/26/18 09:48 Respiratory Rate 22 04/26/18 09:48 Blood Pressure 135/91 H 04/26/18 09:48 Pulse Oximetry 96 04/26/18 09:48 Last Documented Vital Signs Temperature 97.8 F 04/26/18 11:53 Pulse Rate 60 04/26/18 14:44 Respiratory Rate 15 04/26/18 13:44 Blood Pressure 132/72 04/26/18 13:44 Pulse Oximetry 97 04/26/18 13:44 Medical Decision Making [facility] Narrative Medical decision making narrative: EKG did not show any signs of acute ST elevations. He does have T wave inversions notable in the leads V1 through V3. No acute ST elevations. Chest x-ray was unremarkable. Lab work was fairly unremarkable with a negative troponin. Considering the exam showing tenderness to the abdomen especially in the left upper quadrant area, CAT scan was ordered and it shows enlarged RVE as well as a questionable obstruction of the venous return from the azygous vein into the inferior vena cava which the radiologist thought could be secondary to an SVC obstruction of some kind. At this point, I was little concerned about possible PE since this patient is such a set up for cardiac processes and clots and possibility of other cardiac or pulmonary issues. I had put in for a CTA. Unfortunately, because he has had the previous CT of the abdomen pelvis, I have been informed by radiology that a CTA would not be advised. They would advise rather that we do a VQ scan. A VQ scan has been ordered for this patient. [facility] for admission for further evaluation and treatment. Medical Screen Exam Complete: Yes Emergency Medical Condition: Yes Differential Diagnosis Differential Diagnosis: Dysrhythmias versus ACS versus pneumonia muscular skeletal versus acute intra-abdominal issues. Lab Data Lab results reviewed: Yes I reviewed the patient's lab results. Result diagrams: 04/26/18 12:10 04/26/18 12:10 Lab Results 04/26/18 04/26/18 Range/Units 12:10 12:10 WBC 6.0 (4.0-11.0) th/mm3 RBC 4.60 (4.50-5.90) mil/mm3 Hgb 13.2 (13.0-17.0) gm/dL Hct 39.3 (39.0-51.0) % MCV 85.5 (80.0-100.0) fL MCH 28.6 (27.0-34.0) pg MCHC 33.5 (32.0-36.0) % RDW 16.6 (11.6-17.2) % Plt Count 122 L (150-450) th/mm3 MPV 8.5 (7.0-11.0) fL Neut % (Auto) 81.9 H (16.0-70.0) % Lymph % (Auto) 10.7 (9.0-44.0) % Rolette % (Auto) 7.0 (0.0-8.0) % Eos % (Auto) 0.1 (0.0-4.0) % Baso % (Auto) 0.3 (0.0-2.0) % Neut # (Auto) 4.9 (1.8-7.7) th/mm3 Lymph # (Auto) 0.6 L (1.0-4.8) th/mm3 Rolette # (Auto) 0.4 (0.0-0.9) th/mm3 Eos # (Auto) 0.0 (0.0-0.4) th/mm3 Baso # (Auto) 0.0 (0.0-0.2) th/mm3 WBC Differential . Differential Comment Auto diff final Sodium 138 (136-145) meq/L Potassium 4.7 (3.5-5.1) meq/L Chloride 106 (98-107) meq/L Carbon Dioxide 25.8 (21.0-32.0) meq/L Anion Gap 6 (5-15) meq/L BUN 26 H (7-18) mg/dL Creatinine 1.46 H (0.60-1.30) mg/dL Estimated GFR 62 L (>89) mL/min Random Glucose 308 H (74-106) mg/dL Calcium 9.0 (8.5-10.1) mg/dL Total Bilirubin 0.3 (0.2-1.0) mg/dL AST 17 (15-37) U/L ALT 25 (12-78) U/L Alkaline Phosphatase 100 (45-117) U/L Troponin I Less than 0.02 L (0.02-0.05) ng/mL Total Protein 7.4 (6.4-8.2) g/dL Albumin 4.0 (3.4-5.0) g/dL Imaging Data Attestation: I personally reviewed and interpreted this imaging study as follows : Radiologist's impression: Chest X-Ray 04/26/18 11:53 CONCLUSION: No acute disease Abdomen/Pelvis CT 04/26/18 12:04 CONCLUSION: 1. Altered venous return to the heart via the azygos vein to inferior vena cava which may indicate the presence of superior vena caval obstruction. 2. Right ventricular enlargement. 3. No evidence of acute process in the abdomen or pelvis to account for the patient's abdominal pain. 4. No evidence of soft tissue mass, lymphadenopathy or inflammatory disease. Discharge Plan Discharge Disposition Patient Disposition: 30 Still Patient Discharge Condition Condition: Stable Discharge Details Anticipated Discharge Date: 04/26/18 Diagnosis: Chest pain Physicians Team ED Provider: Axel Cornejo Primary Care Provider: UNKNOWN, Rxs /Orders / Referrals /Forms Prescriptions: No Action atorvastatin 40 mg Tablet 40 mg PO DAILY RF: 0 amiodarone 200 mg Tablet 200 mg PO DAILY RF: 0 bupropion HCl 100 mg Tablet 100 mg PO DAILY RF: 0 carvedilol 6.25 mg Tablet 6.25 mg PO BID RF: 0 furosemide 20 mg Tablet 20 mg PO DAILY RF: 0 metformin 500 mg Tablet 500 mg PO BID RF: 0 potassium chloride 20 mEq Tablet Extended Release 20 meq PO DAILY RF: 0 Discharge Interventions Interventions: Vital Signs Last Done: 04/26/18 09:48 Status ED Status: With Doctor
[2018-04-26 12:29] LABS: Baso % (Auto) 0.3 % (0.0-2.0); Eos % (Auto) 0.1 % (0.0-4.0); Hematocrit 39.3 % (39.0-51.0); Hemoglobin 13.2 gm/dL (13.0-17.0); Lymph # (Auto) 0.6 th/mm3 (1.0-4.8); Lymph % (Auto) 10.7 % (9.0-44.0); Mean Corpuscular HGB Conc 33.5 % (32.0-36.0); Mean Corpuscular Hemoglobin 28.6 pg (27.0-34.0); Mean Corpuscular Volume 85.5 fL (80.0-100.0); Mean Platelet Volume 8.5 fL (7.0-11.0); Mono # (Auto) 0.4 th/mm3 (0.0-0.9); Neut # (Auto) 4.9 th/mm3 (1.8-7.7); Neut % (Auto) 81.9 % (16.0-70.0); Platelet Count 122 th/mm3 (150-450); Red Cell Distribution Width 16.6 % (11.6-17.2)
[2018-04-26 12:49] LABS: Alanine Aminotransferase 25 U/L (12-78); Anion Gap 6 meq/L (5-15); Aspartate Aminotransferase 17 U/L (15-37); Blood Urea Nitrogen 26 mg/dL (7-18); Carbon Dioxide 25.8 meq/L (21.0-32.0); Chloride 106 meq/L (98-107); Glomerular Filtration Rate 62 mL/min (>89); Glucose,Random 308 mg/dL (74-106); Potassium 4.7 meq/L (3.5-5.1); Sodium 138 meq/L (136-145)
[2018-04-26 12:53] LABS: Alkaline Phosphatase 100 U/L (45-117); Total Protein 7.4 g/dL (6.4-8.2)
--- NOTE | 2018-04-26 13:10 | XR ---
EXAM DATE: 04/26/2018 12:42 PM EST AGE/SEX: 47 years / Male INDICATIONS: Chest pain. CLINICAL DATA: This is the patient's initial encounter. Patient reports that signs and symptoms have been present for 1 day and indicates a pain score of 8/10. MEDICAL/SURGICAL HISTORY: Myocardial infarction. Hypertension. Cardiomegaly. Pacemaker. CABG . COMPARISON: [facility], CHEST 1V SINGLE AP, 03/24/2018. . FINDINGS: Pacer/AICD implements are noted. Lungs are focally clear. No pleural effusion evident. Cardiac contou rs are satisfactory. CONCLUSION: No acute disease Electronically signed by: Alex Cameron MD 04/26/2018 1:09 PM EST
--- NOTE | 2018-04-26 14:44 | CT ---
EXAM DATE: 04/26/2018 2:08 PM EST AGE/SEX: 47 years / Male INDICATIONS: Abdominal pain. CLINICAL DATA: This is the patient's initial encounter. Patient reports that signs and symptoms have been present for 1 day and indicates a pain score of 5/10. MEDICAL/SURGICAL HISTORY: Hypertension. Myocardial infarction. CABG. ORAL CONTRAST: No oral contrast ingested. RADIATION DOSE: 9.65 CTDI (mGy) COMPARISON: [facility] [place], CT ABDOMEN & PELVIS W CONTRAST, 09/16/2012. . TECHNIQUE: Multiple contiguous axial images were obtained through the abdomen and pelvis following b olus infusion of 97 ml Omnipaque 350 (iohexol) nonionic water-soluble contrast as a single exam dos e. No oral contrast ingested. Using automated exposure control and adjustment of the mA and/or kV ac cording to patient size, radiation dose was kept as low as reasonably achievable to obtain optimal di agnostic quality images. DICOM format image data is available electronically for review and comparis on. FINDINGS: Lower Lungs: Right ventricular chamber enlargement is noted. Bases are otherwise clear. Liver: The liver has a homogeneous density without space-occupying lesion. There is no dilation of th e biliary tree. Spleen: Homogeneous density without enlargement. Pancreas: Unremarkable without mass or calcification. Kidneys: Normal in size and shape. No evidence of mass or hydronephrosis. Adrenal Glands: Unremarkable. Aorta: The aorta and proximal iliac vessels are grossly unremarkable without aneurysmal dilation. Bowel/Mesentery: The bowel loops are grossly unremarkable. The cecum and sigmoid colon have a normal configuration. Abdominal Wall: Intact. Retroperitoneum: There is dense contrast-enhancement of the azygos vein. It appears to flow caudally into the left renal vein and then opacifies the inferior vena cava. Bladder: Contours are smooth. Reproductive Organs: No abnormal masses or calcifications seen. Inguinal: The inguinal region is unremarkable without evidence of adenopathy. Bony Structures: Unremarkable. CONCLUSION: 1. Altered venous return to the heart via the azygos vein to inferior vena cava which may indicate t he presence of superior vena caval obstruction. 2. Right ventricular enlargement. 3. No evidence of acute process in the abdomen or pelvis to account for the patient's abdominal pain . 4. No evidence of soft tissue mass, lymphadenopathy or inflammatory disease. Electronically signed by: Donavan Lemus MD 04/26/2018 2:43 PM EST
--- NOTE | 2018-04-26 15:10 | P.HPFP ---
History of Present Illness Primary Care Physician: UNKNOWN <Christopher Chin R 04/27/18 13:55> UNKNOWN <Juan Gasparle 04/26/18 15:10> Chief Complaint: Chest pain <HubertAlexsandra C - 04/26/18 16:25> History of Present Illness: 47 year old male PMH ME, CAD, CABG, HTN, AICD placed 2 yrs ago presents with chest pain. This morning patient had left sided chest pressure 10/10 that radiated to his "pacemaker under my arm". He also had palpitations, dizziness, and shortness of breath. Still having the same chest pain and some dizziness. No sweating, nausea, or vomiting. Never had this chest pain like this in past. No numbness, tingling. Generalized weakness but no focal weakness. According to patient, his brother's girlfriend only gave him one pill. He does not know how to read, so his brother and her girlfriend helps with his medications. Denies any recent illnesses or medication changes. Has not seen any physicians recently and does not remember when the last doctor's visit or last ED visit. He states he want to move away because his brother's girlfriend is stealing his money. Has some mild abdominal pain diffuse. Does not remember the last time he had bowel movement. Patient has been to the ED on the fifth of this month, 24 March, and 3 times in February for cardiac symptoms. PMH: CAD, ME, CABG, hypertension, AICD 2 years, intellectual disability SH: CABG, 2 pacemakers Allergies: none FMH: unsure Meds: metformin 500mg, bupropion 100, atorvastatin 40, furosemide 20, carvedilol 25, amiodarone 200 Social: Patient lives with brother's girlfriend. Used to smoke 1 ppd. Quit 2 years ago. Denies any alcohol or drug use. Unemployed <Alexsandra Gaspar 04/26/18 16:25> - Diagnosis (1) Chest pain (2) Hypertension (3) Nutrition, metabolism, and development symptoms <Christopher Chin 04/27/18 13:55> (1) Chest pain (2) Hypertension (3) Nutrition, metabolism, and development symptoms <Alexsandra Gaspar 04/26/18 15:58> Inpatient Certification: I certify that the inpatient services were ordered in accordance with Medicare regulations governing the order. This includes certification that hospital inpatient services are reasonable and necessary and in the case of services not specified as inpatient-only under 42 CFR 419.22(n), that they are appropriately provided as inpatient services in accordance to with the 2-midnight benchmark under 43 CFR 412.3(e) <Christopher Chin 04/27/18 13:55> Review of Systems Constitutional: Denies chills, Denies fever(s) <Alexsandra Gaspar [facility] 04/26/18 16: 25> Eyes: Denies change in vision <Alexsandra Gaspar [facility] 04/26/18 16:25> Ears, Nose, Mouth, and Throat: Denies headache(s) <Alexsandra Gaspar 04/26/18 16:25> Cardiovascular: Reports chest pain, Reports rapid, pounding, or irregular heartbeat, Denies excessive sweating <Alexsandra Gaspar 04/26/18 16:25> Respiratory: Reports shortness of breath, Denies wheezing <Alexsandra Gaspar [facility] 04/26/18 16:25> Gastrointestinal: Reports abdominal pain <Alexsandra Gaspar [facility] 04/26/18 16:25> Genitourinary: Denies urinary hesitancy <Alexsandra Gaspar [facility] 04/26/18 16:25> Musculoskeletal: Denies body aches <Alexsandra Gaspar [facility] 04/26/18 16:25> Skin/Breast: Denies rash <Alexsandra Gaspar [facility] 04/26/18 16:25> Neurologic: Denies headache(s), Denies tingling/numbness/burning sensations < Alexsandra Gaspar [facility] 04/26/18 16:25> Psychiatric: Denies change in appetite <Alexsandra Gaspar 04/26/18 16:25> Endocrine: Reports increased thirst, Denies increased urination <Alexsandra Gaspar 04/26/18 16:25> Hematologic/Lymphatic: Denies easy bleeding <Alexsandra Gaspar 04/26/18 16:25> Allergic/Immunologic: Denies hives <Alexsandra Gaspar 04/26/18 16:25> PMFSH - History History Provided By: Patient <Alexsandra Gaspar 04/26/18 15:10> - Medical History Medical History: Medical History (Last Reviewed 04/26/18 @ 12:04 by Soledad Fuentes) AICD discharge (Acute) Myocardial infarction (Acute) Hypertension (Acute) Chest pain (Acute) Angina at rest (Acute) <Christopher Chin 04/27/18 13:55> Medical History (Last Reviewed 04/26/18 @ 12:04 by Soledad Fuentes) AICD discharge (Acute) Myocardial infarction (Acute) Hypertension (Acute) Chest pain (Acute) Angina at rest (Acute) <Alexsandra Gaspar 04/26/18 15:10> - Surgical History Surgical History: Surgical History (Last Reviewed 04/26/18 @ 12:04 by Soledad Fuentes) Hx of CABG (Acute) Hx of cardiac cath (Acute) <Christopher Chin 04/27/18 13:55> Surgical History (Last Reviewed 04/26/18 @ 12:04 by Soledad Fuentes) Hx of CABG (Acute) Hx of cardiac cath (Acute) <Alexsandra Gaspar 04/26/18 15:10> - Tobacco History Second Hand Smoke Exposure: No <Alexsandra Gaspar 04/26/18 15:10> Smoking Status: Never smoker <Alexsandra Gaspar 04/26/18 15:10> Tobacco Type: Cigarettes <Alexsandra Gaspar 04/26/18 15:10> - Alcohol History How Often Do You Have a Drink Containing Alcohol: Never <Alexsandra Gaspar 15:10> - Substance Use History Substance History: No History of Abuse <Alexsandra Gaspar 04/26/18 15:10> - Travel History Recent Travel in the [facility] Within the Last 8 Weeks: No <Alexsandra Gaspar 15:10> Recent Travel Out of the Country Within the Last 8 Weeks: No <Alexsandra Gaspar 04/26/18 15:10> - Immunization History Tetanus Immunization: >5 Years <Alexsandra Gaspar 04/26/18 15:10> Medications and Allergies Allergies Allergy/AdvReac Type Severity Reaction Status Date / Time No Known Allergies Allergy Verified 04/26/18 09:55 <Christopher Chin 04/27/18 13:55> Home Medications Medication Instructions Recorded Confirmed Type amiodarone 200 mg PO DAILY 12/05/17 04/26/18 History atorvastatin 40 mg PO DAILY 12/05/17 04/26/18 History bupropion HCl 100 mg PO DAILY 12/05/17 04/26/18 History carvedilol 6.25 mg PO BID 12/05/17 04/26/18 History furosemide 20 mg PO DAILY 12/05/17 04/26/18 History metformin 500 mg PO BID 02/02/18 04/26/18 History potassium chloride 20 meq PO DAILY 02/02/18 04/26/18 History <Christopher Chin - 04/27/18 13:55> Active Medications: Active Medications Acetaminophen (Tylenol) 650 mg PO Q6H PRN PRN Reason: pain or fever Al Hydroxide/Mg Hydroxide (Milk Of Magnesia Liq) 30 ml PO Q12H PRN PRN Reason: Mild Constipation Atorvastatin Calcium (Lipitor) 40 mg PO DAILY [facility] Last Admin: 04/27/18 09:52 Dose: 40 mg Bisacodyl (Dulcolax Supp) 10 mg RECTAL DAILY PRN PRN Reason: SEVERE CONSITIPATION Famotidine (Pepcid) 20 mg PO HS [facility] Lactulose (Lactulose Liq) 30 ml PO DAILY PRN PRN Reason: SEVERE CONSITIPATION Morphine Sulfate (Morphine Inj) 2 mg IV.PUSH Q3H PRN PRN Reason: BREAKTHROUGH PAIN Naloxone HCl (Narcan Inj) 0.4 mg IV.PUSH UNSCH PRN PRN Reason: SEE LABEL COMMENTS Ondansetron HCl (Zofran Inj) 4 mg IV.PUSH Q6H PRN PRN Reason: NAUSEA OR VOMITING Senna/Docusate Sodium (Petra-Colace) 1 tab PO BID [facility] Last Admin: 04/27/18 09:52 Dose: 1 tab Sennosides (Senokot) 17.2 mg PO Q12H PRN PRN Reason: Moderate Constipation Sodium Chloride (Ns Flush) 2 ml IV.FLUSH UNSCH PRN PRN Reason: FLUSH AFTER USING IV ACCESS Last Admin: 04/26/18 12:12 Dose: 2 ml <Christopher Chin - 04/27/18 13:55> Active Medications Sodium Chloride (Ns Flush) 2 ml IV.FLUSH UNSCH PRN PRN Reason: FLUSH AFTER USING IV ACCESS Last Admin: 04/26/18 12:12 Dose: 2 ml <Alexsandra Gaspar - 04/26/18 15:10> Exam Vital signs: Vital Signs 04/26/18 14:44 04/26/18 17:40 04/26/18 20:00 Temperature 97 F L Pulse Rate 60 60 60 Respiratory Rate 18 20 Blood Pressure 139/79 131/64 Pulse Oximetry 97 97 04/27/18 00:00 04/27/18 04:00 Temperature 97.5 F L 98 F Pulse Rate 60 60 Respiratory Rate 20 20 Blood Pressure 139/63 117/59 L Pulse Oximetry 92 L 95 Intake & Output 04/26/18 04/27/18 04/27/18 18:59 06:59 18:59 Intake Total 461 / 461 Output Total 750 / 750 Balance -750 / -750 461 / 461 Weight 63.503 kg 87.3 kg Intake: Oral 461 / 461 Output: Urine 750 / 750 <Christopher Chin R - 04/27/18 13:55> Vital Signs 04/26/18 09:48 04/26/18 11:53 04/26/18 13:44 Temperature 98.6 F 97.8 F Pulse Rate 130 H 90 120 H Respiratory Rate 22 16 15 Blood Pressure 135/91 H 128/86 132/72 Pulse Oximetry 96 97 97 04/26/18 14:44 Temperature Pulse Rate 60 Respiratory Rate Blood Pressure Pulse Oximetry Intake & Output 04/25/18 04/26/18 04/26/18 18:59 06:59 18:59 Weight 63.503 kg <Alexsandra Gaspar - 04/26/18 15:10> Narrative: GENERAL: SKIN: Warm and dry. Scar on mid chest sternum and under left arm. HEAD: Atraumatic. Normocephalic. EYES: Pupils equal and round. No scleral icterus. No injection or drainage. ENT: No nasal bleeding or discharge. Mucous membranes pink and moist. NECK: Trachea midline. No JVD. CARDIOVASCULAR: Regular rate and rhythm. RESPIRATORY: No accessory muscle use. Clear to auscultation. Breath sounds equal bilaterally. GASTROINTESTINAL: Abdomen soft, non-tender, nondistended. Hepatic and splenic margins not palpable. MUSCULOSKELETAL: Sternum tender to palpation. Extremities without clubbing, cyanosis, or edema. No obvious deformities. NEUROLOGICAL: Awake and alert. No obvious cranial nerve deficits. Motor grossly within normal limits. Five out of 5 muscle strength in the arms and legs. Normal speech. PSYCHIATRIC: Appropriate mood and affect; insight and judgment normal. <Alexsandra Gaspar - 04/26/18 16:25> Results - Labs Result diagrams: 04/27/18 04:29 04/27/18 04:29 <Christopher Chin - 04/27/18 13:55> Abnormal lab results 04/27/18 04/27/18 Range/Units 04:29 04:29 Plt Count 128 L (150-450) th/mm3 [place] % (Auto) 8.6 H (0.0-8.0) % BUN 20 H (7-18) mg/dL Estimated GFR 77 L (>89) mL/min Random Glucose 226 H (74-106) mg/dL Short CBC 04/27/18 Range/Units 04:29 WBC 4.2 (4.0-11.0) th/mm3 Hgb 13.1 (13.0-17.0) gm/dL Hct 39.0 (39.0-51.0) % Plt Count 128 L (150-450) th/mm3 BMP 04/27/18 04:29 Sodium 139 Potassium 4.2 Chloride 103 Carbon Dioxide 27.0 BUN 20 H Creatinine 1.22 Calcium 8.9 Cardiac Enzymes 04/26/18 04/27/18 Range/Units 17:40 00:03 Troponin I 0.03 0.03 (0.02-0.05) ng/mL Liver Function 04/27/18 Range/Units 04:29 Total Bilirubin 0.4 (0.2-1.0) mg/dL AST 19 (15-37) U/L ALT 24 (12-78) U/L Alkaline Phosphatase 82 (45-117) U/L Albumin 3.7 (3.4-5.0) g/dL Urine 04/26/18 Range/Units 17:20 Urine Color Straw (Yellw/Straw) Urine Clarity Clear (Clear) Urine pH 5.0 (5.0-8.5) Ur Specific [place] 1.028 (1.002-1.035) Urine Protein Negative (Neg-Trace) mg/dL Urine Glucose (UA) 500 or greater (Negative) mg/dL <Christopher Chin R - 04/27/18 13:55> Abnormal lab results 04/26/18 04/26/18 Range/Units 12:10 12:10 Plt Count 122 L (150-450) th/mm3 Neut % (Auto) 81.9 H (16.0-70.0) % Lymph # (Auto) 0.6 L (1.0-4.8) th/mm3 BUN 26 H (7-18) mg/dL Creatinine 1.46 H (0.60-1.30) mg/dL Estimated GFR 62 L (>89) mL/min Random Glucose 308 H (74-106) mg/dL Troponin I Less than 0.02 L (0.02-0.05) ng/mL Short CBC 04/26/18 Range/Units 12:10 WBC 6.0 (4.0-11.0) th/mm3 Hgb 13.2 (13.0-17.0) gm/dL Hct 39.3 (39.0-51.0) % Plt Count 122 L (150-450) th/mm3 BMP 04/26/18 12:10 Sodium 138 Potassium 4.7 Chloride 106 Carbon Dioxide 25.8 BUN 26 H Creatinine 1.46 H Calcium 9.0 Cardiac Enzymes 04/26/18 Range/Units 12:10 Troponin I Less than 0.02 L (0.02-0.05) ng/mL Liver Function 04/26/18 Range/Units 12:10 Total Bilirubin 0.3 (0.2-1.0) mg/dL AST 17 (15-37) U/L ALT 25 (12-78) U/L Alkaline Phosphatase 100 (45-117) U/L Albumin 4.0 (3.4-5.0) g/dL <Alexsandra Gaspar - 04/26/18 15:10> - Imaging Impressions Abdomen/Pelvis CT 04/26/18 12:04 CONCLUSION: 1. Altered venous return to the heart via the azygos vein to inferior vena cava which may indicate the presence of superior vena caval obstruction. 2. Right ventricular enlargement. 3. No evidence of acute process in the abdomen or pelvis to account for the patient's abdominal pain. 4. No evidence of soft tissue mass, lymphadenopathy or inflammatory disease. Pulmonary Perfusion Imaging 04/26/18 15:05 CONCLUSION: Low probability of pulmonary embolism. <Christopher Chin - 04/27/18 13:55> Impressions Chest X-Ray 04/26/18 11:53 CONCLUSION: No acute disease Abdomen/Pelvis CT 04/26/18 12:04 CONCLUSION: 1. Altered venous return to the heart via the azygos vein to inferior vena cava which may indicate the presence of superior vena caval obstruction. 2. Right ventricular enlargement. 3. No evidence of acute process in the abdomen or pelvis to account for the patient's abdominal pain. 4. No evidence of soft tissue mass, lymphadenopathy or inflammatory disease. <Alexsandra Gaspar - 04/26/18 15:10> Caprini VTE Risk Assessment Caprini VTE Risk Assessment: No/Low Risk (score <= 1) <Alexsandra Gaspar - 04/26 16:25> Caprini Risk Assessment Model: Point Value = 1 Point Value = 2 Point Value = 3 Point Value = 5 Age 41-60 Minor surgery BMI > 25 kg/m2 Swollen legs Varicose veins or History of unexplained or recurrent spontaneous Oral contraceptives or hormone replacement Sepsis (< 1 month) Serious lung disease, including pneumonia (< 1 month) Abnormal pulmonary function Acute myocardial infarction Congestive heart failure (< 1 month) History of inflammatory bowel disease Medical patient at bed rest Age 61-74 Arthroscopic surgery Major open surgery (> 45 min) Laparoscopic surgery (> 45 min) Malignancy Confined to bed (> 72 hours) Immobilizing plaster cast Central venous access Age >= 75 History of VTE Family history of VTE Factor V Leiden Prothrombin [id number] Lupus anticoagulant Anticardiolipin antibodies Elevated serum homocysteine Heparin-induced thrombocytopenia Other congenital or acquired thrombophilia Stroke (< 1 month) Elective arthroplasty Hip, pelvis, or leg fracture Acute spinal cord injury (< 1 month) <Christopher Chin - 04/27/18 13:55> Point Value = 1 Point Value = 2 Point Value = 3 Point Value = 5 Age 41-60 Minor surgery BMI > 25 kg/m2 Swollen legs Varicose veins or History of unexplained or recurrent spontaneous Oral contraceptives or hormone replacement Sepsis (< 1 month) Serious lung disease, including pneumonia (< 1 month) Abnormal pulmonary function Acute myocardial infarction Congestive heart failure (< 1 month) History of inflammatory bowel disease Medical patient at bed rest Age 61-74 Arthroscopic surgery Major open surgery (> 45 min) Laparoscopic surgery (> 45 min) Malignancy Confined to bed (> 72 hours) Immobilizing plaster cast Central venous access Age >= 75 History of VTE Family history of VTE Factor V Leiden Prothrombin [id number] Lupus anticoagulant Anticardiolipin antibodies Elevated serum homocysteine Heparin-induced thrombocytopenia Other congenital or acquired thrombophilia Stroke (< 1 month) Elective arthroplasty Hip, pelvis, or leg fracture Acute spinal cord injury (< 1 month) <Alexsandra Gaspar C - 04/26/18 15:10> Prophylaxis Regimen: Total Risk Factor Score Risk Level Prophylaxis Regimen 0-1 Low Early ambulation 2 Moderate Order ONE of the following: *Sequential Compression Device (SCD) *Heparin 5000 units SQ BID 3-4 Higher Order ONE of the following medications: *Heparin 5000 units SQ TID *Enoxaparin/Lovenox 40 mg SQ daily (WT < 150 kg, CrCl > 30 mL/min) *Enoxaparin/Lovenox 30 mg SQ daily (WT < 150 kg, CrCl > 10-29 mL/min) *Enoxaparin/Lovenox 30 mg SQ BID (WT < 150 kg, CrCl > 30 mL/min) AND/OR *Sequential Compression Device (SCD) 5 or more Highest Order ONE of the following medications: *Heparin 5000 units SQ TID (Preferred with Epidurals) *Enoxaparin/Lovenox 40 mg SQ daily (WT < 150 kg, CrCl > 30 mL/min) *Enoxaparin/Lovenox 30 mg SQ daily (WT < 150 kg, CrCl > 10-29 mL/min) *Enoxaparin/Lovenox 30 mg SQ BID (WT < 150 kg, CrCl > 30 mL/min) AND *Sequential Compression Device (SCD) <Christopher Chin R - 04/27/18 13:55> Total Risk Factor Score Risk Level Prophylaxis Regimen 0-1 Low Early ambulation 2 Moderate Order ONE of the following: *Sequential Compression Device (SCD) *Heparin 5000 units SQ BID 3-4 Higher Order ONE of the following medications: *Heparin 5000 units SQ TID *Enoxaparin/Lovenox 40 mg SQ daily (WT < 150 kg, CrCl > 30 mL/min) *Enoxaparin/Lovenox 30 mg SQ daily (WT < 150 kg, CrCl > 10-29 mL/min) *Enoxaparin/Lovenox 30 mg SQ BID (WT < 150 kg, CrCl > 30 mL/min) AND/OR *Sequential Compression Device (SCD) 5 or more Highest Order ONE of the following medications: *Heparin 5000 units SQ TID (Preferred with Epidurals) *Enoxaparin/Lovenox 40 mg SQ daily (WT < 150 kg, CrCl > 30 mL/min) *Enoxaparin/Lovenox 30 mg SQ daily (WT < 150 kg, CrCl > 10-29 mL/min) *Enoxaparin/Lovenox 30 mg SQ BID (WT < 150 kg, CrCl > 30 mL/min) AND *Sequential Compression Device (SCD) <Alexsandra Gaspar C - 04/26/18 15:10> Assessment and Plan - Assessment (1) Chest pain Code(s): R07.9 - Chest pain, unspecified Status: Acute (2) Hypertension Code(s): I10 - Essential (primary) hypertension Status: Acute (3) Nutrition, metabolism, and development symptoms Code(s): R63.8 - Other symptoms and signs concerning food and fluid intake Status: Acute <Christopher Chin - 04/27/18 13:55> (1) Chest pain Code(s): R07.9 - Chest pain, unspecified Status: Acute Plan: 47-year-old male past medical history ME, CABG, CAD, hypertension, AICD placed 2 years ago presents with chest pain. CBC within normal limits. Troponin negative. Received 2 mg of morphine. Chest x-ray: Pacer/AICD placement: Clear lungs. EKG: Paced sinus rhythm with T inversions in V2 and V3. At the time the patient was having extreme abdominal pain nearly jumping out of the bed according to the ED physician with light palpation of the upper abdomen and lower chest area abdomenpelvic CT was ordered: Altered venous return to heart via azygous vein to the IVC which may indicate presence of SVC obstruction. Right ventricular enlargement. No evidence of acute abdomen/ pelvic process. Given concern for PE patient was admitted for VQ scan and further workup VQ scan Trend EKG and troponins Cardiac telemetry Continued pulse ox UA and urine drug screen -Tylenol 650 every 6 hrs; morphine 2 mg for breakthrough pain -Atorvastatin 40mg Case management consult (2) Hypertension Code(s): I10 - Essential (primary) hypertension Status: Acute Plan: Continue home meds: furosemide 20 mg. Holding carvedilol (3) Nutrition, metabolism, and development symptoms Code(s): R63.8 - Other symptoms and signs concerning food and fluid intake Status: Acute Plan: Diet: N.p.o. until after VQ scan Fluids: None Electrolytes: Monitor and replete DVT prophylaxis: SCDs <Alexsandra Gaspar - 04/26/18 15:58> - Attending Attestation THIS CASE WAS DISCUSSED WITH THE RESIDENT PHYSICIANS. I HAVE REVIEWED THE RECORD AND AGREE WITH THE ABOVE NOTE AND PLAN OF CARE WAS DISCUSSED. I HAVE AUTHORIZED THE ORDER FOR ADMISSION TO AN IN-PATIENT STATUS. Christopher Chin MD <Christopher Chin - 04/27/18 13:55>
[2018-04-26] MEDS ORDERED: Bisacodyl 10 MG Supp RECTAL PRN (16:09)
[2018-04-26] MEDS ORDERED: Acetaminophen 325 MG Tablet PO PRN ×2 (16:09→16:23)
[2018-04-26] MEDS ORDERED: Naloxone Inj 0.4 MG/ML Vial IV.PUSH PRN (16:20)
[2018-04-26] MEDS ORDERED: Morphine Sulfate Inj 2 MG/ML Vial IV.PUSH PRN (16:20)
--- NOTE | 2018-04-26 17:32 | NM ---
EXAM DATE: 04/26/2018 5:21 PM EST AGE/SEX: 47 years / Male INDICATIONS: Dyspnea with chest pain. CLINICAL DATA: This is the patient's initial encounter. Patient reports that signs and symptoms have been present for 1 day and indicates a pain score of 3/10. MEDICAL/SURGICAL HISTORY: Hypertension. Myocardial infarction. CABG. Defibrillator. COMPARISON: No prior exams available for comparison. DOSE: 0.94 mCi Tc99m DTPA aerosol 8.5 mCi Tc99m MAA IV TECHNIQUE: Following five minutes of tidal breathing of DTPA aerosol, planar images of the lungs wer e performed in eight projections. The patient was then injected with MAA, and eight-view perfusion s can was performed. FINDINGS: There is a homogeneous pattern of aerosol delivery to the periphery of both lungs. No focal ventilat ory defects are seen. The perfusion lung scan demonstrates a homogenous pattern of uptake in both lungs. No segmental or s ubsegmental defects are seen. CONCLUSION: Low probability of pulmonary embolism. Electronically signed by: Donavan Lemus MD 04/26/2018 5:31 PM EST
[2018-04-26] MEDS: Morphine Sulfate Inj 2 MG/ML Vial IM ONE ×2 (17:35→17:40)
[2018-04-26 17:50] LABS: Bilirubin,Urine Negative (Negative); Clarity,Urine Clear (Clear); Color,Urine Straw (Yellw/Straw); Glucose,Urine (UA) 500 or Greater mg/dL (Negative); Leukocyte Esterase,Urine Negative (Negative); Nitrite,Urine Negative (Negative); Specific Gravity,Urine 1.028 (1.002-1.035)
[2018-04-26 18:02] LABS: Amphetamine Screen,Urine Neg (Neg); Barbiturate Screen,Urine Neg (Neg); Cannabinoid Screen,Urine Neg (Neg); Cocaine Screen,Urine Neg (Neg)
[2018-04-26 18:06] LABS: Opiate Screen,Urine Neg (Neg)
[2018-04-26] MEDS ORDERED: Influenza (Quadrivalent) Vaccine 0.5 ML Syringe IM ONE (20:00)
[2018-04-26] MEDS: Senna/Docusate Sodium 8.6/50 MG Tablet PO SCH (20:51)
[2018-04-27 06:15] LABS: Baso % (Auto) 0.6 % (0.0-2.0); Eos % (Auto) 1.1 % (0.0-4.0); Hemoglobin 13.1 gm/dL (13.0-17.0); Lymph % (Auto) 23.3 % (9.0-44.0); Mean Corpuscular HGB Conc 33.6 % (32.0-36.0); Mean Corpuscular Hemoglobin 28.4 pg (27.0-34.0); Mean Corpuscular Volume 84.6 fL (80.0-100.0); Mean Platelet Volume 8.8 fL (7.0-11.0); Mono # (Auto) 0.4 th/mm3 (0.0-0.9); Mono % (Auto) 8.6 % (0.0-8.0); Neut # (Auto) 2.8 th/mm3 (1.8-7.7); Neut % (Auto) 66.4 % (16.0-70.0); Platelet Count 128 th/mm3 (150-450); Red Blood Count 4.61 mil/mm3 (4.50-5.90); Red Cell Distribution Width 16.8 % (11.6-17.2); White Blood Count 4.2 th/mm3 (4.0-11.0)
[2018-04-27 06:41] LABS: Albumin 3.7 g/dL (3.4-5.0); Anion Gap 9 meq/L (5-15); Aspartate Aminotransferase 19 U/L (15-37); Blood Urea Nitrogen 20 mg/dL (7-18); Calcium 8.9 mg/dL (8.5-10.1); Chloride 103 meq/L (98-107); Glomerular Filtration Rate 77 mL/min (>89); Glucose,Random 226 mg/dL (74-106); Potassium 4.2 meq/L (3.5-5.1); Sodium 139 meq/L (136-145)
[2018-04-27 06:42] LABS: Alanine Aminotransferase 24 U/L (12-78)
[2018-04-27 06:45] LABS: Alkaline Phosphatase 82 U/L (45-117); Total Protein 6.8 g/dL (6.4-8.2)
[2018-04-27] MEDS: Senna/Docusate Sodium 8.6/50 MG Tablet PO SCH ×2 (09:52→20:58)
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
--- NOTE | 2018-04-27 13:54 | ECG ---
Date Performed: 04/26/2018 Time Performed: 12:07:31 PTAGE: 47 years EKG: ELECTRONIC ATRIAL PACEMAKER RIGHT VENTRICULAR HYPERTROPHY AND ST-T CHANGE INFERIOR MYOCARDI AL INFARCTION ABNORMAL ECG PREVIOUS TRACING : 04/08/2018 18.49 Since the previous tracing, no significant change noted DOCTOR: Leon Bustillos Interpretating Date/Time 04/27/2018 13:53:58
--- NOTE | 2018-04-27 13:57 | ECG ---
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
--- NOTE | 2018-04-27 13:58 | ECG ---
Date Performed: 04/27/2018 Time Performed: 00:09:10 PTAGE: 47 years EKG: Atrial pacing. Severe right axis deviation Inferior infarct - age undetermined Right ventri cular hypertrophy Anteroseptal T wave changes may be due to hypertrophy and/or ischemia Abnormal ECG PREVIOUS TRACING 04/26/2018 17:05 Since the previous tracing, no significant change noted DOCTOR: Leon Bustillos Interpretating Date/Time 04/27/2018 13:56:10
[2018-04-27] MEDS: Famotidine 20 MG Tablet PO SCH (20:58)
[2018-04-28 07:18] LABS: Baso % (Auto) 0.6 % (0.0-2.0); Eos % (Auto) 1.3 % (0.0-4.0); Hematocrit 40.3 % (39.0-51.0); Hemoglobin 13.9 gm/dL (13.0-17.0); Lymph # (Auto) 0.6 th/mm3 (1.0-4.8); Lymph % (Auto) 18.9 % (9.0-44.0); Mean Corpuscular HGB Conc 34.4 % (32.0-36.0); Mean Corpuscular Hemoglobin 28.4 pg (27.0-34.0); Mean Corpuscular Volume 82.4 fL (80.0-100.0); Mean Platelet Volume 8.4 fL (7.0-11.0); Mono # (Auto) 0.4 th/mm3 (0.0-0.9); Mono % (Auto) 10.4 % (0.0-8.0); Neut # (Auto) 2.4 th/mm3 (1.8-7.7); Neut % (Auto) 68.8 % (16.0-70.0); Platelet Count 121 th/mm3 (150-450); Red Blood Count 4.89 mil/mm3 (4.50-5.90); Red Cell Distribution Width 16.3 % (11.6-17.2); White Blood Count 3.4 th/mm3 (4.0-11.0)
[2018-04-28 07:43] LABS: Calcium 8.8 mg/dL (8.5-10.1); Carbon Dioxide 28.3 meq/L (21.0-32.0); Potassium 4.3 meq/L (3.5-5.1)
[2018-04-28] MEDS: Senna/Docusate Sodium 8.6/50 MG Tablet PO SCH ×2 (09:34→20:09)
--- NOTE | 2018-04-28 13:54 | P.PNFP ---
Addendum entered and electronically signed by Jase Raines MD, R2 04/28/18 13:54: disposition: pending DCF clearance Original Note: Subjective Interval history: Patient seen and examined at bedside this morning. No acute events overnight. Patient reports that he feels well. He has good appetite. Denies chest pain, shortness of breath, fever, chills, abdominal pain, nausea, or vomiting. Spoke with patient's current primary bundle clerk over the phone (Marilyn Aldana who is patient's brother ex-girlfriend and who he is currently living with). She reports that she believes patient has mild psych issues and that he disappears for a few days at a time usually if forced to take a shower. In addition she mentioned that patient does not like to take his medications and she has noticed that he will hide the medications after she gives them to him. She will like to speak with case management for assistance with patient's care. Her contact information was given to case management. Marilyn Aldana: [phone]. <Jase Raines - 04/28/18 13:54> Results - Labs Result diagrams: 04/29/18 07:08 04/29/18 07:08 <Christopher Chin - 04/29/18 11:35> Abnormal lab results 04/29/18 04/29/18 Range/Units 07:08 07:08 WBC 3.7 L (4.0-11.0) th/mm3 Plt Count 128 L (150-450) th/mm3 BUN 25 H (7-18) mg/dL Estimated GFR 77 L (>89) mL/min Random Glucose 218 H (74-106) mg/dL Short CBC 04/29/18 Range/Units 07:08 WBC 3.7 L (4.0-11.0) th/mm3 Hgb 13.6 (13.0-17.0) gm/dL Hct 40.7 (39.0-51.0) % Plt Count 128 L (150-450) th/mm3 [facility] 04/29/18 07:08 Sodium 136 Potassium 4.6 Chloride 101 Carbon Dioxide 28.0 BUN 25 H Creatinine 1.22 Calcium 8.8 <Christopher Chin - 04/29/18 11:35> Abnormal lab results 04/28/18 04/28/18 Range/Units 06:45 06:45 WBC 3.4 L (4.0-11.0) th/mm3 Plt Count 121 L (150-450) th/mm3 [place] % (Auto) 10.4 H (0.0-8.0) % Lymph # (Auto) 0.6 L (1.0-4.8) th/mm3 BUN 20 H (7-18) mg/dL Estimated GFR 71 L (>89) mL/min Random Glucose 242 H (74-106) mg/dL Short CBC 04/28/18 Range/Units 06:45 WBC 3.4 L (4.0-11.0) th/mm3 Hgb 13.9 (13.0-17.0) gm/dL Hct 40.3 (39.0-51.0) % Plt Count 121 L (150-450) th/mm3 BMP 04/28/18 06:45 Sodium 136 Potassium 4.3 Chloride 100 Carbon Dioxide 28.3 BUN 20 H Creatinine 1.30 Calcium 8.8 <Jase Raines - 04/28/18 13:54> Physical Exam Vital signs: Vital Signs 04/28/18 12:00 04/28/18 16:00 04/28/18 20:00 Temperature 98.0 F 97.6 F 97.5 F L Pulse Rate 67 68 61 Respiratory Rate 15 17 20 Blood Pressure 113/69 125/75 133/88 Pulse Oximetry 98 98 96 04/29/18 00:00 04/29/18 00:10 04/29/18 04:00 Temperature 97.2 F L 98.1 F Pulse Rate 64 60 58 L Respiratory Rate 20 18 Blood Pressure 106/55 L 110/65 Pulse Oximetry 100 98 04/29/18 08:00 Temperature 97.8 F Pulse Rate 52 L Respiratory Rate 23 Blood Pressure 132/78 Pulse Oximetry 98 Intake & Output 04/28/18 04/29/18 04/29/18 18:59 06:59 18:59 Intake Total 960 / 960 480 / 480 Balance 960 / 960 480 / 480 Weight 87 kg Intake: Oral 960 / 960 480 / 480 Other: # Voids 4 3 Date of Last Bowel Movement 04/27/18 04/27/18 <Christopher Chin - 04/29/18 11:35> Vital Signs 04/27/18 16:00 04/27/18 19:45 04/27/18 20:00 Temperature 97.7 F Pulse Rate 59 L 70 68 Respiratory Rate 20 Blood Pressure 113/64 Pulse Oximetry 96 04/28/18 00:00 04/28/18 04:00 04/28/18 08:00 Temperature 97.5 F L 97.3 F L 97.9 F Pulse Rate 60 60 79 Respiratory Rate 20 20 15 Blood Pressure 108/57 L 120/71 120/75 Pulse Oximetry 98 97 96 04/28/18 12:00 Temperature Pulse Rate 71 Respiratory Rate Blood Pressure Pulse Oximetry Intake & Output 04/27/18 04/28/18 04/28/18 18:59 06:59 18:59 Intake Total 480 / 480 Balance 480 / 480 Weight 87 kg Intake: Oral 480 / 480 Other: # Voids 3 1 Date of Last Bowel Movement 04/27/18 04/27/18 <Jase Raines - 04/28/18 13:54> Narrative: GENERAL: sitting in chair at side of bed, NAD, appears comfortable SKIN: Warm and dry. Scar on mid chest sternum and under left arm. HEAD: Atraumatic. Normocephalic. EYES: EOMI. No scleral icterus. No injection or drainage. ENT: No nasal bleeding or discharge. Mucous membranes pink and moist. NECK: Trachea midline. No JVD. CARDIOVASCULAR: Regular rate and rhythm. RESPIRATORY: No accessory muscle use. Clear to auscultation. Breath sounds equal bilaterally. GASTROINTESTINAL: Abdomen soft, non-tender, nondistended. MUSCULOSKELETAL: Sternum tender to palpation. Extremities without edema. No obvious deformities. NEUROLOGICAL: Awake and alert. No obvious cranial nerve deficits. Motor grossly within normal limits. Normal speech. <Jase Raines - 04/28/18 13:54> Assessment and Plan - Assessment (1) Chest pain Code(s): R07.9 - Chest pain, unspecified Status: Resolved (2) Hypertension Code(s): I10 - Essential (primary) hypertension Status: Acute (3) Elevated random blood glucose level Code(s): R73.09 - Other abnormal glucose Status: Acute (4) Nutrition, metabolism, and development symptoms Code(s): R63.8 - Other symptoms and signs concerning food and fluid intake Status: Acute <Oslos,Christopher R - 04/29/18 11:35> (1) Chest pain Code(s): R07.9 - Chest pain, unspecified Status: Resolved Plan: 47-year-old male past medical history [place], CABG, CAD, hypertension, AICD placed 2 years ago presents with chest pain. CBC within normal limits. Troponin negative. Received 2 mg of morphine. Chest x-ray: Pacer/AICD placement: Clear lungs. EKG: Paced sinus rhythm with T inversions in V2 and V3. At the time the patient was having extreme abdominal pain nearly jumping out of the bed according to the ED physician with light palpation of the upper abdomen and lower chest area abdomenpelvic CT was ordered: Altered venous return to heart via azygous vein to the IVC which may indicate presence of SVC obstruction. Right ventricular enlargement. No evidence of acute abdomen/ pelvic process. -Chest pain resolved VQ scan low probability for P/E Troponins negative x3 Continue cardiac telemetry Continued pulse ox Urine drug screen negative -Tylenol 650 every 6 hrs; morphine 2 mg for breakthrough pain -Atorvastatin 40mg Case management consult DCF is investigating case (2) Hypertension Code(s): I10 - Essential (primary) hypertension Status: Acute Plan: Continue home furosemide 20 mg Holding carvedilol (3) Elevated random blood glucose level Code(s): R73.09 - Other abnormal glucose Status: Acute Plan: Patient with elevated fasting blood glucose level greater than 220s, asymptomatic Follow-up A1c If A1c greater than 6 patient to be discharged with metformin 500 twice daily (4) Nutrition, metabolism, and development symptoms Code(s): R63.8 - Other symptoms and signs concerning food and fluid intake Status: Acute Plan: Diet: heart healthy Fluids: None Electrolytes: Monitor and replete DVT prophylaxis: SCDs GI ppx: Famotidine <Jase Raines D - 04/28/18 13:46> - Attending Attestation This patient was seen and evaluated with the resident physician. I agree with the plan of care as discussed with me and documented in the resident note. Christopher Chin MD <Christopher Chin - 04/29/18 11:35>
[2018-04-28] MEDS: Famotidine 20 MG Tablet PO SCH (20:09)
[2018-04-29 07:45] LABS: Hematocrit 40.7 % (39.0-51.0); Hemoglobin 13.6 gm/dL (13.0-17.0); Mean Corpuscular HGB Conc 33.5 % (32.0-36.0); Mean Corpuscular Volume 83.6 fL (80.0-100.0); Mean Platelet Volume 8.6 fL (7.0-11.0); Platelet Count 128 th/mm3 (150-450); Red Blood Count 4.86 mil/mm3 (4.50-5.90); Red Cell Distribution Width 16.6 % (11.6-17.2); White Blood Count 3.7 th/mm3 (4.0-11.0)
[2018-04-29 08:15] LABS: Calcium 8.8 mg/dL (8.5-10.1); Potassium 4.6 meq/L (3.5-5.1)
[2018-04-29] MEDS: Senna/Docusate Sodium 8.6/50 MG Tablet PO SCH ×2 (09:02→20:48)
--- NOTE | 2018-04-29 14:59 | P.PNFP ---
Subjective Interval history: He is a 47-year-old male with a history significant for [place], CAD, CABG, hypertension, and AICD placed 2 years ago who presented with chest pain for ACS rule out. Today he reports continued upper abdominal pain unchanged since admission. He denies headache, nausea, vomiting, fever, chills, change in bowel habits, new chest pain, palpitations, shortness of breath, diaphoresis Results - Labs Result diagrams: 04/29/18 07:08 04/29/18 07:08 Abnormal lab results 04/29/18 04/29/18 Range/Units 07:08 07:08 WBC 3.7 L (4.0-11.0) th/mm3 Plt Count 128 L (150-450) th/mm3 BUN 25 H (7-18) mg/dL Estimated GFR 77 L (>89) mL/min Random Glucose 218 H (74-106) mg/dL Short CBC 04/29/18 Range/Units 07:08 WBC 3.7 L (4.0-11.0) th/mm3 Hgb 13.6 (13.0-17.0) gm/dL Hct 40.7 (39.0-51.0) % Plt Count 128 L (150-450) th/mm3 BMP 04/29/18 07:08 Sodium 136 Potassium 4.6 Chloride 101 Carbon Dioxide 28.0 BUN 25 H Creatinine 1.22 Calcium 8.8 Physical Exam Vital signs: Vital Signs 04/28/18 16:00 04/28/18 20:00 04/29/18 00:00 Temperature 97.6 F 97.5 F L 97.2 F L Pulse Rate 68 61 64 Respiratory Rate 17 20 20 Blood Pressure 125/75 133/88 106/55 L Pulse Oximetry 98 96 100 04/29/18 00:10 04/29/18 04:00 04/29/18 08:00 Temperature 98.1 F 97.8 F Pulse Rate 60 58 L 52 L Respiratory Rate 18 23 Blood Pressure 110/65 132/78 Pulse Oximetry 98 98 04/29/18 12:00 04/29/18 13:25 04/29/18 13:30 Temperature 97.9 F 98.7 F Pulse Rate 60 63 Respiratory Rate 20 20 20 Blood Pressure 114/66 189/101 H 146/62 H Pulse Oximetry 100 94 L 98 Intake & Output 04/28/18 04/29/1804/29/18 18:59 06:59 18:59 Intake Total 960 / 960 480 / 480 Balance 960 / 960 480 / 480 Weight 87 kg Intake: Oral 960 / 960 480 / 480 Other: # Voids 4 3 Date of Last Bowel Movement 04/27/18 04/27/18 Narrative: Exam from about 0900 this morning General: Well-developed, alert, and in no acute distress. Appears stated age. Doing laps in the hallways. HEENT: Atraumatic, non-icteric sclera and no conjunctival injection, moist mucous membranes Neck: Supple, non-tender without masses or lymphadenopathy, trachea midline Cardiac: Regular rate and rhythm with 3 out of 6 murmur. Pulmonary: Non-labored breathing. Lungs clear to auscultation bilaterally with good air movement Abdomen: Normal bowel sounds, soft and non-tender without rebound or guarding Extremities: No edema, 2+ pedal pulses, capillary refill less than 2 seconds Assessment and Plan - Assessment (1) Chest pain Code(s): R07.9 - Chest pain, unspecified Status: Resolved (2) Hypertension Code(s): I10 - Essential (primary) hypertension Status: Acute (3) Elevated random blood glucose level Code(s): R73.09 - Other abnormal glucose Status: Acute (4) Nutrition, metabolism, and development symptoms Code(s): R63.8 - Other symptoms and signs concerning food and fluid intake Status: Acute - Assessment and Plan He is a 47-year-old male with a history significant for [place], CAD, CABG, hypertension, and AICD placed 2 years ago who presented with chest pain who had EGK without acute changes and troponins x3 of .02,.03, and .03. He has had issues with his living situation and is here pending evaluation by [facility]. Chest pain: -Original EKG showed some T wave inversions -Troponins have been negative thus far -Tylenol for pain, morphine for breakthrough pain -Continue Atorvastatin 40 mg Hypertension -Continue home medication furosemide -Hold home medication carvedilol Random BG elevated: -Will continue to follow -A1C pending Fluids: Adequate p.o. intake Electrolytes: monitor and replete as needed Nutrition: Cardiac GI prophylaxis: not indicated VTE prophylaxis: Ambulating around the floor Patient was seen and examined with Dr. Youssef and care was discussed with Dr. Chin
[2018-04-29] MEDS: Aspirin 325 MG Tablet PO SCH (15:12)
[2018-04-29 18:01] LABS: Hemoglobin A1c 8.8 % (4.3-6.0)
[2018-04-29] MEDS: Famotidine 20 MG Tablet PO SCH (20:48)
[2018-04-30] MEDS: Aspirin 325 MG Tablet PO SCH (08:46)
[2018-04-30] MEDS: Senna/Docusate Sodium 8.6/50 MG Tablet PO SCH ×2 (08:46→20:49)
--- NOTE | 2018-04-30 10:11 | P.PNFP ---
Subjective Interval history: Today he reports continued chest pain, unchanged from yesterday. He is unsure of its duration or severity and does not describe it well. He states that it is associated with palpitations, but denies shortness of breath. He denies headache, nausea, vomiting, fever, chills, change in bowel habits, new chest pain, shortness of breath, diaphoresis. We also received a call this morning that he was ripping off his telemetry leads and throwing himself on the ground and complaining of chest pain. His telemetry today showed both narrow and wide complex tachycardias. <Rustam Tompkins - 04/30/18 15:14> Results - Labs Result diagrams: 05/02/18 05:25 05/02/18 05:25 <Christopher Chin - 05/02/18 12:55> Abnormal lab results 05/01/18 05/01/18 05/02/18 Range/Units 17:36 20:01 05:25 Hct 37.7 L (39.0-51.0) % Plt Count 141 L (150-450) th/mm3 BUN (7-18) mg/dL Creatinine (0.60-1.30) mg/dL Estimated GFR (>89) mL/min POC Glucose 138 H 235 H (68-110) mg/dl Random Glucose (74-106) mg/dL 05/02/18 05/02/18 05/02/18 Range/Units 05:25 07:15 12:14 Hct (39.0-51.0) % Plt Count (150-450) th/mm3 BUN 27 H (7-18) mg/dL Creatinine 1.38 H (0.60-1.30) mg/dL Estimated GFR 66 L (>89) mL/min POC Glucose 220 H 215 H (68-110) mg/dl Random Glucose 203 H (74-106) mg/dL Short CBC 05/02/18 Range/Units 05:25 WBC 4.4 (4.0-11.0) th/mm3 Hgb 13.0 (13.0-17.0) gm/dL Hct 37.7 L (39.0-51.0) % Plt Count 141 L (150-450) th/mm3 BMP 05/02/18 05:25 Sodium 136 Potassium 3.9 Chloride 103 Carbon Dioxide 24.3 BUN 27 H Creatinine 1.38 H Calcium 8.8 <Christopher Chin R - 05/02/18 12:55> Abnormal lab results 04/28/18 04/29/18 04/29/18 Range/Units 06:45 16:39 22:30 Hemoglobin A1c 8.8 H (4.3-6.0) % Troponin I Less than 0.02 L Less than 0.02 L (0.02-0.05) ng/mL Cardiac Enzymes 04/29/18 04/29/18 Range/Units 16:39 22:30 Troponin I Less than 0.02 L Less than 0.02 L (0.02-0.05) ng/mL <Rustam Tompkins J - 04/30/18 10:11> Physical Exam Vital signs: Vital Signs 05/01/18 16:00 05/01/18 17:48 05/01/18 20:00 Temperature 98.2 F 97.7 F Pulse Rate 60 60 Respiratory Rate 17 18 Blood Pressure 97/53 L 90/52 L Pulse Oximetry 97 96 95 05/01/18 20:05 05/01/18 23:47 05/02/18 00:00 Temperature 98.5 F Pulse Rate 60 60 61 Respiratory Rate 17 Blood Pressure 104/56 L Pulse Oximetry 95 05/02/18 03:49 05/02/18 03:59 05/02/18 08:00 Temperature 97.8 F 98.2 F Pulse Rate 60 60 60 Respiratory Rate 16 18 Blood Pressure 97/52 L 104/72 Pulse Oximetry 97 95 05/02/18 08:44 05/02/18 09:41 Temperature Pulse Rate 60 Respiratory Rate 20 Blood Pressure 121/70 Pulse Oximetry 95 Intake & Output 05/01/18 05/02/18 05/02/18 18:59 06:59 18:59 Intake Total 560 / 560 520 / 520 Output Total 1800 / 1800 500 / 500 Balance -1240 / -1240 Weight 87.7 kg Intake: Oral 560 / 560 520 / 520 Output: Urine 1800 / 1800 500 / 500 Other: # Bowel Movements 0 0 <Christopher Chin R - 05/02/18 12:55> Vital Signs 04/29/18 12:00 04/29/18 13:25 04/29/18 13:30 Temperature 97.9 F 98.7 F Pulse Rate 60 63 Respiratory Rate 20 20 20 Blood Pressure 114/66 189/101 H 146/62 H Pulse Oximetry 100 94 L 98 04/29/18 16:00 04/29/18 20:00 04/30/18 00:00 Temperature 97.6 F 98.1 F 97.9 F Pulse Rate 60 60 60 Respiratory Rate 20 16 20 Blood Pressure 109/88 102/55 L 111/86 Pulse Oximetry 97 99 97 04/30/18 03:46 04/30/18 04:00 04/30/18 08:00 Temperature 97.9 F 97.9 F Pulse Rate 57 L 60 60 Respiratory Rate 20 21 Blood Pressure 116/72 118/74 Pulse Oximetry 98 98 Intake & Output 04/29/18 04/30/18 04/30/18 18:59 06:59 18:59 Weight 88.7 kg Other: # Voids 6 3 Date of Last Bowel Movement 04/29/18 <Rustam Tompkins - 04/30/18 10:11> Narrative: Exam: General: Well-developed, alert, and in no acute distress. Appears stated age. Significant cognitive impairment HEENT: Atraumatic, PERRL, non-icteric sclera and no conjunctival injection, moist mucous membranes Neck: Supple, non-tender without masses or lymphadenopathy, trachea midline, no JVD Cardiac: Regular rate and rhythm with 3/6 murmur, unchanged from prior exam Pulmonary: Non-labored breathing. Lungs clear to auscultation bilaterally with good air movement Abdomen: Normal bowel sounds, soft and non-tender Extremities: No edema, 2+ pedal pulses, capillary refill less than 2 seconds <Rustam Tompkins - 04/30/18 15:14> Assessment and Plan - Assessment (1) Chest pain Code(s): R07.9 - Chest pain, unspecified Status: Resolved (2) Hypertension Code(s): I10 - Essential (primary) hypertension Status: Acute (3) Elevated random blood glucose level Code(s): R73.09 - Other abnormal glucose Status: Acute <Christopher Chin - 05/02/18 12:55> (1) Chest pain Code(s): R07.9 - Chest pain, unspecified Status: Resolved (2) Hypertension Code(s): I10 - Essential (primary) hypertension Status: Acute Plan: l (3) Elevated random blood glucose level Code(s): R73.09 - Other abnormal glucose Status: Acute Plan: <Rustam Tompkins - 04/30/18 16:43> - Assessment and Plan He is a 47-year-old male with a history significant for ID, CAD, CABG, hypertension, and AICD placed 2 years ago who presented with chest pain who had EGK without acute changes and troponins x3 of .02,.03, and .03. He has continued chest pain and he had wide and narrow complex tachycardias on his telemetry today. Chest pain and history of ASCVD: -Original EKG showed some T wave inversions -Troponins have been negative thus far -Tylenol for pain, morphine for breakthrough pain Consult to cardiology due to possible pacemaker dysfunction, appreciate recommendations -Restart carvedilol and amiodarone -Continue Atorvastatin 40 mg and aspirin -Stress test in the morning -Interrogate pacemaker Diabetes: -A1C came back at 8.8 -Blood glucose has been in the 200s -Start low-dose sliding scale insulin before meals at bedtime -We will consider sending him home on oral antidiabetic medication Fluids: Adequate p.o. intake Electrolytes: monitor and replete as needed Nutrition: Cardiac, n.p.o. after midnight GI prophylaxis: not indicated VTE prophylaxis: Ambulating around the floor Patient was seen and examined with Dr. Youssef and care was discussed with Dr. Chin <Rustam Tompkins - 04/30/18 16:46> - Attending Attestation This patient was seen and evaluated with the resident physician. I agree with the plan of care as discussed with me and documented in the resident note. Christopher Chin MD <Christopher Chin - 05/02/18 12:55>
--- NOTE | 2018-04-30 14:28 | P.CONCA ---
History of Present Illness Service: service call cardiology Consult date: 04/30/18 Requesting Physician: Rustam Tompkins Reason for Consult: AICD discharge, WCT, chest pain Primary Care Provider: UNKNOWN Chief Complaint: Chest pain History of Present Illness: 47 year old AA gentleman with CAD, hx of CO, CABG, HTN, AICD placed 2 yrs ago cognitive impairment and multiple social issues causing for medication nonadherence presented for admission on 04/26/18 with complaints of diffuse chest pain in the substernal and left upper and lower chest wall that is very tender to palpation. Patient is a very poor historian and does not recall actual symptoms prior to arrival. He describes chest discomfort as constant and nonradiating. Denies any dyspnea. Denies fever, chills, nausea, or vomiting. He reports that he is taking medicines at home but doesn't know what he takes and repeatedly reports that he does not know how to read, so his brother and his brother's girlfriend helps with his medications. 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 ECGs revealing NSR, APCs, demand atrial paced rhythm and nonspecific TWIs which are old. Troponins neg x 3 sets. Labs mostly unremarkable. Telemetry this AM revealed intermittent NCT appearing to be Atrial fibrillation/ flutter HR 140s-150s then went into a monomorphic WCT with HR around 280bpm consistent with AFL with aberrant conduction versus VT. I see that his home carvedilol and amiodarone have been held for some reason. Review of Systems patient is a very poor historian All other systems reviewed negative except as stated in HPI [facility] - History History Provided By: Patient - Medical History Medical History: Medical History (Last Reviewed 04/26/18 @ 18:38 by Haritha Mejias RN) AICD discharge (Acute) Myocardial infarction (Acute) Hypertension (Acute) Chest pain (Resolved) Angina at rest (Acute) - Surgical History Surgical History: Surgical History (Last Reviewed 04/26/18 @ 18:38 by Haritha Mejias RN) Hx of CABG (Acute) Hx of cardiac cath (Acute) - Tobacco History Second Hand Smoke Exposure: No Tobacco Use In Past 30 Days: No Smoking Status: Former smoker Tobacco Type: Cigarettes - Alcohol History How Often Do You Have a Drink Containing Alcohol: Never - Substance Use History Substance History: No History of Abuse - Travel History Recent Travel in the [place] Within the Last 8 Weeks: No Recent Travel Out of the Country Within the Last 8 Weeks: No - Immunization History Tetanus Immunization: >5 Years Hx Influenza Vaccine This Season: No Medications and Allergies Active Medications: Active Medications Acetaminophen (Tylenol) 650 mg PO Q6H PRN PRN Reason: pain or fever Al Hydroxide/Mg Hydroxide (Milk Of Magnesia Liq) 30 ml PO Q12H PRN PRN Reason: Mild Constipation Amiodarone HCl (Cordarone) 400 mg PO Q12HR COUNT INCLUDES THE [facility] Aspirin (Aspirin) 325 mg PO DAILY COUNT INCLUDES THE [facility] Last Admin: 04/30/18 08:46 Dose: 325 mg Atorvastatin Calcium (Lipitor) 40 mg PO DAILY COUNT INCLUDES [facility] Last Admin: 04/30/18 08:46 Dose: 40 mg Bisacodyl (Dulcolax Supp) 10 mg RECTAL DAILY PRN PRN Reason: SEVERE CONSITIPATION Carvedilol (Coreg) 6.25 mg PO BID COUNT INCLUDES THE [facility] Famotidine (Pepcid) 20 mg PO HS COUNT INCLUDES THE [facility] Last Admin: 04/29/18 20:48 Dose: 20 mg Lactulose (Lactulose Liq) 30 ml PO DAILY PRN PRN Reason: SEVERE CONSITIPATION Lisinopril (Prinivil) 5 mg PO DAILY COUNT INCLUDES [facility] Morphine Sulfate (Morphine Inj) 2 mg IV.PUSH Q3H PRN PRN Reason: BREAKTHROUGH PAIN Naloxone HCl (Narcan Inj) 0.4 mg IV.PUSH UNSCH PRN PRN Reason: SEE LABEL COMMENTS Nitroglycerin (Nitrostat Sl) 0.4 mg SL Q5M PRN PRN Reason: CHEST PAIN Ondansetron HCl (Zofran Inj) 4 mg IV.PUSH Q6H PRN PRN Reason: NAUSEA OR VOMITING Senna/Docusate Sodium (Petra-Colace) 1 tab PO BID COUNT INCLUDES [facility] Last Admin: 04/30/18 08:46 Dose: 1 tab Sennosides (Senokot) 17.2 mg PO Q12H PRN PRN Reason: Moderate Constipation Sodium Chloride (Ns Flush) 2 ml IV.FLUSH UNSCH PRN PRN Reason: FLUSH AFTER USING IV ACCESS Last Admin: 04/28/18 20:08 Dose: 2 ml Allergies Allergy/AdvReac Type Severity Reaction Status Date / Time No Known Allergies Allergy Verified 04/26/18 09:55 Home Medications Medication Instructions Recorded Confirmed Type amiodarone 200 mg PO DAILY 12/05/17 04/26/18 History atorvastatin 40 mg PO DAILY 12/05/17 04/26/18 History bupropion HCl 100 mg PO DAILY 12/05/17 04/26/18 History carvedilol 6.25 mg PO BID 12/05/17 04/26/18 History furosemide 20 mg PO DAILY 12/05/17 04/26/18 History metformin 500 mg PO BID 02/02/18 04/26/18 History potassium chloride 20 meq PO DAILY 02/02/18 04/26/18 History Exam Vital signs: Vital Signs 04/29/18 16:00 04/29/18 20:00 04/30/18 00:00 Temperature 97.6 F 98.1 F 97.9 F Pulse Rate 60 60 60 Respiratory Rate 20 16 20 Blood Pressure 109/88 102/55 L 111/86 Pulse Oximetry 97 99 97 04/30/18 03:46 04/30/18 04:00 04/30/18 08:00 Temperature 97.9 F 97.9 F Pulse Rate 57 L 60 60 Respiratory Rate 20 21 Blood Pressure 116/72 118/74 Pulse Oximetry 98 98 04/30/18 10:01 04/30/18 11:00 04/30/18 12:00 Temperature 98.5 F 98.5 F Pulse Rate 170 H 63 62 Respiratory Rate 22 20 20 Blood Pressure 168/96 H 120/83 120/83 Pulse Oximetry 97 Intake & Output 04/29/18 04/30/18 04/30/18 18:59 06:59 18:59 Weight 88.7 kg Other: # Voids 6 3 Date of Last Bowel Movement 04/29/18 Narrative: GENERAL: cognitive impairment, nad, speaking full sentences SKIN: Warm and dry. HEAD: Atraumatic. Normocephalic. EYES: Pupils equal and round. No scleral icterus. No injection or drainage. ENT: No nasal bleeding or discharge. Mucous membranes pink and moist. NECK: Trachea midline. No JVD. CARDIOVASCULAR: Regular rate and rhythm. intermittent ectopy, tender to palpation of the anterior substernal and left sided chest RESPIRATORY: No accessory muscle use. Clear to auscultation. Breath sounds equal bilaterally. GASTROINTESTINAL: Abdomen soft, moderately tender to LUQ, nondistended. Hepatic and splenic margins not palpable. MUSCULOSKELETAL: Extremities without clubbing, cyanosis, or edema. No obvious deformities. NEUROLOGICAL: Awake and alert. No obvious cranial nerve deficits. Motor grossly within normal limits. Five out of 5 muscle strength in the arms and legs. Normal speech. PSYCHIATRIC: Appropriate mood and affect Results 04/29/18 07:08 04/29/18 07:08 Cardiac Enzymes 04/29/18 04/29/18 Range/Units 16:39 22:30 Troponin I Less than 0.02 L Less than 0.02 L (0.02-0.05) ng/mL CBC 04/29/18 Range/Units 07:08 WBC 3.7 L (4.0-11.0) th/mm3 RBC 4.86 (4.50-5.90) mil/mm3 Hgb 13.6 (13.0-17.0) gm/dL Hct 40.7 (39.0-51.0) % Plt Count 128 L (150-450) th/mm3 Comprehensive Metabolic Panel 04/29/18 Range/Units 07:08 Sodium 136 (136-145) meq/L Potassium 4.6 (3.5-5.1) meq/L Chloride 101 (98-107) meq/L Carbon Dioxide 28.0 (21.0-32.0) meq/L BUN 25 H (7-18) mg/dL Creatinine 1.22 (0.60-1.30) mg/dL Calcium 8.8 (8.5-10.1) mg/dL Intake and Output 04/29/18 04/30/18 04/30/18 22:59 06:59 14:59 Other: # Voids 6 3 Date of Last Bowel Movement 04/29/18 Weight 88.7 kg Assessment and Plan - Plan Assessment: Atypical chest pain, which is reproducible to palpation - possibly MSK etiology. CP predated recent AICD discharge. With history of obstructive CAD, will need to evaluate further for coronary ischemia. NCT consistent with paroxysmal AF/AFL and WCT consistent with aberrantly conducted AF vs monomorphic VT - will need to have AICD device reinterrogated for further evaluation. AICD discharge ICM with last EF 40% up from 30-35% previously in 2017 Hx of CAD s/p CO and CABG HLD HTN Abdomial pain Cognitive Impairment Hx of medication nonadherence Recommendations: -AICD device interrogation with SJM today -NPO p MN for lexiscan stress test tomorrow -resume amiodarone at 400mg po bid x 7 days, then 400mg daily x 7 days then 200mg daily thereafter -resume carvedilol, start 6.25mg bid to ensure BP tolerates -start CITLALY-I with Lisinopril 5mg daily -Continue ASA 81mg daily and Atorvastatin
[2018-04-30] MEDS: Amiodarone 200 MG Tablet PO SCH ×2 (15:00→20:47)
[2018-04-30] MEDS: Carvedilol 6.25 MG Tablet PO SCH ×2 (15:00→20:47)
--- NOTE | 2018-04-30 15:47 | ECG ---
Date Performed: 04/29/2018 Time Performed: 17:28:02 PTAGE: 47 years EKG: Sinus rhythm with PAC(s) with borderline 1st degree A-V block. Inferior infarct - age undetermined Anterolateral ST-T changes may be due to myocardial ischemia Abnormal ECG PREVIOUS TRACING :04/29/2018 @14.20 Compared to previous tracing, previously noted PVC'S are no longer present.Atrial pacing is not seen. Clinical correlation is recommended DOCTOR: Iker Gary Interpretating Date/Time 04/30/2018 15:46:06
--- NOTE | 2018-04-30 15:47 | ECG ---
Date Performed: 04/29/2018 Time Performed: 14:20:22 PTAGE: 47 years EKG: with fusion complexes with PAC(s) Demand atrial pacing. Severe right axis deviation Inferi or infarct - age undetermined Right ventricular hypertrophy Anteroseptal ST-T changes are probably du e to ventricular hypertrophy Abnormal ECG PREVIOUS TRACING :04/27/2018 @00.09 Compared to previous tracing, there now appears to be evide nce of PAC's, PVC's and atrial pacing. DOCTOR: Iker Gary Interpretating Date/Time 04/30/2018 15:44:57
[2018-04-30] MEDS ORDERED: Dextrose 50% in Water 50 ML Vial IV.PUSH PRN (16:45)
[2018-04-30] MEDS: Insulin NovoLOG Aspart Correctional Sugar Inj SQ SCH ×2 (18:20→20:48)
[2018-04-30] MEDS: Famotidine 20 MG Tablet PO SCH (20:47)
--- NOTE | 2018-05-01 07:35 | P.PNCA ---
Subjective Interval history: Patient seen and examined. Pt still with left chest wall discomfort, improved, but still present, reproducible to palpation. Still with abdominal pain, improved but still present. BP a little lower after starting carvedilol and amiodarone. Device interrogation(s) 04/30/18: SJM single chamber RA AAI pacing: no events detected. I discussed with the rep noted tele events from 04/30 which showed likely AF/AFL and he noted that the P- wave sensing threshold was low so may have under sensed. [place] [employer] Subcutaneous ICD: 4 defib events. Initial shock from 1:1 AF, then what appears to be concomitant AF/VT, then 2 episodes of VT following initial shocks which were successfully terminated with defibrillation. Tele: no VT events overnight. Medications and Allergies Active Medications: Active Medications Acetaminophen (Tylenol) 650 mg PO Q6H PRN PRN Reason: pain or fever Al Hydroxide/Mg Hydroxide (Milk Of Magnesia Liq) 30 ml PO Q12H PRN PRN Reason: Mild Constipation Amiodarone HCl (Cordarone) 400 mg PO Q12HR [facility] Last Admin: 04/30/18 20:47 Dose: 400 mg Aspirin (Ecotrin) 81 mg PO DAILY [facility] Last Admin: 04/30/18 15:00 Dose: Not Given Atorvastatin Calcium (Lipitor) 40 mg PO DAILY [facility] Last Admin: 04/30/18 08:46 Dose: 40 mg Bisacodyl (Dulcolax Supp) 10 mg RECTAL DAILY PRN PRN Reason: SEVERE CONSITIPATION Carvedilol (Coreg) 6.25 mg PO BID [facility] Last Admin: 04/30/18 20:47 Dose: 6.25 mg Dextrose (D50w Vial) 50 ml IV.PUSH UNSCH PRN PRN Reason: PER HYPOGLYCEMIA PROTOCOL Famotidine (Pepcid) 20 mg PO HS [facility] Last Admin: 04/30/18 20:47 Dose: 20 mg Glucagon (Glucagon Inj) 1 mg OTHER PRN PRN PRN Reason: for Hypoglycemia Protocol Insulin Aspart (Novolog Insulin Correctional Sugar Inj) 0 unit SQ [facility]; Protocol Last Admin: 04/30/18 20:48 Dose: 5 unit Lactulose (Lactulose Liq) 30 ml PO DAILY PRN PRN Reason: SEVERE CONSITIPATION Lisinopril (Prinivil) 5 mg PO DAILY [facility] Morphine Sulfate (Morphine Inj) 2 mg IV.PUSH Q3H PRN PRN Reason: BREAKTHROUGH PAIN Naloxone HCl (Narcan Inj) 0.4 mg IV.PUSH UNSCH PRN PRN Reason: SEE LABEL COMMENTS Nitroglycerin (Nitrostat Sl) 0.4 mg SL Q5M PRN PRN Reason: CHEST PAIN Ondansetron HCl (Zofran Inj) 4 mg IV.PUSH Q6H PRN PRN Reason: NAUSEA OR VOMITING Senna/Docusate Sodium (Petra-Colace) 1 tab PO BID [facility] Last Admin: 04/30/18 20:49 Dose: Not Given Sennosides (Senokot) 17.2 mg PO Q12H PRN PRN Reason: Moderate Constipation Sodium Chloride (Ns Flush) 2 ml IV.FLUSH UNSCH PRN PRN Reason: FLUSH AFTER USING IV ACCESS Last Admin: 04/28/18 20:08 Dose: 2 ml Allergies Allergy/AdvReac Type Severity Reaction Status Date / Time No Known Allergies Allergy Verified 04/26/18 09:55 Home Medications Medication Instructions Recorded Confirmed Type amiodarone 200 mg PO DAILY 12/05/17 04/26/18 History atorvastatin 40 mg PO DAILY 12/05/17 04/26/18 History bupropion HCl 100 mg PO DAILY 12/05/17 04/26/18 History carvedilol 6.25 mg PO BID 12/05/17 04/26/18 History furosemide 20 mg PO DAILY 12/05/17 04/26/18 History metformin 500 mg PO BID 02/02/18 04/26/18 History potassium chloride 20 meq PO DAILY 02/02/18 04/26/18 History Physical Exam Vital signs: Vital Signs 04/30/18 08:00 04/30/18 10:01 04/30/18 11:00 Temperature 97.9 F 98.5 F Pulse Rate 65 170 H 63 Respiratory Rate 21 22 20 Blood Pressure 118/74 168/96 H 120/83 Pulse Oximetry 98 04/30/18 12:00 04/30/18 16:00 04/30/18 20:00 Temperature 98.5 F 98.1 F 98.2 F Pulse Rate 69 58 L 60 Respiratory Rate 20 20 17 Blood Pressure 120/83 120/70 106/55 L Pulse Oximetry 97 96 95 05/01/18 00:00 05/01/18 04:00 Temperature 98.3 F 98.2 F Pulse Rate 60 60 Respiratory Rate 16 16 Blood Pressure 93/54 L 95/53 L Pulse Oximetry 96 95 Intake & Output 04/30/18 05/01/18 05/01/18 18:59 06:59 18:59 Intake Total 240 / 240 Output Total 1999 300 / 300 Balance -1999 -60 / -60 Weight 87.5 kg Intake: Oral 240 / 240 Output: Urine 1999 300 / 300 Other: Date of Last Bowel Movement 04/29/18 04/29/18 # Bowel Movements 1 0 Narrative: Exam: General: Well-developed, alert, and in no acute distress. Appears stated age. Significant cognitive impairment HEENT: Atraumatic, PERRL, non-icteric sclera and no conjunctival injection, moist mucous membranes Neck: Supple, non-tender without masses or lymphadenopathy, trachea midline, no JVD Cardiac: Regular rate and rhythm with 3/6 murmur Pulmonary: Non-labored breathing. Lungs clear to auscultation bilaterally with good air movement Abdomen: Normal bowel sounds, soft and non-tender Extremities: No edema, 2+ pedal pulses, capillary refill less than 2 seconds Results 04/29/18 07:08 04/29/18 07:08 Cardiac Enzymes 04/29/18 04/29/18 Range/Units 16:39 22:30 Troponin I Less than 0.02 L Less than 0.02 L (0.02-0.05) ng/mL CBC 04/29/18 Range/Units 07:08 WBC 3.7 L (4.0-11.0) th/mm3 RBC 4.86 (4.50-5.90) mil/mm3 Hgb 13.6 (13.0-17.0) gm/dL Hct 40.7 (39.0-51.0) % Plt Count 128 L (150-450) th/mm3 Comprehensive Metabolic Panel 04/29/18 Range/Units 07:08 Sodium 136 (136-145) meq/L Potassium 4.6 (3.5-5.1) meq/L Chloride 101 (98-107) meq/L Carbon Dioxide 28.0 (21.0-32.0) meq/L BUN 25 H (7-18) mg/dL Creatinine 1.22 (0.60-1.30) mg/dL Calcium 8.8 (8.5-10.1) mg/dL Intake and Output 04/30/18 05/01/18 05/01/18 22:59 06:59 14:59 Intake Total 240 / 240 Output Total 1999 300 / 300 Balance -1999 -60 Intake: Oral 240 / 240 Output: Urine 1999 300 / 300 Other: Date of Last Bowel Movement 04/29/18 # Bowel Movements 1 0 Weight 87.5 kg Assessment and Plan - Plan Assessment: Atypical chest pain, which is reproducible to palpation - possibly MSK etiology. CP predated recent AICD discharge. With history of obstructive CAD, will need to evaluate further for coronary ischemia. Paroxysmal Atrial fibrillation Nonsustained VT, successfully terminated with ICD AICD discharge ICM with last EF 40% up from 30-35% previously in 2017 Hx of CAD s/p [place] and CABG HLD HTN Abdomial pain Cognitive Impairment Hx of medication nonadherence Recommendations: -NPO today for lexiscan stress test -continue amiodarone at 400mg po bid x 7 days, then 400mg daily x 7 days then 200mg daily thereafter -continue carvedilol, start 6.25mg bid with holding parameters -start CITLALY-I with Lisinopril 5mg daily if BP tolerates -Continue ASA 81mg daily and Atorvastatin -due to medication nonadherance and frequent admissions for such, patient is a very poor candidate for chronic anticoagulation therapy for noted CHADS-VASc score of 3. Will defer further discussions for chronic anticoagulation therapy for primary team with his family/caregivers if at some point he is having medications administered to him.
[2018-05-01] MEDS: Amiodarone 200 MG Tablet PO SCH ×2 (08:22→21:10)
[2018-05-01] MEDS: Carvedilol 6.25 MG Tablet PO SCH ×2 (08:22→21:11)
[2018-05-01] MEDS: Senna/Docusate Sodium 8.6/50 MG Tablet PO SCH ×2 (08:23→21:12)
[2018-05-01] MEDS: Insulin NovoLOG Aspart Correctional Sugar Inj SQ SCH ×4 (08:23→21:13)
[2018-05-01] MEDS: Lisinopril 5 MG Tablet PO SCH (08:23)
[2018-05-01] MEDS ORDERED: Regadenoson Inj 0.4 MG/5 ML Syringe IV.PUSH ONE (09:19)
--- NOTE | 2018-05-01 12:04 | NM ---
EXAM DATE: 05/01/2018 11:01 AM EST AGE/SEX: 47 years / Male INDICATIONS:Angina. Coronary artery disease Left sided chest pain. CLINICAL DATA: This is the patient's initial encounter. Patient reports that signs and symptoms have been present for 2 days and indicates a pain score of 1/10. MEDICAL/SURGICAL HISTORY: Myocardial infarction. Hypertension. Pacemaker. CABG. [place] [facility] [place] 04/[place]2018. [facility] [place]. [facility] [place]/29/2016. . DOSE: 8.5 mCi Tc 99m Myoview at rest 25.4 mCi [id number] at stress 0.4 mg Lexiscan STRESS SYMPTOMS: Short of breath. EJECTION FRACTION: 52 % TECHNIQUE: The patient underwent pharmacologic stress with infusion of prescribed dose. Continuous ECG tracing was monitored during stress. Gated SPECT imaging was performed after stress and conventi onal SPECT imaging was performed at rest. The examination was performed on a SPECT/CT scanner, both attenuation and non-corrected datasets were reviewed. FINDINGS: The patient has transposition of great vessels. There is significant hypertrophy of the right ventric le which basically takes up all of the injected radiotracer and there is basically little to no uptak e involving the left ventricle. This is due to altered mechanics of ventricles in this patient and th e right ventricle has basically taken to rule out left ventricle since it supplies the aorta. The lef t ventricle is available not evaluated. The area of maximum perfusion to the right ventricle during stress is to the anterolateral wall. Ther e is significant uptake in the patient's bowel which limits evaluation of posterior basal and inferio r wall. There is an area of diminished perfusion to the low inferior wall which is fixed for the most part during stress and rest without any significant appreciable ischemia involving the right ventric le. The right ventricular ejection fraction calculates at 52%. RISK CATEGORY: Low (<1% Annual Motality Rate) CONCLUSION: 1. Transposition of great vessels with very little to no uptake involving the left ventricle due to significant compensatory hypertrophy of the right ventricle supplying the aorta. 2. No significant ischemia involving the right ventricle with 52% ejection fraction. Electronically signed by: Vinnie Stinson MD 05/01/2018 12:03 PM EST
--- NOTE | 2018-05-01 12:58 | P.PNPSY ---
Subjective Remarks: Patient was visited by psychiatry for psychiatric evaluation, but the patient was out in a nuclear medicine procedure. Will come back in a later time once the patient is in the room. Assessment and Plan - Plan Plan: Patient was visited by psychiatry team for psychiatric evaluation, but the patient was out in a nuclear medicine procedure. Will come back in a later time once the patient is in the room. Justification for Continued Inpatient Stay: Patient was visited by psychiatry team for psychiatric evaluation, but the patient was out in a nuclear medicine procedure. Will come back in a later time once the patient is in the room.
--- NOTE | 2018-05-01 14:42 | P.PNFP ---
Subjective Interval history: Patient seen and examined this morning. Patient reports he has had no further chest pain since yesterday. His last chest pain was yesterday morning. He does not feels though his AICD has fired since then. Denies nausea, vomiting, fever, chills, don pain, shortness of breath, left arm or jaw pain, change in vision, lightheadedness, dizziness, headache, fatigue. No acute events overnight. No other complaints at this time. <Kj Youssef - 05/01/18 14:49> Results - Labs Result diagrams: 05/02/18 05:25 05/02/18 05:25 <Christopher Chin - 05/02/18 13:04> Abnormal lab results 05/01/18 05/01/18 05/02/18 Range/Units 17:36 20:01 05:25 Hct 37.7 L (39.0-51.0) % Plt Count 141 L (150-450) th/mm3 BUN (7-18) mg/dL Creatinine (0.60-1.30) mg/dL Estimated GFR (>89) mL/min POC Glucose 138 H 235 H (68-110) mg/dl Random Glucose (74-106) mg/dL 05/02/18 05/02/18 05/02/18 Range/Units 05:25 07:15 12:14 Hct (39.0-51.0) % Plt Count (150-450) th/mm3 BUN 27 H (7-18) mg/dL Creatinine 1.38 H (0.60-1.30) mg/dL Estimated GFR 66 L (>89) mL/min POC Glucose 220 H 215 H (68-110) mg/dl Random Glucose 203 H (74-106) mg/dL Short CBC 05/02/18 Range/Units 05:25 WBC 4.4 (4.0-11.0) th/mm3 Hgb 13.0 (13.0-17.0) gm/dL Hct 37.7 L (39.0-51.0) % Plt Count 141 L (150-450) th/mm3 BMP 05/02/18 05:25 Sodium 136 Potassium 3.9 Chloride 103 Carbon Dioxide 24.3 BUN 27 H Creatinine 1.38 H Calcium 8.8 <Christopher Chin - 05/02/18 13:04> Abnormal lab results 04/30/18 04/30/18 05/01/18 Range/Units 18:04 19:38 07:39 POC Glucose 209 H 253 H 237 H (68-110) mg/dl 05/01/18 Range/Units 11:58 POC Glucose 173 H (68-110) mg/dl <Kj Youssef - 05/01/18 14:41> - Imaging Impressions Myocardial Perfusion Scan Nuc Med 05/01/18 00:00 CONCLUSION: 1. Transposition of great vessels with very little to no uptake involving the left ventricle due to significant compensatory hypertrophy of the right ventricle supplying the aorta. 2. No significant ischemia involving the right ventricle with 52% ejection fraction. <Kj Youssef - 05/01/18 14:41> Physical Exam Vital signs: Vital Signs 05/01/18 16:00 05/01/18 17:48 05/01/18 20:00 Temperature 98.2 F 97.7 F Pulse Rate 60 60 Respiratory Rate 17 18 Blood Pressure 97/53 L 90/52 L Pulse Oximetry 97 96 95 05/01/18 20:05 05/01/18 23:47 05/02/18 00:00 Temperature 98.5 F Pulse Rate 60 60 61 Respiratory Rate 17 Blood Pressure 104/56 L Pulse Oximetry 95 05/02/18 03:49 05/02/18 03:59 05/02/18 08:00 Temperature 97.8 F 98.2 F Pulse Rate 60 60 60 Respiratory Rate 16 18 Blood Pressure 97/52 L 104/72 Pulse Oximetry 97 95 05/02/18 08:44 05/02/18 09:41 Temperature Pulse Rate 60 Respiratory Rate 20 Blood Pressure 121/70 Pulse Oximetry 95 Intake & Output 05/01/18 05/02/18 05/02/18 18:59 06:59 18:59 Intake Total 560 / 560 520 / 520 Output Total 1800 / 1800 500 / 500 Balance -1240 / -1240 20 Weight 87.7 kg Intake: Oral 560 / 560 520 / 520 Output: Urine 1800 / 1800 500 / 500 Other: # Bowel Movements 0 0 <Christopher Chin - 05/02/18 13:04> Vital Signs 04/30/18 16:00 04/30/18 20:00 05/01/18 00:00 Temperature 98.1 F 98.2 F 98.3 F Pulse Rate 58 L 60 60 Respiratory Rate 20 17 16 Blood Pressure 120/70 106/55 L 93/54 L Pulse Oximetry 96 95 96 05/01/18 04:00 05/01/18 08:00 Temperature 98.2 F 98.0 F Pulse Rate 60 59 L Respiratory Rate 16 17 Blood Pressure 95/53 L 127/68 Pulse Oximetry 95 98 Intake & Output 04/30/18 05/01/18 05/01/18 18:59 06:59 18:59 Intake Total 240 / 240 Output Total 1999 300 / 300 Balance -1999 -60 Weight 87.5 kg Intake: Oral 240 / 240 Output: Urine 1999 300 / 300 Other: Date of Last Bowel Movement 04/29/18 04/29/18 # Bowel Movements 1 0 <Kj Youssef - 05/01/18 14:41> Narrative: General: Well-developed, alert, and in no acute distress. Significant cognitive impairment HEENT: Atraumatic, PERRL, non-icteric sclera and no conjunctival injection, moist mucous membranes Neck: Supple, non-tender without masses or lymphadenopathy, trachea midline, no JVD Cardiac: Regular rate and rhythm with 3/6 murmur, unchanged from prior exam Pulmonary: Non-labored breathing. Lungs clear to auscultation bilaterally with good air movement Abdomen: Normal bowel sounds, soft and non-tender Extremities: No edema, 2+ pedal pulses, capillary refill less than 2 seconds <MikaelKj Borrero - 05/01/18 14:49> Assessment and Plan - Assessment (1) Chest pain Code(s): R07.9 - Chest pain, unspecified Status: Resolved (2) Hypertension Code(s): I10 - Essential (primary) hypertension Status: Acute (3) Elevated random blood glucose level Code(s): R73.09 - Other abnormal glucose Status: Acute <Christopher Chin - 05/02/18 13:04> (1) Chest pain Code(s): R07.9 - Chest pain, unspecified Status: Resolved (2) Hypertension Code(s): I10 - Essential (primary) hypertension Status: Acute Plan: (3) Elevated random blood glucose level Code(s): R73.09 - Other abnormal glucose Status: Acute Plan: <FailleKjWayne - 05/01/18 14:43> - Assessment and Plan He is a 47-year-old male with a history significant for MA, CAD, CABG, hypertension, and AICD placed 2 years ago who presented with chest pain who had EGK without acute changes and troponins x3 of .02,.03, and .03. Chest pain and history of ASCVD: -Original EKG showed some T wave inversions -Troponins negative -Tylenol for pain, morphine for breakthrough pain -F/U psyche recommendations Consult to cardiology due to possible pacemaker dysfunction, appreciate recommendations -continue amiodarone at 400mg po bid x 7 days, then 400mg daily x 7 days then 200mg daily thereafter -continue carvedilol, start 6.25mg bid with holding parameters -start CITLALY-I with Lisinopril 5mg daily if BP tolerates -Continue Atorvastatin 40 mg and aspirin -f/u Stress test -Poor candidate for anticoagulation due to nonadherance Diabetes: A1C 8.8 -low-dose sliding scale insulin before meals at bedtime -We will consider sending him home on oral antidiabetic medication Fluids: Adequate p.o. intake Electrolytes: monitor and replete as needed Nutrition: Cardiac, n.p.o. after midnight GI prophylaxis: not indicated VTE prophylaxis: Ambulating around the floor Patient was seen and examined with Dr. Youssef and care was discussed with Dr. Chin <MikaelKj Borrero - 05/01/18 14:49> - Attending Attestation This patient was seen and evaluated with the resident physician. I agree with the plan of care as discussed with me and documented in the resident note. Christopher Chin MD <Christopher Chin - 05/02/18 13:04>
[2018-05-01] MEDS: Famotidine 20 MG Tablet PO SCH (21:12)
[2018-05-02 06:10] LABS: Hematocrit 37.7 % (39.0-51.0); Mean Corpuscular HGB Conc 34.5 % (32.0-36.0); Mean Corpuscular Volume 81.2 fL (80.0-100.0); Mean Platelet Volume 8.6 fL (7.0-11.0); Platelet Count 141 th/mm3 (150-450); Red Blood Count 4.64 mil/mm3 (4.50-5.90); Red Cell Distribution Width 16.3 % (11.6-17.2); White Blood Count 4.4 th/mm3 (4.0-11.0)
[2018-05-02 06:44] LABS: Calcium 8.8 mg/dL (8.5-10.1); Carbon Dioxide 24.3 meq/L (21.0-32.0); Potassium 3.9 meq/L (3.5-5.1)
[2018-05-02] MEDS: Amiodarone 200 MG Tablet PO SCH (08:46)
[2018-05-02] MEDS: Carvedilol 6.25 MG Tablet PO SCH (08:47)
[2018-05-02] MEDS: Lisinopril 5 MG Tablet PO SCH (08:47)
[2018-05-02] MEDS: Insulin NovoLOG Aspart Correctional Sugar Inj SQ SCH ×2 (08:48→12:49)
[2018-05-02] MEDS: Senna/Docusate Sodium 8.6/50 MG Tablet PO SCH (08:52)
--- NOTE | 2018-05-02 10:40 | P.PNFP ---
Subjective Interval history: Patient seen and examined this morning. Patient reports he has had no further chest pain since 2 days ago. He does not feels though his AICD has fired since then. Denies nausea, vomiting, fever, chills, don pain, shortness of breath, left arm or jaw pain, change in vision, lightheadedness, dizziness, headache, fatigue. No acute events overnight. No other complaints at this time. <Kj Youssef - 05/02/18 10:39> Results - Labs Result diagrams: 05/02/18 05:25 05/02/18 05:25 <Christopher Chin - 05/02/18 13:10> Abnormal lab results 05/01/18 05/01/18 05/02/18 Range/Units 17:36 20:01 05:25 Hct 37.7 L (39.0-51.0) % Plt Count 141 L (150-450) th/mm3 BUN (7-18) mg/dL Creatinine (0.60-1.30) mg/dL Estimated GFR (>89) mL/min POC Glucose 138 H 235 H (68-110) mg/dl Random Glucose (74-106) mg/dL 05/02/18 05/02/18 05/02/18 Range/Units 05:25 07:15 12:14 Hct (39.0-51.0) % Plt Count (150-450) th/mm3 BUN 27 H (7-18) mg/dL Creatinine 1.38 H (0.60-1.30) mg/dL Estimated GFR 66 L (>89) mL/min POC Glucose 220 H 215 H (68-110) mg/dl Random Glucose 203 H (74-106) mg/dL Short CBC 05/02/18 Range/Units 05:25 WBC 4.4 (4.0-11.0) th/mm3 Hgb 13.0 (13.0-17.0) gm/dL Hct 37.7 L (39.0-51.0) % Plt Count 141 L (150-450) th/mm3 BMP 05/02/18 05:25 Sodium 136 Potassium 3.9 Chloride 103 Carbon Dioxide 24.3 BUN 27 H Creatinine 1.38 H Calcium 8.8 <Christopher Chin - 05/02/18 13:10> Abnormal lab results 05/01/18 05/01/18 05/01/18 Range/Units 11:58 17:36 20:01 Hct (39.0-51.0) % Plt Count (150-450) th/mm3 BUN (7-18) mg/dL Creatinine (0.60-1.30) mg/dL Estimated GFR (>89) mL/min POC Glucose 173 H 138 H 235 H (68-110) mg/dl Random Glucose (74-106) mg/dL 05/02/18 05/02/18 05/02/18 Range/Units 05:25 05:25 07:15 Hct 37.7 L (39.0-51.0) % Plt Count 141 L (150-450) th/mm3 BUN 27 H (7-18) mg/dL Creatinine 1.38 H (0.60-1.30) mg/dL Estimated GFR 66 L (>89) mL/min POC Glucose 220 H (68-110) mg/dl Random Glucose 203 H (74-106) mg/dL Short CBC 05/02/18 Range/Units 05:25 WBC 4.4 (4.0-11.0) th/mm3 Hgb 13.0 (13.0-17.0) gm/dL Hct 37.7 L (39.0-51.0) % Plt Count 141 L (150-450) th/mm3 BMP 05/02/18 05:25 Sodium 136 Potassium 3.9 Chloride 103 Carbon Dioxide 24.3 BUN 27 H Creatinine 1.38 H Calcium 8.8 <Kj Youssef - 05/02/18 10:39> - Imaging Impressions Myocardial Perfusion Scan Nuc Med 05/01/18 00:00 CONCLUSION: 1. Transposition of great vessels with very little to no uptake involving the left ventricle due to significant compensatory hypertrophy of the right ventricle supplying the aorta. 2. No significant ischemia involving the right ventricle with 52% ejection fraction. <Kj Youssef - 05/02/18 10:39> Physical Exam Vital signs: Vital Signs 05/01/18 16:00 05/01/18 17:48 05/01/18 20:00 Temperature 98.2 F 97.7 F Pulse Rate 60 60 Respiratory Rate 17 18 Blood Pressure 97/53 L 90/52 L Pulse Oximetry 97 96 95 05/01/18 20:05 05/01/18 23:47 05/02/18 00:00 Temperature 98.5 F Pulse Rate 60 60 61 Respiratory Rate 17 Blood Pressure 104/56 L Pulse Oximetry 95 05/02/18 03:49 05/02/18 03:59 05/02/18 08:00 Temperature 97.8 F 98.2 F Pulse Rate 60 60 60 Respiratory Rate 16 18 Blood Pressure 97/52 L 104/72 Pulse Oximetry 97 95 05/02/18 08:44 05/02/18 09:41 Temperature Pulse Rate 60 Respiratory Rate 20 Blood Pressure 121/70 Pulse Oximetry 95 Intake & Output 05/01/18 05/02/18 05/02/18 18:59 06:59 18:59 Intake Total 560 / 560 520 / 520 Output Total 1800 / 1800 500 / 500 Balance -1240 / -1240 Weight 87.7 kg Intake: Oral 560 / 560 520 / 520 Output: Urine 1800 / 1800 500 / 500 Other: # Bowel Movements 0 0 <Christopher Chin R - 05/02/18 13:10> Vital Signs 05/01/18 12:00 05/01/18 16:00 05/01/18 17:48 Temperature 98.2 F 98.2 F Pulse Rate 60 60 Respiratory Rate 17 17 Blood Pressure 95/54 L 97/53 L Pulse Oximetry 96 97 96 05/01/18 20:00 05/01/18 20:05 05/01/18 23:47 Temperature 97.7 F Pulse Rate 60 60 60 Respiratory Rate 18 Blood Pressure 90/52 L Pulse Oximetry 95 05/02/18 00:00 05/02/18 03:49 05/02/18 03:59 Temperature 98.5 F 97.8 F Pulse Rate 61 60 60 Respiratory Rate 17 16 Blood Pressure 104/56 L 97/52 L Pulse Oximetry 95 97 05/02/18 08:00 05/02/18 08:44 05/02/18 09:41 Temperature 98.2 F Pulse Rate 59 L 60 Respiratory Rate 18 20 Blood Pressure 104/72 121/70 Pulse Oximetry 95 95 Intake & Output 05/01/18 05/02/18 05/02/18 18:59 06:59 18:59 Intake Total 560 / 560 520 / 520 Output Total 1800 / 1800 500 / 500 Balance -1240 / -1240 Weight 87.7 kg Intake: Oral 560 / 560 520 / 520 Output: Urine 1800 / 1800 500 / 500 Other: # Bowel Movements 0 0 <Kj Youssef - 05/02/18 10:39> Assessment and Plan - Assessment (1) Chest pain Code(s): R07.9 - Chest pain, unspecified Status: Resolved (2) Hypertension Code(s): I10 - Essential (primary) hypertension Status: Acute (3) Elevated random blood glucose level Code(s): R73.09 - Other abnormal glucose Status: Acute <Christopher Chin R 05/02/18 13:10> (1) Chest pain Code(s): R07.9 - Chest pain, unspecified Status: Resolved (2) Hypertension Code(s): I10 - Essential (primary) hypertension Status: Acute Plan: (3) Elevated random blood glucose level Code(s): R73.09 - Other abnormal glucose Status: Acute Plan: <Kj Youssef 05/02/18 10:37> - Assessment and Plan He is a 47-year-old male with a history significant for [place], CAD, CABG, hypertension, and AICD placed 2 years ago who presented with chest pain who had EGK without acute changes and troponins x3 of .02,.03, and .03. Chest pain and history of ASCVD: -Original EKG showed some T wave inversions -Troponins negative -Tylenol for pain, morphine for breakthrough pain -F/U psyche recommendations Consult to cardiology due to possible pacemaker dysfunction, appreciate recommendations -continue amiodarone at 400mg po bid x 7 days, then 400mg daily x 7 days then 200mg daily thereafter -continue carvedilol, start 6.25mg bid with holding parameters -start CITLALY-I with Lisinopril 5mg daily if BP tolerates -Continue Atorvastatin 40 mg and aspirin -f/u Stress test interpretation -Poor candidate for anticoagulation due to nonadherance Diabetes: A1C 8.8 -low-dose sliding scale insulin before meals at bedtime -We will consider sending him home on oral antidiabetic medication Fluids: Adequate p.o. intake Electrolytes: monitor and replete as needed Nutrition: Cardiac, n.p.o. after midnight GI prophylaxis: not indicated VTE prophylaxis: Ambulating around the floor Case management currently speaking with DCF and assisting with appropriate placement <Kj Youssef - 05/02/18 10:39> - Attending Attestation This patient was seen and evaluated with the resident physician. I agree with the plan of care as discussed with me and documented in the resident note. Christopher Chin MD <Christopher Chin - 05/02/18 13:10>
[2018-05-02 15:08] VITALS: RESP 18
--- NOTE | 2018-05-02 15:35 | P.CONPSY ---
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 Consulted to psychiatry to address symptoms of anxiety. On my psychiatric evaluation the patient is calm, cooperative, he is talking with his sister by phone. The patient reports feeling much better, denies pain at the moment. Patient is very concrete, with a very prominent black and white thinking, becoming very anxious in my presence, needing persistent reassurance. He says that he is in a good mood, but he would like his family to be closer to him. He denies depression, he denies suicidal and homicidal ideation, denies visual and auditory hallucinations. Patient is very childish, states that if I have any question and she will call his sister, she has more information to himself about his medical history. He says that he wants to be okay, because he wants to take care of his kids and he was to take him to the ice cream store. I was able to get collateral information from his sister, Soila [phone]. She confirms me that the patient has a psychiatric history of mental retardation, but he has a very low level of education, he has been diagnosed with bipolar disorder, but he has not been on medications for this condition. She says that he can be very impulsive and at times aggressive, but most of the time he can be very anxious out of his zone of comfort PMFSH - History History Provided By: Patient - Medical History Medical History: Medical History (Last Reviewed 04/26/18 @ 18:38 by Haritha Mejias RN) AICD discharge (Acute) Myocardial infarction (Acute) Hypertension (Acute) Chest pain (Resolved) Angina at rest (Acute) - Surgical History Surgical History: Surgical History (Last Reviewed 04/26/18 @ 18:38 by Haritha Mejias RN) Hx of CABG (Acute) Hx of cardiac cath (Acute) - Tobacco History Second Hand Smoke Exposure: No Tobacco Use In Past 30 Days: No Smoking Status: Former smoker Tobacco Type: Cigarettes - Alcohol History How Often Do You Have a Drink Containing Alcohol: Never - Substance Use History Substance History: No History of Abuse - Travel History Recent Travel in the [facility] Within the Last 8 Weeks: No Recent Travel Out of the Country Within the Last 8 Weeks: No - Immunization History Tetanus Immunization: >5 Years Hx Influenza Vaccine This Season: No Medications and Allergies Active Medications: Active Medications Acetaminophen (Tylenol) 650 mg PO Q6H PRN PRN Reason: pain or fever Al Hydroxide/Mg Hydroxide (Milk Of Magnesia Liq) 30 ml PO Q12H PRN PRN Reason: Mild Constipation Amiodarone HCl (Cordarone) 400 mg PO Q12HR [facility] Last Admin: 05/02/18 08:46 Dose: 400 mg Aspirin (Ecotrin) 81 mg PO DAILY [facility] Last Admin: 05/02/18 08:47 Dose: 81 mg Atorvastatin Calcium (Lipitor) 40 mg PO DAILY [facility] Last Admin: 05/02/18 08:47 Dose: 40 mg Bisacodyl (Dulcolax Supp) 10 mg RECTAL DAILY PRN PRN Reason: SEVERE CONSITIPATION Carvedilol (Coreg) 6.25 mg PO BID [facility] Last Admin: 05/02/18 08:47 Dose: 6.25 mg Dextrose (D50w Vial) 50 ml IV.PUSH UNSCH PRN PRN Reason: PER HYPOGLYCEMIA PROTOCOL Famotidine (Pepcid) 20 mg PO HS [facility] Last Admin: 05/01/18 21:12 Dose: 20 mg Glucagon (Glucagon Inj) 1 mg OTHER PRN PRN PRN Reason: for Hypoglycemia Protocol Insulin Aspart (Novolog Insulin Correctional Sugar Inj) [address] [facility]; Protocol Last Admin: 05/02/18 12:49 Dose: 3 unit Lactulose (Lactulose Liq) 30 ml PO DAILY PRN PRN Reason: SEVERE CONSITIPATION Lisinopril (Prinivil) 5 mg PO DAILY [facility] Last Admin: 05/02/18 08:47 Dose: 5 mg Morphine Sulfate (Morphine Inj) 2 mg IV.PUSH Q3H PRN PRN Reason: BREAKTHROUGH PAIN Naloxone HCl (Narcan Inj) 0.4 mg IV.PUSH UNSCH PRN PRN Reason: SEE LABEL COMMENTS Nitroglycerin (Nitrostat Sl) 0.4 mg SL Q5M PRN PRN Reason: CHEST PAIN Ondansetron HCl (Zofran Inj) 4 mg IV.PUSH Q6H PRN PRN Reason: NAUSEA OR VOMITING Senna/Docusate Sodium (Petra-Colace) 1 tab PO BID [facility] Last Admin: 05/02/18 08:52 Dose: Not Given Sennosides (Senokot) 17.2 mg PO Q12H PRN PRN Reason: Moderate Constipation Sodium Chloride (Ns Flush) 2 ml IV.FLUSH UNSCH PRN PRN Reason: FLUSH AFTER USING IV ACCESS Last Admin: 04/28/18 20:08 Dose: 2 ml Allergies Allergy/AdvReac Type Severity Reaction Status Date / Time No Known Allergies Allergy Verified 04/26/18 09:55 Home Medications Medication Instructions Recorded Confirmed Type amiodarone 200 mg PO DAILY 12/05/17 04/26/18 History atorvastatin 40 mg PO DAILY 12/05/17 04/26/18 History bupropion HCl 100 mg PO DAILY 12/05/17 04/26/18 History carvedilol 6.25 mg PO BID 12/05/17 04/26/18 History furosemide 20 mg PO DAILY 12/05/17 04/26/18 History metformin 500 mg PO BID 02/02/18 04/26/18 History potassium chloride 20 meq PO DAILY 02/02/18 04/26/18 History Exam Vital signs: Vital Signs 05/01/18 16:00 05/01/18 17:48 05/01/18 20:00 Temperature 98.2 F 97.7 F Pulse Rate 60 60 Respiratory Rate 17 18 Blood Pressure 97/53 L 90/52 L Pulse Oximetry 97 96 95 05/01/18 20:05 05/01/18 23:47 05/02/18 00:00 Temperature 98.5 F Pulse Rate 60 60 61 Respiratory Rate 17 Blood Pressure 104/56 L Pulse Oximetry 95 05/02/18 03:49 05/02/18 03:59 05/02/18 08:00 Temperature 97.8 F 98.2 F Pulse Rate 60 60 60 Respiratory Rate 16 18 Blood Pressure 97/52 L 104/72 Pulse Oximetry 97 95 05/02/18 08:44 05/02/18 09:41 05/02/18 12:00 Temperature 97.9 F Pulse Rate 60 59 L Respiratory Rate 20 18 Blood Pressure 121/70 115/66 Pulse Oximetry 95 97 Intake & Output 05/01/18 05/02/18 05/02/18 18:59 06:59 18:59 Intake Total 560 / 560 520 / 520 Output Total 1800 / 1800 500 / 500 Balance -1240 / -1240 20 / 20 Weight 87.7 kg Intake: Oral 560 / 560 520 / 520 Output: Urine 1800 / 1800 500 / 500 Other: # Bowel Movements 0 0 Mental Status Examination Appearance: Appropriate Consciousness: Alert Orientation: x4 Motor Activity: Normal gait Speech: Unremarkable Language: Adequate Fund of Knowledge: Adequate Attention and Concentration: Adequate Memory: Unremarkable Mood: Appropriate Affect: Appropriate Thought Process & Associations: Intact Thought Content: Appropriate Hallucination Type: None Delusion Type: None Suicidal Ideation: No Suicidal Plan: No Suicidal Intention: No Homicidal Ideation: No Homicidal Plan: No Homicidal Intention: No Insight: Adequate Judgment: Adequate Assessment and Plan - Assessment (1) Adjustment disorder with anxiety Code(s): F43.22 - Adjustment disorder with anxiety Status: Acute - Plan Plan: On psychiatric evaluation today the patient presents calm, cooperative, very childish, concrete and at times anxious. The patient denies symptomatology of depression, he denies suicidal and homicidal ideation, he denies visual and auditory hallucinations. He denies pain, denies distress, he is future oriented , stating that he wants to get better to go back home and to take her of his 2 kids. He does have a psychiatric history of intellectual disability, bipolar disorder, but no previous psychiatric hospitalizations, no previous suicide attempts. The patient definitely has increased anxiety related with recent hospitalization and acute medical problems. He does not meet criteria for involuntary psychiatric admission. I would not recommend benzodiazepines in this patient since benzodiazepines could lead to paradoxical reaction in patients with intellectual disability, but Benadryl 25 mg twice daily or even gabapentin 300 mg 3 times daily can help with his current anxiety. Support, motivational psychoeducation provided. Consult appreciated. Justification for Continued Inpatient Stay: No admission indicated at the moment
[2018-05-02 18:42] VITALS: BP 109/57; PULSE 60; TEMP 98.6; O2SAT 98
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
== END 2018-05-02 16:39 | disposition home or self-care (01) ==
LOC: NEPC 09:35 → NEDA 17:25 → N04 18:23
PROVIDERS: ADMIT Family Medicine; ATTEND Family Medicine